=== PATIENT | female | born 2000 | race Caucasian/White ===

== ENCOUNTER 2023-12-02 10:30 | Emergency (ER) | payer OTHER, SELFPAY ==
[2023-12-02 10:35] VITALS: BP 155/106; PULSE 109; TEMP 36.6; O2SAT 98; BMI 25.7
[2023-12-02 10:42] VITALS: BP 148/96
--- NOTE | 2023-12-02 11:02 | XR_ITS ---
The [address] [address] Patient Name: PRESTON HARTLEY MRN: [id number] date: 2000 Sex: F Assigned Patient Location: ER Current Patient Location: ED.MAIN Accession/Order Number: [id number] Exam Date: 12/02/2023 10:55 Report Date: 12/02/2023 11:31 At the request of: MARSHA TAYLOR Procedure: XR chest 2V EXAM: XR chest 2V HISTORY: Pain, left ribs pain for 2 weeks COMPARISON: None. TECHNIQUE: Chest X-ray, 2 views FINDINGS: Support devices: None. Lungs/pleura: No consolidation, effusion, or pneumothorax. Heart and mediastinum: Normal contours. Bones: No definite acute displaced fracture is noted in the AP and lateral images. If there is any point tenderness, dedicated repeat x-ray is recommended. XR/XR chest 2V Impression: No radiographic evidence of acute cardiopulmonary process. No definite acute displaced fracture is noted in the AP and lateral images. If there is any point tenderness, dedicated repeat x-ray is recommended. Electronically authenticated by: ROSSANA MISTRY Date: 12/02/2023 11:31
--- NOTE | 2023-12-02 11:13 | ED.CHESTPAI1 ---
HPI - Chest Pain General Chief Complaint: Chest Pain Stated Complaint: SIDE PAIN Time Seen by Provider: 12/02/23 10:56 Source: patient Mode of arrival: walk-in Limitations: no limitations History of Present Illness HPI narrative: This patient is here complaining of left anterior lateral chest pain. She had what she calls a cold about 1 month ago and had some discomfort in that area. That discomfort has persisted but it seemed to get a lot worse today. She has not had purulent sputum she has not had fever shakes chills or influenza type symptoms. The left chest pain is made worse with taking a deep breath and with moving. She has not had a chest x-ray eval and. She is on an estrogen. She is afebrile here and has normal pulse oximetry on room air here. The pain is not in her back area. She has not had any trauma or injury to the area. 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 She moves about with hesitation grimacing hold her left anterior chest area. Examining her lungs she has excellent breath sounds with no wheeze rales or rhonchi there is no pleural or pericardial rub. Her heart sounds are normal with no heart murmur. She has no bruises contusions or abrasions over the area. There is no rash or anything to suggest shingles at this time. She has no discomfort with deep palpation in the left upper quadrant. There is no splenomegaly. She has reproducible discomfort with palpation over the lateral chest wall but there is no crepitation or subcutaneous emphysema or paradoxical movement. Her legs show no evidence of DVT phlebitis or edema. Routine single view chest x-ray is done I do not see any evidence of pneumothorax infiltrates or other abnormalities. Constitutional Vital Signs, click to edit/add: Last Vital Signs Temp 97.8 F 12/02/23 10:35 Pulse 109 H 12/02/23 10:35 Resp 18 12/02/23 10:35 BP 148/96 H 12/02/23 10:42 Pulse Ox 98 12/02/23 10:35 O2 Del Method Room Air 12/02/23 10:35 Course Vital Signs Vital signs: Vital Signs Temperature 97.8 F 12/02/23 10:35 Pulse Rate 109 H 12/02/23 10:35 Respiratory Rate 18 12/02/23 10:35 Blood Pressure 155/106 H 12/02/23 10:35 Pulse Oximetry 98 12/02/23 10:35 Oxygen Delivery Method Room Air 12/02/23 10:35 Temperature 97.8 F 12/02/23 10:35 Pulse Rate 109 H 12/02/23 10:35 Respiratory Rate 18 12/02/23 10:35 Blood Pressure 148/96 H 12/02/23 10:42 Pulse Oximetry 98 12/02/23 10:35 Oxygen Delivery Method Room Air 12/02/23 10:35 MDM - Chest Pain MDM Narrative Medical decision making narrative: This patient's physical examination and history would suggest a chest wall strain. Do not see high risk condition for DVT. She is on immune medications for Crohn's disease but there is no side effect profile for DVT or pulmonary embolism. She has no clinical symptoms of phlebitis or DVT. Her pulse oximetry and vital signs are normal and her examination is consistent with a chest wall strain. I did offer her our actual rib study to get better views but she does not want to proceed with that. Discharge Plan Discharge Stand Alone Forms: Portal Instructions Chief Complaint: Chest Pain Clinical Impression: Acute chest wall pain Patient Disposition: Home, Self-Care Time of Disposition Decision: 11:56 Prescriptions / Home Meds: No Action dextroamphetamine-amphetamine 10 mg tablet 20 mg PO DAILY norgestimate-ethinyl estradiol 0.25-35 mg-mcg tablet 1 tab PO DAILY venlafaxine 75 mg capsule,extended release 24hr 75 mg PO DAILY Stelara 90 mg/mL syringe 90 mg SUBCUT .every 8 weeks Print Language: Swiss Additional Instructions: Toradol as needed for pain Referrals: PADMINI DOUGLAS [Primary Care Provider] - 1 week
== END 2023-12-02 12:09 | disposition home or self-care (01) ==
PROVIDERS: Emergency Provider Emergency Medicine Emergency Medical Services; PCP Family Medicine
DX: R07.89 Other chest pain (principal)
CPT/HCPCS: 71046; 99283

== ENCOUNTER 2024-03-17 11:03 | Outpatient (OUT) | payer OTHER, SELFPAY ==
[2024-03-21 02:06] LABS: Calprotectin, Fecal 704 ug/g (0-120)
== END 2024-03-17 11:04 | disposition home or self-care (01) ==
LOC: LAB 11:03
PROVIDERS: PCP Family Medicine; Visit Provider Internal Medicine
DX: K50.90 Crohn's disease, unspecified, without complications (principal)
CPT/HCPCS: 83993

== ENCOUNTER 2024-07-21 12:15 | Outpatient (OUT) | payer OTHER, SELFPAY ==
[2024-07-21 13:08] LABS: C Reactive Protein 1.84 mg/dL (<=0.50)
[2024-07-24 07:08] LABS: Calprotectin, Fecal 31 ug/g (0-120)
== END 2024-07-21 12:16 | disposition home or self-care (01) ==
LOC: LAB 12:15
PROVIDERS: PCP Family Medicine; Visit Provider Internal Medicine
DX: K50.90 Crohn's disease, unspecified, without complications (principal)
CPT/HCPCS: 36415; 83993; 86140

== ENCOUNTER 2024-11-17 09:54 | Outpatient (REF) | payer OTHER, SELFPAY ==
--- OUTSIDE RECORDS SUMMARY | 2024-11-17 10:18 | XMS_ITS | CCD ---
Author Organization [facility] CliniSynj Care Team Providers Care Loan Operations Specialist Name Role Phone DR PADMINI DOUGLAS Primary Care Unavailable PADMINI PORTILLO JR Attending Unavailable PADMINI PORTILLO JR Consulting Unavailable PADMINI PORTILLO JR Admitting Unavailable Padmini Portillo Unavailable Padmini Douglas Unavailable Mario Kenny Unavailable DO Padmini Douglas Primary Care Provider DO Padmini Douglas Attending Provider Rip Subramanian Unavailable DO Padmini Douglas Primary Care Provider DO Padmini Douglas Attending Provider [phone] DO Padmini Douglas Primary Care Provider DO Padmini Douglas Attending Provider MD Rip Subramanian Other Provider MD Rip Subramanian Attending Provider GABRIEL TA Referring Unavailable BHANDIWAD, JORDANA Admitting Unavailable CONSULT, IP GASTROENTEROLOGY Consulting Renee MARKO Prado Attending Unavailable PROVIDER, UNKNOWN Attending Unavailable GABRIEL TA Referring Unavailable PROVIDER, UNKNOWN Admitting Unavailable GABRIEL TA Referring Unavailable PROVIDER, UNKNOWN Attending Unavailable BHANDIWAD, JORDANA Admitting Unavailable GABRIEL TA Referring Unavailable BHANDIWAD, JORDANA Admitting Unavailable PROVIDER, UNKNOWN Attending Unavailable PROVIDER, UNKNOWN Attending Unavailable GABRIEL TA Referring Unavailable PROVIDER, UNKNOWN Admitting Unavailable Unavailable Primary Care Provider Unavailabl e DO Padmini Douglas Primary Care Provider MD Rip Subramanian Attending Provider Asaad, MD Imad Referring Provider [phone] Asaad, Imad Referring Unavailable Padmini Douglas Primary Care Unavailable Asaad, Imad Admitting Unavailable Moirs, aTmad Attending Unavailable Padmini Douglas Admitting Unavailable Padmini Douglas Primary Care Unavailable Padmini Douglas Attending Unavailable Moris, Tamad Consulting Unavailable Padmini Douglas Primary Care Unavailable Allen Ta Admitting Unavailable Allen Ta Attending Unavailable Asawaqar, Tamad Attending Unavailable Padmini Douglas Primary Care Unavailable Asaad, Imad Admitting Unavailable Allergies Allergy Classification Reported Allergen(s) Allergy Type Date of Onset Reaction(s) Facility (20 sources) buPROPion Drug Allergy made more depressed Typo Keyboards Other (1 source) buPROPion Drug Allergy [facility] Repository Medications Current Medications Medication Drug Class(es) Dates Sig (Normalized) Sig (Original) ethinyl estradiol 0.035 mg / norgestimate 0.25 mg oral tablet (20 sources) Progestin, Estrogen Start: 11-07-2023 norgestimate-ethin yl estradiol (PRAVIFEM- ORTHO/CYCLEN) 0.25-35 MG-MCG tablet Take 1 Tablet by mouth daily. 11/07/2023 Active Start: 12-07-2021 take 1 tablet by joao th once daily Norgestimate-Ethinyl Estradiol 0.25-35 mg-mcg tablet Active 1 TAB PO Daily December 06, 2021 11:00pm Start: 12-07-2021 take 1 tablet by joao th once daily Norgestimate-Ethinyl Estradiol Active 1 TAB PO Daily December 07, 2021 12:00am Start: 12-07-2021 take 1 tablet by joao th once daily Norgestimate-Ethinyl Estradiol Active 1 TAB PO Daily December 06, 2021 11:00pm Start: 12-16-2016 take 1 tablet by joao th every twenty-four hours Sprintec 28 0.25-35 MG-MCG 1 tablet Orally Once a day Nov, Active ferrous sulfate 325 mg oral tablet (2 sources) Start: 11-20-2015 take 1 tablet by mouth once daily Ferrous Sulfate 325 (65 Fe) MG 1 tablet Orally 1 day a week Oct, Active predniSONE 5 mg oral tablet (4 sources) Start: 03-30-2024 End: 05-25-2024 take 8 tablets by mouth once daily, then take 7 tablets by mouth once daily, then take 6 tablets by mouth once daily, then take 5 tablets by mouth once daily, then take 4 tablets by mouth once daily, then take 3 tablets by mouth once daily, then take 2 tablets by mouth once daily, then take 1 tablet by mouth once daily predniSONE (DELTASONE) 5 MG tablet Take 8 Tablets by mouth daily for 7 days, THEN 7 Tablets daily for 7 days, THEN 6 Tablets daily for 7 days, THEN 5 Tablets daily for 7 days, THEN 4 Tablets daily for 7 days, THEN 3 Tablets daily for 7 days, THEN 2 Tablets daily for 7 days, THEN 1 Tablet daily for 7 days. 252 Tablet 03/30/2024 05/25/2024 Active Start: 03-24-2024 End: 07-07-2024 Prednisone 5 mg tablet Disco ntinued 0 PO As Directed [id number] March 23, 2024 11:00pm July 07, 2024 10:34am take 40mg for 21 days, then 35mg for 7days, then 30mg for 7days, then 25mg for 7days, then 20 mg for 7 days, then 15mg for 7 days, then10 mg for 7 days, then 5mg for 7 days orally as directed; see taper instructions Start: 03-24-2024 Prednisone Act alondra 0 PO As Directed [id number] March 23, 2024 11:00pm take 40mg for 21 days, then 35mg for 7days, then 30mg for 7days, then 25mg for 7days, then 20 mg for 7 days, then 15mg for 7 days, then10 mg for 7 days, then 5mg for 7 days orally as directed; see taper instructions Risankizumab-Rzaa (Skyrizi) 360 mg/2.4 mL (150 mg/mL) wearable injector (1 source) Start: 08-02-2024 Risankizumab-Rzaa (Skyrizi) 360 mg/2.4 mL (150 mg/mL) wearable injector Active 0 SUBCUT .every 8 weeks 2.4 60 August 02, 2024 12:00am 360 mg/2.4 mL subcutaneously EVERY 8 WEEKS; use one 360mg/2.4 mL on body injector every 8 weeks 24 hr venlafaxine 75 mg extended release oral capsule (20 sources) Serotonin and Norepinephrine Reuptake Inhibitor Start: 12-24-2023 End: 04-28-2024 take 1 capsule by mouth once daily at mealtime Venlafaxine 75 mg capsule,extended release 24hr Active 75 MG PO .daily with food April 28, 2024 12:01pm Start: 03-06-2022 take 1 capsule by [facility] every twenty-four hours Effexor XR 75 MG 1 capsule with food Orally Once a day Feb, Active zolpidem tartrate 5 mg oral tablet (20 sources) gamma-Aminobutyric Acid-ergic Agonist Start: 08-08-2017 take 1 tablet by mouth once daily at bedtime Ambien 5 MG 1 tablet Orally qd hs prm Jul, Active Completed/Discontinued Medications Medication Drug Class(es) Dates Sig (Normalized) Sig (Original) amoxicillin 875 mg / clavulanate 125 mg oral tablet (12 sources) Penicillin-class Antibacterial Start: 03-06-2022 take 1 tablet by mouth twice daily at mealtime Amoxicillin-Pot Clavulanate 875-125 MG 1 tablet Orally two times a day with food for 10 day(s) Feb, Not-Taking amphetamine aspartate 2.5 mg / amphetamine sulfate 2.5 mg / dextroamphetamine saccharate 2.5 mg / dextroamphetamine sulfate 2.5 mg oral tablet (20 sources) Central Nervous System Stimulant Start: 12-24-2023 End: 10-01-2024 Dextroamphetamine -Amphetamine 10 mg tablet Discontinued 10 MG PO Three times daily December 24, 2023 February 09, 2024 1:14pm 1 tablet at 7 AM, then take 1 tablet at noon Orally then take 1 tablet at 4 pm; Start: 10-06-2023 Amphetamine-De xtroamphetamine 10 MG 1 tablet at 7 AM, then take 1 tablet at noon Orally then take 1 tablet at 4 pm for 30 days Sep, Active Start: 08-22-2023 Amphetamine-De xtroamphetamine 10 MG 1 tablet at 7 AM, then take 1 tablet at noon Orally then take 1 tablet at 4 pm Jul, Active Start: 06-30-2023 Amphetamine-De xtroamphetamine 10 MG 1 tablet at 7 AM, then take 1 tablet at noon Orally then take 1 tablet at 4 pm for 30 days Jun, Active Start: 05-23-2023 Amphetamine-De xtroamphetamine 10 MG 1 tablet at 7 AM, then take 1 tablet at noon Orally then take 1 tablet at 4 pm for 30 days Apr, Active Start: 04-21-2023 Amphetamine-De xtroamphetamine 10 MG 1 tablet at 7 AM, then take 1 tablet at noon Orally then take 1 tablet at 4 pm for 30 days Mar, Active Start: 03-03-2023 Amphetamine-De xtroamphetamine 10 MG 1 tablet at 7 AM, then take 1 tablet at noon Orally then take 1 tablet at 4 pm Feb, Active Start: 01-21-2023 Amphetamine-De xtroamphetamine 10 MG 1 tablet at 7 AM, then take 1 tablet at noon Orally then take 1 tablet at 4 pm for 30 days December, Active Start: 06-26-2018 End: 12-24-2023 take 1 capsule by mouth once daily Dextroamphetamine-Amphetamine 20 mg capsule,extended release 24hr Discontinued 20 MG PO Daily December 06, 2021 11:00pm November 26, 2023 11:49am dicyclomine hydrochloride 20 mg oral tablet (20 sources) Anticholinergic Start: 12-24-2023 End: 07-07-2024 take 1 tablet by mouth twice daily as needed for pain Dicyclomine 20 mg tablet Discontinued 20 MG PO Twice daily as needed for abdominal pain December 23, 2023 11:00pm July 07, 2024 10:34am Start: 06-20-2021 take 1 tablet by joao every twelve hours Dicyclomine HCl 20 MG 1 tablet Orally TWICE A DAY prn May, Active escitalopram 10 mg oral tablet (15 sources) Serotonin Reuptake Inhibitor Start: 12-07-2021 End: 12-24-2023 take 1 tablet by mouth once daily Escitalopram Oxalate 10 mg tablet Discontinued 10 MG PO Daily December 06, 2021 11:00pm December 24, 2023 9:36am take 0.5 tablet by mouth once da armand Escitalopram Oxalate 10 MG take 1/2 tablet by mouth once daily Active 1 ml ustekinumab 90 mg/ml prefilled syringe (20 sources) Interleukin-12 Antagonist, Interleukin-23 Antagonist Start: 12-07-2021 End: 04-22-2024 inject 90 mg by subcutaneous injection every two months Ustekinumab (Stelara) 90 mg/mL Syringe Discontinued 90 MG SUBCUT EVERY 2 MONTHS December 06, 2021 11:00pm April 22, 2024 7:45am Stelara 90 MG/ML as directed Subcutaneous every 8 wks for 56 days Active Problems Active Problems Problem Classification Problem Date Documented Da te Episodic/Chronic Anxiety disorders (20 sources) Anxiety; Translations: [Anxiety disorder, unspecified] Onset: 2 Resolved: 2 Chronic Attention-deficit, conduct, and disruptive behavior disorders (20 sources) Attention deficit hyperactivity disorder; Translations: [Attention-deficit hyperactivity disorder, unspecified type] Onset: 4 11-26-2023 Chronic Attention-deficit, conduct, and disruptive behavior disorders (20 sources) Attention-deficit hyperactivity disorder, unspecified type; Translations: [Attention deficit disorder with hyperactivity] Onset: 1 Resolved: 2 Chronic Deficiency and other anemia (20 sources) Iron deficiency anemia; Translations: [Iron deficiency anemia, unspecified] 03-31-2024 Episodic Deficiency and other anemia (4 sources) Iron deficiency anemia, unspecified; Translations: [Iron deficiency anemia, unspecified] Onset: 2 Resolved: 2 Episodic Deficiency and other anemia (1 source) Anemia, unspecified Episodic Diseases of white blood cells (20 sources) Increased blood leukocyte number; Translations: [Elevated white blood cell count, unspecified] 03-31-2024 Chronic Fluid and electrolyte disorders (1 source) Hypo-osmolality and hyponatremia Episodic Gastrointestinal hemorrhage (20 sources) Hematochezia; Translations: [Melena] Episodic Headache; including migraine (20 sources) Migraine; Translations: [Migraine, unspecified, not intractable, without status migrainosus] Chronic Intestinal obstruction without hernia (5 sources) Small bowel obstruction; Translations: [Unspecified intestinal obstruction, unspecified as to partial versus complete obstruction] Onset: 4 03-26-2024 Episodic Menstrual disorders (20 sources) Menorrhagia; Translations: [Excessive and frequent menstruation with regular cycle] Chronic Mood disorders (20 sources) Depressive disorder; Translations: [Major depressive disorder, single episode, unspecified] Chronic Nausea and vomiting (20 sources) Nausea and vomiting; Translations: [Nausea with vomiting, unspecified] Episodic Other aftercare (5 sources) Other intermediate (current) drug therapy Onset: 2 Resolved: 2 Episodic Other aftercare (2 sources) Immunosuppression; Translations: [Immunosuppression due to drug therapy] 08-02-2024 Episodic Other endocrine disorders (16 sources) Hypoglycemia; Translations: [Hypoglycemia, unspecified] Chronic Other endocrine disorders (1 source) Hypoglycemia, unspecified Chronic Other gastrointestinal disorders (20 sources) Diarrhea; Translations: [Diarrhea, unspecified] Episodic Other gastrointestinal disorders (20 sources) H/O: gastrointestinal disease; Translations: [Personal history of other diseases of the digestive system] Episodic Other nutritional; endocrine; and metabolic disorders (20 sources) Body mass index less than 20; Translations: [Body mass index (BMI) 19.9 or less, adult] Episodic Other nutritional; endocrine; and metabolic disorders (2 sources) Abnormal weight gain Onset: 2 Resolved: 2 Episodic Other nutritional; endocrine; and metabolic disorders (1 source) Overweight in adulthood with body mass index of 25 or more but less than 30; Translations: [Body mass index (BMI) 27.0-27.9, adult] 04-23-2024 Episodic Regional enteritis and ulcerative colitis (20 sources) Crohn's disease, unspecified, without complications; Translations: [Crohn's disease] Onset: 1 Resolved: 2 Chronic Residual codes; unclassified (20 sources) Insomnia; Translations: [Insomnia, unspecified] 12-24-2023 Episodic Residual codes; unclassified (7 sources) Insomnia, unspecified; Translations: [Insomnia, unspecified] Onset: 2 Resolved: 2 Episodic Past or Other Problems Problem Classification Problem Date Documented Da te Episodic/Chronic Unclassified (1 source) Cough R05.9 Onset: 10-29-2021 Resolved: 10-29-2021 Results Test Name Value Interpretation Reference Range Facility No Panel Informationon 07-21 C-Reactive Protein, Quantitative 1.84 mg/dL High <=0.[address] [facility] Stool Calprotectin 31 ug/g 0-120 [facility] Comment on above: Concentration Interp retation Follow-Up< 5 - 50 ug/g Normal None>50 -120 ug/g Borderline Re-evaluate in 4-6 weeks >120 ug/g Abnormal Repeat as clinically indicatedPerformed at: [facility] [id number] [place], [place] [id number] Director: Salty Estevez MD, Phone: [phone] BASIC METABOLIC PANELon 080 Anion gap [Moles/Vol] 15 mmol/L Normal 10-20 [facility] Comment on above: Performed By: #### C RP, CH8 #### [facility] [address] [place] [address], Calcium [Mass/Vol] 8.5 mg/dL Low 8.6-10.3 [facility] Comment on above: Performed By: #### C RP, CH8 #### [facility] [address] [place] [address], Chloride [Moles/Vol] 104 mmol/L Normal 98-107 [facility] Comment on above: Performed By: #### C RP, CH8 #### [facility] [address] [place] [address], CO2 [Moles/Vol] 25 mmol/L Normal 21-31 [facility] Comment on above: Performed By: #### C RP, CH8 #### [facility] [address] [place] [address], Creatinine [Mass/Vol] 0.50 mg/dL Low 0.60-1.20 [facility] Comment on above: Performed By: #### C RP, CH8 #### [facility] [address] [place] [address], ESTIMATED GFR (CKD-EPI) 133 mL/min/1.73sqm Normal >=60 [facility] Comment on above: Result Comment: 2020 CKD EPI Equation using Creatinine without Race Comment: Estimated glomerular filtration rate (eGFR) is calculated without a race coefficient. Values should be interpreted in the context of the patient's full clinical presentation. Reference: 1. Hema C, Ly M, Natasha ROBLES, et al.. A Unifying Approach for GFR Estimation: Recommendations of the NKF-ASN Task Force on Reassessing the Inclusion of Race in Diagnosing Kidney Disease. [place] Journal of Kidney Diseases 2021;79(2):268-88.e1. 2. N Engl J Med 2020 Vol. 385 Issue 19 Pages [phone] Performed By: #### C RP, CH8 #### [facility] [address] [place], [place], Glucose [Mass/Vol] 88 mg/dL Normal 74-109 [facility] Comment on above: Performed By: #### C RP, CH8 #### [facility] [address] [place], [place], Potassium [Moles/Vol] 4.1 mmol/L Normal 3.5-5.0 [facility] Comment on above: Performed By: #### C RP, CH8 #### [facility] [address] [place], [place], Sodium [Moles/Vol] 140 mmol/L Normal 136-145 [facility] Comment on above: Performed By: #### C RP, CH8 #### [facility] [address] [place], [place], Urea nitrogen [Mass/Vol] 5 mg/dL Low 7-25 [facility] Comment on above: Performed By: #### C RP, CH8 #### [facility] [address] [place], [place], C-REACTIVE PROTEINon 024 CRP 2.6 mg/dL High <0.5 [facility] Comment on above: Performed By: #### C RP, CH8 #### [facility] [address] [place], [place], COMPLETE BLOOD COUNTon 03-29 Erythrocyte distribution width (RBC) [Ratio] 12.7 % Normal 11.5-14.5 [facility] Comment on above: Performed By: #### C BC ####[facility] [id number] [place], [place], Hematocrit (Bld) [Volume fraction] 36.8 % Normal 36.0-46.0 [facility] Comment on above: Performed By: #### C BC ####[facility] [id number] [place], [place], Hemoglobin (Bld) [Mass/Vol] 12.2 g/dL Normal 12.0-15.0 [facility] Comment on above: Performed By: #### C BC ####[facility] [id number] [place], [place], MCH (RBC) [Entitic mass] 29.3 pg Normal 26.0-34.0 [facility] Comment on above: Performed By: #### C BC ####[facility] [id number] [place], [place], MCHC (RBC) [Mass/Vol] 33.3 g/dL Normal 32.0-35.9 [facility] Comment on above: Performed By: #### C BC ####[facility] [id number] [place], [place], MCV (RBC) [Entitic vol] 88 fL Normal 80-100 [facility] Comment on above: Performed By: #### C BC ####[facility] [id number] [place], [place], Platelet mean volume (Bld) [Entitic vol] 9.1 fL Normal 7.5-11.2 [facility] Comment on above: Performed By: #### C BC ####[facility] [id number] [place], [place], Platelets (Bld) [#/Vol] 365 10*3/uL Normal 150-400 [facility] Comment on above: Performed By: #### C BC ####[facility] [id number] [place], [place], RBC (Bld) [#/Vol] 4.17 10*6/uL Normal 4.00-5.20 [facility] Comment on above: Performed By: #### C BC ####[facility] [id number] [place], [place], WBC (Bld) [#/Vol] 14.0 10*3/uL High 4.5-11.5 [facility] Comment on above: Performed By: #### C ####[facility] [id number] [place], [id number] Progress Noteson 03-29-2024 Transport Tank Technician Authentication Interface Message Text Department of Gastroenterology and Hepatology [facility] Brief Consult Follow Up Note Location: [place] [address] Attending Physician: Marko Yi MD Date of admission: 03/26/2024 9:16 AM Reason for Consult and Assessment Aparna Arteaga is a 24 year old female with a PMHx of Crohn's disease (on Stelara q8 weeks, last 03/11/2024) whom gastroenterology is consulted for stricturing ileal Crohn's disease with partial small bowel obstruction being conservatively managed. Transferred from outside hospital day after she presented the day after an outpatient colonoscopy on 02/2024 showing ulcers in TI (with plan to switch from Stelara to Skyrizi) with imaging evidence of SBO at level of TI. NG placed for decompression and removed on 03/27 evening. CTE on 03/28 showing mucosal thickening in TI with stricture and multiple other areas of mucosa enhancement in small bowel consistent with active Crohn's disease CTE IMPRESSION: 1. Mucosal hyperenhancement and decreased caliber involving the terminal ileum and a separate segment in the distal ileum, and probably at least 2 and up to 4 additional short segments of mucosal hyperenhancement and decreased luminal caliber more proximally in the ileum. The findings are consistent with multifocal inflammatory changes and a stricture from Crohn's disease. These various segments probably cause mild degrees of partial obstruction. 2. No perianal fistula or abscess. Subjective: Feels back to baseline. Has some Completed 3 days of IV steroids, now on oral prednisone. Tolerating full liquid, advancing to regular diet today Wanting to go home, feels ready. Wants to establish care with GI here 03/27/2024 12:21 AM 03/28/2024 1:24 AM 03/29/2024 1:19 AM C-Reactive Protein 11.3 (H) 5.8 (H) 2.6 (H) Recommendations # Stricturing ileal Crohn's disease - continue to trend daily CRP, CBC daily while in-patient - completed 3 days of solumedrol 40 mg IV, received first dose of prednisone 40 mg oral - discharge on 8 week taper with prednisone 40 mg, drop by 5 mg weekly - we will set up outpatient follow-up with us in IBD clinic Thank you for this consult, we will continue to follow. Please page with any questions. Rene Roque MD Gastroenterology Fellow Division of Gastroenterology AND Hepatology [facility] 03/29/24, 10:01 AM Normal [facility] BASIC METABOLIC PANELon 08-0 -2023 Anion gap [Moles/Vol] 16 mmol/L Normal 10-20 [facility] Comment on above: Performed By: #### C H8, CRP #### [facility] [address] [place], [place], Calcium [Mass/Vol] 8.7 mg/dL Normal 8.6-10.3 [facility] Comment on above: Performed By: #### C H8, CRP #### [facility] [address] [place], [place], Chloride [Moles/Vol] 104 mmol/L Normal 98-107 [facility] Comment on above: Performed By: #### C H8, CRP #### [facility] [address] [place], [place], CO2 [Moles/Vol] 23 mmol/L Normal 21-31 [facility] Comment on above: Performed By: #### C H8, CRP #### [facility] [address] [place], [place], Creatinine [Mass/Vol] 0.54 mg/dL Low 0.60-1.20 [facility] Comment on above: Performed By: #### C H8, CRP #### [facility] [address] [place], [place], ESTIMATED GFR (CKD-EPI) 130 mL/min/1.73sqm Normal >=60 [facility] Comment on above: Result Comment: 2020 CKD EPI Equation using Creatinine without Race Comment: Estimated glomerular filtration rate (eGFR) is calculated without a race coefficient. Values should be interpreted in the context of the patient's full clinical presentation. Reference: 1. Hema Tovar, Ly M, Natasha ROBLES, et al.. A Unifying Approach for GFR Estimation: Recommendations of the NKF-ASN Task Force on Reassessing the Inclusion of Race in Diagnosing Kidney Disease. [place] Journal of Kidney Diseases 2021;79(2):268-88.e1. 2. N Engl J Med 1 Vol. 385 Issue 19 Pages [phone] Performed By: #### C H8, CRP #### [facility] [address] [place], [place], Glucose [Mass/Vol] 95 mg/dL Normal 74-109 [facility] Comment on above: Performed By: #### C H8, CRP #### [facility] [address] [place], [place], Potassium [Moles/Vol] 4.2 mmol/L Normal 3.5-5.0 [facility] Comment on above: Performed By: #### C H8, CRP #### [facility] [address] [place] [address], Sodium [Moles/Vol] 139 mmol/L Normal 136-145 [facility] Comment on above: Performed By: #### C H8, CRP #### [facility] [address] [place] [address], Urea nitrogen [Mass/Vol] 8 mg/dL Normal 7-25 [facility] Comment on above: Performed By: #### C H8, CRP #### [facility] [address] [place] [address], C-REACTIVE PROTEINon 024 CRP 5.8 mg/dL High <0.5 [facility] Comment on above: Performed By: #### C H8, CRP #### [facility] [address] [place], [place], COMPLETE BLOOD COUNTon 03-28 Erythrocyte distribution width (RBC) [Ratio] 13.0 % Normal 11.5-14.5 [facility] Comment on above: Performed By: #### C H8, CRP #### [facility] [address] [place] [address], Hematocrit (Bld) [Volume fraction] 36.4 % Normal 36.0-46.0 [facility] Comment on above: Performed By: #### C H8, CRP #### [facility] [address] [place] [address], Hemoglobin (Bld) [Mass/Vol] 12.1 g/dL Normal 12.0-15.0 [facility] Comment on above: Performed By: #### C H8, CRP #### [facility] [address] [place] [address], MCH (RBC) [Entitic mass] 29.1 pg Normal 26.0-34.0 [facility] Comment on above: Performed By: #### C H8, CRP #### [facility] [address] [place] [address], MCHC (RBC) [Mass/Vol] 33.2 g/dL Normal 32.0-35.9 [facility] Comment on above: Performed By: #### La H8, CRP #### [facility] [address] [place] [address], MCV (RBC) [Entitic vol] 88 fL Normal 80-100 T [facility] Comment on above: Performed By: #### C H8, CRP #### [facility] [address] [place] [address], Platelet mean volume (Bld) [Entitic vol] 9.5 fL Normal 7.5-11.2 [facility] Comment on above: Performed By: #### C H8, CRP #### [facility] [address] [place] [address], Platelets (Bld) [#/Vol] 362 10*3/uL Normal 150-400 [facility] Comment on above: Performed By: #### C H8, CRP #### [facility] [address] [place] [address], RBC (Bld) [#/Vol] 4.14 10*6/uL Normal 4.00-5.20 [facility] Comment on above: Performed By: #### C H8, CRP #### [facility] [address] [place] [address], WBC (Bld) [#/Vol] 12.0 10*3/uL High 4.5-11.5 [facility] Comment on above: Performed By: #### C H8, CRP #### [facility] [address] [place], [place], CT ENTEROGRAPHY W/ CONTRASTo n 03-28-2024 CT ENTEROGRAPHY W/ CONTRAST EXAMINATION: CT ENTEROGRAPHY W/ CONTRAST 03/28/2024 09:58 AM CLINICAL HISTORY: SBO, Crohns, c/f ileum stricture ASSOCIATED DIAGNOSIS: SBO, Crohns, c/f ileum stricture ORDERING PROVIDER: JORDANA BEEBE TECHNOLOGISTS NOTE: COMPARISON: CT BODY IMAGE IMPORT(JIM) 03/26/2024, 2:02 AM TECHNIQUE: Contiguous axial images were obtained through the abdomen and pelvis, from the level of the diaphragmatic domes through the pubic symphysis following administration of oral negative contrast and intravenous contrast. Sagittal and coronal MPR reconstructions were performed. Before infusion of intravenous contrast, radiology personnel investigated the possibility of an allergic history and of any history of reaction to iodinated contrast material. INTRA-PROCEDURE MEDS: Breeza 3 Each 3 Each Route: Oral iohexol (OMNIPAQUE) 350 MG/ML injection 100 mL Route: Intravenous Push FINDINGS: Bowel: The stomach, duodenum, and at least most of the jejunum are normal in appearance. Multiple loops of ileum are fluid-filled and mildly distended with the most distended segment measuring 3.5 cm diameter. * An approximate 6.5 cm length of the terminal ileum has mucosal hyperenhancement and decreased luminal caliber. * Approximately 16 cm proximal to the ileocecal valve, a segment of distal ileum measuring about 7 cm in length has mucosal hyperenhancement and decreased luminal caliber. * More proximally in the ileum, an approximately 4 cm long segment of ileum has mucosal hyperenhancement and decreased caliber. * A couple of additional short segments of small bowel are small in caliber and have mild increased density suspicious for additional sites of inflammation and decreased caliber. The colon is mostly fluid-filled, possibly due to oral contrast, and normal in caliber and wall thickness. The appendix is normal in appearance. Included images of the lower thorax: Mild bibasilar atelectasis. Calcified nodules consistent with granulomas in the basilar aspects right lower and middle lobes. Hepatobiliary: Unremarkable liver without biliary dilation evident. Pancreas: Unremarkable Spleen: Unremarkable Adrenal Glands: Unremarkable Kidneys, ureters, and bladder: No calculi or hydroureteronephrosis . Abdominal and pelvic vasculature: Unremarkable Peritoneum and retroperitoneum: Trace free fluid dependently in the pelvis. No free air. Lymph Nodes: No abdominal or pelvic lymphadenopathy is evident Uterus and adnexa: Unremarkable. Visualized musculoskeletal structures: No acute fracture or destructive osseous lesion is identified. IMPRESSION: 1. Mucosal hyperenhancement and decreased caliber involving the terminal ileum and a separate segment in the distal ileum, and probably at least 2 and up to 4 additional short segments of mucosal hyperenhancement and decreased luminal caliber more proximally in the ileum. The findings are consistent with multifocal inflammatory changes and a stricture from Crohn's disease. These various segments probably cause mild degrees of partial obstruction. 2. No perianal fistula or abscess. MACRO: None Normal [facility] Progress Noteson 03-28-2024 Transport Tank Technician Authentication Interface Message Text Department of Gastroenterology and Hepatology [facility] Brief Consult Follow Up Note Location: [place] [address] Attending Physician: Jordana Beebe MD Date of admission: 03/26/2024 9:16 AM Reason for Consult and Assessment Aparna Arteaga is a 24 year old female with a PMHx of Crohn's disease (on Stelara q8 weeks, last 03/11/2024) whom gastroenterology is consulted for stricturing ileal Crohn's disease with partial small bowel obstruction being conservatively managed. Transferred from outside hospital day after she presented the day after an outpatient colonoscopy on 02/2024 showing ulcers in TI (with plan to switch from Stelara to Skyrizi) with imaging evidence of SBO at level of TI. NG placed for decompression and removed on 03/27 evening. Subjective: Feels much improved with NG tube removed. Had large solid bowel movement yesterday. Abdominal pain has improved 03/26/2024 11:41 AM 03/27/2024 12:21 AM 03/28/2024 1:24 AM C-Reactive Protein 7.8 (H) 11.3 (H) 5.8 (H) Recommendations # Stricturing ileal Crohn's disease - CT enterography completed, pending read - can continue to advance diet pending read - continue to trend daily CRP, CBC daily - day 3 of solumedrol 40 mg IV, can switch to prednisone 40 mg oral if CRP continues to improve Thank you for this consult, we will continue to follow. Please page with any questions. Rene Roque MD Gastroenterology Fellow Division of Gastroenterology AND Hepatology [facility] 03/28/24, 6:49 PM Normal [facility] BASIC METABOLIC PANELon 08-0 Anion gap [Moles/Vol] 16 mmol/L Normal 10-20 [facility] Comment on above: Performed By: #### C H8, CRP #### [facility] [address] [place] [address], Calcium [Mass/Vol] 9.1 mg/dL Normal 8.6-10.3 [facility] Comment on above: Performed By: #### C H8, CRP #### [facility] [address] [place] [address], Chloride [Moles/Vol] 106 mmol/L Normal 98-107 [facility] Comment on above: Performed By: #### C H8, CRP #### [facility] [address] [place] [address], CO2 [Moles/Vol] 22 mmol/L Normal 21-31 [facility] Comment on above: Performed By: #### C H8, CRP #### [facility] [address] [place] [address], Creatinine [Mass/Vol] 0.58 mg/dL Low 0.60-1.20 [facility] Comment on above: Performed By: #### C H8, CRP #### [facility] [address] [place], [place], ESTIMATED GFR (CKD-EPI) 128 mL/min/1.73sqm Normal >=60 [facility] Comment on above: Result Comment: 2020 CKD EPI Equation using Creatinine without Race Comment: Estimated glomerular filtration rate (eGFR) is calculated without a race coefficient. Values should be interpreted in the context of the patient's full clinical presentation. Reference: 1. Hema C, Ly M, Natasha ROBLES, et al.. A Unifying Approach for GFR Estimation: Recommendations of the NKF-ASN Task Force on Reassessing the Inclusion of Race in Diagnosing Kidney Disease. [place] Journal of Kidney Diseases 2021;79(2):268-88.e1. 2. N Engl J Med 2020 Vol. 385 Issue 19 Pages 1048-6869 Performed By: #### C H8, CRP #### [facility] [address] [place] [address], Glucose [Mass/Vol] 125 mg/dL High 74-109 [facility] Comment on above: Performed By: #### C H8, CRP #### [facility] [address] [place] [address], Potassium [Moles/Vol] 4.1 mmol/L Normal 3.5-5.0 [facility] Comment on above: Performed By: #### C H8, CRP #### [facility] [address] [place] [address], Sodium [Moles/Vol] 140 mmol/L Normal 136-145 [facility] Comment on above: Performed By: #### C H8, CRP #### [facility] [address] [place] [address], Urea nitrogen [Mass/Vol] 6 mg/dL Low 7-25 [facility] Comment on above: Performed By: #### C H8, CRP #### [facility] [address] [place] [address], C-REACTIVE PROTEINon 024 CRP 11.3 mg/dL High <0.5 [facility] Comment on above: Performed By: #### C H8, CRP #### [facility] [address] [place] [address], COMPLETE BLOOD COUNTon 03-27 Erythrocyte distribution width (RBC) [Ratio] 13.0 % Normal 11.5-14.5 [facility] Comment on above: Performed By: #### C BC #### [facility] [address] [place] [address], Hematocrit (Bld) [Volume fraction] 42.7 % Normal 36.0-46.0 [facility] Comment on above: Performed By: #### C BC #### [facility] LAB[facility] [address] [place], [place], Hemoglobin (Bld) [Mass/Vol] 14.8 g/dL Normal 12.0-15.0 [facility] Comment on above: Performed By: #### C BC #### [facility] [address] [place], [place], MCH (RBC) [Entitic mass] 30.5 pg Normal 26.0-34.0 [facility] Comment on above: Performed By: #### C BC #### [facility] [address] [place], [place], MCHC (RBC) [Mass/Vol] 34.6 g/dL Normal 32.0-35.9 [facility] Comment on above: Performed By: #### C BC #### [facility] [address] [place], [place], MCV (RBC) [Entitic vol] 88 fL Normal 80-100 T [facility] Comment on above: Performed By: #### C BC #### [facility] [address] [place], [place], Platelet mean volume (Bld) [Entitic vol] 9.1 fL Normal 7.5-11.2 [facility] Comment on above: Performed By: #### C BC #### [facility] [address] [place], [place], Platelets (Bld) [#/Vol] 336 10*3/uL Normal 150-400 [facility] Comment on above: Performed By: #### C BC #### [facility] [address] [place], [place], RBC (Bld) [#/Vol] 4.84 10*6/uL Normal 4.00-5.20 [facility] Comment on above: Performed By: #### C BC #### [facility] [address] [place], [place], WBC (Bld) [#/Vol] 9.4 10*3/uL Normal 4.5-11.5 [facility] Comment on above: Performed By: #### C BC #### [facility] [address], [place], HIV1 HIV2 AGAB SCRNon 2023 HIV AG-AB SCREEN Non-Reactive Normal Non-Reactiv e [facility] Comment on above: Order Comment: HIV Information: ???[place] Rev. code 3701.243(E): This information has been disclosed to you from confidential records protected from disclosure by state law. ???You shall make no further disclosure of this information without the specific, written, and informed release of the individual to whom it pertains, or as otherwise permitted by state law. ???A general authorization for the release of medical or other information is not sufficient for the purpose of the release of HIV test results or diagnoses. Result Comment: No l aboratory evidence for HIV Infection. Negative result does not rule out acute HIV infection. If acute HIV infection is suspected, recommend ordering an HIV-1 RNA quanitification test. Performed By: #### h iv1 hiv2 agab scrn #### [facility] [address], [place], Progress Noteson 03-27-2024 Transport Tank Technician Authentication Interface Message Text Epic chat sent to Dr Beebe: Pt wants to know if her NG tube can come out. That is where all of her pain is. She said she has had multiple small BM's and a large one the last time. Awaiting response Normal [facility] Technician Authentication Interface Message Text Department of Gastroenterology and Hepatology [facility] Brief Consult Follow Up Note Location: [place] [address] Attending Physician: Jordana Beebe MD Date of admission: 03/26/2024 9:16 AM Reason for Consult and Assessment Aparna Arteaga is a 24 year old female with a PMHx of Crohn's disease (on Stelara q8 weeks, last 03/11/2024) whom gastroenterology is consulted for stricturing ileal Crohn's disease with partial small bowel obstruction being conservatively managed. Transferred from outside hospital day after she presented the day after an outpatient colonoscopy on 02/2024 showing ulcers in TI (with plan to switch from Stelara to Skizi) with imaging evidence of SBO at level of TI. NG placed for decompression. Subjective: Biggest concern is throat discomfort from NG tube output. Wanting it removed Has very minimal output from NG tube. Reports have multiple small watery bowel movements yesterday/overnight and one large bowel movement this morning. Passing gas Physical Exam HENT: Nose: Comments: NG tube in place Cardiovascular: Pulses: Normal pulses. Pulmonary: Effort: Pulmonary effort is normal. Abdominal: General: Abdomen is flat. Bowel sounds are normal. There is no distension. Palpations: There is no mass. Tenderness: There is abdominal tenderness. There is no guarding or rebound. Comments: Mild tenderness in LUQ and epigastric area Skin: General: Skin is warm. Neurological: General: No focal deficit present. Mental Status: She is alert and oriented to person, place, and time. Psychiatric: Mood and Affect: Mood normal. Recommendations # stricturing ileal Crohn's disease - continue solumedrol 40 mg daily - daily CRP - DVT prophylaxis - ok to remove NG tube for decompression given patient discomfort and since she understandable it may need to be re-inserted if she does not tolerate it - can trial CLD - serial abdominal exams - obtain CTE tomorrow 03/28 if tolerating no NG tube - continue to trend daily bowel movements Discussed with Attending Dr. Yassine Silveira MD. Thank you for this consult, we will continue to follow. Please page with any questions. Rene Roque MD Gastroenterology Fellow Division of Gastroenterology AND Hepatology [facility] 03/27/24, 10:55 AM Normal [facility] XR ABDOMEN AP 1 VIEWon 03-27 XR ABDOMEN AP 1 VIEW EXAMINATION: XR ABDOMEN AP 1 VIEW 03/27/2024 08:47 AM CLINICAL HISTORY: F/u on SBO ORDERING PROVIDER: JORDANA BEEBE COMPARISON: XR ABDOMEN AP 1 VIEW 03/26/2024, 2:42 PM, CT BODY IMAGE IMPORT(JIM) 03/26/2024, 2:02 AM FINDINGS: Again seen mildly dilated loops of small bowel measuring up to 3.1 cm in the right abdomen. Mild gaseous distention of the stomach. No dilated large bowel. No appreciable pneumoperitoneum. Mild elevation of right hemidiaphragm. Otherwise lung bases are unremarkable. IMPRESSION: Unchanged gaseous distention of small bowel, in keeping with partial small bowel obstruction. MACRO: None Normal [facility] BASIC METABOLIC PANELon 08-0 Anion gap [Moles/Vol] 15 mmol/L Normal 10-20 [facility] Comment on above: Performed By: #### H EPATIC, CRP, MG, CH8 ####S PATHOLOGY [id number] [place], [place], Calcium [Mass/Vol] 8.2 mg/dL Low 8.6-10.3 [facility] Comment on above: Performed By: #### H EPATIC, CRP, MG, CH8 ####[facility] [id number] [place], [place], Chloride [Moles/Vol] 107 mmol/L Normal 98-107 [facility] Comment on above: Performed By: #### H EPATIC, CRP, MG, CH8 ####S PATHOLOGY [id number] [place], [place], CO2 [Moles/Vol] 24 mmol/L Normal 21-31 [facility] Comment on above: Performed By: #### H EPATIC, CRP, MG, CH8 ####S PATHOLOGY [id number] [place], [place], Creatinine [Mass/Vol] 0.62 mg/dL Normal 0.60-1.20 [facility] Comment on above: Performed By: #### H EPATIC, CRP, MG, CH8 ####S PATHOLOGY [id number] [place], [place], ESTIMATED GFR (CKD-EPI) 126 mL/min/1.73sqm Normal >=60 [facility] Comment on above: Result Comment: 2020 CKD EPI Equation using Creatinine without Race Comment: Estimated glomerular filtration rate (eGFR) is calculated without a race coefficient. Values should be interpreted in the context of the patient's full clinical presentation. Reference: 1. Hema C, Ly M, Natasha ROBLES, et al.. A Unifying Approach for GFR Estimation: Recommendations of the NKF-ASN Task Force on Reassessing the Inclusion of Race in Diagnosing Kidney Disease. [place] Journal of Kidney Diseases 202;79(2):268-88.e1. 2. N Engl J Med 1 Vol. 385 Issue 19 Pages 2311-8108 Performed By: #### H EPATIC, CRP, MG, CH8 ####[facility] [id number] [place], [place], Glucose [Mass/Vol] 77 mg/dL Normal 74-109 [facility] Comment on above: Performed By: #### H EPATIC, CRP, MG, CH8 ####[facility] [id number] [place], [place], Potassium [Moles/Vol] 3.8 mmol/L Normal 3.5-5.0 [facility] Comment on above: Performed By: #### H EPATIC, CRP, MG, CH8 ####[facility] [id number] [place], [place], Sodium [Moles/Vol] 142 mmol/L Normal 136-145 [facility] Comment on above: Performed By: #### H EPATIC, CRP, MG, CH8 ####S PATHOLOGY [id number] [place], [place], Urea nitrogen [Mass/Vol] 6 mg/dL Low 7-25 [facility] Comment on above: Performed By: #### H EPATIC, CRP, MG, CH8 ####[facility] [id number] [place], [place], Basic Metabolic Panelon 08-0 Anion gap [Moles/Vol] 13.4 mmol/L Normal 6.0-15.0 [facility] Comment on above: Performed By: #### B MP, CBC, HEPATIC, LIPASE #### [facility] [address] [place] [address] [place] Calcium [Mass/Vol] 8.7 mg/dL Normal 8.6-10.3 [facility] Comment on above: Performed By: #### B MP, CBC, HEPATIC, LIPASE #### [facility] [address] [place] [address] [place] Chloride [Moles/Vol] 105 mmol/L Normal 98-107 [facility] Comment on above: Performed By: #### B MP, CBC, HEPATIC, LIPASE #### [facility] [address] CO2 [Moles/Vol] 21.3 mmol/L Normal 21.0-31.0 The [facility] Comment on above: Performed By: #### B MP, CBC, HEPATIC, LIPASE #### [facility] [address] Creatinine [Mass/Vol] 0.58 mg/dL Low 0.60-1.20 [facility] Comment on above: Performed By: #### B MP, CBC, HEPATIC, LIPASE #### [facility] [address] [place] [address] [place] Creatinine Clr Calc Pharmacy 136.16 Normal [facility] Comment on above: Performed By: #### B MP, CBC, HEPATIC, LIPASE #### [place] [address] [place] GFR/1.73 sq M.predicted MDRD (S/P/Bld) [Vol rate/Area] mL/min/{1.73_m2} Normal [facility] Comment on above: Performed By: #### B MP, CBC, HEPATIC, LIPASE #### [address] Glucose [Mass/Vol] 112 mg/dL High 70-100 [facility] Comment on above: Result Comment: [place] Glucose Reference Range is dependent on time and content of last meal. Glucose of more than 200 mg/dL in a nonstressed, ambulatory subject supports the diagnosis of Diabetes Mellitus. ADA recommended reference range Performed By: #### B MP, CBC, HEPATIC, LIPASE #### [facility] [address] Potassium [Moles/Vol] 3.7 mmol/L Normal 3.5-5.1 [facility] Comment on above: Performed By: #### B MP, CBC, HEPATIC, LIPASE #### [facility] [address] Sodium [Moles/Vol] 136 mmol/L Normal 136-145 [facility] Comment on above: Performed By: #### B MP, CBC, HEPATIC, LIPASE #### [facility] [address] [place] [address] [place] Urea nitrogen [Mass/Vol] 7 mg/dL Normal 7-25 [facility] Comment on above: Performed By: #### B MP, CBC, HEPATIC, LIPASE #### [facility] [address] [place] [address] [facility] C-REACTIVE PROTEINon 024 CRP 7.8 mg/dL High <0.5 [facility] Comment on above: Performed By: #### H EPATIC, CRP, MG, CH8 ####S PATHOLOGY [id number] [place], [place], COMPLETE BLOOD COUNTon 03-26 Erythrocyte distribution width (RBC) [Ratio] 12.9 % Normal 11.5-14.5 [facility] Comment on above: Performed By: #### C BC #### [facility] [address] [place], [place], Hematocrit (Bld) [Volume fraction] 38.4 % Normal 36.0-46.0 [facility] Comment on above: Performed By: #### C BC #### [facility] [address] [place], [place], Hemoglobin (Bld) [Mass/Vol] 13.3 g/dL Normal 12.0-15.0 [facility] Comment on above: Performed By: #### C BC #### [facility] [address] [place], [place], MCH (RBC) [Entitic mass] 30.6 pg Normal 26.0-34.0 [facility] Comment on above: Performed By: #### C BC #### S PATHOLOGY LABORATORY [address] [place], [place], MCHC (RBC) [Mass/Vol] 34.7 g/dL Normal 32.0-35.9 [facility] Comment on above: Performed By: #### C BC #### S PATHOLOGY LABORATORY [address] [place], [place], MCV (RBC) [Entitic vol] 88 fL Normal 80-100 [facility] Comment on above: Performed By: #### C BC #### S PATHOLOGY LABORATORY [address] [place], [place], Platelet mean volume (Bld) [Entitic vol] 9.8 fL Normal 7.5-11.2 [facility] Comment on above: Performed By: #### C BC #### S PATHOLOGY LABORATORY [address] [place], [place], Platelets (Bld) [#/Vol] 344 10*3/uL Normal 150-400 [facility] Comment on above: Performed By: #### C BC #### S PATHOLOGY LABORATORY [address] [place], [place], RBC (Bld) [#/Vol] 4.36 10*6/uL Normal 4.00-5.20 [facility] Comment on above: Performed By: #### C BC #### S PATHOLOG[facility] LABORATORY [address] [place], [place], WBC (Bld) [#/Vol] 10.1 10*3/uL Normal 4.5-11.5 [facility] Comment on above: Performed By: #### C BC #### [facility] [address] [place], [place], CT abdomen pelvis w conon CT abdomen pelvis w con [facility] [place] [address] CT Scan Report Signed Patient: Aparna Arteaga MR#: [id number] 97 : 2000 Acct:[id number] Age/Sex: 24 / F ADM Date: 03/25/24 Loc: ER Room: Type: [facility] ER Attending Dr: Copies to: Allen Ta DO Ordering Provider: Allen Ta DO Date of Service: 03/26/24 CT/CT abdomen pelvis w con: r/o post op complication CT abdomen pelvis w con 03/26/2024 1:02 AM SIGNS AND SYMPTOMS: Abdominal pain, nausea, vomiting, colonoscopy with biopsy near terminal ileum TECHNIQUE: Multidetector ct axial images of the abdomen and pelvis were obtained with IV contrast. Multiplanar reformats were performed and reviewed to further define anatomy and possible pathology. CT was performed with one or more of the following dose reduction techniques: Automated exposure control, adjustment of the mA and/or kV according to patient size, or use of iterative reconstruction technique. COMPARISON: 11/30/2016 FINDINGS: Lower Chest: There is a 3 mm calcified granuloma in the base of the right middle lobe. This is unchanged. ABDOMEN: Liver: Within normal limits. Bile Ducts: Normal caliber. Gallbladder: No calcified gallstones. Normal caliber wall. Pancreas: Within normal limits. Spleen: Within normal limits. Adrenals: Within normal limits. Kidneys: Within normal limits. Pelvis: Reproductive Organs: No pelvic masses. Ureters: Within normal limits. Bladder: Within normal limits. Bowel: There is a normal appendix in the right lower quadrant. There is wall thickening and enhancement along the terminal ileum suggesting ileitis. The small bowel is fluid distended proximal to this point suggesting a small bowel obstruction. Mesenteric Lymph Nodes: Nonspecific mesenteric lymph nodes are noted in the right lower quadrant. These are presumably reactive in nature. Peritoneum: There is a small amount of free fluid in the pelvis. Vessels: within normal limits Retroperitoneum: Within normal limits. Abdominal Wall: Within normal limits. Bones: Within normal limits. CT/CT abdomen pelvis w con IMPRESSION: There is a normal appendix in the right lower quadrant. There is wall thickening and enhancement along the terminal ileum suggesting ileitis. The small bowel is fluid distended proximal to this point suggesting a small bowel obstruction. There is a small amount of presumably reactive or physiologic free fluid in the pelvis. Nonspecific mesenteric lymph nodes are noted in the right lower quadrant. These are presumably reactive in nature. Impression dictated by: Toño Mckeon M.D.03/26/2024 9:02 AM Dictation Location: [place] [address] Transcribed By: [facility] 03/26/24901 Dictated By: Toño Mckeon II, MD 03/26/2444 Signed By: 03/26/24901 Normal [facility] Care Plan Noteon 03-26-2024 Transport Tank Technician Authentication Interface Message Text Colonoscopy Date/Provider 03/24/2024 Rip Subramanian MD Colonoscopy Findings: Procedure: Colonoscopy with biopsies Indication: 24-year-old female with Crohn's disease on Stelara here for colonoscopy to evaluate disease activity Pre-operative diagnosis: Crohn's disease Post-operative diagnosis: Active Crohn's in the terminal ileum Sedation: propofol per anesthesia dept O2 oximetry, hemodynamic monitoring was performed pre, during, and post procedure. Patient was identified, H AND P completed, patient was given full explanation of the procedure as well as associated risks and written consent wasobtained prior to procedure. Patient expressed complete understanding of the procedure as well as alternatives to the procedure and to anesthesia and agreed to proceed with the procedure as indicated. Patient was immediately reassessed prior to IV sedation. Under IV sedation, patient was placed in the left lateral decubitus position. Digital rectal exam was performed and normal. Colonoscope was inserted and passed proximally to the cecum, which was identified by the ileocecal valve, appendiceal orifice and cecal floor. Colonoscope was slowly withdrawn with the findings as below. [place] bowel prep score was good. Findings: Biopsies were done from the terminal ileum, right colon, transverse colon and left colon using biopsy forceps. Terminal ileum: Examined ~20 cm from the IC valve, erythematous mucosa with multiple ulcers noted, biopsies were done using biopsy forceps. Cecum: Normal. Ascending colon: Normal. Hepatic flexure: Normal. Transverse colon: Normal. Splenic flexure: Normal. Descending colon: Normal. Sigmoid colon: Normal. Rectum: Normal. Retroflexed views: Rectum did show internal hemorrhoids. Biopsy taken: Yes Complications: None EBL: Minimal Recommendations: -Will switch to Skyrizi -Follow up pathology -Follow up in the office Following a period of recovery, patient was seen and given full explanation of the procedure. Patient tolerated the procedure well and will be discharged in satisfactory, stable condition. Rip Subramanian M.D. Normal [employer] Complete Blood Count Auto Di ffon 03-26-2024 Basophils (Bld) [#/Vol] 0.0 10*3/uL Normal 0.0-0.2 [facility] Comment on above: Result Comment: PERF ORMED BY: [address] [id number] PATHOLOGIST ROOFER APPRENTICE KIM RAHMAN M.D. Performed By: #### B MP, CBC, HEPATIC, LIPASE #### [address] Basophils/100 WBC (Bld) 0.2 % Normal . T calvin [facility] Comment on above: Performed By: #### B MP, CBC, HEPATIC, LIPASE #### [address] Eosinophils (Bld) [#/Vol] 0.0 10*3/uL Normal 0.0-0.45 [facility] Comment on above: Performed By: #### B MP, CBC, HEPATIC, LIPASE #### [address] Eosinophils/100 WBC (Bld) 0.3 % Normal . [facility] Comment on above: Performed By: #### B MP, CBC, HEPATIC, LIPASE #### [address] Erythrocyte distribution width (RBC) [Ratio] 12.7 % Normal 11.9-15.3 [facility] Comment on above: Performed By: #### B MP, CBC, HEPATIC, LIPASE #### [address] Hematocrit (Bld) [Volume fraction] 41.7 % Normal 34.0-46.4 [facility] Comment on above: Performed By: #### B MP, CBC, HEPATIC, LIPASE #### [address] Hemoglobin (Bld) [Mass/Vol] 14.3 g/dL Normal 11.8-15.4 [facility] Comment on above: Performed By: #### B MP, CBC, HEPATIC, LIPASE #### [address] Lymphocytes (Bld) [#/Vol] 1.2 10*3/uL Normal 1.00-4.8 [facility] Comment on above: Performed By: #### B MP, CBC, HEPATIC, LIPASE #### [address] Lymphocytes/100 WBC (Bld) 7.0 % Normal . [facility] Comment on above: Performed By: #### B MP, CBC, HEPATIC, LIPASE #### [address] MCH (RBC) [Entitic mass] 29.6 pg Normal 24.7-34.3 [facility] Comment on above: Performed By: #### B MP, CBC, HEPATIC, LIPASE #### [address] MCV (RBC) [Entitic vol] 86.5 fL Normal 80-100 [facility] Comment on above: Performed By: #### B MP, CBC, HEPATIC, LIPASE #### [address] Mean Corpuscular HGB Conc 34.2 g/dL Normal 32.0-35.0 [facility] Comment on above: Performed By: #### B MP, CBC, HEPATIC, LIPASE #### [address] Monocytes (Bld) [#/Vol] 0.9 10*3/uL High 0.0-0.8 [facility] Comment on above: Performed By: #### B MP, CBC, HEPATIC, LIPASE #### [address] Monocytes/100 WBC (Bld) 17.18 % Normal 0.00-20.00 [facility] Comment on above: Performed By: #### B MP, CBC, HEPATIC, LIPASE #### [address] Monocytes/100 WBC (Bld) 5.3 % Normal . [facility] Comment on above: Performed By: #### B MP, CBC, HEPATIC, LIPASE #### [address] Neutrophils (Bld) [#/Vol] 14.9 10*3/uL High 1.8-7.7 [facility] Comment on above: Performed By: #### B MP, CBC, HEPATIC, LIPASE #### [address] Neutrophils/100 WBC (Bld) 87.2 % Normal . [facility] Comment on above: Performed By: #### B MP, CBC, HEPATIC, LIPASE #### [address] NRBC% 0.0 /100{WBC} Normal 0-0.5 [facility] Comment on above: Performed By: #### B MP, CBC, HEPATIC, LIPASE #### [address] Platelet mean volume (Bld) [Entitic vol] 9.1 fL Normal 6.3-10.7 [facility] Comment on above: Performed By: #### B MP, CBC, HEPATIC, LIPASE #### [address] Platelets (Bld) [#/Vol] 432 10*3/uL Normal 150-450 [facility] Comment on above: Performed By: #### B MP, CBC, HEPATIC, LIPASE #### [address] RBC (Bld) [#/Vol] 4.82 10*6/uL Normal 3.60-5.00 [facility] Comment on above: Performed By: #### B MP, CBC, HEPATIC, LIPASE #### [address] WBC (Bld) [#/Vol] 17.1 10*3/uL High 3.8-11.6 [facility] Comment on above: Performed By: #### B MP, CBC, HEPATIC, LIPASE #### [address] Consultson 03-26-2024 Transport Tank Technician Authentication Interface Message Text Department of Gastroenterology and Hepatology Consult H AND P Note GI Attending Physician: Dr. Raoul MD Patient: Aparna Arteaga Location: [facility]/1 Reason for Consult: Crohn's disease ASSESSMENT AND PLAN Aparna Arteaga, 24 year old was seen by the inpatient GI consult team for chief concerns of Crohn's flare with TI stricture Plan: # Active ileocecal Crohn's disease with a TI stricture causing partial SBO - Has been on stelara q8 weeks for 8 years since Crohn's diagnosis, controlled until last month or two. - Imaging at [facility] with TI stricture, - Colonoscopy on 03/24 at [facility] with multiple ulcers in the last 20cm centimeters of ileum, entire colon normal - Start IV solumedrol 40mg daily, CORS not planning on any surgical intervention - Once bowel function returns/NG out, will need CTE/MRE for further evaluation of stricture and any other small bowel disease - Daily CRP/ESR - Serial abdominal exams Discussed with GI attending, Dr. Raoul MD. Primary team updated via [employer] system. Please don't hesitate to reach out with questions or concerns. We will continue to follow with you. GI Consult Pager (nights and weekends) [phone] Destiny Mason MD Gastroenterology Fellow Division of Gastroenterology AND Hepatology [facility] 03/26/24 HPI Aparna Arteaga is a 24 year old female with history notable for Crohn's disease on stelara for whom gastroenterology was consulted for active Crohn's. Aparna has been on Stelera every 8 weeks (last dose 03/11/24) since Crohn's diagnosis 8 years ago. Prior colonscopy in 2021 with endoscopic remission, but biopsies did show mild active ileal disease. She was feeling well when last seen by her local GI in December, and they planned for a colonoscopy in February. She presented for colonscopy and was having nausea and emesis, which she's had with bowel prep before. Had ulcers in the TI, and her primary GI planned to switch to Skyrizi. Discharged after colonoscopy but presented the next day for abd pain, nausea and emesis. Imaging there with SBO at the TI, contrast did make it past into the colon. NG was placed there with some relief of nausea. Having ongoing abd pain, large in the RLQ. Review Of Systems 12 point ROS were performed and the positives are noted in HPI. All other systems were reviewed and negative. Past Medical, Surgical, Family and Social Histories Past Medical History: Crohn's, ADHD, anxiety Past Surgical History: No prior GI related surgeries Family History No family history of CRC Social History Socioeconomic History Marital status: Allergies: Not on File Current Meds: Scheduled: benzocaine One Time Dose methylPREDNISolone sodium succinate 40 mg Daily heparin (porcine) 5,000 Units Every End of Shift PRN: ketorolac 15 mg Q6H PRN HYDROmorphone HCl PF 0.5 mg Q3H PRN promethazine 25 mg Q6H PRN Physical Exam BP 143/106 (BP Location: right arm) Pulse 109 Temp 99.1 ???F (37.3 ???C) (Oral) Resp 18 Ht 5' 3.5 (1.613 m) Wt 150 lb (68 kg) SpO2 97% BMI 26.15 kg/m??? General: well-nourished, well-groomed, pleasant, NAD HEENT: normocephalic, atraumatic, MMM, no scleral icterus Pulm: no increased WOB on room air, CTAB Card: RRR, no murmurs Abdomen: soft, nondistended, BS+, TTP in RLQ Extremities: no DEJAH, no gross deformity Skin: WWP, no jaundice Neuro: A AND Ox3, no focal deficits Psych: appropriate mood and affect, linear thinking Labs CBC (last 3 years, up to 8 values) 03/26/2024 11:41 AM WBC 10.1 RBC 4.36 Hgb 13.3 Hct 38.4 MCV 88 RDW 12.9 Plt 344 BMP (last 3 years, up to 8 values) 03/26/2024 11:41 AM Na 142 K 3.8 Cl 107 CO2 24 Gap 15 Glu 77 BUN 6 Cr 0.62 Ca 8.2 eGFR 126 LFT's (last 3 years, up to 8 values) 03/26/2024 11:41 AM T Prot 6.2 Albumin 3.6 D Bili 0.07 T Bili 0.3 Alk Phos 77 ALT 7 AST 8 INR (no units) Date Value 03/26/2024 1.13 (H) Procedures and imaging Colonoscopy 03/24 Findings: Biopsies were done from the terminal ileum, right colon, transverse colon and left colon using biopsy forceps. Terminal ileum: Examined ~20 cm from the IC valve, erythematous mucosa with multiple ulcers noted, biopsies were done using biopsy forceps. Cecum: Normal. Ascending colon: Normal. Hepatic flexure: Normal. Transverse colon: Normal. Splenic flexure: Normal. Descending colon: Normal. Sigmoid colon: Normal. Rectum: Normal. Retroflexed views: Rectum did show internal hemorrhoids. Prior in 2021 with endoscopic remission but biopsies with mild chronic active ileitis Destiny Mason MD Gastroenterology Fellow Division of Gastroenterology AND Hepatology [facility] 03/26/24 ATTENDING NOTE The patient was personally seen and evaluated. The case was discussed in detail with the fellow; including, but not limited to the presenting complaint, past history, physical findings (more content not included)... Normal [facility] Transport Tank Technician Authentication Interface Message Text Attestation signed by Baltazar Marie MD at 03/26/2024 1:17 PM Attending Physician Note: I personally saw and evaluated the patient on the date of this note. I personally obtained the horan and critical portions of the history and physical exam on the date of this note and have no additions or changes to the documented history and physical exam except as detailed below. I discussed the patient with the team earlier in the day. The plan as written in the COMPUTER SYSTEMS ANALYST/PA's note reflects the plan formulated by me and discussed with the COMPUTER SYSTEMS ANALYST/PA and the team. Ileocecal crohns with long segment of thickened TI and cecum. Mildly dilated upstream small bowel but contrast passes to the colon. No indication for surgical intervention at this time. If N/V can decompress with NGT. Based on imaging, surgery would involve extensive resection and so ideally can be avoided. Recommend optimal medical mgmt. Can follow up with surgery as needed or indicated by GI if no medical options. Split/Shared Documentation I approve the management plan for this patient and take responsibility for the plan as documented. Independent Interpretation of Tests Performed by Another Physician/NILA: I personally performed, reviewed, and interpreted all new laboratory and imaging tests. Discussion of Management or Test Interpretation with External Physician/NLIA: I personally performed and discussed the management of case or test interpretation with the team and any appropriate consulting service or primary team. Keith Marie MD Colorectal Surgery 03/26/24 1:14 PM COLORECTAL SURGERY CONSULT Aparna Arteaga [id number] Chief Complaint/Reason for Consultation SBO 2/2 TI stricture History (HPI) Aparna Arteaga is a 24 year old female with h/o Crohn's disease (diagnosed 8 years ago who had been relatively well controlled on Stelara over that time frame) who presents as a transfer from [facility] for small bowel obstruction secondary to stricture in terminal ileum. Pt reports that her symptoms had been well controlled until 1-2 months ago when she started having more persistently loose stools. She was scheduled for a colonoscopy at [facility] on 03/24/2024. She notes that she started vomiting the night before her colonoscopy, possibly related to the prep, continued to vomit the day of her scope both before and after the scope and into . Erythematous mucosa + multiple ulcers were noted ~20cm from IC valve and biopsies taken. GI team recommended pt switch to Skyrizi. Last dose of Stelara 03/11/2024. She started to experience abdominal pain morning. Abdominal pain persisted which prompted her to go to [facility] ED. She was found to have a WBC count of 17.1 there, remainder of CBC and BMP were normal. She had a CT AP as well which showed luminal narrowing in the terminal ileum as well as a small bowel obstruction. She had an NGT placed there, states pain improved from 10/10 to 7/10 after it was placed. Pt and family endorse that not much drained from NGT on insertion. PMHx: Crohn's disease, depression, anxiety, ADHD PSHx: no prior surgeries Medications: (Not in a hospital admission) Allergies: Patient has no allergy information on record. Family History: No h/o IBD in immediate family members, has cousin w UC Review of Systems: A complete 12 point ROS was performed and was otherwise negative except per HPI PHYSICAL EXAMINATION BP 140/93 Pulse (!) 104 Temp 98.7 ???F (37.1 ???C) (Oral) Resp 20 SpO2 96% There is no height or weight on file to calculate BMI. General appearance: healthy, alert, pleasant, appears uncomfortable Skin: Skin color, texture, turgor normal. No rashes or lesions. Head: Normocephalic. No masses, lesions, tenderness or abnormalities Nose/Sinuses: Nares normal. Septum midline. Mucosa normal. No drainage or sinus tenderness. Oropharynx: Lips, mucosa, and tongue normal. Teeth and gums normal. Oropharynx normal Neck: Neck supple; normal JVP; carotids normal pulse without bruits; thyroid normal. Lungs: Good breath sounds; no wheezes, rales or rhonchi. Heart: Regular rate and rhythm. Normal S1 and S2. No murmurs, clicks or gallops. Abdomen: soft, mildly distended, periumbilical + RLQ + lower midline tenderness, nonperitonitic. NGT w scant output Extremities: Extremities normal. No deformities, edema, or skin discoloration Neuro: Gait normal. Reflexes normal and symmetric. Sensation grossly intact. No motor deficits Laboratory Values and Test Results Reviewed CBC, BMP from [facility] from 03/26, notable for leukocytosis Imaging CT AP w luminal narrowing at TI and dilated loops of SB consistent w SBO Impression Aparna Arteaga is a 24 year old female with h/o Crohn's disease who presents with SBO secondary to TI stricture Re (more content not included)... Normal [employer] Dipstick and Microscopicon 0 03-26-2024 Appearance (U) Cloudy Critically abnormal Clear [facility] Comment on above: Order Comment: Name Collection Type:: Clean-Voided Midstream Performed By: #### U HCG, ADDONUAPLUS, CUU #### [facility] [address] [place] [id number] [place] Bacteria,Urine Rare Normal None Seen [facility] Comment on above: Order Comment: Name Collection Type:: Clean-Voided Midstream Performed By: #### U HCG, ADDONUAPLUS, CUU #### [facility] [address] [place] [id number] [place] Bilirubin,Urine Negative Normal Negative [facility] Comment on above: Order Comment: Name Collection Type:: Clean-Voided Midstream Performed By: #### U HCG, ADDONUAPLUS, CUU #### [address] Color (U) Yellow Normal Yellow [facility] Comment on above: Order Comment: Name Collection Type:: Clean-Voided Midstream Performed By: #### U HCG, ADDONUAPLUS, CUU #### [address] Glucose Ql (U) Normal Normal Normal [facility] Comment on above: Order Comment: Name Collection Type:: Clean-Voided Midstream Performed By: #### U HCG, ADDONUAPLUS, CUU #### [place] [address] [place] Hyaline Casts,Urine None Normal 0-8 [facility] Comment on above: Order Comment: Name Collection Type:: Clean-Voided Midstream Performed By: #### U HCG, ADDONUAPLUS, CUU #### [address] Ketones Ql (U) Negative Normal Negative [facility] Comment on above: Order Comment: Name Collection Type:: Clean-Voided Midstream Performed By: #### U HCG, ADDONUAPLUS, CUU #### [address] Leukocyte esterase Test strip Ql (U) 4+ High Negative [facility] Comment on above: Order Comment: Name Collection Type:: Clean-Voided Midstream Performed By: #### U HCG, ADDONUAPLUS, CUU #### [address] Mucus,Urine 1+ Critically abnormal [facility] Comment on above: Order Comment: Name Collection Type:: Clean-Voided Midstream Performed By: #### U HCG, ADDONUAPLUS, CUU #### [place] [address] [place] Nitrite,Urine Negative Normal Negative [facility] Comment on above: Order Comment: Name Collection Type:: Clean-Voided Midstream Performed By: #### U HCG, ADDONUAPLUS, CUU #### [place] [address] [place] Occult Blood,Urine 1+ High Negative [facility] Comment on above: Order Comment: Name Collection Type:: Clean-Voided Midstream Performed By: #### U HCG, ADDONUAPLUS, CUU #### [place] [address] [place] Othe Crystals,Urine 1+ Normal [facility] Comment on above: Order Comment: Name Collection Type:: Clean-Voided Midstream Performed By: #### U HCG, ADDONUAPLUS, CUU #### [address] pH (U) 5.5 [pH] Normal 5.0-9.0 [facility] Comment on above: Order Comment: Name Collection Type:: Clean-Voided Midstream Performed By: #### U HCG, ADDONUAPLUS, CUU #### [place] [address] [place] Protein,Urine Trace High Negative [facility] Comment on above: Order Comment: Name Collection Type:: Clean-Voided Midstream Performed By: #### U HCG, ADDONUAPLUS, CUU #### [place] [address] [place] RBC,Urine 5-9 High 0-4 [facility] Comment on above: Order Comment: Name Collection Type:: Clean-Voided Midstream Performed By: #### U HCG, ADDONUAPLUS, CUU #### [address] Specificy [place],Urine 1.019 Normal 1.001-1.030 [facility] Comment on above: Order Comment: Name Collection Type:: Clean-Voided Midstream Performed By: #### U HCG, ADDONUAPLUS, CUU #### [address] Squamous Epithelial Cell,Urine 20-49 High 0-2 [facility] Comment on above: Order Comment: Name Collection Type:: Clean-Voided Midstream Performed By: #### U HCG, ADDONUAPLUS, CUU #### [facility] [address] Urobilinogen,Urine Normal Normal Normal [facility] Comment on above: Order Comment: Name Collection Type:: Clean-Voided Midstream Performed By: #### U HCG, ADDONUAPLUS, CUU #### [facility] [address] [place] [address] WBC CLUMP, Urine Moderate High None Seen The [facility] Comment on above: Order Comment: Name Collection Type:: Clean-Voided Midstream Performed By: #### U HCG, ADDONUAPLUS, CUU #### [facility] [address] WBC,Urine Innumerable High 0-4 [facility] Comment on above: Order Comment: Name Collection Type:: Clean-Voided Midstream Performed By: #### U HCG, ADDONUAPLUS, CUU #### [address] ED Noteson 03-26-2024 Transport Tank Technician Authentication Interface Message Text Removed ng tube. Replaced NG with another RN. Called x ray for repeat kub Normal [employer] Transport Tank Technician Authentication Interface Message Text Transition of Care; Hand off Note Code Status: AGE: [age] year old SEX: female WEIGHT: no weight Chief Complaint Patient presents with Abdominal pain Sent from [facility] for + SBO, NG tube in place upon arrival. Admitting Diagnosis: Small bowel obstruction O2 requirement: no IV access: Peripheral IV Access: 03/26/24 1017 20 gauge Left Antecubital Present on Arrival to Hospital (Active) Not on File Out of Reference Range ED Results Display - if a lab has no value displayed it is normal OR not it is not completed BASIC METABOLIC PANEL - Abnormal; Notable for the following components: Result Value Ref Range Blood Urea Nitrogen 6 (*) 7 - 25 mg/dL Calcium 8.2 (*) 8.6 - 10.3 mg/dL All other components within normal limits HEPATIC FUNCTION PANEL - Abnormal; Notable for the following components: AST (SGOT) 8 (*) 13 - 39 IU/L All other components within normal limits C-REACTIVE PROTEIN - Abnormal; Notable for the following components: C-Reactive Protein 7.8 (*) <0.5 mg/dL All other components within normal limits PROTHROMBIN TIME AND INR - Abnormal; Notable for the following components: INR 1.13 (*) 0.90 - 1.10 All other components within normal limits COMPLETE BLOOD COUNT - Normal MAGNESIUM - Normal No past medical history on file. Medications lactated ringers iv infusion ( Intravenous IV New Bag 03/26/24 1213) HYDROmorphone (DILAUDID) 1 mg/mL injection (0.5 mg Intravenous Push Given 03/26/24 1232) promethazine (PHENERGAN) tablet (has no administration in time range) heparin (porcine) 5000 UNIT/0.5ML injection (has no administration in time range) morphine sulfate 4 MG/ML injection (4 mg Intravenous Push Given 03/26/24 1018) No active isolations Vitals Recorded in This Encounter 03/26/2024 1030 03/26/2024 1100 03/26/2024 1200 03/26/2024 1300 03/26/2024 1400 BP: 128/83 119/78 138/88 132/83 132/80 Pulse: 102 85 102 92 99 Resp: 18 19 22 19 17 SpO2: 95 % 95 % 97 % 96 % 93 % Any significant change from prior assessment: No Normal [facility] Transport Tank Technician Authentication Interface Message Text NG tube pulled back 5 cm, kub taken. States still coiled. Md notified. Normal [facility] Transport Tank Technician Authentication Interface Message Text Pulled NG tube back 3cm per md order Normal [facility] ED Provider Noteson 03-26-20 Transport Tank Technician Authentication Interface Message Text EMERGENCY DEPARTMENT - VISIT NOTE --------- HISTORY OF PRESENT ILLNESS ----- HIPAA: Verbal permission granted from patient to discuss case, including protected health information, in front of family / friends in room at the time of the evaluation. Institutional Asset Manager: not needed - patient preferred language is Paraguayan. The history is provided by the Patient. Aparna Artaega is a 24 year old female with H/O Cronhn's on stelara injections who presents today for evaluation of SBO. Patient underwent colonoscopy 2 days ago. After the procedure, she began to have abdominal pain and emesis prompting her to go to the ER. Patient was found to have an SBO on CT. She denies hx of this. Reports her last BM was 2 days ago. Patient denies fever, c/p SOB. Abdominal pain is diffuse, but greatest in the periumbilical region. She has an NGT in place and reports discomfort associated with that. Patient was transferred to this hospital for [facility] evaluation. REVIEW OF SYSTEMS ROS per HPI PAST HISTORY Past Medical History: Crohns Family History: No family history on file. Surgical History: No past surgical history on file. Pertinent Social History: Social History Occupational History Not on file Tobacco Use Smoking status: Not on file Smokeless tobacco: Not on file Substance and Sexual Activity Alcohol use: Not on file Drug use: Not on file Sexual activity: Not on file Allergies: Not on File PHYSICAL EXAM - VITAL SIGNS: BP 128/83 Pulse (!) 102 Temp 98.7 ???F (37.1 ???C) (Oral) Resp 18 SpO2 95% CONSTITUTIONAL: Well-appearing female; in no apparent distress; HEAD: Normocephalic, atraumatic; EYES: EOMI, conjunctiva and sclera WNL; ENT: normal nose; no rhinorrhea; moist mucus membranes CARD: Normal S1, S2; no murmurs, rubs, or gallops; tachycardic, regular RESP: Normal respiratory effort, without use of accessory muscles; breath sounds clear and equal bilaterally; no wheezes, rhonchi, or rales ABD/GI: Soft, non-distended; mild diffuse tenderness greatest in periumbilical region; no rebound or guarding present EXT/MS: moving all extremities; no peripheral edema SKIN: warm; dry; well perfused NEURO: Awake, alert, no gross deficits MEDICAL DECISION MAKING and ED COURSE MDM/Plan: 24 year old female who was transferred from outside hospital for evaluation by CORS for SBO in setting of Crohns. Labs reviewed - noted to have WBC count of 17, normal hepatic function and lipase. Hcg negative. Discussed with CORS who recommends KUB to confirm NGT placement and admission to medicine. KUB - NGT in stomach, multiple dilated small bowel loops. Patient will be admitted for further management of SBO and GI evaluation. Review of external notes: Chart review revealed 03/26/24 transfer center summary - hx crohns on [facility], patient had recent colonoscopy with ulcers in terminal ileum and subsequent bloody stools that now resolved, now no stool. SBO found on CT, leukocytosis 17, accepted by Dr Marie ED prescription drug management: Patient given morphine in ED for pain control Independent test interpretation: I have independently reviewed and interpreted the patients abdominal xray, see ED course for interpretations. Discussion with external provider: Discussed with CORS who recommends above ED Course as of 03/26/24 1105 FriMar 26, 2024 0957 Discussion with external provider: Discussed with CORS who will evaluate the patient and recommends KUB to confirm NGT placement [KL] 1016 I have independently reviewed and interpreted the abd xray: tip of NGT in stomach In addition, the radiology interpretation has been reviewed prior to final decision making. [KL] 1035 IMPRESSION: Enteric tube terminates in the fundus of the stomach. Multiple dilated small bowel loops as demonstrated on same day CT scan. [KL] ED Course User Index [KL] Claire Lambert DO --------- IMPRESSION AND DISPOSITION ------- Clinical Impression Diagnosis Comment Small bowel stricture (HCC) [K56.699] SBO (small bowel obstruction) (HCC) [K56.606] Disposition: Admitted to Floor: Medicine Team 8. Report called to Dr Beebe, medicine, 1105 (03/26/24 1105) The patient has received a medical screening examination and within reasonable clinical confidence the patient was stabilized within the capabilities of the emergency department and requires admission / observation. Counseling: Spoke with the patient and discussed today's findings, in addition to providing specific details for the plan of care and expected course. They were given the opportunity to ask (more content not included)... Normal [facility] HCG,Urineon 03-26-2024 Beta HCG ( test) Ql (U) Negative Normal [facility] Comment on above: Order Comment: Name Collection Type:: Clean-Voided Midstream Result Comment: PERF ORMED BY: [place] [address] PATHOLOGIST ROOFER APPRENTICE KIM RAHMAN M.D. Performed By: #### U HCG, ANGIEBERNARDOANTHONY REYU #### [address] HEPATIC FUNCTION PANELon Albumin [Mass/Vol] 3.6 g/dL Normal 3.5-5.7 [facility] Comment on above: Performed By: #### H EPATIC, CRP, MG, CH8 ####[facility] [id number] [place], [place], ALK 77 IU/L Normal 34-104 [facility] Comment on above: Performed By: #### H EPATIC, CRP, MG, CH8 ####[facility] [id number] [place], [place], ALT [Catalytic activity/Vol] 7 U/L Normal 7-52 [facility] Comment on above: Performed By: #### H EPATIC, CRP, MG, CH8 ####[facility] [id number] [place], [place], AST [Catalytic activity/Vol] 8 U/L Low 13-39 [facility] Comment on above: Performed By: #### H EPATIC, CRP, MG, CH8 ####[facility] [id number] [place], [place], Bilirubin [Mass/Vol] 0.3 mg/dL Normal 0.3-1.0 [facility] Comment on above: Performed By: #### H EPATIC, CRP, MG, CH8 ####[facility] [id number] [place], [place], Bilirubin.direct [Mass/Vol] 0.07 mg/dL Normal 0.03-0.18 [facility] Comment on above: Performed By: #### H EPATIC, CRP, MG, CH8 ####[facility] [id number] [place] [address], Protein [Mass/Vol] 6.2 g/dL Normal 6.0-8.3 [facility] Comment on above: Performed By: #### H EPATIC, CRP, MG, CH8 ####[facility] [id number] [place], [place], Hepatic Panelon 03-26-2024 Albumin [Mass/Vol] 4.2 g/dL Normal 3.5-5.7 [facility] Comment on above: Performed By: #### B MP, CBC, HEPATIC, LIPASE #### [address] Albumin/Globulin [Mass ratio] 1.3 {ratio} Normal [facility] Comment on above: Performed By: #### B MP, CBC, HEPATIC, LIPASE #### [facility] [address] [place] [id number] [facility] ALP [Catalytic activity/Vol] 87 U/L Normal 34-104 [facility] Comment on above: Performed By: #### B MP, CBC, HEPATIC, LIPASE #### [facility] [address] [place] [id number] [facility] ALT [Catalytic activity/Vol] 7 U/L Normal 7-52 [facility] Comment on above: Performed By: #### B MP, CBC, HEPATIC, LIPASE #### [facility] [address] AST [Catalytic activity/Vol] 9 U/L Low 13-39 [facility] Comment on above: Performed By: #### B MP, CBC, HEPATIC, LIPASE #### [facility] [address] Bilirubin [Mass/Vol] 0.4 mg/dL Normal 0.3-1.0 [facility] Comment on above: Performed By: #### B MP, CBC, HEPATIC, LIPASE #### [facility] [address] Bilirubin,Indirect 0.3 mg/dL Normal [facility] Comment on above: Performed By: #### B MP, CBC, HEPATIC, LIPASE #### [address] Bilirubin.indirect [Mass/Vol] 0.10 mg/dL Normal 0.03-0.18 [facility] Comment on above: Performed By: #### B MP, CBC, HEPATIC, LIPASE #### [address] Globulin (S) [Mass/Vol] 3.3 g/dL Normal T [facility] Comment on above: Performed By: #### B MP, CBC, HEPATIC, LIPASE #### [facility] [address] Protein [Mass/Vol] 7.5 g/dL Normal 6.4-8.9 [facility] Comment on above: Performed By: #### B MP, CBC, HEPATIC, LIPASE #### [address] Lipaseon 03-26-2024 Lipase [Catalytic activity/Vol] 21.0 U/L Normal 11.0-82.0 [facility] Comment on above: Result Comment: PERF ORMED BY: [place] [address] PATHOLOGIST ROOFER APPRENTICE KIM RAHMAN M.D. Performed By: #### B MP, CBC, HEPATIC, LIPASE #### [facility] [address] [place] [id number] [facility] MAGNESIUMon 03-26-2024 Magnesium [Mass/Vol] 1.9 mg/dL Normal 1.9-2.7 [facility] Comment on above: Performed By: #### H EPATIC, CRP, MG, CH8 ####[facility] [id number] [place], [place], PROTHROMBIN TIME AND INRon 0 03-26-2024 INR Coag (PPP) [Relative time] 1.13 {INR} High 0.90-1.10 [facility] Comment on above: Performed By: #### P T #### [facility] [address] [place], [place], PT Coag (PPP) [Time] 12.6 s Normal 9.7-12.9 [facility] Comment on above: Performed By: #### P T #### [facility] [address] [place], [place], Urine Cultureon 03-26-2024 Bacteria identified Cx Nom (U) <9,000 colonies/ml mixed bacterial skin contaminants 2 Days PERFORMED BY: [address] [address] PATHOLOGIST ROOFER APPRENTICE KIM RAHMAN M.D. Normal [facility] Comment on above: Performed By: #### U HCG, ADDONUAPLUS, CUU ####[address] [address] [facility] XR ABDOMEN AP 1 VIEWon 03-26 XR ABDOMEN AP 1 VIEW EXAMINATION: XR ABDOMEN AP 1 VIEW 03/26/2024 02:33 PM CLINICAL HISTORY: f/u NGT position ASSOCIATED DIAGNOSIS: ORDERING PROVIDER: ZEYNEP GARCIA TECHNOLOGISTS NOTE: NGT placement COMPARISON: XR ABDOMEN AP 1 VIEW 03/26/2024, 12:57 PM FINDINGS: Limited study for evaluation of nasogastric tube position. There is been interval advancement with the tube terminating overlying the gastric body and the sidehole well beyond the gastroesophageal junction. There is persistent mild dilatation of a small bowel loop in the midabdomen. No pathologic intra-abdominal calcifications. IMPRESSION: Interval advancement of the NG tube which terminates overlying the gastric body. MACRO: None Normal [facility] XR ABDOMEN AP 1 VIEW EXAMINATION: XR ABDOMEN AP 1 VIEW 03/26/2024 12:57 PM CLINICAL HISTORY: recheck ngt position ASSOCIATED DIAGNOSIS: ORDERING PROVIDER: ZEYNEP GARCIA TECHNIKE NOTE: COMPARISON: XR ABDOMEN AP 1 VIEW 03/26/2024, 12:[address] BODY IMAGE IMPORT(JIM) 03/26/2024, 2:02 AM IMPRESSION: Nasogastric tube has been advanced slightly since the most recent abdominal radiograph. There is a persistent kink in the distal end of the tube. The sidehole is distal to the expected location of the gastroesophageal junction. Stable mildly dilated loops of small bowel in the midabdomen. MACRO: None Normal [facility] XR ABDOMEN AP 1 VIEW EXAMINATION: XR ABDOMEN AP 1 VIEW 03/26/2024 12:21 PM CLINICAL HISTORY: recheck NGT position ASSOCIATED DIAGNOSIS: ORDERING PROVIDER: ZEYNEP GARCIA TECHNIKE NOTE: NGT placement COMPARISON: XR ABDOMEN AP 1 VIEW 03/26/2024, 10:11 AM IMPRESSION: Limited examination of the abdomen for the purposes of enteric catheter placement. Traversing below the diaphragm is an enteric catheter which is looped in the left upper quadrant in the expected region of the stomach. Comparison to prior examination demonstrates interval advancement of the catheter. Multiple dilated small bowel loops are present within the mid abdomen. Limited evaluation of pneumoperitoneum given supine examination. Lung bases demonstrates no large pleural effusion or focal consolidation. MACRO: None Normal [facility] XR ABDOMEN AP 1 VIEW EXAMINATION: XR ABDOMEN AP 1 VIEW 03/26/2024 11:55 AM CLINICAL HISTORY: recheck NGT position after pulling back for kink ASSOCIATED DIAGNOSIS: ORDERING PROVIDER: ZEYNEP GARCIA TECHNOLOGISTS NOTE: NGT placement COMPARISON: XR ABDOMEN AP 1 VIEW 03/26/2024, 12:26 PM IMPRESSION: Limited examination of the abdomen for the purposes of enteric catheter placement. Traversing below the diaphragm is an enteric catheter which is looped in the left upper quadrant in the expected region of the stomach. Comparison to prior examination demonstrates partial retraction of the catheter. The sidehole of the catheter is noted suggests be distal to the gastroesophageal junction. Multiple dilated small bowel loops are present within the mid abdomen. Limited evaluation of pneumoperitoneum given supine examination. MACRO: None Normal [facility] XR ABDOMEN AP 1 VIEW EXAMINATION: XR ABDOMEN AP 1 VIEW 03/26/2024 10:11 AM CLINICAL HISTORY: confirm NGT placement ASSOCIATED DIAGNOSIS: ORDERING PROVIDER: CLAIRE LAMBERT TECHNOLOGISTS NOTE: NGT placement COMPARISON: CT BODY IMAGE IMPORT(JIM) 03/26/2024, 2:02 AM FINDINGS: Enteric tube terminates in the fundus of the stomach. Multiple loops of partially gas-filled distended small bowel are present in the abdomen. Contrast material is present in the partially included urinary bladder IMPRESSION: Enteric tube terminates in the fundus of the stomach. Multiple dilated small bowel loops as demonstrated on same day CT scan. MACRO: None Normal [facility] XR abdomen 1Von 03-26-2024 XR abdomen 1V [facility] [place] [address] XRay Report Signed Patient: Aparna Arteaga MR#: [id number] 97 : 2000 Acct:[id number] Age/Sex: 24 / F ADM Date: 03/25/24 Loc: ER Room: Type: [facility] ER Attending Dr: Copies to: Allen Ta DO Ordering Provider: Allen Ta DO Date of Service: 03/26/24 XR/XR abdomen 1V: Abdominal Pain Single view of Abdomen for NG tube placement The tip of the NG tube is in the Mid stomach. XR/XR abdomen 1V IMPRESSION: Adequate position of NG tube Impression dictated by: Link Snow M.D.03/26/2024 9:12 AM Dictation Location: [place] [address] Transcribed By: [facility] 03/26/24 0912 Dictated By: Link Snow DO 03/26/24 0911 Signed By: 03/26/24 0912 Normal [facility] Amphetamine Screen Ql (U)Ord ered By: Rip Subramanian on 03-24-2024 Amphetamines Ql (U) Positive High Negative [facility] Barbiturates [Presence] in U rine by Screen methodOrdered By: Rip Subramanian on 03-24-2024 Barbiturates Screen Ql (U) Negative Negative [facility] Benzodiazepines Screen Ql (U )Ordered By: Rip Subramanian on 03-24-2024 Benzodiazepines Ql (U) Negative Negative [facility] Benzoylecgonine [Presence] i n Urine by Screen methodOrdered By: waqar Subramanian on 03-24-2024 Benzoylecgonine Screen Ql (U) Negative Negative [facility] Cannabinoids [Presence] in U rine by Screen methodOrdered By: waqar Subramanian on 03-24-2024 Cannabinoids Screen Ql (U) Negative Negative [facility] Comment on above: These are unconfirme d results and should not be used for legal purposes. Drug Cut-Off Concentration: AMPH 1000 ng/mL TAI 200 ng/mL RAYMOND 200 ng/mL COCM 300 ng/mL OP 300 ng/mL PCP 25 ng/mL THC 20 ng/mL Drug Screen,Urineon 03-24-20 24 Amphetamine Screen,Urine Positive High Negative [facility] Comment on above: Performed By: #### U RDS #### [address] Barbiturate Screen,Urine Negative Normal Negative [facility] Comment on above: Performed By: #### U RDS #### [place] [address] [place] Benzodiazepines Screen,Urine Negative Normal Negative [facility] Comment on above: Performed By: #### U RDS #### [place] [address] [place] Cannabinoid Screen,Urine Negative Normal Negative [facility] Comment on above: Result Comment: Thes e are unconfirmed results and should not be used for legal purposes. Drug Cut-Off Concentration: AMPH 1000 ng/mL TAI 200 ng/mL RAYMOND 200 ng/mL COCM 300 ng/mL OP 300 ng/mL PCP 25 ng/mL THC 20 ng/mL PERFORMED BY: [place] [address] PATHOLOGIST ROOFER APPRENTICE IKM RAHMAN M.D. Performed By: #### U RDS #### [place] [address] [place] Cocaine Screen,Urine Negative Normal Negative [facility] Comment on above: Performed By: #### U RDS #### [facility] [address] Opiate Screen,Urine Negative Normal Negative [facility] Comment on above: Performed By: #### U RDS #### [facility] [address] Phencyclidine Screen,Urine Negative Normal Negative [facility] Comment on above: Performed By: #### U RDS #### [facility] [address] HCG ( test) IA.rapi d Ql (U)Ordered By: Imad Asaad on 03-24-2024 HCG ( test) Ql (U) Negative [facility] HCG,Urineon 03-24-2024 Beta HCG ( test) Ql (U) Negative Normal [facility] Comment on above: Result Comment: PERF ORMED BY: [facility] [address] [place] [address] PATHOLOGIST ROOFER APPRENTICE KIM RAHMAN M.D. Performed By: #### U HCG #### [facility] [address] Opiates [Presence] in Urine by Screen methodOrdered By: Imad Asaad on 03-24-2024 Opiates Screen Ql (U) Negative Negative [facility] Phencyclidine Screen Ql (U)O rdered By: Imad Asaad on 03-24-2024 Phencyclidine Ql (U) Negative Negative [facility] Alanine aminotransferase [En zymatic activity/volume] in Serum or PlasmaOrdered By: Padmini Douglas on 03-22-2024 ALT [Catalytic activity/Vol] 8 U/L Normal 7- [facility] Comment on above: Performed By: #### T SH3, MANAV, CMP, CBC, FE and TIBC ####[facility] [id number] [place] [address] [place] Albumin [Mass/volume] in Ser um or Plasma by Bromocresol green (BCG) dye binding methoOrdered By: Padmini Douglas on 03-22-2024 Albumin BCG dye [Mass/Vol] 4.0 g/dL 3.5-5.[address] [facility] Alkaline phosphatase [Enzyma tic activity/volume] in Serum or PlasmaOrdered By: Padmini Douglas on 03-22-2024 ALP [Catalytic activity/Vol] 80 U/L Normal 34-[address] [facility] Comment on above: Performed By: #### T SH3, MANAV, CMP, CBC, FE and TIBC ####[place] [id number] [address] Aspartate aminotransferase [ Enzymatic activity/volume] in Serum or PlasmaOrdered By: Padmini Douglas on 03-22-2024 AST [Catalytic activity/Vol] 8 U/L Low 13-[address] [facility] Comment on above: Performed By: #### T SH3, MANAV, CMP, CBC, FE and TIBC ####[address] Automated basophil %Ordered By: Padmini Douglas on 03-22-2024 Basophils/100 WBC (Bld) 0.6 % Normal . [facility] Comment on above: Performed By: #### T SH3, MANAV, CMP, CBC, FE and TIBC ####[address] Automated basophil countOrde red By: Padmini Douglas on 03-22-2024 Basophils (Bld) [#/Vol] 0.1 10*3/uL Normal 0.0-0.[address] [facility] Comment on above: Result Comment: PERF ORMED BY: [facility] [address] [place] [address] PATHOLOGIST ROOFER APPRENTICE KIM RAHMAN M.D. Performed By: #### T SH3, MANAV, CMP, CBC, FE and TIBC ####[address] Automated blood monocyte cou ntOrdered By: Padmini Douglas on 03-22-2024 Monocytes (Bld) [#/Vol] 0.8 10*3/uL Normal 0.0-0.[address] [facility] Comment on above: Performed By: #### T SH3, MANAV, CMP, CBC, FE and TIBC ####[address] Automated eosinophil %Ordere d By: Padmini Douglas on 03-22-2024 Eosinophils/100 WBC (Bld) 2.0 % Normal . [facility] Comment on above: Performed By: #### T SH3, MANAV, CMP, CBC, FE and TIBC ####[address] Automated eosinophil countOr dered By: Padmini Douglas on 03-22-2024 Eosinophils (Bld) [#/Vol] 0.3 10*3/uL Normal 0.0-0.[address] [facility] Comment on above: Performed By: #### T SH3, MANAV, CMP, CBC, FE and TIBC ####[address] Automated monocyte %Ordered By: Padmini Douglas on 03-22-2024 Monocytes/100 WBC (Bld) 5.9 % Normal . [facility] Comment on above: Performed By: #### T SH3, MANAV, CMP, CBC, FE and TIBC ####[address] Automated neutrophil %Ordere d By: Padmini Douglas on 03-22-2024 Neutrophils/100 WBC (Bld) 75.2 % Normal . [facility] Comment on above: Performed By: #### T SH3, MANAV, CMP, CBC, FE and TIBC ####[address] Bilirubin.total [Mass/volume ] in Serum or PlasmaOrdered By: Padmini Douglas on 03-22-2024 Bilirubin [Mass/Vol] 0.2 mg/dL Low 0.3-1.0 [facility] Comment on above: Performed By: #### T SH3, MANAV, CMP, CBC, FE and TIBC ####[address] C reactive protein [Mass/vol ume] in Serum or PlasmaOrdered By: Rip Subramanian on 03-22-2024 CRP [Mass/Vol] 3.2 mg/dL High 0.0-0.[address] [facility] C-Reactive Proteinon 024 C-Reactive Protein 3.2 mg/dL High 0.0-0.5 [facility] Comment on above: Result Comment: PERF ORMED BY: [facility] [address] [place] [address] PATHOLOGIST ROOFER APPRENTICE KIM RAHMAN M.D. Performed By: #### C RP ####[address] Calcium [Mass/volume] in Ser um or PlasmaOrdered By: Padmini Douglas on 03-22-2024 Calcium [Mass/Vol] 9.0 mg/dL Normal 8.6-10.3 [facility] Comment on above: Performed By: #### T SH3, MANAV, CMP, CBC, FE and TIBC ####[address] Carbon dioxide, total [Moles /volume] in Serum or PlasmaOrdered By: Padmini Douglas on 03-22-2024 CO2 [Moles/Vol] 24.5 mmol/L Normal 21.0-31.0 [facility] Comment on above: Performed By: #### T SH3, MANAV, CMP, CBC, FE and TIBC ####[place] [id number] [facility] Chloride [Moles/volume] in S jourdan or PlasmaOrdered By: Padmini Douglas on 03-22-2024 Chloride [Moles/Vol] 104 mmol/L Normal 98-107 [facility] Comment on above: Performed By: #### T SH3, MANAV, CMP, CBC, FE and TIBC ####[place] [id number] [facility] Complete Blood Count Auto Di ffon 03-22-2024 Mean Corpuscular HGB Conc 33.6 g/dL Normal 32.0-35.0 [facility] Comment on above: Performed By: #### T SH3, MANAV, CMP, CBC, FE and TIBC ####[place] [id number] [place] NRBC% 0.1 /100{WBC} Normal 0-0.5 [facility] Comment on above: Performed By: #### T SH3, MANAV, CMP, CBC, FE and TIBC ####[address] Comprehensive Metabolic Pane anselmo 03-22-2024 Albumin [Mass/Vol] 4.0 g/dL Normal 3.5-5.7 [facility] Comment on above: Performed By: #### T SH3, MANAV, CMP, CBC, FE and TIBC ####[address] GFR/1.73 sq M.predicted MDRD (S/P/Bld) [Vol rate/Area] mL/min/{1.73_m2} Normal [facility] Comment on above: Performed By: #### T SH3, MANAV, CMP, CBC, FE and TIBC ####[address] Creatinine [Mass/volume] in Serum or PlasmaOrdered By: Padmini Douglas on 03-22-2024 Creatinine [Mass/Vol] 0.60 mg/dL Normal 0.60-1.20 [facility] Comment on above: Performed By: #### T SH3, MANAV, CMP, CBC, FE and TIBC ####[address] Erythrocyte distribution wid th [Ratio] by Automated countOrdered By: Padmini Douglas on 03-22-2024 Erythrocyte distribution width (RBC) [Ratio] 13.1 % Normal 11.9-15.[address] [facility] Comment on above: Performed By: #### T SH3, MANAV, CMP, CBC, FE and TIBC ####[address] Erythrocytes [#/volume] in B lood by Automated countOrdered By: Padmini Douglas on 03-22-2024 RBC (Bld) [#/Vol] 4.78 10*6/uL Normal 3.60-5.00 [facility] Comment on above: Performed By: #### T SH3, MANAV, CMP, CBC, FE and TIBC ####[place] [address] [place] [id number] [facility] Ferritin [Mass/volume] in Se rum or PlasmaOrdered By: Padmini Douglas on 03-22-2024 Ferritin [Mass/Vol] 39.1 ng/mL Normal 11.0-306.8 [facility] Comment on above: Performed By: #### T SH3, MANAV, CMP, CBC, FE and TIBC ####[place] [address] [place] [id number] [facility] Glucose [Mass/volume] in Ser um or PlasmaOrdered By: Padmini Douglas on 03-22-2024 Glucose [Mass/Vol] 97 mg/dL Normal 70-100 [facility] Comment on above: ADA recommended refe rence rangeRandom Glucose Reference Range is dependent on time and content of last meal. Glucose of more than 200 mg/dL in a nonstressed, ambulatory subject supports the diagnosis of Diabetes Mellitus. Result Comment: [place] om Glucose Reference Range is dependent on time and content of last meal. Glucose of more than 200 mg/dL in a nonstressed, ambulatory subject supports the diagnosis of Diabetes Mellitus. ADA recommended reference range Performed By: #### T SH3, MANAV, CMP, CBC, FE and TIBC ####[facility] [place] [id number] [facility] Hematocrit [Volume Fraction] of Blood by Automated countOrdered By: Padmini Douglas on 03-22-2024 Hematocrit (Bld) [Volume fraction] 42.1 % Normal 34.0-46.[address] [facility] Comment on above: Performed By: #### T SH3, MANAV, CMP, CBC, FE and TIBC ####[place] [address] [place] [id number] [facility] Hemoglobin [Mass/volume] in BloodOrdered By: Padmini Douglas on 03-22-2024 Hemoglobin (Bld) [Mass/Vol] 14.2 g/dL Normal 11.8-15.[address] [facility] Comment on above: Performed By: #### T SH3, MANAV, CMP, CBC, FE and TIBC ####[place] [address] Iron [Mass/volume] in Serum or PlasmaOrdered By: Padmini Douglas on 03-22-2024 Iron [Mass/Vol] 100 ug/dL Normal 50-[address] [facility] Comment on above: Performed By: #### T SH3, MANAV, CMP, CBC, FE and TIBC ####[address] Iron and TIBC Profileon 02-23 % Iron Saturation 21.5 % Normal 20-50 [facility] Comment on above: Performed By: #### T SH3, MANAV, CMP, CBC, FE and TIBC ####[place] [address] Total Iron Binding Capacity 465 ug/dL High 255-450 [facility] Comment on above: Performed By: #### T SH3, MANAV, CMP, CBC, FE and TIBC ####[address] Iron binding capacity [Mass/ volume] in Serum or PlasmaOrdered By: Padmini Douglas on 03-22-2024 Iron binding capacity [Mass/Vol] 465 ug/dL High 255-[address] [facility] Iron saturation [Mass Fracti on] in Serum or PlasmaOrdered By: Padmini oDuglas on 03-22-2024 Iron saturation [Mass fraction] 21.5 % 20-[address] [facility] Leukocytes [#/volume] correc urvashi for nucleated erythrocytes in Blood by Automated counOrdered By: Padmini Douglas on 03-22-2024 WBC corrected for nucl RBC Auto (Bld) [#/Vol] 13.4 10*3/uL High 3.8-11.[address] [facility] Leukocytes [#/volume] in Blo od by Automated countOrdered By: Padmini Douglas on 03-22-2024 WBC (Bld) [#/Vol] 13.4 10*3/uL High 3.8-11.6 [facility] Comment on above: Performed By: #### T SH3, MANAV, CMP, CBC, FE and TIBC ####[address] Lymphocytes [#/volume] in Bl ood by Automated countOrdered By: Padmini Douglas on 03-22-2024 Lymphocytes (Bld) [#/Vol] 2.2 10*3/uL Normal 1.00-4.[address] [facility] Comment on above: Performed By: #### T SH3, MANAV, CMP, CBC, FE and TIBC ####[address] Lymphocytes/100 leukocytes i n Blood by Automated countOrdered By: Padmini Douglas on 03-22-2024 Lymphocytes/100 WBC (Bld) 16.3 % Normal . [facility] Comment on above: Performed By: #### T SH3, MANAV, CMP, CBC, FE and TIBC ####[address] MCH [Entitic mass] by Automa urvashi countOrdered By: Padmini Douglas on 03-22-2024 MCH (RBC) [Entitic mass] 29.6 pg Normal 24.7-34.[address] [facility] Comment on above: Performed By: #### T SH3, MANAV, CMP, CBC, FE and TIBC ####[address] MCHC Auto (RBC) [Mass/Vol]Or dered By: Padmini Douglas on 03-22-2024 MCHC (RBC) [Mass/Vol] 33.6 g/dL 32.0-35.0 [facility] MCV [Entitic volume] by Auto mated countOrdered By: Padmini Douglas on 03-22-2024 MCV (RBC) [Entitic vol] 88.0 fL Normal 80-100 [facility] Comment on above: Performed By: #### T SH3, MANAV, CMP, CBC, FE and TIBC ####[address] Neutrophils [#/volume] in Bl ood by Automated countOrdered By: Padmini Douglas on 03-22-2024 Neutrophils (Bld) [#/Vol] 10.1 10*3/uL High 1.8-7.[address] [facility] Comment on above: Performed By: #### T SH3, MANAV, CMP, CBC, FE and TIBC ####[address] No Panel InformationOrdered By: Padmini Douglas on 03-22-2024 Estimated GFR (CKD-EPI) > 60.0 mL/Min [facility] Creatinine Clearance (Chem N/A [facility] Nucleated erythrocytes [Pres ence] in Blood by Automated countOrdered By: Padmini Douglas on 03-22-2024 Nucleated RBC Auto Ql (Bld) 0.1 /100{WBC} 0-0.[address] [facility] Platelet mean volume [Entiti c volume] in Blood by Automated countOrdered By: Padmini Douglas on 03-22-2024 Platelet mean volume (Bld) [Entitic vol] 9.8 fL Normal 6.3-10.[address] [facility] Comment on above: Performed By: #### T SH3, MANAV, CMP, CBC, FE and TIBC ####[address] Platelets [#/volume] in Bloo d by Automated countOrdered By: Padmini Douglas on 03-22-2024 Platelets (Bld) [#/Vol] 389 10*3/uL Normal 150-[address] [facility] Comment on above: Performed By: #### T SH3, MANAV, CMP, CBC, FE and TIBC ####[address] Potassium [Moles/volume] in Serum or PlasmaOrdered By: Padmini Douglas on 03-22-2024 Potassium [Moles/Vol] 3.9 mmol/L Normal 3.5-5.1 [facility] Comment on above: Performed By: #### T SH3, MANAV, CMP, CBC, FE and TIBC ####[address] Protein [Mass/volume] in Ser um or PlasmaOrdered By: Padmini Douglas on 03-22-2024 Protein [Mass/Vol] 7.0 g/dL Normal 6.4-8.9 [facility] Comment on above: Performed By: #### T SH3, MANAV, CMP, CBC, FE and TIBC ####[place] [address] Serum globulin measurement b y calculation (mass/volume)Ordered By: Padmini Douglas on 03-22-2024 Globulin (S) [Mass/Vol] 3.0 g/dL Normal [facility] Comment on above: Performed By: #### T SH3, MANAV, CMP, CBC, FE and TIBC ####[place] [address] Serum or plasma albumin/glob ulin mass ratioOrdered By: Padmini Douglas on 03-22-2024 Albumin/Globulin [Mass ratio] 1.3 {ratio} Normal [facility] Comment on above: Performed By: #### T SH3, MANAV, CMP, CBC, FE and TIBC ####[address] Serum or plasma anion gap de terminationOrdered By: Padmini Douglas on 03-22-2024 Anion gap [Moles/Vol] 11.4 mmol/L Normal 6.0-15.0 [facility] Comment on above: Performed By: #### T SH3, MANAV, CMP, CBC, FE and TIBC ####[address] Sodium [Moles/volume] in Ser um or PlasmaOrdered By: Padmini Douglas on 03-22-2024 Sodium [Moles/Vol] 136 mmol/L Normal 136-145 [facility] Comment on above: Performed By: #### T SH3, MANAV, CMP, CBC, FE and TIBC ####[address] Thyrotropin [Units/volume] i n Serum or PlasmaOrdered By: Padmini Douglas on 03-22-2024 TSH Qn 2.76 m[IU]/L Normal 0.45-5.[address] [facility] Comment on above: Result Comment: PERF ORMED BY: [facility] [address] [place] [place] [phone] PATHOLOGIST ROOFER APPRENTICE KIM RAHMAN M.D. Performed By: #### T SH3, MANAV, CMP, CBC, FE and TIBC ####[place] [address] [place] [id number] [facility] Transferrin [Mass/volume] in Serum or PlasmaOrdered By: Padmini Douglas on 03-22-2024 Transferrin [Mass/Vol] 332 mg/dL Normal 203-362 [facility] Comment on above: Performed By: #### T SH3, MANAV, CMP, CBC, FE and TIBC ####[place] [address] [place] [id number] [facility] Urea nitrogen [Mass/volume] in Serum or PlasmaOrdered By: Padmini Douglas on 03-22-2024 Urea nitrogen [Mass/Vol] 9 mg/dL Normal 7-[address] [facility] Comment on above: Performed By: #### T SH3, MANAV, CMP, CBC, FE and TIBC ####[place] [address] No Panel Informationon 03-17 Stool Calprotectin 704 ug/g Abnormal 0-120 [facility] Comment on above: Concentration Interp retation Follow-Up< 5 - 50 ug/g Normal None>50 -120 ug/g Borderline Re-evaluate in 4-6 weeks >120 ug/g Abnormal Repeat as clinically indicatedPerformed at: [facility] [address] [id number] Director: Salty Estevez MD, Phone: [phone] Alanine aminotransferase [En zymatic activity/volume] in Serum or PlasmaOrdered By: Padmini Douglas on 06-27-2023 ALT [Catalytic activity/Vol] 7 U/L 7-[address] [facility] Albumin [Mass/volume] in Ser um or Plasma by Bromocresol green (BCG) dye binding methoOrdered By: Padmini Douglas on 06-27-2023 Albumin BCG dye [Mass/Vol] 4.2 g/dL 3.5-5.[address] [facility] Alkaline phosphatase [Enzyma tic activity/volume] in Serum or PlasmaOrdered By: Padmini Douglas on 06-27-2023 ALP [Catalytic activity/Vol] 73 U/L 34-[address] [facility] Aspartate aminotransferase [ Enzymatic activity/volume] in Serum or PlasmaOrdered By: Padmini Douglas on 06-27-2023 AST [Catalytic activity/Vol] 11 U/L 13-[address] [facility] Basophils Auto (Bld) [#/Vol] Ordered By: Padmini Douglas on 06-27-2023 Basophils (Bld) [#/Vol] 0.1 10*3/uL 0.0-0.[address] [facility] Basophils/100 WBC Auto (Bld) Ordered By: Padmini Douglas on 06-27-2023 Basophils/100 WBC (Bld) 0.5 % . [facility] Bilirubin.total [Mass/volume ] in Serum or PlasmaOrdered By: Padmini Douglas on 06-27-2023 Bilirubin [Mass/Vol] 0.3 mg/dL 0.3-1.0 [facility] Calcium [Mass/volume] in Ser um or PlasmaOrdered By: Padmini Douglas on 06-27-2023 Calcium [Mass/Vol] 9.5 mg/dL 8.6-10.3 [facility] Carbon dioxide, total [Moles /volume] in Serum or PlasmaOrdered By: Padmini Douglas on 06-27-2023 CO2 [Moles/Vol] 26.8 mmol/L 21.0-31.0 [facility] Chloride [Moles/volume] in S jourdan or PlasmaOrdered By: Padmini Douglas on 06-27-2023 Chloride [Moles/Vol] 104 mmol/L 98-107 [facility] Creatinine [Mass/volume] in Serum or PlasmaOrdered By: Padmini Douglas on 06-27-2023 Creatinine [Mass/Vol] 0.59 mg/dL 0.60-1.20 [facility] Eosinophils Auto (Bld) [#/Vo l]Ordered By: Padmini Douglas on 06-27-2023 Eosinophils (Bld) [#/Vol] 0.2 10*3/uL 0.0-0.[address] [facility] Eosinophils/100 WBC Auto (Bl d)Ordered By: Padmini Douglas on 06-27-2023 Eosinophils/100 WBC (Bld) 1.7 % . [facility] Erythrocyte distribution wid th Auto (RBC) [Ratio]Ordered By: Padmini Douglas on 06-27-2023 Erythrocyte distribution width (RBC) [Ratio] 13.3 % 11.9-15.[address] [facility] Ferritin [Mass/volume] in Se rum or PlasmaOrdered By: Padmini Douglas on 06-27-2023 Ferritin [Mass/Vol] 32.7 ng/mL 11.0-306.8 [facility] Globulin Calc (S) [Mass/Vol] Ordered By: Padmini Douglas on 06-27-2023 Globulin (S) [Mass/Vol] 2.9 g/dL [facility] Glucose [Mass/volume] in Ser um or PlasmaOrdered By: Padmini Douglas on 06-27-2023 Glucose [Mass/Vol] 77 mg/dL 70-100 [facility] Comment on above: ADA recommended refe rence rangeRandom Glucose Reference Range is dependent on time and content of last meal. Glucose of more than 200 mg/dL in a nonstressed, ambulatory subject supports the diagnosis of Diabetes Mellitus. Hematocrit Auto (Bld) [Volum e fraction]Ordered By: Padmini Douglas on 06-27-2023 Hematocrit (Bld) [Volume fraction] 42.2 % 34.0-46.[address] [facility] Hemoglobin [Mass/volume] in BloodOrdered By: Padmini Douglas on 06-27-2023 Hemoglobin (Bld) [Mass/Vol] 14.3 g/dL 11.8-15.[address] [facility] Iron [Mass/volume] in Serum or PlasmaOrdered By: Padmini Douglas on 06-27-2023 Iron [Mass/Vol] 115 ug/dL 50-[address] [facility] Iron binding capacity [Mass/ volume] in Serum or PlasmaOrdered By: Padmini Douglas on 06-27-2023 Iron binding capacity [Mass/Vol] 508 ug/dL 255-[address] [facility] Iron saturation [Mass Fracti on] in Serum or PlasmaOrdered By: Padmini Douglsa on 06-27-2023 Iron saturation [Mass fraction] 22.6 % 20-[address] [facility] Leukocytes [#/volume] correc urvashi for nucleated erythrocytes in Blood by Automated counOrdered By: Padmini Douglas on 06-27-2023 WBC corrected for nucl RBC Auto (Bld) [#/Vol] 9.8 10*3/uL 3.8-11.[address] [facility] Lymphocytes Auto (Bld) [#/Vo l]Ordered By: Padmini Douglas on 06-27-2023 Lymphocytes (Bld) [#/Vol] 1.9 10*3/uL 1.00-4.[address] [facility] Lymphocytes/100 WBC Auto (Bl d)Ordered By: Padmini Douglas on 06-27-2023 Lymphocytes/100 WBC (Bld) 19.2 % . [facility] MCH Auto (RBC) [Entitic mass ]Ordered By: Padmini Douglas on 06-27-2023 MCH (RBC) [Entitic mass] 29.7 pg 24.7-34.[address] [facility] MCHC Auto (RBC) [Mass/Vol]Or dered By: Padmini Douglas on 06-27-2023 MCHC (RBC) [Mass/Vol] 33.8 g/dL 32.0-35.0 [facility] MCV Auto (RBC) [Entitic vol] Ordered By: Padmini Douglas on 06-27-2023 MCV (RBC) [Entitic vol] 87.7 fL 80-100 [facility] Monocytes Auto (Bld) [#/Vol] Ordered By: Padmini Douglas on 06-27-2023 Monocytes (Bld) [#/Vol] 0.8 10*3/uL 0.0-0.[address] [facility] Monocytes/100 WBC Auto (Bld) Ordered By: Padmini Douglas on 06-27-2023 Monocytes/100 WBC (Bld) 8.5 % . [facility] Neutrophils Auto (Bld) [#/Vo l]Ordered By: Padmini Douglas on 06-27-2023 Neutrophils (Bld) [#/Vol] 6.8 10*3/uL 1.8-7.[address] [facility] Neutrophils/100 WBC Auto (Bl d)Ordered By: Padmini Douglas on 06-27-2023 Neutrophils/100 WBC (Bld) 70.1 % . [facility] No Panel InformationOrdered By: Padmini Douglas on 11-03-2023 Estimated GFR (CKD-EPI) > 60.0 mL/Min [facility] Creatinine Clearance (Chem N/A [facility] Nucleated erythrocytes [Pres ence] in Blood by Automated countOrdered By: Padmini Douglas on 06-27-2023 Nucleated RBC Auto Ql (Bld) 0.1 /100{WBC} 0-0.[address] [facility] Platelet mean volume Auto (B ld) [Entitic vol]Ordered By: Padmini Douglas on 06-27-2023 Platelet mean volume (Bld) [Entitic vol] 9.4 fL 6.3-10.[address] [facility] Platelets Auto (Bld) [#/Vol] Ordered By: Padmini Douglas on 06-27-2023 Platelets (Bld) [#/Vol] 367 10*3/uL 150-[address] [facility] Potassium [Moles/volume] in Serum or PlasmaOrdered By: Padmini Douglas on 06-27-2023 Potassium [Moles/Vol] 4.0 mmol/L 3.5-5.1 [facility] Protein [Mass/volume] in Ser um or PlasmaOrdered By: Padmini Douglas on 06-27-2023 Protein [Mass/Vol] 7.1 g/dL 6.4-8.9 [facility] RBC Auto (Bld) [#/Vol]Ordere d By: Padmini Douglas on 06-27-2023 RBC (Bld) [#/Vol] 4.81 10*6/uL 3.60-5.00 [facility] Serum or plasma albumin/glob ulin mass ratioOrdered By: Padmini Douglas on 06-27-2023 Albumin/Globulin [Mass ratio] 1.4 {ratio} [facility] Serum or plasma anion gap de terminationOrdered By: Padmini Douglas on 06-27-2023 Anion gap [Moles/Vol] 13.2 mmol/L 6.0-15.0 [facility] Sodium [Moles/volume] in Ser um or PlasmaOrdered By: Padmini Douglas on 06-27-2023 Sodium [Moles/Vol] 140 mmol/L 136-145 [facility] Transferrin [Mass/volume] in Serum or PlasmaOrdered By: Padmini Douglas on 06-27-2023 Transferrin [Mass/Vol] 363 mg/dL 203-362 [facility] Urea nitrogen [Mass/volume] in Serum or PlasmaOrdered By: Padmini Douglas on 06-27-2023 Urea nitrogen [Mass/Vol] 8 mg/dL 7-[address] [facility] WBC Auto (Bld) [#/Vol]Ordere d By: Padmini Douglas on 06-27-2023 WBC (Bld) [#/Vol] 9.8 10*3/uL 3.8-11.6 [facility] Albumin [Mass/volume] in Ser um or PlasmaOrdered By: Padmini Douglas on 09-05-2022 Albumin [Mass/Vol] 3.6 g/dL 3.2-5.5 [facility] Basophils Auto (Bld) [#/Vol] Ordered By: Padmini Douglas on 09-05-2022 Basophils (Bld) [#/Vol] 0.1 10*3/uL 0.0-0.[address] [facility] Basophils/100 WBC Auto (Bld) Ordered By: Padmini Douglas on 09-05-2022 Basophils/100 WBC (Bld) 0.6 % . [facility] CT biopsyOrdered By: Padmini dominguez on 09-05-2022 Transferrin [Mass/Vol] 326 mg/dL 180-380 [facility] Creatinine and Glomerular fi ltration rate.predicted panel (S/P/Bld)Ordered By: Padmini Douglas on 09-05-2022 Creatinine [Mass/Vol] 0.60 mg/dL 0.44-1.03 [facility] Eosinophils Auto (Bld) [#/Vo l]Ordered By: Padmini Douglas on 09-05-2022 Eosinophils (Bld) [#/Vol] 0.1 10*3/uL 0.0-0.[address] [facility] Eosinophils/100 WBC Auto (Bl d)Ordered By: Padmini Douglas on 09-05-2022 Eosinophils/100 WBC (Bld) 1.2 % . [facility] Erythrocyte distribution wid th Auto (RBC) [Ratio]Ordered By: Padmini Douglas on 09-05-2022 Erythrocyte distribution width (RBC) [Ratio] 13.0 % 11.9-15.[address] [facility] Estimated glomerular filtrat ion rate (GFR) non- AmericanOrdered By: Padmini Douglas on 09-05-2022 GFR/1.73 sq M.predicted among non-blacks MDRD (S/P/Bld) [Vol rate/Area] > 60 mL/Min [facility] Ferritin [Mass/volume] in Se rum or PlasmaOrdered By: Padmini Douglas on 09-05-2022 Ferritin [Mass/Vol] 40.2 ng/mL 11-306.8 [facility] Globulin Calc (S) [Mass/Vol] Ordered By: Padmini Douglas on 09-05-2022 Globulin (S) [Mass/Vol] 3.2 g/dL [facility] Hematocrit Auto (Bld) [Volum e fraction]Ordered By: Padmini Douglas on 09-05-2022 Hematocrit (Bld) [Volume fraction] 41.5 % 34.0-46.[address] [facility] Hemoglobin [Mass/volume] in BloodOrdered By: Padmini Douglas on 09-05-2022 Hemoglobin (Bld) [Mass/Vol] 13.6 g/dL 11.8-15.[address] [facility] Iron [Mass/volume] in Serum or PlasmaOrdered By: Padmini Douglas on 09-05-2022 Iron [Mass/Vol] 119 ug/dL 40-[address] [facility] Iron binding capacity [Mass/ volume] in Serum or PlasmaOrdered By: Padmini Douglas on 09-05-2022 Iron binding capacity [Mass/Vol] 456 ug/dL 255-[address] [facility] Iron saturation [Mass Fracti on] in Serum or PlasmaOrdered By: Padmini Douglas on 09-05-2022 Iron saturation [Mass fraction] 26.1 % 20-[address] [facility] Leukocytes [#/volume] correc urvashi for nucleated erythrocytes in Blood by Automated counOrdered By: Padmini Douglas on 09-05-2022 WBC corrected for nucl RBC Auto (Bld) [#/Vol] 11.4 10*3/uL 3.8-11.[address] [facility] Lymphocytes Auto (Bld) [#/Vo l]Ordered By: Padmini Douglas on 09-05-2022 Lymphocytes (Bld) [#/Vol] 1.9 10*3/uL 1.00-4.[address] [facility] Lymphocytes/100 WBC Auto (Bl d)Ordered By: Padmini Douglas on 09-05-2022 Lymphocytes/100 WBC (Bld) 16.9 % . [facility] MCH Auto (RBC) [Entitic mass ]Ordered By: Padmini Douglas on 09-05-2022 MCH (RBC) [Entitic mass] 29.1 pg 24.7-34.[address] [facility] MCHC Auto (RBC) [Mass/Vol]Or dered By: Padmini Douglas on 09-05-2022 MCHC (RBC) [Mass/Vol] 32.8 g/dL 32.0-35.0 [facility] MCV Auto (RBC) [Entitic vol] Ordered By: Padmini Douglas on 09-05-2022 MCV (RBC) [Entitic vol] 88.5 fL 80-100 [facility] Monocytes Auto (Bld) [#/Vol] Ordered By: Padmini Douglas on 09-05-2022 Monocytes (Bld) [#/Vol] 0.8 10*3/uL 0.0-0.[address] [facility] Monocytes/100 WBC Auto (Bld) Ordered By: Padmini Douglas on 09-05-2022 Monocytes/100 WBC (Bld) 6.8 % . [facility] Neutrophils Auto (Bld) [#/Vo l]Ordered By: Padmini Douglas on 09-05-2022 Neutrophils (Bld) [#/Vol] 8.5 10*3/uL 1.8-7.[address] [facility] Neutrophils/100 WBC Auto (Bl d)Ordered By: Padmini Douglas on 09-05-2022 Neutrophils/100 WBC (Bld) 74.5 % . [facility] No Panel InformationOrdered By: Padmini Douglas on 09-05-2022 Estimated GFR () > 60 mL/Min [facility] Comment on above: GFR estimated refere nce range: According to KDOQI guidelines, <60 ml/min/1.73m2 is sufficient to diagnose a patient with chronic kidney disease. Pharmacy Creatinine Clearance (Chem N/A [facility] Nucleated erythrocytes [Pres ence] in Blood by Automated countOrdered By: Padmini Douglas on 09-05-2022 Nucleated RBC Auto Ql (Bld) 0.1 /100{WBC} 0-0.[address] [facility] Platelet mean volume Auto (B ld) [Entitic vol]Ordered By: Padmini Douglas on 09-05-2022 Platelet mean volume (Bld) [Entitic vol] 10.0 fL 6.3-10.[address] [facility] Platelets Auto (Bld) [#/Vol] Ordered By: Padmini Douglas on 09-05-2022 Platelets (Bld) [#/Vol] 363 10*3/uL 150-[address] [facility] Protein [Mass/volume] in Ser um or PlasmaOrdered By: Padmini Douglas on 09-05-2022 Protein [Mass/Vol] 6.8 g/dL 6.1-7.9 [facility] RBC Auto (Bld) [#/Vol]Ordere d By: Padmini Douglas on 09-05-2022 RBC (Bld) [#/Vol] 4.69 10*6/uL 3.60-5.00 [facility] Serum or plasma alanine chinchilla otransferase measurement without P-5'-P (enzymatic activiOrdered By: Padmini Douglas on 09-05-2022 ALT No additional P-5'-P [Catalytic activity/Vol] 12 U/L 10-[address] [facility] Serum or plasma albumin/glob ulin mass ratioOrdered By: Padmini Douglas on 09-05-2022 Albumin/Globulin [Mass ratio] 1.1 {ratio} [facility] Serum or plasma alkaline ashley sphatase measurement (enzymatic activity/volume)Ordered By: Padmini Douglas on 09-05-2022 ALP [Catalytic activity/Vol] 74 U/L 32-[address] [facility] Serum or plasma anion gap de terminationOrdered By: Padmini Douglas on 09-05-2022 Anion gap [Moles/Vol] 13.7 mmol/L 6.0-15.0 [facility] Serum or plasma aspartate am inotransferase measurement (enzymatic activity/volume)Ordered By: Padmini Douglas on 09-05-2022 AST [Catalytic activity/Vol] 14 U/L 10-[address] [facility] Serum or plasma calcium robb urement (mass/volume)Ordered By: Padmini Douglas on 09-05-2022 Calcium [Mass/Vol] 9.2 mg/dL 8.2-10.2 [facility] Serum or plasma chloride alvarado surement (moles/volume)Ordered By: Padmini Douglas on 09-05-2022 Chloride [Moles/Vol] 100 mmol/L 95-114 [facility] Serum or plasma glucose robb urement (mass/volume)Ordered By: Padmini Douglas on 09-05-2022 Glucose [Mass/Vol] 74 mg/dL 70-100 [facility] Comment on above: ADA recommended refe rence rangeRandom Glucose Reference Range is dependent on time and content of last meal. Glucose of more than 200 mg/dL in a nonstressed, ambulatory subject supports the diagnosis of Diabetes Mellitus. Serum or plasma potassium me asurement (moles/volume)Ordered By: Padmini Douglas on 09-05-2022 Potassium [Moles/Vol] 3.9 mmol/L 3.5-5.1 [facility] Serum or plasma sodium measu rement (moles/volume)Ordered By: Padmini Douglas on 09-05-2022 Sodium [Moles/Vol] 133 mmol/L 136-146 [facility] Serum or plasma total biliru bin measurement (mass/volume)Ordered By: Padmini Douglas on 09-05-2022 Bilirubin [Mass/Vol] 0.3 mg/dL 0.3-1.2 [facility] Serum or plasma total carbon dioxide measurement (moles/volume)Ordered By: Padmini Douglas on 09-05-2022 CO2 [Moles/Vol] 23.2 mmol/L 22.0-30.0 [facility] Serum or plasma urea nitroge n measurement (mass/volume)Ordered By: Padmini Douglas on 09-05-2022 Urea nitrogen [Mass/Vol] 8 mg/dL 9-[address] [facility] TSH DL <= 0.005 mIU/L QnOrde red By: Padmini Douglas on 09-05-2022 TSH Qn 2.04 m[IU]/L 0.45-5.[address] [facility] WBC Auto (Bld) [#/Vol]Ordere d By: Padmini Douglas on 09-05-2022 WBC (Bld) [#/Vol] 11.4 10*3/uL 3.8-11.6 [facility] QUANTIFERON TB GOLD PLUSon 0 01-25-2022 QuantiFERON Criteria Comment Normal [facility] Comment on above: Result Comment: The QuantiFERON-TB Gold Plus result is determined by subtracting the Nil value from either TB antigen (Ag) tube. The mitogen tube serves as a control for the test. Performed By: #### Q NTTB #### [facility] [address] [place] [address] Dr. Gt Rowland QuantiFERON Incubation Incubation performed. Normal [facility] Comment on above: Performed By: #### Q NTTB #### [facility] [address] [place] [address] Dr. Gt Rowland QuantiFERON Mitogen Value >10.00 Normal [facility] Comment on above: Performed By: #### Q NTTB #### [facility] [address] [place] [address] Dr. Gt Rowland QuantiFERON Nil Value 0.00 IU/mL Normal [facility] Comment on above: Performed By: #### Q NTTB #### [facility] [address] [place] [address] Dr. Gt Rowland QuantiFERON TB1 Ag Value 0.02 IU/mL Normal [facility] Comment on above: Performed By: #### Q NTTB #### [facility] [address] [place] [address] Dr. Gt Rowland QuantiFERON TB2 Ag Value 0.01 IU/mL Normal [facility] Comment on above: Performed By: #### Q NTTB #### [facility] [address] [place] [address] Dr. Gt Rowland QuantiFERON-TB Gold Plus Negative Normal Negative [facility] Comment on above: Result Comment: Chem iluminescence immunoassay methodology Performed By: #### Q NTTB #### [facility] [address] [place] [address] Dr. Gt Rowland Vital Signs Date Time Vital Sign Value Performing Clinician Facility 10-13-2024 09:45-0500 Body height 160.[address] [facility] 10-13-2024 09:45-0500 Body mass index (BMI) [Ratio] 27.4 kg/m2 [facility] 10-13-2024 09:45-0500 Body temperature 98.7 [degF] [facility] 10-13-2024 09:45-0500 Body weight 70.[address] [facility] 10-13-2024 09:45-0500 Diastolic blood pressure 84 mm[Hg] [facility] 10-13-2024 09:45-0500 Heart rate 92 /min [facility] 10-13-2024 09:45-0500 SaO2% (BldA) [Mass fraction] 99 % [facility] 10-13-2024 09:45-0500 Systolic blood pressure 128 mm[Hg] [facility] 08-02-2024 14:00-0500 Body height 160.[address] [facility] 08-02-2024 14:00-0500 Body mass index (BMI) [Ratio] 27.4 kg/m2 [facility] 08-02-2024 14:00-0500 Body weight 70.[address] [facility] 06-29-2024 11:26-0500 Diastolic blood pressure 95 mm[Hg] DO Padmini Douglas Work Phone: [facility] 06-29-2024 11:26-0500 Heart rate 94 /min DO Padmini Douglas Work Phone: [facility] 06-29-2024 11:26-0500 Systolic blood pressure 131 mm[Hg] DO Padmini Douglas Work Phone: [facility] 04-23-2024 10:01-0400 Body mass index (BMI) [Ratio] 27.08 kg/m2 Rene Roque MD Work Phone: [facility] 04-23-2024 10:01-0400 Body temperature 96.8 [degF] Rene Roque MD Work Phone: [facility] 04-23-2024 10:01-0400 Body weight 70.44 kg Rene Roque MD Work Phone: [employer] 04-23-2024 10:01-0400 Diastolic blood pressure 87 mm[Hg] Rene Roque MD Work Phone: [employer] 04-23-2024 10:01-0400 Heart rate 96 /min [facility] 04-23-2024 10:01-0400 SaO2% (BldA) [Mass fraction] 99 % [facility] 04-23-2024 10:01-0400 Systolic blood pressure 132 mm[Hg] [facility] Roque MD [facility] 04-22-2024 08:44-0400 Body height 161.29 cm DO Padmini Frostjay Work Phone: [facility] 04-22-2024 08:44-0400 Body mass index (BMI) [Ratio] 24.4 kg/m2 DO Padmini Douglas Work Phone: [facility] 04-22-2024 08:44-0400 Body weight 63.5 kg DO Padmini Aracelis Work Phone: [facility] 03-31-2024 13:26-0400 Body height 162.56 cm DO Padmini Frostjay Work Phone: [facility] 03-31-2024 13:26-0400 Body mass index (BMI) [Ratio] 25.5 kg/m2 DO Padmini Girjay Work Phone: [facility] 03-31-2024 13:26-0400 Body temperature 98.1 [degF] DO Padmini Frostvin Work Phone: [facility] 03-31-2024 13:26-0400 Body weight 67.58 kg DO Padmini Girjay Work Phone: [facility] 03-31-2024 13:26-0400 Diastolic blood pressure 84 mm[Hg] DO Padmini Douglas Work Phone: [facility] 03-31-2024 13:26-0400 Heart rate 112 /min DO Padmini Douglas Work Phone: [facility] 03-31-2024 13:26-0400 SaO2% (BldA) [Mass fraction] 98 % DO Padmini Douglas Work Phone: [facility] 03-31-2024 13:26-0400 Systolic blood pressure 128 mm[Hg] DO Padmini Girjay Work Phone: [facility] 03-24-2024 10:53-0400 Diastolic blood pressure 88 mm[Hg] DO Padmini Douglas Work Phone: [facility] 03-24-2024 10:53-0400 Heart rate 81 /min DO Padmini Douglas Work Phone: [facility] 03-24-2024 10:53-0400 Respiratory rate 16 /min DO Padmini Douglas Work Phone: [facility] 03-24-2024 10:53-0400 SaO2% (BldA) [Mass fraction] 99 % DO Padmini Douglas Work Phone: [facility] 03-24-2024 10:53-0400 Systolic blood pressure 133 mm[Hg] DO Padmini Douglas Work Phone: [facility] 03-24-2024 08:22-0400 Body height 160.02 cm DO Padmini Girjay Work Phone: [facility] 03-24-2024 08:22-0400 Body weight 65.77 kg DO Padmini Girjay Work Phone: [facility] 03-04-2024 11:20-0400 Body height 162.56 cm DO Padmini Girvin Work Phone: [facility] 03-04-2024 11:20-0400 Body mass index (BMI) [Ratio] 25.4 kg/m2 DO Padmini Girvin Work Phone: [facility] 03-04-2024 11:20-0400 Body weight 67.13 kg DO Padmini Douglas Work Phone: [facility] 03-04-2024 11:20-0400 Diastolic blood pressure 89 mm[Hg] DO Padmini Douglas Work Phone: [facility] 03-04-2024 11:20-0400 Heart rate 115 /min DO Padmini Douglas Work Phone: [facility] 03-04-2024 11:20-0400 Systolic blood pressure 129 mm[Hg] DO Padmini Douglas Work Phone: [facility] 12-24-2023 10:29-0400 Body height 162.56 cm DO Padmini Douglas Work Phone: [facility] 12-24-2023 10:29-0400 Body mass index (BMI) [Ratio] 25.5 kg/m2 DO Padmini Douglas Work Phone: [facility] 12-24-2023 10:29-0400 Body temperature 98.7 [degF] DO Padmini Douglas Work Phone: [facility] 12-24-2023 10:29-0400 Body weight 67.58 kg DO Padmini Douglas Work Phone: [facility] 12-24-2023 10:29-0400 Diastolic blood pressure 84 mm[Hg] DO Padmini Douglas Work Phone: [facility] 12-24-2023 10:29-0400 Heart rate 94 /min DO Padmini Douglas Work Phone: [facility] 12-24-2023 10:29-0400 SaO2% (BldA) [Mass fraction] 97 % DO Padmini Douglas Work Phone: [facility] 12-24-2023 10:29-0400 Systolic blood pressure 132 mm[Hg] DO Padmini Douglas Work Phone: [facility] 09-22-2023 17:20-0500 Body height 162.56 cm Padmini Douglas Other [employer] Other 09-22-2023 17:20-0500 Body mass index (BMI) [Ratio] 26.43 kg/m2 Padmini Douglas Other [employer] Other 09-22-2023 17:20-0500 Body temperature 98.7 [degF] Padmini Douglas Other [employer] Other 09-22-2023 17:20-0500 Body weight 69.85 kg Padmini Douglas Other [employer] Other 09-22-2023 17:20-0500 Diastolic blood pressure 82 mm[Hg] Padmini Douglas Other [employer] Other 09-22-2023 17:20-0500 Respiratory rate 16 /min Padmini Douglas Other [employer] Other 09-22-2023 17:20-0500 SaO2% (BldA) [Mass fraction] 98 % Padmini Douglas Other [employer] Other 09-22-2023 17:20-0500 Systolic blood pressure 118 mm[Hg] Padmini Douglas Other [employer] Other 06-30-2023 17:20-0500 Body height 162.56 cm Padmini Douglas Other [employer] Other 06-30-2023 17:20-0500 Body mass index (BMI) [Ratio] 25.74 kg/m2 Padmini Douglas Other [employer] Other 06-30-2023 17:20-0500 Body temperature 98.2 [degF] Padmini Douglas Other [employer] Other 06-30-2023 17:20-0500 Body weight 68.04 kg Padmini Douglas Other [employer] Other 06-30-2023 17:20-0500 Diastolic blood pressure 84 mm[Hg] Padmini Douglas Other [employer] Other 06-30-2023 17:20-0500 Respiratory rate 16 /min Padmini Douglas Other [employer] Other 06-30-2023 17:20-0500 SaO2% (BldA) [Mass fraction] 97 % Padmini Douglas Other [employer] Other 06-30-2023 17:20-0500 Systolic blood pressure 124 mm[Hg] Padmini Douglas Other [employer] Other 03-17-2023 17:20-0400 Body height 162.56 cm Padmini Douglas Other [employer] Other 03-17-2023 17:20-0400 Body mass index (BMI) [Ratio] 25.23 kg/m2 Padmini Douglas Other [employer] Other 03-17-2023 17:20-0400 Body temperature 98.8 [degF] Padmini Douglas Other [employer] Other 03-17-2023 17:20-0400 Body weight 66.68 kg Padmini Douglas Other [employer] Other 03-17-2023 17:20-0400 Diastolic blood pressure 86 mm[Hg] Padmini Douglas Other [employer] Other 03-17-2023 17:20-0400 Respiratory rate 16 /min Padmini Douglas Other [employer] Other 03-17-2023 17:20-0400 SaO2% (BldA) [Mass fraction] 97 % Padmini Douglas Other [employer] Other 03-17-2023 17:20-0400 Systolic blood pressure 138 mm[Hg] Padmini Douglas Other [employer] Other 10-22-2022 15:30-0500 Body height 162.56 cm Imad Asaad Other [employer] Other 10-22-2022 15:30-0500 Body mass index (BMI) [Ratio] 24.89 kg/m2 Imad Asaad Other [employer] Other 10-22-2022 15:30-0500 Body weight 65.77 kg Imad Asaad Other [employer] Other 10-22-2022 15:30-0500 Diastolic blood pressure 88 mm[Hg] Imad Asaad Other [employer] Other 10-22-2022 15:30-0500 Respiratory rate 16 /min Imad Asaad Other [employer] Other 10-22-2022 15:30-0500 Systolic blood pressure 130 mm[Hg] Imad Asaad Other [employer] Other 09-09-2022 18:00-0500 Body height 162.56 cm Padmini Douglas Other [employer] Other 09-09-2022 18:00-0500 Body mass index (BMI) [Ratio] 24.89 kg/m2 Padmini Douglas Other [employer] Other 09-09-2022 18:00-0500 Body temperature 97 [degF] Padmini Margotjay Other [employer] Other 09-09-2022 18:00-0500 Body weight 65.77 kg Padmini Douglas Other [employer] Other 09-09-2022 18:00-0500 Diastolic blood pressure 82 mm[Hg] Padmini Margotjay Other [employer] Other 09-09-2022 18:00-0500 Respiratory rate 16 /min Padmini Margotjay Other [employer] Other 09-09-2022 18:00-0500 SaO2% (BldA) [Mass fraction] 98 % Padmini Margotjay Other [employer] Other 09-09-2022 18:00-0500 Systolic blood pressure 124 mm[Hg] Padmini Douglas Other [employer] Other 06-12-2022 10:10-0400 Body height 162.56 cm Padmini Margotjay Other [employer] Other 06-12-2022 10:10-0400 Body mass index (BMI) [Ratio] 24.03 kg/m2 Padmini Margotjay Other [employer] Other 06-12-2022 10:10-0400 Body temperature 97.3 [degF] Padmini Douglas Other [employer] Other 06-12-2022 10:10-0400 Body weight 63.5 kg Padmini Douglas Other [employer] Other 06-12-2022 10:10-0400 Diastolic blood pressure 80 mm[Hg] Padmini Douglas Other [employer] Other 06-12-2022 10:10-0400 Respiratory rate 16 /min Padmini Douglas Other [employer] Other 06-12-2022 10:10-0400 SaO2% (BldA) [Mass fraction] 98 % Padmini Douglas Other [employer] Other 06-12-2022 10:10-0400 Systolic blood pressure 122 mm[Hg] Padmini Douglas Other [employer] Other 10-29-2021 18:00-0500 Body height 162.56 cm Padmini Douglas Other [employer] Other 10-29-2021 18:00-0500 Body mass index (BMI) [Ratio] 23.26 kg/m2 Padmini Douglas Other [employer] Other 10-29-2021 18:00-0500 Body temperature 97.6 [degF] Padmini Douglas Other [employer] Other 10-29-2021 18:00-0500 Body weight 61.46 kg Padmini Douglas Other [employer] Other 10-29-2021 18:00-0500 Diastolic blood pressure 68 mm[Hg] Padmini Douglas Other [employer] Other 10-29-2021 18:00-0500 Respiratory rate 18 /min Padmini Douglas Other [employer] Other 10-29-2021 18:00-0500 SaO2% (BldA) [Mass fraction] 98 % Padmini Douglas Other [employer] Other 10-29-2021 18:00-0500 Systolic blood pressure 122 mm[Hg] Padmini Douglas Other [employer] Other 06-20-2021 14:15-0400 Body height 162.56 cm Padmini Antaustin Other [employer] Other 06-20-2021 14:15-0400 Body mass index (BMI) [Ratio] 22.66 kg/m2 Padmini Antaustin Other [employer] Other 06-20-2021 14:15-0400 Body weight 59.88 kg Padmini Antaustin Other [employer] Other Encounters Encounter Date Encounter Type Care Provider Facility Start: 10-13-2024 End: 10-13-2024 ambulatory [facility] Work Phone: Start: 10-13-2024 End: 10-13-2024 Patient encounter procedure [facility] Physician [facility] [place] Work Phone: Start: 08-02-2024 End: 08-02-2024 Patient encounter procedure [facility] Physician [facility] Work Phone: Start: 07-21-2024 Non-patient / Non-visit [facility]ician [facility] Work Phone: Start: 06-29-2024 End: 06-29-2024 ambulatory DO Padmini Douglas Work Phone: [facility] Work Phone: Start: 06-29-2024 End: 06-29-2024 Discharged Recurring DO Padmini Douglas Work Phone: [facility] Work Phone: Start: 04-23-2024 End: 04-23-2024 Office outpatient visit 25 minutes Rene Roque MD Work Phone: [facility] Comment on above: Crohn's disease of s mall intestine with intestinal obstruction (HCC) (Primary Dx) Crohn's disease of s mall intestine with intestinal obstruction (HCC) (Primary Dx); Body mass index (BMI) 27.0-27.9, adult Start: 04-22-2024 End: 04-22-2024 Patient encounter procedure DO Padmini Douglas Work Phone: [facility] Physician [facility] Gastroenterology Work Phone: Start: 03-31-2024 End: 03-31-2024 Patient encounter procedure DO Padmini Douglas Work Phone: [facility] Physician [facility] [place] Work Phone: Start: 03-28-2024 Evaluation and management of inpatient GABRIEL ROBLESY Facility:[facility] Start: 03-26-2024 End: 03-29-2024 Evaluation and management of inpatient GABRIEL ROBLESY Facility:[facility] Start: 03-26-2024 Emergency department patient visit UNKNOWN PROVIDER Facility:[facility] Start: 03-26-2024 Evaluation and management of inpatient UNKNOWN PROVIDER Facility:[facility] Start: 03-25-2024 End: 03-26-2024 Emergency department patient visit UNKNOWN PROVIDER Facility:[facility] Start: 03-24-2024 Non-patient / Non-visit DO Padmini Douglas Work Phone: [facility] Work Phone: Start: 03-24-2024 End: 03-24-2024 Admission to same day surgery center DO Padmini Douglas Work Phone: [facility] Work Phone: Start: 03-24-2024 End: 03-24-2024 ambulatory DO Padmini Douglas Work Phone: [facility] Work Phone: Start: 03-22-2024 End: 03-22-2024 Patient encounter procedure DO Padmini Douglas Work Phone: [facility] [place] Work Phone: Start: 03-22-2024 End: 03-22-2024 ambulatory DO Padmini Douglas Work Phone: [facility] Work Phone: Start: 03-17-2024 Non-patient / Non-visit DO Padmini Douglas Work Phone: [facility] [facility] [employer] Work Phone: Start: 03-04-2024 End: 03-04-2024 Patient encounter procedure DO Padmini Douglas Work Phone: [facility] Gastroenterology Work Phone: Start: 12-24-2023 End: 12-24-2023 Patient encounter procedure DO Padmini Douglas Work Phone: [facility] Physician [facility] Family Medicine [place] Work Phone: Start: 10-06-2023 End: 10-06-2023 ambulatory Padmini Douglas Other [employer] Other Start: 10-06-2023 Telephone encounter Padmini Douglas [facility] [place] Start: 09-22-2023 End: 09-22-2023 ambulatory Padmini Douglas Other [employer] Other Start: 09-22-2023 Office outpatient visit 15 minutes Padmini Douglas [facility] [place] Start: 08-22-2023 End: 08-22-2023 ambulatory Padmini Douglas Other [employer] Other Start: 08-22-2023 Telephone encounter Padmini Douglas [facility] [place] Start: 06-30-2023 End: 06-30-2023 ambulatory Padmini Douglas Other [employer] Other Start: 06-30-2023 Office outpatient visit 15 minutes Padmini Douglas [facility] [place] Start: 06-27-2023 End: 06-27-2023 ambulatory DO Padmini Douglas Work Phone: [facility] Work Phone: Start: 06-27-2023 End: 06-27-2023 Patient encounter procedure DO Padmini Douglas Work Phone: [facility] Work Phone: Start: 05-23-2023 End: 05-23-2023 ambulatory Padmini Aracelis Other [employer] Other Start: 05-23-2023 Telephone encounter Padmini Douglas [facility] [place] Start: 04-21-2023 End: 04-21-2023 ambulatory Padmini Douglas Other [employer] Other Start: 04-21-2023 Telephone encounter Padmini Douglas [facility] [place] Start: 03-17-2023 End: 03-17-2023 ambulatory Padmini Aracelis Other [employer] Other Start: 03-17-2023 Office outpatient visit 15 minutes Padmini Douglas [facility] [place] Start: 03-03-2023 End: 03-03-2023 ambulatory Padmini Douglas Other [employer] Other Start: 03-03-2023 Telephone encounter Padmini Douglas [facility] [place] Start: 01-21-2023 End: 01-21-2023 ambulatory Padmini Douglas Other [employer] Other Start: 01-21-2023 Telephone encounter Padmini Douglas [facility] [place] Start: 12-05-2022 End: 12-05-2022 ambulatory Imad Asaad Other [employer] Other Start: 12-05-2022 Telephone encounter Imad Asaad [facility] Start: 11-11-2022 End: 11-11-2022 ambulatory Padmini Douglas Other [employer] Other Start: 11-11-2022 Telephone encounter Padmini Douglas [facility] [place] Start: 11-07-2022 End: 11-07-2022 ambulatory Imad Asaad Other [employer] Other Start: 11-07-2022 Telephone encounter Imad Asaad [facility] Start: 10-22-2022 End: 10-22-2022 ambulatory Imad Asaad Other [employer] Other Start: 10-22-2022 Patient encounter procedure Imad Asaad [facility] Start: 10-22-2022 Telephone encounter Imad Asaad [facility] Start: 09-12-2022 End: 09-12-2022 ambulatory Padmini Douglas Other [employer] Other Start: 09-12-2022 Telephone encounter Padmini Douglas [facility] [place] Start: 09-09-2022 End: 09-09-2022 ambulatory Padmini Douglas Other [employer] Other Start: 09-09-2022 Office outpatient visit 15 minutes Padmini Douglas [facility] [place] Start: 09-05-2022 End: 09-05-2022 ambulatory DO Padmini Douglas Work Phone: [facility] Work Phone: Start: 09-05-2022 End: 09-05-2022 Patient encounter procedure DO Padmini Douglas Work Phone: [facility] Work Phone: Start: 07-16-2022 End: 07-16-2022 ambulatory Padmini Douglas Other [employer] Other Start: 07-16-2022 Telephone encounter Padmini Douglas [facility] [place] Start: 06-12-2022 End: 06-12-2022 ambulatory Padmini Douglas Other [employer] Other Start: 06-12-2022 Office outpatient visit 15 minutes Padmini Douglas [facility] [place] Start: 06-12-2022 Telephone encounter Padmini Douglas [facility] Start: 05-02-2022 End: 05-02-2022 ambulatory Mario Kenny Other [employer] Other Start: 05-02-2022 Telephone encounter Mario [facility] Start: 04-15-2022 End: 04-15-2022 ambulatory Padmini Douglas Other [employer] Other Start: 04-15-2022 Telephone encounter Padmini Douglas [facility] [place] Start: 03-04-2022 End: 03-04-2022 ambulatory Padmini Douglas Other [employer] Other Start: 03-04-2022 Telephone encounter Padmini Douglas [facility] [place] Start: 02-11-2022 End: 02-11-2022 ambulatory Padmini Douglas Other [employer] Other Start: 02-11-2022 Telephone encounter Padmini Douglas [facility] [place] Start: 01-23-2022 End: 01-24-[address] PADMINI DOUGLAS Facility: Start: 01-09-2022 End: 01-09-2022 ambulatory Padmini Douglas Other [employer] Other Start: 01-09-2022 Telephone encounter Padmini Douglas [facility] [place] Start: 12-12-2021 End: 12-12-2021 ambulatory Padmini Douglas Other [employer] Other Start: 12-12-2021 Telephone encounter Padmini Douglas [facility] [place] Start: 10-29-2021 End: 10-29-2021 ambulatory Padmini Douglas Other [employer] Other Start: 10-29-2021 Office outpatient visit 15 minutes Padmini Douglas [facility] Start: 10-10-2021 End: 10-10-2021 ambulatory Padmini Douglas Other [employer] Other Start: 10-10-2021 Telephone encounter Padmini Douglas [facility] Start: 08-07-2021 End: 08-07-2021 ambulatory Padmini Douglas Other [employer] Other Start: 08-07-2021 Telephone encounter Padmini Douglas [facility] Start: 07-09-2021 End: 07-09-2021 ambulatory Padmini Douglas Other [employer] Other Start: 07-09-2021 Telephone encounter Padmini Douglas [facility] Start: 06-20-2021 Office outpatient visit 25 minutes Padmini Portillo [facility] Gastroenterology Procedures Date Procedure Procedure Detail Performing Clinician Start: 03-24-2024 Colonoscopy DO Padmini dominguez Work Phone: Plan of Treatment Date Care Activity Detail Author Start: 2048 Shingles (RZV) Vaccine (1 of 2) Shingles (RZV) Vaccine (1 of 2) [facility] Start: 05-25-2024 Influenza vaccination Influenza Vaccine (#1) [facility] Start: 03-24-[address] [facility] Start: 04-25-2023 COVID-19 Vaccine ( season) COVID-19 Vaccine ( season) [facility] Start: 2019 Screening for malignant neoplasm of cervix Pap Smear [facility] Start: 2017 Hepatitis A (HAV) Vaccine (optional start 19+ years) Hepatitis A (HAV) Vaccine (optional start 19+ years) [facility] Start: 2017 Hepatitis B vaccination Hepatitis B (HBV) Vaccine (1 of 3 - 19+ 3-dose series) [facility] Start: 2016 Hepatitis C screening Hepatitis C Antibody [facility] Start: 2016 Tdap Booster Tdap Booster [facility] Start: 2013 Vaccination for human papillomavirus HPV Vaccine (1 - 3-dose series) [facility] Patient Education Hemorrhoids (D C) Crohn Disease (DC) Know your Meds [facility] Work Phone: [facility] Immunizations Immunization Date Immunization Notes Care Provider Cyrus lawrence 03-04-2022 tetanus toxoid, reduced diphtheria toxoid, and acellular pertussis vaccine, adsorbed Padmini Douglas Other [facility] 12-16-2020 COVID-19 Vaccine Pfizer - Documentation Purposes Only Padmini Portillo Other [facility] 11-25-2020 COVID-19 Vaccine Pfizer - Documentation Purposes Only Padmini Portillo Other [facility] NEGATED: Highlighted row has not occurred!07-30-2021 influenza, seasonal, injectable Patient Objection Padmini Douglas Other [employer] Other Payers Date Payer Category Payer Self-pay [id number] 2022 Unknown [employer] - HMO/PPO/POS SUPERMED PPO/CLASSIC/PLUS [id number] 2022-Present [address] [place] [address] PPO [id number] 2022 Unknown [id number] 1998 Unknown [id number] [id number] 1998 Unknown [id number] [id number] 1998 Unknown [id number] 2.16.840.1.135124.3.579.2.732 1998 Unknown [id number] 2.16.840.1.897474.3.579.2.732 1998 Unknown [id number] [id number] 1998 Unknown [id number] 2.16.840.1.783175.3.579.2.732 1998 Unknown [id number] 2.16.840.1.091758.3.579.2.732 1998 Unknown [id number] 2.16.840.1.492304.3.579.2.732 1998 Unknown [id number] [id number] 1998 Unknown [id number] 2.16.840.1.761778.3.579.2.732 1959 Unknown [id number] Unknown [id number] 2.16.840.1.723227.3.579.2.531 Unknown [id number] 2.16.840.1.851425.3.579.2.531 Unknown [id number] 2.16.840.1.910514.3.579.2.531 Unknown [id number] [id number] Social History Date Type Detail Facility Unknown if ever smoked Moya Okruga [facility] [employer] Other Sex Assigned At [employer] Other Start: 12-07-2021 End: 03-26-2024 Tobacco smoking status NEIS Never smoked tobacco (finding) [facility] Start: 2000 Sex Assigned At Female F [facility] Start: 03-15-2024 End: 03-24-2024 Tobacco smoking status NEIS Ex-smoker (finding) [facility] Tobacco smoking status NEIS Tobacco smoking consumption [facility] Start: 2000 Sex assigned at Not on file [facility] Start: 10-13-2024 Sex Female (finding) [facility] Goals Date Patient Goal Desired Activity /State Clinical Notes 11-23-2016 to 08-02-2024 Note Date & Type Note Facility 08-02-2024 Evaluation note Authored August 02, 2024 2:22pm 24-year-old female with hist ory of Crohn's disease involving the terminal ileum came today for follow-up. Patient was diagnosed with Crohn's disease at the age of 16. She was Stelara then switched to Skyrizi on 05/03/24 due to inadequate clinical or endoscopic remission Colonoscopy on 03/24/2024 showed active Crohn's in the terminal ileum/erythematous mucosa with multiple ulcers noted in the terminal ileum up to 20 cm from the IC valve Fecal calprotectin improved from 704(on 03/17/24)-->31(on 07/21/24) CRP improved from 32. (03/22/24)-->1.84(07/21/24) Patient reports left upper quadrant abdominal pain started 3 days ago however her period Started 3 days ago as well -If pain persists even after her period ends or pain gets worse, will arrange for CT -Will continue to monitor symptomatic response and inflammatory markers and will arrange for colonoscopy in 6 months -Will monitor closely for adverse complications of immunosuppressive treatment including infections [facility] Work Phone: 1(508) 323-487008-30-2024 History of Present illness Narrative* Andrade Edwards - 04/23/2024 10:02 AM EDT Patient was identified by name and date of . Andrade Edwards Patient at risk for falls:No Falls Risk protocol implemented: Yes * Elijah Posada MD - 04/23/2024 9:44 AM EDT Images from the original note were not included. Gastroenterology New Patient Clinic Visit Attending Physician: Dr. Elijah Posada MD Aparna Arteaga is a 24 year old female with stricturing ileal Crohn's disease whom presents to clinictoday as a follow-up after recent admission for SBO, which was medically managed Follows with Gastroenterology Dr Rip Nair MD adela Stevenson Has been on Stelara q8 weeks for about 8 years. Unclear if she has any labs of Stelara trough or antibodies levels No previous abdominal surgeries. Undergone recent colonoscopy 02/2024 which showed multiple ulcers in TI with erythema but otherwise normal colonoscopy. Plan was to start steroid taper and switch from Stelara to Skyrizi However, she developed severe abdominal pain and was admitted for a SBO couple days after her colonoscopy and was transferred to [facility] for further care, where our team was consulted CTe during admission showed multifocal inflammatory changes and a stricture from Crohn's disease - enhancement in the terminal ileum and 2-4 separate sefmenets of enhancement in distal/proximal ileum She was discharged on prednisone taper of 40 mg and is now down to 25 mg IBD Background: Disease - Stricturing ileal Crohn's disease Abdominal surgeries - None Last colonoscopy - 03/24/2024, showing active ileal disease with ulcers Last imaging - CTe 03/2024 showing multifocal ileal inflammatory changes and a stricture from Crohn's disease Medications - Stelara q8 weeks, switching to Skyrizi Today, Overall feels well, with minimal to no abdominal pain. Back to her baselines, which includes infrequent RLQ cramps 2/10. Not taking any over the counter medications for pain. Smoking marijuana to help with pain Has some abdominal cramping today that she attributes to period-related cramps No joint pain or new skin rashes Has good appetite. Describes weight is up while on steroids Poor concentration and some sweats while steroid Having once daily bowel movements. Keeps track of her Bms using nila No urgency Reports having appointment with her local Gas Cutting Machine Operator yesterday and is planned to start Skyrizi infusion on the 05/03/2024 (induction 0, 2, 6 weeks) Last Stelara dose was 03/11/2024 PMHx: ADHD, Crohn's disease PSHx: Denies any FMHx: No family history of lymphoma or CRC cancers Social: Denies tobacco or alcohol. Smokes marijuana to help with abdominal pain Allergies: None Review of Systems Constitutional: Negative. Eyes: Negative. Genitourinary: Negative. Musculoskeletal: Negative. Neurological: Negative. Psychiatric/Behavioral: Negative. Physical Exam Constitutional: Appearance: Normal appearance. Cardiovascular: Rate and Rhythm: Normal rate. Pulses: Normal pulses. Abdominal: General: Abdomen is flat. There is no distension. Palpations: There is no mass. Tenderness: There is no guarding or rebound. Hernia: No hernia is present. Comments: Mild tenderness to RLQ Neurological: General: No focal deficit present. Mental Status: She is alert and oriented to person, place, and time. Psychiatric: Mood and Affect: Mood normal. Labs: CBC (last 3 years, up to 8 values) 03/29/2024 03/28/2024 03/27/2024 03/26/2024 1:19 AM 1:24 AM 12:21 AM 11:41 AM WBC 14.0 12.0 9.4 10.1 RBC 4.17 4.14 4.84 4.36 Hgb 12.2 12.1 14.8 13.3 Hct 36.8 36.4 42.7 38.4 MCV 88 88 88 88 RDW 12.7 13.0 13.0 12.9 Plt 365 362 336 344 BMP (last 3 years, up to 8 values) 03/29/2024 03/28/2024 03/27/2024 03/26/2024 1:19 AM 1:24 AM 12:21 AM 11:41 AM Na 140 139 140 142 K 4.1 4.2 4.1 3.8 Cl 104 104 106 107 CO2 25 23 22 24 Gap 15 16 16 15 Glu 88 95 125 77 BUN 5 8 6 6 Cr 0.50 0.54 0.58 0.62 Ca 8.5 8.7 9.1 8.2 eGFR 133 130 128 126 LFT's (last 3 years, up to 8 values) 03/26/2024 11:41 AM T Prot 6.2 Albumin 3.6 D Bili 0.07 T Bili 0.3 Alk Phos 77 ALT 7 AST 8 GI studies: EGD - none Colonoscopy 03/24/2024 Findings: Biopsies were done from the terminal ileum, right colon, transverse colon and left colon using biopsy forceps. Terminal ileum: Examined ~20 cm from the IC valve, erythematous mucosa with multiple ulcers noted, biopsies were done using biopsy forceps. Cecum: Normal. Ascending colon: Normal. Hepatic flexure: Normal. Transverse colon: Normal. Splenic flexure: Normal. Descending colon: Normal. Sigmoid colon: Normal. Rectum: Normal. Retroflexed views: Rectum did show internal hemorrhoids. Prior in 2021 with endoscopic remission but biopsies with mild chronic active ileitis CT enterography 03/28/2024 IMPRESSION: 1. Mucosal hyperenhancement and decreased caliber involving the terminal ileum and a separate segment in the distal ileum, and probably at least 2 and up to 4 additional short segments of mucosal hyperenhancement and decreased luminal caliber more proximally in the ileum. The findings are consistent with multifocal inflammatory changes and a stricture from Crohn's disease. These various segments probably cause mild degrees of partial obstruction. 2. No perianal fistula or abscess. Assessment and Recommendations: In conclusion, Aparna Arteaga is a 24 year old female with stricturing ileal Crohn's disease whom presents to clinic today as a follow-up after recent admission for SBO, which was medically managed. Currently on prednisone taper with plan to switch from Stelara to Skyrizi. # Stricturing ileal Crohn's disease # Recent partial SBO 03/2024 - now resolved, conservatively managed - being switched from stelara q8 weeks to Skyrizi by her bisque brusher which she wants to continue to follow with. Plan sounds reasonable given her age based on the severe [id number] studies showing Skyrizi with severe superior endpoints when compared to Stelara. She also has many other options and would be a good candidate for TNF-a such as Humira giving stricturing disease - she will check with her bisque brusher if antibody/trough level was checked Patient s/d/w MD Rene Romero MD Fellow, PGY-5 Division of Gastroenterology & Hepatology [facility] Teaching Physician Note I saw and evaluated the patient. I personally obtained the horan and critical portions of the historyand physical exam. I reviewed the fellow's documentation and discussed the patient with the fellow.I agree with the fellow's medical decision making as documented in the fellow's note. Dr. Elijah Posada documented in this [id number] History of Present illness Narrative* Andrade Edwards - 04/23/2024 10:02 AM EDT Patient was identified by name and date of . Andrade Edwards Patient at risk for falls:No Falls Risk protocol implemented: Yes * Elijah Posada MD - 04/23/2024 9:44 AM EDT Images from the original note were not included. Gastroenterology New Patient Clinic Visit Attending Physician: Dr. Elijah Posada MD Aparna Arteaga is a 24 year old female with stricturing ileal Crohn's disease whom presents to clinictoday as a follow-up after recent admission for SBO, which was medically managed Follows with Gastroenterology Dr Rip Nair MD adela Stevenson Has been on Stelara q8 weeks for about 8 years. Unclear if she has any labs of Stelara trough or antibodies levels No previous abdominal surgeries. Undergone recent colonoscopy 02/2024 which showed multiple ulcers in TI with erythema but otherwise normal colonoscopy. Plan was to start steroid taper and switch from Stelara to Skyrizi However, she developed severe abdominal pain and was admitted for a SBO couple days after her colonoscopy and was transferred to [facility] for further care, where our team was consulted CTe during admission showed multifocal inflammatory changes and a stricture from Crohn's disease - enhancement in the terminal ileum and 2-4 separate sefmenets of enhancement in distal/proximal ileum She was discharged on prednisone taper of 40 mg and is now down to 25 mg IBD Background: Disease - Stricturing ileal Crohn's disease Abdominal surgeries - None Last colonoscopy - 03/24/2024, showing active ileal disease with ulcers Last imaging - CTe 03/2024 showing multifocal ileal inflammatory changes and a stricture from Crohn's disease Medications - Stelara q8 weeks, switching to Skyrizi Today, Overall feels well, with minimal to no abdominal pain. Back to her baselines, which includes infrequent RLQ cramps 2/10. Not taking any over the counter medications for pain. Smoking marijuana to help with pain Has some abdominal cramping today that she attributes to period-related cramps No joint pain or new skin rashes Has good appetite. Describes weight is up while on steroids Poor concentration and some sweats while steroid Having once daily bowel movements. Keeps track of her Bms using nila No urgency Reports having appointment with her local Gas Cutting Machine Operator yesterday and is planned to start Skyrizi infusion on the 05/03/2024 (induction 0, 2, 6 weeks) Last Stelara dose was 03/11/2024 PMHx: ADHD, Crohn's disease PSHx: Denies any FMHx: No family history of lymphoma or CRC cancers Social: Denies tobacco or alcohol. Smokes marijuana to help with abdominal pain Allergies: None Review of Systems Constitutional: Negative. Eyes: Negative. Genitourinary: Negative. Musculoskeletal: Negative. Neurological: Negative. Psychiatric/Behavioral: Negative. Physical Exam Constitutional: Appearance: Normal appearance. Cardiovascular: Rate and Rhythm: Normal rate. Pulses: Normal pulses. Abdominal: General: Abdomen is flat. There is no distension. Palpations: There is no mass. Tenderness: There is no guarding or rebound. Hernia: No hernia is present. Comments: Mild tenderness to RLQ Neurological: General: No focal deficit present. Mental Status: She is alert and oriented to person, place, and time. Psychiatric: Mood and Affect: Mood normal. Labs: CBC (last 3 years, up to 8 values) 03/29/2024 03/28/2024 03/27/2024 03/26/2024 1:19 AM 1:24 AM 12:21 AM 11:41 AM WBC 14.0 12.0 9.4 10.1 RBC 4.17 4.14 4.84 4.36 Hgb 12.2 12.1 14.8 13.3 Hct 36.8 36.4 42.7 38.4 MCV 88 88 88 88 RDW 12.7 13.0 13.0 12.9 Plt 365 362 336 344 BMP (last 3 years, up to 8 values) 03/29/2024 03/28/2024 03/27/2024 03/26/2024 1:19 AM 1:24 AM 12:21 AM 11:41 AM Na 140 139 140 142 K 4.1 4.2 4.1 3.8 Cl 104 104 106 107 CO2 25 23 22 24 Gap 15 16 16 15 Glu 88 95 125 77 BUN 5 8 6 6 Cr 0.50 0.54 0.58 0.62 Ca 8.5 8.7 9.1 8.2 eGFR 133 130 128 126 LFT's (last 3 years, up to 8 values) 03/26/2024 11:41 AM T Prot 6.2 Albumin 3.6 D Bili 0.07 T Bili 0.3 Alk Phos 77 ALT 7 AST 8 GI studies: EGD - none Colonoscopy 03/24/2024 Findings: Biopsies were done from the terminal ileum, right colon, transverse colon and left colon using biopsy forceps. Terminal ileum: Examined ~20 cm from the IC valve, erythematous mucosa with multiple ulcers noted, biopsies were done using biopsy forceps. Cecum: Normal. Ascending colon: Normal. Hepatic flexure: Normal. Transverse colon: Normal. Splenic flexure: Normal. Descending colon: Normal. Sigmoid colon: Normal. Rectum: Normal. Retroflexed views: Rectum did show internal hemorrhoids. Prior in 2021 with endoscopic remission but biopsies with mild chronic active ileitis CT enterography 03/28/2024 IMPRESSION: 1. Mucosal hyperenhancement and decreased caliber involving the terminal ileum and a separate segment in the distal ileum, and probably at least 2 and up to 4 additional short segments of mucosal hyperenhancement and decreased luminal caliber more proximally in the ileum. The findings are consistent with multifocal inflammatory changes and a stricture from Crohn's disease. These various segments probably cause mild degrees of partial obstruction. 2. No perianal fistula or abscess. Assessment and Recommendations: In conclusion, Aparna Arteaga is a 24 year old female with stricturing ileal Crohn's disease whom presents to clinic today as a follow-up after recent admission for SBO, which was medically managed. Currently on prednisone taper with plan to switch from Stelara to Skyrizi. # Stricturing ileal Crohn's disease # Recent partial SBO 03/2024 - now resolved, conservatively managed - being switched from stelara q8 weeks to Skyrizi by her bisque brusher which she wants to continue to follow with. Plan sounds reasonable given her age based on the severe [id number] studies showing Skyrizi with severe superior endpoints when compared to Stelara. She also has many other options and would be a good candidate for TNF-a such as Humira giving stricturing disease - she will check with her bisque brusher if antibody/trough level was checked Patient s/d/w MD Rene Romero MD Fellow, PGY-5 Division of Gastroenterology & Hepatology [facility] Teaching Physician Note I saw and evaluated the patient. I personally obtained the horan and critical portions of the historyand physical exam. I reviewed the fellow's documentation and discussed the patient with the fellow.I agree with the fellow's medical decision making as documented in the fellow's note. Dr. Elijah Posada documented in this [id number] Evaluation note* Author Padmini Douglas [facility] Authored March 31, 2024 12: 53pm The above note written by __ _Victoriano Vega____ acting as human recorder, note dictated by Dr. Burnett .I performed the above HPI, ROS, and Examination. I formulated and dictated the treatment plan and was present for entire encounter. Padmini Douglas D.O. Author [facility] Authored April 22, 2024 8: 47am 24-year-old female with hist ory of Crohn's disease involving the terminal ileum came today for follow-up. Patient was diagnosed with Crohn's disease at the age of 16. She has been on Stelara. Colonoscopy on 03/24/2024 showed active Crohn's in the terminal ileum/erythematous mucosa with multiple ulcers noted in the terminal ileum up to 20 cm from the IC valve Colonoscopy in November 2021 was consistent with endoscopic remission however biopsies showed mild chronic active ileitis. CRP and fecal calprotectin are elevated Patient reports intermittent hematochezia and watery bowel movements She is currently on steroid taper -Will switch to Skyrizi. Patient will start Skyrizi on 05/03. -Will monitor symptomatic response inflammatory markers [facility] Work Phone: 1(546) 944-964008-05-2024 NoteDISCHARGE SUMMARY [place] [id number] Aparna Arteaga Date of : 2000 24 year old female Attending Marko Yi MD Date of Admission 03/26/2024 Date of Discharge 03/29/2024 Final Diagnosis: Crohn's disease of small intestine with intestinal obstruction (HCC) Hospital Problems as of 03/29/2024 * (Principal) Crohn's disease of small intestine with intestinal obstruction ([facility]) SBO (small bowel obstruction) ([facility]) ADHD (attention deficit hyperactivity disorder) No discharge procedures on file. Future Appointments Date Time Provider Department Center 04/23/2024 10:00 AM Rene Roque MD [facility] Condition at Discharge improved Symptoms to look out for after discharge: New or Severe Pain, Shortness of breath, Unable to keep down fluids, Chest Pain, Headache, Dizziness, Fever and Inability to urinate/Empty bowel Activity no restrictions Diet no restrictions Disposition home Functional Status ambulatory This patient is not being discharged to a facility, and does not require completion of the facility form. Reason for Hospitalization Crohn's disease with strictures Partial SBO Significant Findings 03/26/2024 11:41 AM 03/27/2024 12:21 AM 03/28/2024 1:24 AM 03/29/2024 1:19 AM C-Reactive Protein 7.8 (H) 11.3 (H) 5.8 (H) 2.6 (H) CT Enterography 03/28/24: IMPRESSION: 1. Mucosal hyperenhancement and decreased caliber involving the terminal ileum and a separate segment in the distal ileum, and probably at least 2 and up to 4 additional short segments of mucosal hyperenhancement and decreased luminal caliber more proximally in the ileum. The findings are consistent with multifocal inflammatory changes and a stricture from Crohn's disease. These various segments probably cause mild degrees of partial obstruction. 2. No perianal fistula or abscess. Subjective: Seen later in afternoon. No abdominal pain. Tolerated solid meal today without any symptoms. Ready to go home. Hospital Course Aparna Arteaga is a 24 year old female presented with past medical history of Crohn's disease (on Stelara q8 weeks, last 03/11/24) who initially presented to OSH on 03/24 with abdominal pain and emesis after colonoscopy. Found to have SBO on CT and NGT was placed. Transferred to [facility] on 03/26 for further evaluation. Seen by Colorectal surgery who recommended no surgical intervention. Consulted GI who recommended IV solumedrol, with subsequent clinical improvement. Diet was advanced as tolerated. CT Enterography 03/28 with multifocal inflammatory changes and a stricture from Crohn's. IV steroids switched to PO prednisone with plan for long taper. Discharged home on 03/29. To Do: - PCP hospital f/u to confirm adherence to medical plan and management chronic medical conditions - GI outpatient to discuss stelara vs changing therapy to simchas Discharge Medication List as of 03/29/2024 5:19 PM START taking these medications Details predniSONE (DELTASONE) 5 MG tablet Multiple Dosages:40 mg, THEN 35 mg, THEN 30 mg, THEN 25 mg, THEN 20 mg, THEN 15 mg, THEN 10 mg, THEN 5 mgTake 8 Tablets by mouth daily for 7 days, THEN 7 Tablets daily for 7 days, THEN 6 Tablets daily for 7 days, THEN 5 Tablets daily for 7 days, THEN 4 Tablets daily for 7 days, THEN 3 Tablets daily for 7 days, THEN 2 Tablets daily for 7 days, THEN 1 Tablet daily for 7 days.Normal Disp-252 Tablet, R-0 CONTINUE these medications which have NOT CHANGED Details norgestimate-ethinyl estradiol (PRAVIFEM- ORTHO/CYCLEN) 0.25-35 MG-MCG tablet Take 1 Tablet by mouth daily.1 Tablet Historical Med venlafaxine (EFFEXOR XR) 75 MG ER capsule Take 75 mg by mouth daily.75 mg Historical Med I provided the patient and/or family/surrogate with the following information: Explanation of the primary diagnosis, and secondary diagnoses where applicable, including test results, Discussion of any new medications and treatments, including expected benefits and potential major side effects, Explanation of previous treatments or medications that are discontinued, Discussion of post-hospital day-to-day care needs, and Follow-up plans, and warning signs that should prompt more urgent follow-up Marko Yi MD [facility] Medicine [phone]08-05-2024 Note03/29/24 0931 Assessment and Discharge Planning Evaluation READMISSION LESS THAN 30 DAYS No READMISSION RISK SCORE IS Low Risk INTERVIEWED Chart Review COGNITIVE STATUS Oriented FUNCTIONAL STATUS PRIOR TO ADMISSION Age Appropriate LIVING SITUATION Home with Family ADMISSION INSURANCE Private Insurance ([employer]) HOME HEALTH CARE PRIOR TO ADMISSION No DISCUSSSED WHAT HELP PATIENT WOULD NEED Yes SDOH Completed? Patient not assessed (Assess when pt able) SDOH Risks Addressed - Do Not complete until all required edwards are completed Yes DISCHARGE DISPOSITION Home SW has reviewed patient's chart and assessed that there are no discharge planning needs at this time. The following was reviewed to determine no SW needs warranted. 1). PT/OT evaluations indicate pt can DC home with no needs or PT/OT evaluations are not warranted. 2). No wound care or IV Antibiotics indicated at this time. 3). No SW/CM consults placed through nursing admission screen 4). Pt does not meet the criteria of being a Medicare recipient that has a high or rising readmission rate. Patient will continue to be discussed in multi-disciplinary rounds and monitored daily. If any of the the above changes, SW will complete appropriate assessments and interventions. SHEFALI Oseguera, [facility] NoteHospital Medicine Progress Note Aparna Arteaga Age [age] year old female [id number] Admitted 03/26/2024 9:16 AM Hospital Day: 4 HOSPITAL COURSE: Aparna Arteaga is a 24-year-old female with a past medical history of Crohn's disease on Ustekinumab (Stelara, q8 weeks, last 03/11/2024) and ADHD who presented to the ED for evaluation of a small bowel obstruction. She had a colonoscopy 2 days prior, and reports abdominal pain and emesis afterward that prompted her to go to the [facility] ER. Patient was found to have SBO on CT and an NG tube was placed. She was then transferred to this hospital for evaluation by colorectal surgery. Colorectal surgery saw her in the ED and found no indication for surgical intervention at this time, recommended NG tube decompression and bowel rest. GI recommended switching from ustekinumab (Stelara) to risankizumab (Skyrizi), and starting IV solumedrol 40mg daily. Patient was ultimately admitted to the general medicine floor for SBO. NG tube was removed 03/27 evening. INTERVAL HPI: No acute events overnight. Patient reports that she has been successfully keeping down clears since removal of her NG tube on 03/27, and her diarrhea has resolved. Her bowel movements are small and liquid, but occur at normal frequency. She reports passing more gas, and mild tenderness in the mid-epigastric region, which is probably where the obstruction was. Self-reported pain is a 0/10. PHYSICAL EXAM: BP 133/81 (BP Location: right arm) Pulse 70 Temp 98.2 ???F (36.8 ???C) (Oral) Resp 18 Ht 5' 3.5 (1.613 m) Wt 150 lb (68 kg) SpO2 99% BMI 26.15 kg/m??? Alert female in NAD. Heart: +S1/S2, no murmurs noted Lungs CTA bilat, no rhonchi, crackles or wheezes noted; respirations unlabored. Abd soft, mild tenderness in mid-epigastric region, bowel sounds are present Extremities: no edema Neuro/Psych: AxOx3, no focal neurologic deficits, conversational DATA (Review and Interpretation of Data (including Tele, EKG, Labs, Imaging): Labwork CBC is notable for leukocytosis with WBC 14.0 and BMP is notable for mild hypocalcemia at 8.5 . CRP is elevated at 2.6, improved from 5.[address] enterography w/ contrast indicated: Multifocal inflammatory changes and a stricture from Crohn's disease. These various segments probably cause mild degrees of partial obstruction. No perianal fistula or abscess. Routine labwork CBC, BMP, and CRP are needed tomorrow for routine monitoring. ASSESSMENT: Aparna Arteaga is a 24 year old female presented with past medical history of Crohn's disease and ADHD who was ultimately found to have a small bowel obstruction. Principal Problem: Crohn's disease of small intestine with intestinal obstruction (HCC) Active Problems: SBO (small bowel obstruction) (HCC) ADHD (attention deficit hyperactivity disorder) PLAN: Crohn's disease of small intestine with intestinal obstruction - Advance to full diet - Discontinue IV solumedrol 40mg, start 8-week taper of PO prednisone 40mg - Follow-up with GI outpatient to discuss dosing of Stelara/changing to Skyrizi ADHD Anxiety Depression - Continue outpatient venlafaxine 75mg daily DVT PPX: subq heparin CODE: Full Code DISPO: Home, pending patient tolerance of full diet. COMMUNICATION: The patient's plan of care was discussed with the nurse, GI consult, and colorectal surgery consult . The patient's plan of care was discussed with the Patient. All questions and concerns addressed. Quin [facility]Select [facility]08-[facility]24 NoteHospital Medicine Progress Note Aparna Arteaga Age [age] year old female [id number] Admitted 03/26/2024 9:16 AM Hospital Day: 4 INTERVAL HPI: Feels much better. Passing a lot of gas and having loose stools. No n/v or abdominal pain. Ready to advance diet. PHYSICAL EXAM VITALS VITALS RANGE (24 hours) Patient Vitals for the past 24 hrs: BP Temp Temp src Pulse Resp SpO2 O2 Device 03/29/24 0541 133/81 98.2 ???F (36.8 ???C) Oral 70 18 99 % Room air 03/29/24 0118 -- -- -- -- -- -- Room air 03/29/24 0108 -- -- -- -- -- -- Room air 03/28/24 2315 -- -- -- -- -- -- Room air 03/28/242015 136/82 97.4 ???F (36.3 ???C) Axillary 92 18 100 % Room air 03/28/24 1946 -- -- -- -- -- -- Room air 03/28/24 1411 128/89 98.4 ???F (36.9 ???C) Oral 86 18 97 % Room air 03/28/24 1200 149/67 98.4 ???F (36.9 ???C) Oral 101 18 94 % Room air Temperature: [97.4 ???F (36.3 ???C)-98.4 ???F (36.9 ???C)] 98.2 ???F (36.8 ???C) Heart Rate: [70-101] 70 Respiratory Rate: [18] 18 BP: (128-149)/(67-89) 133/81 INS/OUTS WEIGHTS Intake/Output Summary (Last 24 hours) at 03/29/2024 0723 Last data filed at 03/29/2024 0108 Gross per 24 hour Intake 480 ml Output -- Net 480 ml Wt Readings from Last 3 Encounters: 03/26/24 150 lb (68 kg) GEN: Awake female, no apparent distress. HENT: Mucous membranes are moist. Pharynx w/o exudates or thrush. RESP: CTAB. Symmetric chest movement. CARDIO/VASC S1/S2. RRR. No JVD. Pulses equal AND b/l. No peripheral edema. GI Soft. No TTP in all quadrants. No hepatosplenomegaly. BS +. No costovertebral tenderness. MSK: No gross joint deformities, moving all 4 extremities. SKIN: Normal coloration, warm, AND dry. NEURO: sand buffer grossly intact, normal speech, no lateralizing weakness. PSYCH: Awake, alert, oriented x 3. Affect appropriate. DATA (Review and Interpretation of Data (including Tele, EKG, Labs, Imaging): Labwork CBC with leukocytosis WBC 14 in setting of IV steroids, BMP unremarkable Cr 0.5 CRP downtrending 2.6 (11.3>5.8>2.6). Imaging CT enterography: IMPRESSION: 1. Mucosal hyperenhancement and decreased caliber involving the terminal ileum and a separate segment in the distal ileum, and probably at least 2 and up to 4 additional short segments of mucosal hyperenhancement and decreased luminal caliber more proximally in the ileum. The findings are consistent with multifocal inflammatory changes and a stricture from Crohn's disease. These various segments probably cause mild degrees of partial obstruction. 2. No perianal fistula or abscess.. Colonoscopy 03/24 Findings: Biopsies were done from the terminal ileum, right colon, transverse colon and left colon using biopsy forceps. Terminal ileum: Examined ~20 cm from the IC valve, erythematous mucosa with multiple ulcers noted, biopsies were done using biopsy forceps. Cecum: Normal. Ascending colon: Normal. Hepatic flexure: Normal. Transverse colon: Normal. Splenic flexure: Normal. Descending colon: Normal. Sigmoid colon: Normal. Rectum: Normal. Retroflexed views: Rectum did show internal hemorrhoids. ASSESSMENT/PLAN: Aparna Arteaga is a 24 year old female presented with past medical history of Crohn's disease (on Stelara q8 weeks, last 03/11/24) who initially presented to OSH on 03/24 with abdominal pain and emesis after colonoscopy. Found to have SBO on CT and NGT was placed. Transferred to [facility] on 03/26 for further evaluation. Seen by Colorectal surgery who recommended no surgical intervention. Consulted GI who recommended IV solumedrol, with subsequent clinical improvement. Diet was advanced as tolerated. Hospital Problems as of 03/29/2024 * (Principal) Crohn's disease of small intestine with intestinal obstruction (HCC) SBO (small bowel obstruction) (HCC) ADHD (attention deficit hyperactivity disorder) 1. Acute abdominal pain 2. Crohn's disease with intestinal obstruction 3. Small bowel obstruction Cscope 03/24 - Terminal ileum: Examined ~20 cm from the IC valve, erythematous mucosa with multiple ulcers noted, biopsies were done using biopsy forceps. CT and KUB done reviewed, c/f SBO at ileum Colorectal Sx consulted, no surgical intervention GI consulted, - switched IV steroids to PO prednisone, will require 8-week taper on discharge - f/u GI outpatient to discuss stelara vs changing therapy to skyrizi CT enterography notable for multifocal inflammatory changes and stricture from Crohn's dx Advanced to regular diet as tolerated 4. Leukocytosis - WBC elevated in setting of IV steroids, otherwise clinically improving - continue to monitor for now 5. ADHD, is on Rx, will resume when able to take PO TUBES, LINES, AND DRAINS Peripheral IV Access: 03/26/24 1017 20 gauge Left Antecubital Present on Arrival to Hospital (Active) Number of days: 2 QUALITY MEASURES CODE STATUS Full Code DVT PPX []Lovenox, [x]Heparin, []SCDs, [] Oral Anti-Coagulation []None/Patient Ambulating GI PPX (more content not included)...[employer] [id number] Note HOSPITAL MEDICINE DAILY PROGRESS NOTE SUBJECTIVE: No acute issues, NG taken out, feels better, less abdominal pain, mentions having solid BM OBJECTIVE: BP 113/63 (BP Location: right arm) Pulse 79 Temp 98.2 ???F (36.8 ???C) (Oral) Resp 18 Ht 5' 3.5 (1.613 m) Wt 68 kg (150 lb) SpO2 98% BMI 26.15 kg/m??? . Physical Exam General - Alert and Oriented, Not in distress HEENT - NCAT, PEERLA, EOMI Trachea midline, no swellings in the neck CVS - S1S2 heard, regular, no MRG RS - Breath sounds are clear, no wheeze/ronchi, effort regular Abdomen - Soft, not tender, bowel sounds sluggish [employer] SCIENCES DIRECTOR- CN grossly intact, Motor and sensory 5/5 BL, no focal deficits Extremities- No cyanosis/clubbing, Edema none DATA REVIEW: LABS: WBC borderline high and Hb stable, BMP is normal, CRP trending down 12.0 12.1 / 362 / 36.4 CBC: 03/28/2024: 1:24 AM 139 104 8 / 95 4.2 23 0.54 BMP: 03/28/2024: 1:24 AM IMAGING: CTE ordered CONSULTS: IP GASTROENTEROLOGY CONSULT ASSESSMENT AND PLAN: Patient Summary - 24 F with h/o Crohns disease on Rx with Ustekinumab (Stelara), had recent C'scope at OSH 2 days ago presented to OSH ED with abdominal pain, CT done showing a SBO, transferred to for Colorectal Sx evaluation who saw her in ED and recommended NGT placement and for medical Rx. Daily Significant Events 03/27- On Solumedrol, has NGT, repeat KUB 03/28- NG removed, due for CTE Assessment and Plan 1. Acute abdominal pain 2. Crohn's disease with intestinal obstruction 3. Small bowel obstruction Cscope 03/24 - Terminal ileum: Examined ~20 cm from the IC valve, erythematous mucosa with multiple ulcers noted, biopsies were done using biopsy forceps. CT and KUB done reviewed, c/f SBO at ileum Colorectal Sx consulted, no surgical intervention GI consulted, recommend IV solumedrol 40 daily Maintain NGT for decompression, repeat KUB ordered NPO, Morphine Zofran and IVF 4. Leucocytosis WBC at OSH was 17, possibly reactive, resolved 5. ADHD, is on Rx, will resume when able to take PO Prophylaxis: Heparin Code Status: Full Code Communication : Plan of care was discussed with RAMÓN/MIKAL Beebe MD, [facility] Medicine Physician [employer] Bagger[employer] game designer I have personally reviewed the webmethods consultant notes, nursing notes, therapy and allied healthcare provider notes, labarotary tests and imaging/radiological tests. I have obtained pertinent history from the patient and/or surrogate including via chart review. I have independantly interpreted the tests performed and discussed management with other consultants/providers involved in the treatment of this patient. Total time spent is greater than 50 minutes with over 50% spent in care-coordination.[employer] [id number] NoteHOSPITAL MEDICINE DAILY PROGRESS NOTE SUBJECTIVE: No acute issues, still has throat discomfort from NG, thinks she is passing gas and mentions having a small liquid BM OBJECTIVE: BP 141/86 (BP Location: right arm) Pulse 99 Temp 98.3 ???F (36.8 ???C) (Oral) Resp 18 Ht 5' 3.5 (1.613 m) Wt 150 lb (68 kg) SpO2 97% BMI 26.15 kg/m??? . Physical Exam General - Alert and Oriented, Not in distress HEENT - NCAT, PEERLA, EOMI Trachea midline, no swellings in the neck CVS - S1S2 heard, regular, no MRG RS - Breath sounds are clear, no wheeze/ronchi, effort regular Abdomen - Soft, mildly distended, bowel sounds sluggish LIFE SCIENCES DIRECTOR- CN grossly intact, Motor and sensory 5/5 BL, no focal deficits Extremities- No cyanosis/clubbing, Edema- DATA REVIEW: LABS: WBC and Hb are stable, BMP is normal 9.4 14.8 / 336 / 42.7 CBC: 03/27/2024: 12:21 AM 140 106 6 / 125 4.1 22 0.58 BMP: 03/27/2024: 12:21 AM IMAGING: Repeat KUB - CONSULTS: IP GASTROENTEROLOGY CONSULT ASSESSMENT AND PLAN: Patient Summary - 24 F with h/o Crohns disease on Rx with Ustekinumab (Stelara), had recent C'scope at OSH 2 days ago presented to OSH ED with abdominal pain, CT done showing a SBO, transferred to for Colorectal Sx evaluation who saw her in ED and recommended NGT placement and for medical Rx. Daily Significant Events 03/27- On Solumedrol, has NGT, repeat KUB Assessment and Plan 1. Acute abdominal pain 2. Crohn's disease with intestinal obstruction 3. Small bowel obstruction Cscope 03/24 - Terminal ileum: Examined ~20 cm from the IC valve, erythematous mucosa with multiple ulcers noted, biopsies were done using biopsy forceps. CT and KUB done reviewed, c/f SBO at ileum Colorectal Sx consulted, no surgical intervention GI consulted, recommend IV solumedrol 40 daily Maintain NGT for decompression, repeat KUB ordered NPO, Morphine Zofran and IVF 4. Leucocytosis WBC at OSH was 17, possibly reactive, resolved 5. ADHD, is on Rx, will resume when able to take PO Prophylaxis: Heparin Code Status: Full Code Communication : Plan of care was discussed with RAMÓN/MIKAL Beebe MD, [facility] Medicine Physician [employer] Baggerlead game designer I have personally reviewed the webmethods consultant notes, nursing notes, therapy and allied healthcare provider notes, labarotary tests and imaging/radiological tests. I have obtained pertinent history from the patient and/or surrogate including via chart review. I have independantly interpreted the tests performed and discussed management with other consultants/providers involved in the treatment of this patient. Total time spent is greater than 50 minutes with over 50% spent in care-coordination.[facility] [id number] NoteInternal Medicine - History and Physical Examination Aparna Arteaga 24 year old 0 lbs MRN/Room: [id number]/[facility]/ Admit Date: 03/26/2024 : 2000 CC: Abdominal pain (Sent from [facility] for + SBO, NG tube in place upon arrival. ) HPI: 24 F with h/o Crohns disease on Rx with Ustekinumab (Stelara), had recent C'scope at OSH 2 days ago presented to OSH ED with abdominal pain, CT done showing a SBO, transferred to for Colorectal Sx evaluation who saw her in ED and recommended NGT placement and for medical Rx. On my evaluation, she mentions NGT hurting her throat, mild abdominal pain, controlled, poor PO intake for past 2 days, no BM for 2 days, unsure if she is passing gas. PMH - Per HPI PSH - Recent C'scope MEDICATIONS: Scheduled Inpatient Medications: heparin (porcine) 5,000 Units Every End of Shift PRN Inpatient Medications: HYDROmorphone HCl PF 0.5 mg Q4H PRN promethazine 25 mg Q6H PRN Objective: Patient Vitals for the past 24 hrs: BP Temp Temp src Pulse Resp SpO2 O2 Device 03/26/24 1100 119/78 -- -- 85 19 95 % Room air 03/26/24 1030 128/83 -- -- (!) 102 18 95 % Room air 03/26/24 1000 131/88 -- -- 97 18 95 % Room air 03/26/24 0930 140/93 -- -- (!) 104 20 96 % Room air 03/26/24 0928 144/99 98.7 ???F (37.1 ???C) Oral (!) 103 16 97 % Room air Physical Exam: Gen: Awake, Alert NAD, Anxious HEENT: AT, PERRL, EOMI, no oral lesions, MMM Neck: No LAD, no JVP elevation, NGT+ CV: RRR no MGR Lungs: CTAB no RWR Abd: Soft, distended, no guarding Ext: No cyanosis/clubbing, LE edema Neuro: No focal deficits, CN II-XII intact Skin: No rash or lesions Labs/Data: 10.1 13.3 / 344 / 38.4 CBC: 03/26/2024: 11:41 AM N/A N/A N/A / N/A N/A N/A N/A BMP: No results found for requested labs within last 120 days. Hospital Problems as of 03/26/2024 * (Principal) Crohn's disease of small intestine with intestinal obstruction (HCC) SBO (small bowel obstruction) (HCC) ADHD (attention deficit hyperactivity disorder) Assessment/Plan: 1. Acute abdominal pain 2. Crohn's disease with intestinal obstruction 3. Small bowel obstruction Cscope 03/24 - Terminal ileum: Examined ~20 cm from the IC valve, erythematous mucosa with multiple ulcers noted, biopsies were done using biopsy forceps. CT and KUB done reviewed, c/f SBO at ileum Colorectal Sx consulted, no surgical intervention GI consulted, recommend IV solumedrol 40 daily Maintain NGT for decompression, repeat KUB reviewed NPO, Morphine Zofran and IVF 4. Leucocytosis WBC at OSH was 17, possibly reactive Repeat CBC again 5. ADHD, is on Rx, will resume when able to take PO Medical Decision Making Amount and/or Complexity of Data Reviewed Independent Historian: parent and spouse Details: D/w Spouse and parents External Data Reviewed: labs and radiology. Details: Data from OSH reviewed, WBC 17, BMP was WNL Labs: ordered. Details: CBC, BMP, LFT, CRP ordered WBC and HB WNL, LFT BMP are normal CRP is elevated Radiology: independent interpretation performed. Details: KUB Risk Prescription drug management. Parenteral controlled substances. Decision regarding hospitalization. Diagnosis or treatment significantly limited by social determinants of health. Jordana Beebe MD, [facility] Medicine Physician [employer] Baggerlead game designer I have personally reviewed the webmethods consultant notes, nursing notes, therapy and allied healthcare provider notes, labarotary tests and imaging/radiological tests. I have obtained pertinent history from the patient and/or surrogate including via chart review. I have independantly interpreted the tests performed and discussed management with other consultants/providers involved in the treatment of this patient.[employer] [id number] [facility]07-11-2024 Evaluation note* Author waqar [facility] Authored March 04, 2024 11:3 8am 23-year-old female with hist ory of Crohn's disease involving the terminal ileum came today for follow-up. Patient was diagnosed with Crohn's disease at the age of 16. She has been on Stelara. She reports intermittent watery stools specially around her menstrual period otherwise patient is asymptomatic Last colonoscopy in November 2021 was consistent with endoscopic remission however biopsies showed mild chronic active ileitis. -Continue Stelara -Will check CRP fecal calprotectin and arrange for colonoscopy Author Padmini Douglas [facility] Authored December 24, 2023 11:07a m The above note written by __ _Victoriano Vega____ acting as human recorder, note dictated by Dr. Burnett .I performed the above HPI, ROS, and Examination. I formulated and dictated the treatment plan and was present for entire encounter. Padmini Douglas D.O. [facility] Work Phone: [phone]) 254-963007-11-2024 Evaluation note* Author Rip [facility] Authored March 04, 2024 11:3 8am 23-year-old female with hist ory of Crohn's disease involving the terminal ileum came today for follow-up. Patient was diagnosed with Crohn's disease at the age of 16. She has been on Stelara. She reports intermittent watery stools specially around her menstrual period otherwise patient is asymptomatic Last colonoscopy in November 2021 was consistent with endoscopic remission however biopsies showed mild chronic active ileitis. -Continue Stelara -Will check CRP fecal calprotectin and arrange for colonoscopy [facility] Work Phone: [phone]) 771-679202-12-2024 Evaluation note* Encounter Date Diagnosis Assessment Notes Treatment Notes Treatment Clinical Notes Sep, ADHD (attention deficit hyperactivity disorder) (ICD-10 - F90.9) [employer] Other 01-29-2024 Evaluation note* Encounter Date Diagnosis Assessment Notes Treatment Notes Treatment Clinical Notes Aug, ADHD (attention deficit hyperactivity disorder) (ICD-10 - F90.9) She does continue to use and benefit from the above medication. I will need to see her back in three months. She can call for refills when needed. An OARRS report was printed and reviewed, no discrepancies noted. Frequent appointments needed due to addiction potential of medication. Pain inventory sheet completed and reviewed if opiod medication given. Pain contract is on file if pertinent. Patient will have office visits every three months for evaluation or sooner if needed. I discussed addiction potential of medication with the patient. Discussed with the patient and provided a treatment plan including the use of non-opiod analgesics and non-pharmacological intervention with patient if treated for pain. We have discussed realistic benefits and known risks of opiod/controlled therapy and the expected benefits for both pain and function. These benefits outweigh the risks. Patient has been counselled on the dangers of combining opiods/controlled prescriptions with alcohol or other sedatives and counseled on the safe storage and disposal of opiods/controlled prescriptions. Do not drive or operate heavy machinery after taking opiod/controlled medication. I have verified that no current substance abuse treatments are being prescribed. Aug, Insomnia (ICD-10 - G47.00) She is using a vape pen that works better for her to help her sleep than the Ambien. She does not want to have the Ambien available any longer. She does not need to use the vape pen every night but it works well for her when she needs it. Aug, Anxiety (ICD-10 - F41.9) She does continue to use and benefit from the above medication. [employer] Other 12-29-2023 Evaluation note* Encounter Date Diagnosis Assessment Notes Treatment Notes Treatment Clinical Notes Jul, ADHD (attention deficit hyperactivity disorder) (ICD-10 - F90.9) [employer] Other 11-06-2023 Evaluation note* Encounter Date Diagnosis Assessment Notes Treatment Notes Treatment Clinical Notes Jun, ADHD (attention deficit hyperactivity disorder) (ICD-10 - F90.9) She does continue to use and benefit from the above medication. She will be provided with a refill today and can call for refills when needed. An OARRS report was printed and reviewed, no discrepancies noted. Frequent appointments needed due to addiction potential of medication. Pain inventory sheet completed and reviewed if opiod medication given. Pain contract is on file if pertinent. Patient will have office visits every three months for evaluation or sooner if needed. I discussed addiction potential of medication with the patient. Discussed with the patient and provided a treatment plan including the use of non-opiod analgesics and non-pharmacological intervention with patient if treated for pain. We have discussed realistic benefits and known risks of opiod/controlled therapy and the expected benefits for both pain and function. These benefits outweigh the risks. Patient has been counselled on the dangers of combining opiods/controlled prescriptions with alcohol or other sedatives and counseled on the safe storage and disposal of opiods/controlled prescriptions. Do not drive or operate heavy machinery after taking opiod/controlled medication. I have verified that no current substance abuse treatments are being prescribed. Jun, Anemia (ICD-10 - D64.9) Her HGB is 14.3. Iron is 115. Ferritin is 32.7. She is not currently taking iron and does not need to at this time. Jun, Weight gain (ICD-10 - R63.5) She has gained three pounds since last seen. Jun, Depression (ICD-10 - F32.9) Continue with above medication daily as directed. Jun, Insomnia (ICD-10 - G47.00) Continue with above medication as needed. Side effects/risks/be nefits of medication were reviewed. Jun, Encounter for long-term (current) use of medications (ICD-10 - Z79.899) Jun, Other She is followin g with Dr. Moris ace. [employer] Other 09-29-2023 Evaluation note* Encounter Date Diagnosis Assessment Notes Treatment Notes Treatment Clinical Notes Apr, ADHD (attention deficit hyperactivity disorder) (ICD-10 - F90.9) [facility] Other 08-28-2023 Evaluation note* Encounter Date Diagnosis Assessment Notes Treatment Notes Treatment Clinical Notes Mar, ADHD (attention deficit hyperactivity disorder) (ICD-10 - F90.9) [facility] Other 07-24-2023 Evaluation note* Encounter Date Diagnosis Assessment Notes Treatment Notes Treatment Clinical Notes Feb, ADHD (attention deficit hyperactivity disorder) (ICD-10 - F90.9) She does continue to use and benefit from the above medication. She will call when she runs low for a refill. I will see her back in three months. Side effects/risks/bene fits of medication were reviewed. She is getting in April (2022). We discussed the category of her medication and whether or not she should breastfeed while on this medication. I did advise her that she should discuss whether or not she should continue with the medication with her bilingual loan processor if she becomes . An [place]AR[place] report was printed and reviewed, no discrepancies noted. Frequent appointments needed due to addiction potential of medication. Pain inventory sheet completed and reviewed if opiod medication given. Pain contract is on file if pertinent. Patient will have office visits every three months for evaluation or sooner if needed. I discussed addiction potential of medication with the patient. Discussed with the patient and provided a treatment plan including the use of non-opiod analgesics and non-pharmacologica l intervention with patient if treated for pain. We have discussed realistic benefits and known risks of opiod/controlled therapy and the expected benefits for both pain and function. These benefits outweigh the risks. Patient has been counselled on the dangers of combining opiods/controlled prescriptions with alcohol or other sedatives and counseled on the safe storage and disposal of opiods/controlled prescriptions. Do not drive or operate heavy machinery after taking opiod/controlled medication. I have verified that no current substance abuse treatments are being prescribed. Feb, Depression (ICD-10 - F32.9) She voices that she continues to be under a great deal of stress due to her upcoming wedding. She is taking the Effexor and feels the dose is adequate. She will continue with this medication. Again, we discussed the category and category of her medication today. Feb, Encounter for long-term (current) use of medications (ICD-10 - Z79.899) She will have lab drawn before her next appointment. [facility] Other 07-10-2023 Evaluation note* Encounter Date Diagnosis Assessment Notes Treatment Notes Treatment Clinical Notes Feb, ADHD (attention deficit hyperactivity disorder) (ICD-10 - F90.9) [facility] Other 05-30-2023 Evaluation note* Encounter Date Diagnosis Assessment Notes Treatment Notes Treatment Clinical Notes December, ADHD (attention deficit hyperactivity disorder) (ICD-10 - F90.9) [facility] Other 04-13-2023 Evaluation note* Encounter Date Diagnosis Assessment Notes Treatment Notes Treatment Clinical Notes Nov, Crohns disease (ICD-10 - K50.90) [facility] Other 03-20-2023 Evaluation note* Encounter Date Diagnosis Assessment Notes Treatment Notes Treatment Clinical Notes Oct, ADHD (attention deficit hyperactivity disorder) (ICD-10 - F90.9) [facility] Other 02-28-2023 Evaluation note* Encounter Date Diagnosis Assessment Notes Treatment Notes Treatment Clinical Notes Sep, Crohns disease (ICD-10 - K50.90) -Continue Stelara- Will plan for colonoscopy after 1 year unless patient develops recurrent rectal bleeding or other symptoms [facility] Other 02-28-2023 Evaluation note* Encounter Date Diagnosis Assessment Notes Treatment Notes Treatment Clinical Notes Sep, Crohns disease (ICD-10 - K50.90) [facility] Other 01-19-2023 Evaluation note* Encounter Date Diagnosis Assessment Notes Treatment Notes Treatment Clinical Notes Aug, ADHD (attention deficit hyperactivity disorder) (ICD-10 - F90.9) [facility] Other 01-16-2023 Evaluation note* Encounter Date Diagnosis Assessment Notes Treatment Notes Treatment Clinical Notes Aug, ADHD (attention deficit hyperactivity disorder) (ICD-10 - F90.9) She does continue to use and benefit from the Adderall, she does not need a refill today, she will call next week when she is running low. I will see her back in three months. Frequent appointments needed due to addiction potential of medication. Side effects/risks/bene fits of medication were reviewed. Aug, Encounter for long-term (current) use of medications (ICD-10 - Z79.899) Aug, Depression (ICD-10 - F32.9) She feels the Effexor dose is adequate and would like to continue with this medication. Aug, Iron deficiency anemia (ICD-10 - D50.9) Discussed blood work results today. Iron is 119. Ferritin is 40.2. HGB is 13.6. Aug, Insomnia (ICD-10 - G47.00) Aug, Crohns disease (ICD-10 - K50.90) Aug, Hypoglycemia (ICD-10 - E16.2) Her blood sugar was 74 when checked. Aug, Hyponatremia (ICD-10 - E87.1) Her sodium level was 133 when drawn. Aug, Other Her TSH was 2.04 [facility] Other 11-22-2022 Evaluation note* Encounter Date Diagnosis Assessment Notes Treatment Notes Treatment Clinical Notes Jun, ADHD (attention deficit hyperactivity disorder) (ICD-10 - F90.9) [facility] Other 10-19-2022 Evaluation note* Encounter Date Diagnosis Assessment Notes Treatment Notes Treatment Clinical Notes May, Depression (ICD-10 - F32.9) [facility] Other 10-19-2022 Evaluation note* Encounter Date Diagnosis Assessment Notes Treatment Notes Treatment Clinical Notes May, ADHD (attention deficit hyperactivity disorder) (ICD-10 - F90.9) She does continue to use and benefit from the Adderall. I will see her back in three months, but she can call for refills in between visits. Frequent appointments needed due to addiction potential of medication. Side effects/risks/bene fits of medication were reviewed. May, Depression (ICD-10 - F32.9) She voices that she has alot going on in her life right now. Her dad lost his job after 28 years and is not actively looking for a job and is drinking. Her grandma who is good support for her may be moving to [place]. She has decided not to do the Halloween weekends at the [facility] this year. Due to a pharmacy mix up she was only on Effexor for one month and then returned to taking the Lexapro. She does not feel that the Lexapro is working well. I will have her return to taking Effexor, but after one month she is to call me with progress, at that point we will likely have her increase the dose. She is in agreement to this. Side effects/risks/bene fits of medication were reviewed. May, Crohns disease (ICD-10 - K50.90) Continue to follow with gastro as scheduled. She voices that she has not seen Dr. Kenny yet but will be seeing someone in that office. May, Encounter for long-term (current) use of medications (ICD-10 - Z79.899) May, Insomnia (ICD-10 - G47.00) She does continue to use and benefit from the Ambien. May, Other She has been eating healthier and exercising. Her dog bite has healed. [facility] Other 08-22-2022 Evaluation note* Encounter Date Diagnosis Assessment Notes Treatment Notes Treatment Clinical Notes Mar, ADHD (attention deficit hyperactivity disorder) (ICD-10 - F90.9) [facility] Other 06-20-2022 Evaluation note* Encounter Date Diagnosis Assessment Notes Treatment Notes Treatment Clinical Notes Jan, ADHD (attention deficit hyperactivity disorder) (ICD-10 - F90.9) [facility] Other 05-18-2022 Evaluation note* Encounter Date Diagnosis Assessment Notes Treatment Notes Treatment Clinical Notes December, ADHD (attention deficit hyperactivity disorder) (ICD-10 - F90.9) [facility] Other 04-20-2022 Evaluation note* Encounter Date Diagnosis Assessment Notes Treatment Notes Treatment Clinical Notes Nov, ADHD (attention deficit hyperactivity disorder) (ICD-10 - F90.9) [facility] Other 2022 Evaluation note* Encounter Date Diagnosis Assessment Notes Treatment Notes Treatment Clinical Notes Oct, ADHD (attention deficit hyperactivity disorder) (ICD-10 - F90.9) She does continue to use and benefit from the Adderall and would like to continue with this. She does use the Adderall every day. I will see her back in three months for re-evaluation. Side effects/risks/bene fits of medication were reviewed. She can call for refills when needed. Oct, Iron deficiency anemia (ICD-10 - D50.9) Her HGB is 13.7. Iron is 93. Ferritin is 49.8. She voices that she is on her period at this time, some periods are heavy, seems to be every other month is heavier. She is not currently taking any Iron supplementation. For now we will continue to monitor, she does not need to take any Iron right now. Oct, Encounter for long-term (current) use of medications (ICD-10 - Z79.899) Oct, Anxiety (ICD-10 - F41.9) She would like to increase her Escitalopram to 1 tablet daily instead of 1/2 tablet due to increased anxiety. I am fine with her increasing her dose. She voices that the last few weeks have been rough she has been considering returning to counseling. She does not have a relationship with her mother and recently heard from her which has placed extra stress on her. Oct, Crohns disease (ICD-10 - K50.90) Continue to follow with the bisque brusher . She voices that she is due to see Dr. Portillo in November (2021) and will be calling to schedule this appointment soon as she has not heard from their office. Oct, Weight gain (ICD-10 - R63.5) Oct, Insomnia (ICD-10 - G47.00) She is to continue with the Ambien as directed. Side effects/risks/bene fits of medication were reviewed. Oct, Cough (ICD-10 - R05.9) She voices that she was sick the week prior to having lab work drawn and continues to fight a tickly cough and drainage in the back of her throat. She did an at home COVID-19 test and it was negative. Lung sounds are clear on exam today. Oct, Other She is told jered t she would need to be off her control for at least 3 months before becoming but understands that there is a chance she could still become while on the control, but there is no guarantee of how long it would take once she stops the control. [facility] Other 02-16-2022 Evaluation note* Encounter Date Diagnosis Assessment Notes Treatment Notes Treatment Clinical Notes Sep, ADHD (attention deficit hyperactivity disorder) (ICD-10 - F90.9) [facility] Other 12-14-2021 Evaluation note* Encounter Date Diagnosis Assessment Notes Treatment Notes Treatment Clinical Notes Jul, ADHD (attention deficit hyperactivity disorder) (ICD-10 - F90.9) [facility] Other 11-15-2021 Evaluation note* Encounter Date Diagnosis Assessment Notes Treatment Notes Treatment Clinical Notes Jun, ADHD (attention deficit hyperactivity disorder) (ICD-10 - F90.9) [facility] Other 10-27-2021 Evaluation note* Encounter Date Diagnosis Assessment Notes Treatment Notes Treatment Clinical Notes May, Crohn's disease involving terminal ileum (ICD-10 - K50.00) May, Other CONTINUE BEV A DIRECTED [facility] Other 04-01-2017 History general Narrative - Reported* Type Description Date Medical History ADHD Medical History Crohn's 11/2016 Dr Gutierrez Surgical History colonoscopy Dr Gutierrez 12/20/16 Surgical History wisdom teeth extract [facility] Other 04-01-2017 History general Narrative - Reported* Type Description Date Medical History ADHD Medical History Crohn's 11/2016 Dr Gutierrez Surgical History colonoscopy Dr Gutierrez 12/20/16 Surgical History wisdom teeth extract Surgical History Colonoscopy Dr. Portillo 12/07/21 [facility] Other evaluation noteNo InformationNort Golf121 Other evalukvvjf noteNo assessment information available [facility] Work Phone: Evaluation note* Diagnosis Crohn's disease of small intestine with intestinal obstruction (HCC)- [facility] Crohn's disease of small intestine with intestinal obstruction (HCC)- [facility] enteritis of small intestine Body mass index (BMI) 27.0-27.9, adult [facility] Additional Instructions DISCHARGE INSTRUCTIONS FOR COLONOSCOPY WHAT TO EXPECT: - You may feel full, gassy or cramping after your procedure. In some cases, this may be from a few hours to a day. Walking may help relieve the discomfort. - If you have polyp(s) removed you may note some minor bloody discharge after your first bowel movements. - You should begin to recover from anesthesia within 1 hour of the procedure, however may feel groggy for the next 24 hours. DO's AND DON'Ts: - Call your doctor right away if you have a hard abdomen, severe pain, are passing lots of bright red blood or clots. - Call your doctor if you develop any rashes, hives or difficulty breathing. - Let your doctor know if you have not had a bowel movement by 3 days after your procedure. - If you take 81 mg aspirin for your heart it is safe to resume this medication. - If you take other blood thinner medications your doctor will instruct you when these can safely be resumed. - Do NOT drive for 24 hours. - Do NOT operate machinery such as power tools, [employer] mowers, Hairbobowers, sewing machines, etc. for 24 hours. - Avoid alcoholic beverages and drugs for allergies, nerves, or sleep. - Do NOT stay alone. Do NOT leave your child unattended. - Do NOT make important personal or business decisions or sign any legal documents. - Eat solid foods and drink liquids in smaller amounts than usual until normal appetite returns. If you should experience an upset stomach, liquids high in sugar content (soda, Souleymane-Aid, non-acid juices) are recommended. - You can resume normal activities tomorrow. FOLLOW UP & RECOMMENDATIONS: -Notify the doctor if you have any problems. -Will switch to Mala -Follow up in the office -Office number [phone]. [facility] Work Phone: Summary Purpose Family History Relationship Condition Age at Onset Recorded Date/T cesar grandparent Malignant neoplasm of lung Unknown Relationship Condition Age at Onset Recorded Date/T cesar grandparent Malignant neoplasm of lung Unknown grandparent Unknown grandparent Heart disease Unknown family member Malignant neoplasm of breast Unknown Diabetes mellitus Unknown Malignant neoplasm of colon Unknown paternal grandmother Transient ischemic attack Unknown Advance Directives Advance Directive Response Recorded Date/ Time Advance Directives No September 27, 2020 2:22pm Advance Directive Response Recorded Date/ Time Advance Directives No September 27, 2020 3:22pm Date Activated Date Inactivated Comments 03/26/2024 12:04 PM 03/29/2024 8:21 PM Question Answer Comments Documentation of decision pr ocess for this code status: Discussed with patient or surrogate. This is the code status chosen by the patient/surrogate. Chief Complaint and Reason for Visit Chief Complaint med refill over due for yearly appt, due for stelara D64.9 Z79.899 R63.5 K50.90 Reason for Visit ADHD (attention defi cit hyperactivity disorder) Insomnia Crohn's disease Chief Complaint over due for yearly appt, due for stelara D64.9 Z79.899 R63.5 K50.90 Crohn's Crohn's Reason for Visit Crohn's disease Chief Complaint review labs/med refi ll follow up-crohn's CROHNS Reason for Visit ADHD (attention defi cit hyperactivity disorder) Crohn's disease Insomnia Iron deficiency anemia Leukocytosis Chief Complaint Admit Date 4 month follow up August 02, 2024 1 :54pm med refill October 13, 2024 9:45am Reason for Visit Admit Date Crohn's disease August 02, 2024 1 :54pm Immunosuppression due to drug therapy De cember 2023 1:54pm ADHD (attention deficit hyperactivity di sorder) October 13, 2024 9:45am Crohn's disease October 13, 2024 9:45am Depression October 13, 2024 9:45am Iron deficiency anemia October 13 9:45am Additional Source Comments INFORMATION SOURCE (unrecogn ized section and content) DATE CREATED AUTHOR 01/31/2022 [facility] DATE CREATED AUTHOR AUTHOR'S ORGANIZ ATION 03/31/2024 [facility] DATE CREATED AUTHOR AUTHOR'S ORGANIZ ATION 06/30/2024 [facility] REASON FOR VISIT (unrecogniz ed section and content) PATIENT HERE FOR 6 MONTH FOL LOW UP TO CROHNS. PATIENT WAS TO CONTINUE STELARA.scriptrefillscriptmed refill / review labscriptscriptscriptdog bitescriptSTELARAClinicalmed refillrefillreview labrefillPATIENT HERE FOR FOLLOW UP CROHN'SRefillsSTELARA 10/29PRIOR AUTHStelara RxClinical Acute Medicinerefillmed refillrefillrefillmed refill/review labsrefillmed refillrefill Care Teams (unrecognized sec tion and content) Team Status: Active Member Role Status Khushbu Douglas DO Primary Care Provider Active Team Status: Active Member Role Status Khushbu Douglas DO Primary Care Provider Active S tart: July 21, 2024 Rip Subramanian MD Attending Provider Active Start: July 21, 2024 Team Status: Inactive Member Role Status Khushbu Douglas DO Primary Care Provider Active S tart: August 02, 2024 End: August 02, 2024 Rip Subramanian MD Attending Provider Active Start: August 02, 2024 End: August 02, 2024 Team Status: Inactive Member Role Status Khushbu Douglas DO Primary Care Provide r, Attending Provider Active Start: October 13, 2024 End: October 13, 2024 Team Status: Active Member Role Status Khushbu Douglas DO Primary Care Provider Active Team Status: Inactive Member Role Status Khushbu Douglas DO Primary Care Provider, Attending Pro vider Active Team Status: Inactive Member Role Status Khushbu Douglas DO Primary Care Provide r, Attending Provider Active Start: December 24, 2023 End: December 24, 2023 Team Status: Inactive Member Role Status Khushbu Douglas DO Primary Care Provider Active S tart: March 04, 2024 End: March 04, 2024 Rip Subramanian MD Attending Provider Active Start: March 04, 2024 End: March 04, 2024 Team Status: Active Member Role Status Khushbu Douglas DO Primary Care Provider Active S tart: March 17, 2024 Rip Subramanian MD Attending Provider Active Start: March 17, 2024 Team Status: Inactive Member Role Status Khushbu Douglas DO Primary Care Provide r, Attending Provider Active Start: March 22, 2024 End: March 22, 2024 Rip Subramanian MD Other Provider Active Start: Feb End: March 22, 2024 Team Status: Inactive Member Role Status Khushbu Douglas DO Primary Care Provider Active S tart: March 24, 2024 End: March 24, 2024 Rip Subramanian MD Attending Provider Active Start: March 24, 2024 End: March 24, 2024 Team Status: Active Member Role Status Khushbu Padmini Douglas Primary Care Provider Active S tart: March 24, 2024 Rip Subramanian MD Attending Provider, Other Provider Act alondra Start: March 24, 2024 Team Status: Inactive Member Role Status Khushbu Padmini Douglas Primary Care Provide r, Attending Provider Active Start: March 31, 2024 End: March 31, 2024 Team Status: Inactive Member Role Status Khushbu Padmini Douglas Primary Care Provider Active S tart: April 22, 2024 End: April 22, 2024 Rip Subramanian MD Attending Provider Active Start: April 22, 2024 End: April 22, 2024 Team Status: Inactive Member Role Status Khushbu Padmini Douglas Primary Care Provider Active S tart: June 29, 2024 End: June 29, 2024 Rip Subramanian MD Attending Provider, Referring Provider Active Start: June 29, 2024 End: June 29, 2024 Team Status: Active Member Role Status Khushbu Padmini Douglas DO Primary Care Provider Active S tart: July 21, 2024 Rip Subramanian MD Attending Provider Active Start: July 21, 2024 Team Status: Inactive Member Role Status Khushbu Padmini Aracelis Primary Care Provider Active S tart: August 02, 2024 End: August 02, 2024 Rip Subramanian MD Attending Provider Active Start: August 02, 2024 End: August 02, 2024 Team Status: Inactive Member Role Status Khushbu Padmini Aracelis Primary Care Provide r, Attending Provider Active Start: October 13, 2024 End: October 13, 2024 Goals (unrecognized section and content) Goals may be documented in a n alternate section FOR RECORDS PERTAINING TO PATIENTS WHO ARE OR HAVE BEEN ENROLLED IN A CHEMICAL DEPENDENCY/SUBSTANCEABUSE PROGRAM, SOME INFORMATION MAY BE OMITTED. This clinical summary was aggregated from multiple sources. Caution should be exercised in using it in the provision of clinical care. This summary normalizes information from multiple sources, and as a consequence, information in this document may materially change the coding, format and clinical context of patient data. In addition, data may be omitted in some cases. CLINICAL DECISIONS SHOULD BE BASED ON THE PRIMARY CLINICAL RECORDS. [facility]. provides no warranty or guarantee of the accuracy or completeness of information in this document.
--- OUTSIDE RECORDS SUMMARY | 2024-11-17 10:19 | XMS_ITS | CCD ---
Author Organization [facility] CliniSyga Care Team Providers Care Nursing Unit Coordinator Name Role Phone DR PADMINI DOUGLAS Primary Care Unavailable PADMINI PORTILLO JR Attending Unavailable PADMIIN PORTILLO JR Consulting Unavailable PADMINI PORTILLO JR Admitting Unavailable Padmini Portillo Unavailable Padmini Douglas Unavailable Mario Kenny Unavailable DO Padmini Douglas Primary Care Provider DO Padmini Douglas Attending Provider Rip Subramanian Unavailable DO Padmini Douglas Primary Care Provider DO Padmini Douglas Attending Provider DO Padmini Douglas Primary Care Provider [phone] DO Padmini Douglas Attending Provider [phone] MD Rip Subramanian Other Provider MD Rip [...] e DO Padmini Douglas Primary Care Provider [phone] MD Rip Subramanian Attending Provider Asaad, MD Imad Referring Provider [phone] Asaad, Imad Referring Unavailable Padmini Douglsa Primary Care Unavailable Asaad, Imad Admitting Unavailable Moris, Tamad Attending Unavailable Padmini Douglas Admitting Unavailable Padmini [...] sources) buPROPion Drug Allergy made more depressed [employer] Other (1 source) buPROPion Drug Allergy [facility] Repository Medications Current Medications Medication Drug [...] 12:01pm Start: 03-06-2022 take 1 capsule [address] [facility] every twenty-four hours Effexor XR 75 MG [...] unspecified] Episodic Other aftercare (5 sources) Other skilled nursing (current) drug therapy Onset: 2 Resolved: 2 [...] C-Reactive Protein, Quantitative 1.84 mg/dL High <=0.50 [facility] Stool Calprotectin 31 ug/g 0-120 [facility] Comment on above: Concentration Interp retation Follow-Up< 5 - 50 ug/g Normal None>50 -120 ug/g Borderline Re-evaluate in 4-6 weeks >120 ug/g Abnormal Repeat as clinically indicatedPerformed at: BN - [facility] [id number] [place], [place] [id number] Director: Salty Estevez MD, Phone: [phone] BASIC METABOLIC PANELon 080 Anion gap [Moles/Vol] 15 mmol/L Normal 10-20 [facility] Comment on above: Performed By: #### C RP, CH8 #### [facility] [address] [place] [address], Calcium [Mass/Vol] 8.5 mg/dL Low 8.6-10.3 [facility] Comment on above: Performed By: #### C RP, CH8 #### [facility] [address] [place] [address], Chloride [Moles/Vol] 104 mmol/L Normal 98-107 [facility] Comment on above: Performed By: #### C RP, CH8 #### [facility] [address] [place] [address], CO2 [Moles/Vol] 25 mmol/L Normal 21-31 [facility] Comment on above: Performed By: #### C RP, CH8 #### [facility] [address] [place] [address], Creatinine [Mass/Vol] 0.50 mg/dL Low 0.60-1.20 [facility] Comment on above: Performed By: #### C RP, CH8 #### [facility] [address] [place] [address], ESTIMATED GFR (CKD-EPI) 133 mL/min/1.73sqm Normal >=60 [facility] Comment on above: Result Comment: 2020 [...] Inclusion of Race in Diagnosing Kidney Disease. [place] Journal of Kidney Diseases 2021;79(2):268-88.e1. 2. N Engl J Med 2020 Vol. 385 Issue 19 Pages 6919-3521 Performed By: #### C RP, CH8 #### [facility] [address], [place], Glucose [Mass/Vol] 88 mg/dL Normal 74-109 [facility] Comment on above: Performed By: #### C RP, CH8 #### [facility] [address], [place], Potassium [Moles/Vol] 4.1 mmol/L Normal 3.5-5.0 [facility] Comment on above: Performed By: #### C RP, CH8 #### [facility] [address], [place], Sodium [Moles/Vol] 140 mmol/L Normal 136-145 [facility] Comment on above: Performed By: #### C RP, CH8 #### [facility] [address], [place], Urea nitrogen [Mass/Vol] 5 mg/dL Low 7-25 [facility] Comment on above: Performed By: #### C RP, CH8 #### [facility] [address], [place], C-REACTIVE PROTEINon 024 CRP 2.6 mg/dL High <0.5 [facility] Comment on above: Performed By: #### C RP, CH8 #### [facility] [address], [place], COMPLETE BLOOD COUNTon 03-29 Erythrocyte distribution width (RBC) [Ratio] 12.7 % Normal 11.5-14.5 [facility] Comment on above: Performed By: #### C BC ####[facility] [id number] [place], [place], Hematocrit (Bld) [Volume fraction] 36.8 % Normal 36.0-46.0 [facility] Comment on above: Performed By: #### C BC ####[facility] [id number] [place], [place], Hemoglobin (Bld) [Mass/Vol] 12.2 g/dL Normal 12.0-15.0 [facility] Comment on above: Performed By: #### C BC ####[facility]Y [id number] [place], [place], MCH (RBC) [Entitic mass] 29.3 pg Normal 26.0-34.0 The [facility] Comment on above: Performed By: #### C BC ####[facility] PATHOLOGY [id number] [place], [place], MCHC (RBC) [Mass/Vol] 33.3 g/dL Normal 32.0-35.9 The [facility] Comment on above: Performed By: #### C BC ####[facility] PATHOLOGY [id number] [place], [place], MCV (RBC) [Entitic vol] 88 fL Normal 80-100 T [facility] Comment on above: Performed By: #### C BC ####[facility] PATHOLOGY [id number] [place], [place], Platelet mean volume (Bld) [Entitic vol] 9.1 fL Normal 7.5-11.2 The [facility] Comment on above: Performed By: #### C BC ####[facility] PATHOLOGY [id number] [place], [place], Platelets (Bld) [#/Vol] 365 10*3/uL Normal 150-400 The [facility] Comment on above: Performed By: #### C BC ####[facility] PATHOLOGY [id number] [place], [place], RBC (Bld) [#/Vol] 4.17 10*6/uL Normal 4.00-5.20 [facility] Comment on above: Performed By: #### C BC ####[facility] PATH[facility]Y [id number] [place], [place], WBC (Bld) [#/Vol] 14.0 10*3/uL High 4.5-11.5 The [facility] Comment on above: Performed By: #### C ####[facility] [id number] [place], [id number] Progress Noteson 03-29-2024 Company Accountant Authentication Interface Message Text Department of Gastroenterology and Hepatology [facility] Brief Consult Follow Up Note Location: [place] [address] Attending Physician: Marko Yi MD Date of [...] Gastroenterology Fellow Division of Gastroenterology AND Hepatology [facility] 03/29/24, 10:01 AM Normal [facility] BASIC METABOLIC PANELon 08-0 -2023 Anion gap [Moles/Vol] 16 mmol/L Normal 10-20 [facility] Comment on above: Performed By: #### C H8, CRP #### [facility] [address], [place], Calcium [Mass/Vol] 8.7 mg/dL Normal 8.6-10.3 [facility] Comment on above: Performed By: #### C H8, CRP #### [facility] [address], [place], Chloride [Moles/Vol] 104 mmol/L Normal 98-107 [facility] Comment on above: Performed By: #### C H8, CRP #### [facility] [address] [place], [place], CO2 [Moles/Vol] 23 mmol/L Normal 21-31 [facility] Comment on above: Performed By: #### C H8, CRP #### [facility] [address], [place], Creatinine [Mass/Vol] 0.54 mg/dL Low 0.60-1.20 [facility] Comment on above: Performed By: #### C H8, CRP #### [facility] [address], [place], ESTIMATED GFR (CKD-EPI) 130 mL/min/1.73sqm Normal >=60 [facility] Comment on above: Result Comment: 2020 [...] Inclusion of Race in Diagnosing Kidney Disease. [place] Journal of Kidney Diseases 2021;79(2):268-88.e1. 2. N Engl J Med 1 Vol. 385 Issue 19 Pages 6807-5320 Performed By: #### C H8, CRP #### [facility] [address] [place], [place], Glucose [Mass/Vol] 95 mg/dL Normal 74-109 [facility] Comment on above: Performed By: #### C H8, CRP #### [facility] [address], [place], Potassium [Moles/Vol] 4.2 mmol/L Normal 3.5-5.0 [facility] Comment on above: Performed By: #### C H8, CRP #### [facility] [address] [place] [address], Sodium [Moles/Vol] 139 mmol/L Normal 136-145 [facility] Comment on above: Performed By: #### C H8, CRP #### [facility] [address] [place] [address], Urea nitrogen [Mass/Vol] 8 mg/dL Normal 7-25 [facility] Comment on above: Performed By: #### C H8, CRP #### [facility] [address] [place] [address], C-REACTIVE PROTEINon 024 CRP 5.8 mg/dL High <0.5 [facility] Comment on above: Performed By: #### C H8, CRP #### [facility] [address], [place], COMPLETE BLOOD COUNTon 03-28 Erythrocyte distribution width (RBC) [Ratio] 13.0 % Normal 11.5-14.5 [facility] Comment on above: Performed By: #### C H8, CRP #### [facility] [address] [place] [address], Hematocrit (Bld) [Volume fraction] 36.4 % Normal 36.0-46.0 The [facility] Comment on above: Performed By: #### C H8, CRP #### [facility] [address] [place] [address], Hemoglobin (Bld) [Mass/Vol] 12.1 g/dL Normal 12.0-15.0 [facility] Comment on above: Performed By: #### C H8, CRP #### [facility] [address] [place] [address], MCH (RBC) [Entitic mass] 29.1 pg Normal 26.0-34.0 The [facility] Comment on above: Performed By: #### C H8, CRP #### [facility] [address] [place] [address], MCHC (RBC) [Mass/Vol] 33.2 g/dL Normal 32.0-35.9 The [facility] Comment on above: Performed By: #### La H8, CRP #### [facility] [address] [place] [address], MCV (RBC) [Entitic vol] 88 fL Normal 80-100 T [facility] Comment on above: Performed By: #### C H8, CRP #### [facility] [address] [place] [address], Platelet mean volume (Bld) [Entitic vol] 9.5 fL Normal 7.5-11.2 The [facility] Comment on above: Performed By: #### C H8, CRP #### [facility] [address] [place] [address], Platelets (Bld) [#/Vol] 362 10*3/uL Normal 150-400 The [facility] Comment on above: Performed By: #### C H8, CRP #### [facility] [address] [place] [address], RBC (Bld) [#/Vol] 4.14 10*6/uL Normal 4.00-5.20 [facility] Comment on above: Performed By: #### C H8, CRP #### [facility] [address] [place] [address], WBC (Bld) [#/Vol] 12.0 10*3/uL High 4.5-11.5 [facility] Comment on above: Performed By: #### C H8, CRP #### [facility] [address], [place], CT ENTEROGRAPHY W/ CONTRASTo n 03-28-2024 [...] fistula or abscess. MACRO: None Normal [facility] Progress Noteson 03-28-2024 Company Accountant Authentication Interface Message Text Department of Gastroenterology and Hepatology [facility] Brief Consult Follow Up Note Location: [place] [address] Attending Physician: Jordana Beebe MD Date of [...] Gastroenterology Fellow Division of Gastroenterology AND Hepatology [facility] 03/28/24, 6:49 PM Normal [facility] BASIC METABOLIC PANELon 08-0 Anion gap [Moles/Vol] 16 mmol/L Normal 10-20 [facility] Comment on above: Performed By: #### C H8, CRP #### [facility] [address] [place] [address], Calcium [Mass/Vol] 9.1 mg/dL Normal 8.6-10.3 [facility] Comment on above: Performed By: #### C H8, CRP #### [facility] [address] [place] [address], Chloride [Moles/Vol] 106 mmol/L Normal 98-107 The [facility] Comment on above: Performed By: #### C H8, CRP #### [facility] [address] [place] [address], CO2 [Moles/Vol] 22 mmol/L Normal 21-31 [facility] Comment on above: Performed By: #### C H8, CRP #### [facility] [address] [place] [address], Creatinine [Mass/Vol] 0.58 mg/dL Low 0.60-1.20 The [facility] Comment on above: Performed By: #### C H8, CRP #### [facility] [address] [place], [place], ESTIMATED GFR (CKD-EPI) 128 mL/min/1.73sqm Normal >=60 [facility] Comment on above: Result Comment: 2020 CKD [...] Inclusion of Race in Diagnosing Kidney Disease. [place] Journal of Kidney Diseases 2021;79(2):268-88.e1. 2. N Engl J Med 2020 Vol. 385 Issue 19 Pages 1431-3065 Performed By: #### C H8, CRP #### [facility] [address] [place] [address], Glucose [Mass/Vol] 125 mg/dL High 74-109 [facility] Comment on above: Performed By: #### C H8, CRP #### [facility] [address] [place] [address], Potassium [Moles/Vol] 4.1 mmol/L Normal 3.5-5.0 [facility] Comment on above: Performed By: #### C H8, CRP #### [facility] [address] [place] [address], Sodium [Moles/Vol] 140 mmol/L Normal 136-145 [facility] Comment on above: Performed By: #### C H8, CRP #### [facility] [address] [place] [address], Urea nitrogen [Mass/Vol] 6 mg/dL Low 7-25 [facility] Comment on above: Performed By: #### C H8, CRP #### [facility] [address] [place] [address], C-REACTIVE PROTEINon 024 CRP 11.3 mg/dL High <0.5 [facility] Comment on above: Performed By: #### C H8, CRP #### [facility] [address] [place] [address], COMPLETE BLOOD COUNTon 03-27 Erythrocyte distribution width (RBC) [Ratio] 13.0 % Normal 11.5-14.5 [facility] Comment on above: Performed By: #### C BC #### [facility] [address] [place] [address], Hematocrit (Bld) [Volume fraction] 42.7 % Normal 36.0-46.0 [facility] Comment on above: Performed By: #### C BC #### [facility] [address] [place], [place], Hemoglobin (Bld) [Mass/Vol] 14.8 g/dL Normal 12.0-15.0 [facility] Comment on above: Performed By: #### C BC #### [facility] [address] [place], [place], MCH (RBC) [Entitic mass] 30.5 pg Normal 26.0-34.0 [facility] Comment on above: Performed By: #### C BC #### [facility] [address] [place], [place], MCHC (RBC) [Mass/Vol] 34.6 g/dL Normal 32.0-35.9 [facility] Comment on above: Performed By: #### C BC #### [facility] [address] [place], [place], MCV (RBC) [Entitic vol] 88 fL Normal 80-100 T [facility] Comment on above: Performed By: #### C BC #### [facility] [address] [place], [place], Platelet mean volume (Bld) [Entitic vol] 9.1 fL Normal 7.5-11.2 [facility] Comment on above: Performed By: #### C BC #### [facility] [address] [place], [place], Platelets (Bld) [#/Vol] 336 10*3/uL Normal 150-400 [facility] Comment on above: Performed By: #### C BC #### [facility] [address] [place], [place], RBC (Bld) [#/Vol] 4.84 10*6/uL Normal 4.00-5.20 [facility] Comment on above: Performed By: #### C BC #### [facility] [address] [place], [place], WBC (Bld) [#/Vol] 9.4 10*3/uL Normal 4.5-11.5 [facility] Comment on above: Performed By: #### C BC #### [facility] [address] [place], [place], HIV1 HIV2 AGAB SCRNon 2023 HIV AG-AB SCREEN Non-Reactive Normal Non-Reactiv e [facility] Comment on above: Order Comment: HIV Information: ???[place] Rev. code 3701.243(E): This information has been [...] agab scrn #### [facility] [address] [place], [place], Progress Noteson 03-27-2024 Company Accountant Authentication Interface Message Text Epic chat sent to Dr Beebe: Pt wants to know if her NG tube can come out. That is where all of her pain is. She said she has had multiple small BM's and a large one the last time. Awaiting response Normal [facility] Accountant Authentication Interface Message Text Department of Gastroenterology and Hepatology [facility] Brief Consult Follow Up Note Location: [place] [address] Attending Physician: Jordana Beebe MD Date of [...] Gastroenterology Fellow Division of Gastroenterology AND Hepatology [facility] 03/27/24, 10:55 AM Normal [facility] XR ABDOMEN AP 1 VIEWon 03-27 [...] small bowel obstruction. MACRO: None Normal [facility] BASIC METABOLIC PANELon 08-0 Anion gap [Moles/Vol] 15 mmol/L Normal 10-20 [facility] Comment on above: Performed By: #### H EPATIC, CRP, MG, CH8 ####S PATHOLOGY [id number] [place], [place], Calcium [Mass/Vol] 8.2 mg/dL Low 8.6-10.3 [facility] Comment on above: Performed By: #### H EPATIC, CRP, MG, CH8 ####[facility] [id number] [place], [place], Chloride [Moles/Vol] 107 mmol/L Normal 98-107 [facility] Comment on above: Performed By: #### H EPATIC, CRP, MG, CH8 ####S PATHOLOGY [id number] [place], [place], CO2 [Moles/Vol] 24 mmol/L Normal 21-31 [facility] Comment on above: Performed By: #### H EPATIC, CRP, MG, CH8 ####S PATHOLOGY [id number] [place], [place], Creatinine [Mass/Vol] 0.62 mg/dL Normal 0.60-1.20 [facility] Comment on above: Performed By: #### H EPATIC, CRP, MG, CH8 ####S PATHOLOGY [id number] [place], [place], ESTIMATED GFR (CKD-EPI) 126 mL/min/1.73sqm Normal >=60 The [facility] Comment on above: Result Comment: [...] Inclusion of Race in Diagnosing Kidney Disease. [place] Journal of Kidney Diseases 202;79(2):268-88.e1. 2. N Engl J Med 1 Vol. 385 Issue 19 Pages 8544-1942 Performed By: #### H EPATIC, CRP, MG, CH8 ####[facility] [id number] [place], [place], Glucose [Mass/Vol] 77 mg/dL Normal 74-109 The [facility] Comment on above: Performed By: #### H EPATIC, CRP, MG, CH8 ####[facility] [id number] [place], [place], Potassium [Moles/Vol] 3.8 mmol/L Normal 3.5-5.0 The [facility] Comment on above: Performed By: #### H EPATIC, CRP, MG, CH8 ####[facility] [id number] [place], [place], Sodium [Moles/Vol] 142 mmol/L Normal 136-145 The [facility] Comment on above: Performed By: #### H EPATIC, CRP, MG, CH8 ####S PATHOLOGY [id number] [place], [place], Urea nitrogen [Mass/Vol] 6 mg/dL Low 7-25 The [facility] Comment on above: Performed By: #### H EPATIC, CRP, MG, CH8 ####[facility] [id number] [place], [place], Basic Metabolic Panelon 08-0 Anion gap [Moles/Vol] 13.4 mmol/L Normal 6.0-15.0 [facility] Comment on above: Performed By: #### B MP, CBC, HEPATIC, LIPASE #### [facility] [address] [place] [address] [place] Calcium [Mass/Vol] 8.7 mg/dL Normal 8.6-10.3 The [facility] Comment on above: Performed By: #### B MP, CBC, HEPATIC, LIPASE #### [facility] [address] [place] [address] [place] Chloride [Moles/Vol] 105 mmol/L Normal 98-107 The [facility] Comment on above: Performed By: #### B MP, CBC, HEPATIC, LIPASE #### [facility] [address] CO2 [Moles/Vol] 21.3 mmol/L Normal 21.0-31.0 The [facility] Comment on above: Performed By: #### B MP, CBC, HEPATIC, LIPASE #### [facility] [address] Creatinine [Mass/Vol] 0.58 mg/dL Low 0.60-1.20 The [facility] Comment on above: Performed By: #### B MP, CBC, HEPATIC, LIPASE #### [facility] [address] [place] [address] [place] Creatinine Clr Calc Pharmacy 136.16 Normal [facility] Comment on above: Performed By: #### B MP, CBC, HEPATIC, LIPASE #### [place] [address] [place] GFR/1.73 sq M.predicted MDRD (S/P/Bld) [Vol rate/Area] mL/min/{1.73_m2} Normal [facility] Comment on above: Performed By: #### B MP, CBC, HEPATIC, LIPASE #### [address] Glucose [Mass/Vol] 112 mg/dL High 70-100 The [facility] Comment on above: Result Comment: [place] Glucose Reference Range is dependent on time and content of last meal. Glucose of more than 200 mg/dL in a nonstressed, ambulatory subject supports the diagnosis of Diabetes Mellitus. ADA recommended reference range Performed By: #### B MP, CBC, HEPATIC, LIPASE #### [facility] [address] Potassium [Moles/Vol] 3.7 mmol/L Normal 3.5-5.1 The [facility] Comment on above: Performed By: #### B MP, CBC, HEPATIC, LIPASE #### [facility] [address] Sodium [Moles/Vol] 136 mmol/L Normal 136-145 The [facility] Comment on above: Performed By: #### B MP, CBC, HEPATIC, LIPASE #### [facility] [address] [place] [address] [place] Urea nitrogen [Mass/Vol] 7 mg/dL Normal 7-25 The [facility] Comment on above: Performed By: #### B MP, CBC, HEPATIC, LIPASE #### [facility] [address] [place] [address] [facility] C-REACTIVE PROTEINon 024 CRP 7.8 mg/dL High <0.5 The [facility] Comment on above: Performed By: #### H EPATIC, CRP, MG, CH8 ####S PATHOLOGY [id number] [place], [place], COMPLETE BLOOD COUNTon 03-26 Erythrocyte distribution width (RBC) [Ratio] 12.9 % Normal 11.5-14.5 [facility] Comment on above: Performed By: #### C BC #### [facility]ORATORY [address] [place], [place], Hematocrit (Bld) [Volume fraction] 38.4 % Normal 36.0-46.0 [facility] Comment on above: Performed By: #### C BC #### [facility] LABORATORY [address] [place], [place], Hemoglobin (Bld) [Mass/Vol] 13.3 g/dL Normal 12.0-15.0 [facility] Comment on above: Performed By: #### C BC #### [facility] PATHOLOGY LABORATORY [address], [place], MCH (RBC) [Entitic mass] 30.6 pg Normal 26.0-34.0 The [facility] Comment on above: Performed By: #### C BC #### S PATHOLOGY LABORATORY [address], [place], MCHC (RBC) [Mass/Vol] 34.7 g/dL Normal 32.0-35.9 [facility] Comment on above: Performed By: #### C BC #### S PATHOLOGY LABORATORY [address], [place], MCV (RBC) [Entitic vol] 88 fL Normal 80-100 T [facility] Comment on above: Performed By: #### C BC #### S PATHOLOGY LABORATORY [address], [place], Platelet mean volume (Bld) [Entitic vol] 9.8 fL Normal 7.5-11.2 [facility] Comment on above: Performed By: #### C BC #### S PATHOLOGY LABORATORY [address], [place], Platelets (Bld) [#/Vol] 344 10*3/uL Normal 150-400 [facility] Comment on above: Performed By: #### C BC #### S PATHOLOGY LABORATORY [address], [place], RBC (Bld) [#/Vol] 4.36 10*6/uL Normal 4.00-5.20 [facility] Comment on above: Performed By: #### C BC #### S PATHOLOGY LABORATORY [address], [place], WBC (Bld) [#/Vol] 10.1 10*3/uL Normal 4.5-11.5 [facility] Comment on above: Performed By: #### C BC #### [facility] PATHOLOGY LABORATORY [address], [place], CT abdomen pelvis w conon CT abdomen pelvis w con [facility] [place] [address] CT Scan Report Signed Patient: Aparna Arteaga MR#: [id number] [birth year] : 2000 Acct:[id number] Age/Sex: 24 / F ADM Date: 03/25/24 Loc: ER Room: Type: [facility] ER Attending Dr: Copies to: Allen Ta [...] Toño Mckeon M.D.03/26/2024 9:02 AM Dictation Location: [place] [address] Transcribed By: [facility] 03/26/24901 Dictated By: Toño Mckeon II, MD 03/26/2444 Signed By: 03/26/24901 Normal [facility] Care Plan Noteon 03-26-2024 Company Accountant Authentication Interface Message Text Colonoscopy Date/Provider 03/24/2024 [...] slowly withdrawn with the findings as below. [place] bowel prep score was good. Findings: Biopsies [...] stable condition. Rip Subramanian M.D. Normal [facility] Complete Blood Count Auto Di ffon 03-26-2024 Basophils (Bld) [#/Vol] 0.0 10*3/uL Normal 0.0-0.2 The [facility] Comment on above: Result Comment: PERF ORMED BY: [address] [address] PATHOLOGIST EGG PASTEURIZER KIM RAHMAN M.D. Performed By: #### B MP, CBC, HEPATIC, LIPASE #### [address] Basophils/100 WBC (Bld) 0.2 % Normal . T calvin [facility] Comment on above: Performed By: #### B MP, CBC, HEPATIC, LIPASE #### [address] Eosinophils (Bld) [#/Vol] 0.0 10*3/uL Normal 0.0-0.45 The [facility] Comment on above: Performed By: #### B MP, CBC, HEPATIC, LIPASE #### [address] Eosinophils/100 WBC (Bld) 0.3 % Normal . The [facility] Comment on above: Performed By: #### B MP, CBC, HEPATIC, LIPASE #### [address] Erythrocyte distribution width (RBC) [Ratio] 12.7 % Normal 11.9-15.3 The [facility] Comment on above: Performed By: #### B MP, CBC, HEPATIC, LIPASE #### [address] Hematocrit (Bld) [Volume fraction] 41.7 % Normal 34.0-46.4 The [facility] Comment on above: Performed By: #### B MP, CBC, HEPATIC, LIPASE #### [address] Hemoglobin (Bld) [Mass/Vol] 14.3 g/dL Normal 11.8-15.4 The [facility] Comment on above: Performed By: #### B MP, CBC, HEPATIC, LIPASE #### [address] Lymphocytes (Bld) [#/Vol] 1.2 10*3/uL Normal 1.00-4.8 The [facility] Comment on above: Performed By: #### B MP, CBC, HEPATIC, LIPASE #### [address] Lymphocytes/100 WBC (Bld) 7.0 % Normal . The [facility] Comment on above: Performed By: #### B MP, CBC, HEPATIC, LIPASE #### [address] MCH (RBC) [Entitic mass] 29.6 pg Normal 24.7-34.3 The [facility] Comment on above: Performed By: #### B MP, CBC, HEPATIC, LIPASE #### [address] MCV (RBC) [Entitic vol] 86.5 fL Normal 80-100 T [facility] Comment on above: Performed By: #### B MP, CBC, HEPATIC, LIPASE #### [address] Mean Corpuscular HGB Conc 34.2 g/dL Normal 32.0-35.0 The [facility] Comment on above: Performed By: #### B MP, CBC, HEPATIC, LIPASE #### [address] Monocytes (Bld) [#/Vol] 0.9 10*3/uL High 0.0-0.8 The [facility] Comment on above: Performed By: #### B MP, CBC, HEPATIC, LIPASE #### [address] Monocytes/100 WBC (Bld) 17.18 % Normal 0.00-20.00 T [facility] Comment on above: Performed By: #### B MP, CBC, HEPATIC, LIPASE #### [address] Monocytes/100 WBC (Bld) 5.3 % Normal . T [facility] Comment on above: Performed By: #### B MP, CBC, HEPATIC, LIPASE #### [address] Neutrophils (Bld) [#/Vol] 14.9 10*3/uL High 1.8-7.7 The [facility] Comment on above: Performed By: #### B MP, CBC, HEPATIC, LIPASE #### [address] Neutrophils/100 WBC (Bld) 87.2 % Normal . The [facility] Comment on above: Performed By: #### B MP, CBC, HEPATIC, LIPASE #### [address] NRBC% 0.0 /100{WBC} Normal 0-0.5 The [facility] Comment on above: Performed By: #### B MP, CBC, HEPATIC, LIPASE #### [address] Platelet mean volume (Bld) [Entitic vol] 9.1 fL Normal 6.3-10.7 The [facility] Comment on above: Performed By: #### B MP, CBC, HEPATIC, LIPASE #### [address] Platelets (Bld) [#/Vol] 432 10*3/uL Normal 150-450 The [facility] Comment on above: Performed By: #### B MP, CBC, HEPATIC, LIPASE #### [address] RBC (Bld) [#/Vol] 4.82 10*6/uL Normal 3.60-5.00 The [facility] Comment on above: Performed By: #### B MP, CBC, HEPATIC, LIPASE #### [address] WBC (Bld) [#/Vol] 17.1 10*3/uL High 3.8-11.6 The [facility] Comment on above: Performed By: #### B MP, CBC, HEPATIC, LIPASE #### [address] Consultson 03-26-2024 Company Accountant Authentication Interface Message Text Department of Gastroenterology and Hepatology Consult H AND P Note GI Attending Physician: Dr. Raoul MD Patient: Aparna Arteaga [facility]703/1 Reason for Consult: Crohn's [...] last month or two. - Imaging at [facility] with TI stricture, - Colonoscopy on 03/24 at [facility] with multiple ulcers in the last 20cm [...] Dr. Raoul MD. Primary team updated via [employer] system. Please don't hesitate to reach out with questions or concerns. We will continue to follow with you. GI Consult Pager (nights and weekends) [phone] Destiny Mason MD Gastroenterology Fellow Division of Gastroenterology AND Hepatology [facility] 03/26/24 HPI Aparna Arteaga is a [...] Gastroenterology Fellow Division of Gastroenterology AND Hepatology [facility] 03/26/24 ATTENDING NOTE The patient was personally seen and evaluated. The case was discussed in detail with the fellow; including, but not limited to the presenting complaint, past history, physical findings (more content not included)... Normal [facility] Company Accountant Authentication Interface Message Text Attestation signed by [...] day. The plan as written in the ASSISTANT STRENGTH COACH/PA's note reflects the plan formulated by me and discussed with the ASSISTANT STRENGTH COACH/PA and the team. Ileocecal crohns with long [...] of Management or Test Interpretation with External Physician/NILA: I personally performed and discussed the management of case or test interpretation with the team and any appropriate consulting service or primary team. 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 Pt reports that her symptoms had been well controlled until 1-2 months ago when she started having more persistently loose stools. She was scheduled for a colonoscopy at [facility] on 03/24/2024. She notes that [...] persisted which prompted her to go to [facility] ED. She was found to [...] and Test Results Reviewed CBC, BMP from [facility] from 03/26, notable for leukocytosis Imaging CT AP w luminal narrowing at TI and dilated loops of SB consistent w SBO Impression Aparna Arteaga is a 24 year old female with h/o Crohn's disease who presents with SBO secondary to TI stricture Re (more content not included)... Normal [facility] Dipstick and Microscopicon 0 03-26-2024 Appearance (U) Cloudy Critically abnormal Clear The [facility] Comment on above: Order Comment: Name Collection Type:: Clean-Voided Midstream Performed By: #### U HCG, ADDONUAPLUS, CUU #### [facility] [address] [place] [id number] [place] Bacteria,Urine Rare Normal None Seen The [facility] Comment on above: Order Comment: Name Collection Type:: Clean-Voided Midstream Performed By: #### U HCG, ADDONUAPLUS, CUU #### [facility] [address] [place] [id number] [place] Bilirubin,Urine Negative Normal Negative The Replaced by [facility] Comment on above: Order Comment: Name Collection Type:: Clean-Voided Midstream Performed By: #### U HCG, ADDONUAPLUS, CUU #### [address] Color (U) Yellow Normal Yellow The [facility] Comment on above: Order Comment: Name Collection Type:: Clean-Voided Midstream Performed By: #### U HCG, ADDONUAPLUS, CUU #### [address] Glucose Ql (U) Normal Normal Normal The [facility] Comment on above: Order Comment: Name Collection Type:: Clean-Voided Midstream Performed By: #### U HCG, ADDONUAPLUS, CUU #### [place] [address] [place] Hyaline Casts,Urine None Normal 0-8 [facility] Comment on above: Order Comment: Name Collection Type:: Clean-Voided Midstream Performed By: #### U HCG, ADDONUAPLUS, CUU #### [address] Ketones Ql (U) Negative Normal Negative The [facility] Comment on above: Order Comment: Name Collection Type:: Clean-Voided Midstream Performed By: #### U HCG, ADDONUAPLUS, CUU #### [address] Leukocyte esterase Test strip Ql (U) 4+ High Negative The [facility] Comment on above: Order Comment: Name Collection Type:: Clean-Voided Midstream Performed By: #### U HCG, ADDONUAPLUS, CUU #### [address] Mucus,Urine 1+ Critically abnormal The [facility] Comment on above: Order Comment: Name Collection Type:: Clean-Voided Midstream Performed By: #### U HCG, ADDONUAPLUS, CUU #### [place] [address] [place] Nitrite,Urine Negative Normal Negative The [facility] Comment on above: Order Comment: Name Collection Type:: Clean-Voided Midstream Performed By: #### U HCG, ADDONUAPLUS, CUU #### [place] [address] [place] Occult Blood,Urine 1+ High Negative The [facility] Comment on above: Order Comment: Name Collection Type:: Clean-Voided Midstream Performed By: #### U HCG, ADDONUAPLUS, CUU #### [place] [address] [place] Othe Crystals,Urine 1+ Normal The [facility] Comment on above: Order Comment: Name Collection Type:: Clean-Voided Midstream Performed By: #### U HCG, ADDONUAPLUS, CUU #### [address] pH (U) 5.5 [pH] Normal 5.0-9.0 The [facility] Comment on above: Order Comment: Name Collection Type:: Clean-Voided Midstream Performed By: #### U HCG, ADDONUAPLUS, CUU #### [place] [address] [place] Protein,Urine Trace High Negative The [facility] Comment on above: Order Comment: Name Collection Type:: Clean-Voided Midstream Performed By: #### U HCG, ADDONUAPLUS, CUU #### [place] [address] [place] RBC,Urine 5-9 High 0-4 The [facility] Comment on above: Order Comment: Name Collection Type:: Clean-Voided Midstream Performed By: #### U HCG, ADDONUAPLUS, CUU #### [address] Specificy [place],Urine 1.019 Normal 1.001-1.030 The [facility] Comment on above: Order Comment: Name Collection Type:: Clean-Voided Midstream Performed By: #### U HCG, ADDONUAPLUS, CUU #### [address] Squamous Epithelial Cell,Urine 20-49 High 0-2 The [facility] Comment on above: Order Comment: Name Collection Type:: Clean-Voided Midstream Performed By: #### U HCG, ADDONUAPLUS, CUU #### [facility] [address] Urobilinogen,Urine Normal Normal Normal The [facility] Comment on above: Order Comment: Name Collection Type:: Clean-Voided Midstream Performed By: #### U HCG, ADDONUAPLUS, CUU #### [facility] [address] [place] [address] WBC CLUMP, Urine Moderate High None Seen The [facility] Comment on above: Order Comment: Name Collection Type:: Clean-Voided Midstream Performed By: #### U HCG, ADDONUAPLUS, CUU #### [facility] [address] WBC,Urine Innumerable High 0-4 The [facility] Comment on above: Order Comment: Name Collection Type:: Clean-Voided Midstream Performed By: #### U HCG, ADDONUAPLUS, CUU #### [address] ED Noteson 03-26-2024 Company Accountant Authentication Interface Message Text Removed ng tube. Replaced NG with another RN. Called x ray for repeat kub Normal [facility] Company Accountant Authentication Interface Message Text Transition of Care; Hand off Note Code Status: AGE: [age] year old SEX: female WEIGHT: no weight Chief Complaint Patient presents with Abdominal pain Sent from [facility] for + SBO, NG tube in place [...] change from prior assessment: No Normal [facility] Company Accountant Authentication Interface Message Text NG tube pulled back 5 cm, kub taken. States still coiled. Md notified. Normal [facility] Company Accountant Authentication Interface Message Text Pulled NG tube back 3cm per md order Normal [facility] ED Provider Noteson 03-26-20 Company Accountant Authentication Interface Message Text EMERGENCY DEPARTMENT - VISIT NOTE --------- HISTORY OF PRESENT ILLNESS ----- HIPAA: Verbal permission granted from patient to discuss case, including protected health information, in front of family / friends in room at the time of the evaluation. Drawer Upfitter: not needed - patient preferred language is Montserratian. The history is provided by the Patient. Aparna Arteaga is a 24 year old [...] transfer center summary - hx crohns on [facility], patient had recent colonoscopy with ulcers [...] (HCC) [K56.699] SBO (small bowel obstruction) (HCC) [K56.608] Disposition: Admitted to Floor: Medicine Team 8. [...] ask (more content not included)... Normal [facility] HCG,Urineon 03-26-2024 Beta HCG ( test) Ql (U) Negative Normal The [facility] Comment on above: Order Comment: Name Collection Type:: Clean-Voided Midstream Result Comment: PERF ORMED BY: [place] [address] PATHOLOGIST EGG PASTEURIZER KIM RAHMAN M.D. Performed By: #### U HCG, ANGIEBERNARDOANTHONY REYU #### [address] HEPATIC FUNCTION PANELon Albumin [Mass/Vol] 3.6 g/dL Normal 3.5-5.7 [facility] Comment on above: Performed By: #### H EPATIC, CRP, MG, CH8 ####[facility] [id number] [place], [place], ALK 77 IU/L Normal 34-104 [facility] Comment on above: Performed By: #### H EPATIC, CRP, MG, CH8 ####[facility] [id number] [place], [place], ALT [Catalytic activity/Vol] 7 U/L Normal 7-52 [facility] Comment on above: Performed By: #### H EPATIC, CRP, MG, CH8 ####[facility] PATHOLOGY [id number] [place], [place], AST [Catalytic activity/Vol] 8 U/L Low 13-39 The [facility] Comment on above: Performed By: #### H EPATIC, CRP, MG, CH8 ####[facility] PATHOLOGY [id number] [place], [place], Bilirubin [Mass/Vol] 0.3 mg/dL Normal 0.3-1.0 The [facility] Comment on above: Performed By: #### H EPATIC, CRP, MG, CH8 ####[facility] PATHOLOGY [id number] [place], [place], Bilirubin.direct [Mass/Vol] 0.07 mg/dL Normal 0.03-0.18 The [facility] Comment on above: Performed By: #### H EPATIC, CRP, MG, CH8 ####[facility] PATHOLOGY [id number] [place] [address], Protein [Mass/Vol] 6.2 g/dL Normal 6.0-8.3 The [facility] Comment on above: Performed By: #### H EPATIC, CRP, MG, CH8 ####[facility] PATHOLOGY [id number] [place], [place], Hepatic Panelon 03-26-2024 Albumin [Mass/Vol] 4.2 g/dL Normal 3.5-5.7 The [facility] Comment on above: Performed By: #### B MP, CBC, HEPATIC, LIPASE #### [address] Albumin/Globulin [Mass ratio] 1.3 {ratio} Normal The [facility] Comment on above: Performed By: #### B MP, CBC, HEPATIC, LIPASE #### [facility] [address] [place] [phone] [facility] ALP [Catalytic activity/Vol] 87 U/L Normal 34-104 The [facility] Comment on above: Performed By: #### B MP, CBC, HEPATIC, LIPASE #### [facility] [address] [place] [phone] [facility] ALT [Catalytic activity/Vol] 7 U/L Normal 7-52 The [facility] Comment on above: Performed By: #### B MP, CBC, HEPATIC, LIPASE #### [facility] [address] AST [Catalytic activity/Vol] 9 U/L Low 13-39 The [facility] Comment on above: Performed By: #### B MP, CBC, HEPATIC, LIPASE #### [facility] [address] Bilirubin [Mass/Vol] 0.4 mg/dL Normal 0.3-1.0 The [facility] Comment on above: Performed By: #### B MP, CBC, HEPATIC, LIPASE #### [facility] [address] Bilirubin,Indirect 0.3 mg/dL Normal The [facility] Comment on above: Performed By: #### B MP, CBC, HEPATIC, LIPASE #### [address] Bilirubin.indirect [Mass/Vol] 0.10 mg/dL Normal 0.03-0.18 The [facility] Comment on above: Performed By: #### B MP, CBC, HEPATIC, LIPASE #### [address] Globulin (S) [Mass/Vol] 3.3 g/dL Normal T he [facility] Comment on above: Performed By: #### B MP, CBC, HEPATIC, LIPASE #### [facility] [address] Protein [Mass/Vol] 7.5 g/dL Normal 6.4-8.9 The [facility] Comment on above: Performed By: #### B MP, CBC, HEPATIC, LIPASE #### [address] Lipaseon 03-26-2024 Lipase [Catalytic activity/Vol] 21.0 U/L Normal 11.0-82.0 The [facility] Comment on above: Result Comment: PERF ORMED BY: [place] [address] PATHOLOGIST EGG PASTEURIZER KIM RAHMAN M.D. Performed By: #### B MP, CBC, HEPATIC, LIPASE #### [facility] [address] [place] [id number] [facility] MAGNESIUMon 03-26-2024 Magnesium [Mass/Vol] 1.9 mg/dL Normal 1.9-2.7 [facility] Comment on above: Performed By: #### H EPATIC, CRP, MG, CH8 ####S PATHOLOGY [id number] [place], [place], PROTHROMBIN TIME AND INRon 0 03-26-2024 INR Coag (PPP) [Relative time] 1.13 {INR} High 0.90-1.10 [facility] Comment on above: Performed By: #### P T #### S PATHOLOGY LABORATORY [address] [place], [place], PT Coag (PPP) [Time] 12.6 s Normal 9.7-12.9 [facility] Comment on above: Performed By: #### P T #### S PATHOLOGY LABORATORY [address] [place], [place], Urine Cultureon 03-26-2024 Bacteria identified Cx Nom (U) <9,000 colonies/ml mixed bacterial skin contaminants 2 Days PERFORMED BY: [address] [address] PATHOLOGIST EGG PASTEURIZER KIM RAHMAN M.D. Normal The [facility] Comment on above: Performed By: #### U HCG, ADDONUAPLUS, CUU ####[address] [address] [facility] XR ABDOMEN AP 1 VIEWon 03-26 XR [...] XR abdomen 1Von 03-26-2024 XR abdomen 1V [facility] [place] [address] XRay Report Signed Patient: Aparna Arteaga MR#: [id number] 97 : 2000 Acct:[id number] Age/Sex: 24 / F ADM Date: 03/25/24 Loc: ER Room: Type: [facility] ER Attending Dr: Copies to: Allen Ta DO Ordering Provider: Allen Ta DO Date of Service: 03/26/24 XR/XR abdomen 1V: Abdominal Pain Single view of Abdomen for NG tube placement The tip of the NG tube is in the Mid stomach. XR/XR abdomen 1V IMPRESSION: Adequate position of NG tube Impression dictated by: Link Snow M.D.03/26/2024 9:12 AM Dictation Location: [place] [address] Transcribed By: [facility] 03/26/24 0912 Dictated By: Link Snow DO 03/26/24 0911 Signed By: 03/26/24 0912 Normal The [facility] Amphetamine Screen Ql (U)Ord ered By: Rip Surbamanian on 03-24-2024 Amphetamines Ql (U) Positive High Negative [facility] Barbiturates [Presence] in U rine by Screen methodOrdered By: Rip Subramanian on 03-24-2024 Barbiturates Screen Ql (U) Negative Negative [facility] Benzodiazepines Screen Ql (U )Ordered By: Rip Subramanian on 03-24-2024 Benzodiazepines Ql (U) Negative Negative [facility] Benzoylecgonine [Presence] i n Urine by Screen methodOrdered By: waqar Subramanian on 03-24-2024 Benzoylecgonine Screen Ql (U) Negative Negative [facility] Cannabinoids [Presence] in U rine by Screen methodOrdered By: waqar Subramanian on 03-24-2024 Cannabinoids Screen Ql (U) Negative Negative [facility] Comment on above: These are unconfirme d results and should not be used for legal purposes. Drug Cut-Off Concentration: AMPH 1000 ng/mL TAI 200 ng/mL RAYMOND 200 ng/mL COCM 300 ng/mL OP 300 ng/mL PCP 25 ng/mL THC 20 ng/mL Drug Screen,Urineon 03-24-20 24 Amphetamine Screen,Urine Positive High Negative The [facility] Comment on above: Performed By: #### U RDS #### [address] Barbiturate Screen,Urine Negative Normal Negative The [facility] Comment on above: Performed By: #### U RDS #### [place] [address] [place] Benzodiazepines Screen,Urine Negative Normal Negative The [facility] Comment on above: Performed By: #### U RDS #### [place] [address] [place] Cannabinoid Screen,Urine Negative Normal Negative The [facility] Comment on above: Result Comment: Thes e are unconfirmed results and should not be used for legal purposes. Drug Cut-Off Concentration: AMPH 1000 ng/mL TAI 200 ng/mL RAYMOND 200 ng/mL COCM 300 ng/mL OP 300 ng/mL PCP 25 ng/mL THC 20 ng/mL PERFORMED BY: [place] [address] PATHOLOGIST EGG PASTEURIZER KIM RAHMAN M.D. Performed By: #### U RDS #### [place] [address] [place] Cocaine Screen,Urine Negative Normal Negative [facility] Comment on above: Performed By: #### U RDS #### [facility] [address] Opiate Screen,Urine Negative Normal Negative [facility] Comment on above: Performed By: #### U RDS #### [facility] [address] Phencyclidine Screen,Urine Negative Normal Negative [facility] Comment on above: Performed By: #### U RDS #### [facility] [address] HCG ( test) IA.rapi d Ql (U)Ordered By: Imad Asaad on 03-24-2024 HCG ( test) Ql (U) Negative [facility] HCG,Urineon 03-24-2024 Beta HCG ( test) Ql (U) Negative Normal [facility] Comment on above: Result Comment: PERF ORMED BY: [facility] [address] [place] [address] PATHOLOGIST EGG PASTEURIZER KIM RAHMAN M.D. Performed By: #### U HCG #### [facility] [address] Opiates [Presence] in Urine by Screen methodOrdered By: Imad Asaad on 03-24-2024 Opiates Screen Ql (U) Negative Negative [facility] Phencyclidine Screen Ql (U)O rdered By: Imad Asaad on 03-24-2024 Phencyclidine Ql (U) Negative Negative [facility] Alanine aminotransferase [En zymatic activity/volume] in Serum or PlasmaOrdered By: Padmini Douglas on 03-22-2024 ALT [Catalytic activity/Vol] 8 U/L Normal 7- [facility] Comment on above: Performed By: #### T SH3, MANAV, CMP, CBC, FE and TIBC ####[facility] [address] [place] [address] [place] Albumin [Mass/volume] in Ser um or Plasma by Bromocresol green (BCG) dye binding methoOrdered By: Padmini Douglas on 03-22-2024 Albumin BCG dye [Mass/Vol] 4.0 g/dL 3.5-5.7 [facility] Alkaline phosphatase [Enzyma tic activity/volume] in Serum or PlasmaOrdered By: Padmini Douglas on 03-22-2024 ALP [Catalytic activity/Vol] 80 U/L Normal 34-104 [facility] Comment on above: Performed By: #### T SH3, MANAV, CMP, CBC, FE and TIBC ####[place] [id number] [address] Aspartate aminotransferase [ Enzymatic activity/volume] in Serum or PlasmaOrdered By: Padmini Douglas on 03-22-2024 AST [Catalytic activity/Vol] 8 U/L Low 13-39 [facility] Comment on above: Performed By: #### T SH3, MANAV, CMP, CBC, FE and TIBC ####[address] Automated basophil %Ordered By: Padmini Douglas on 03-22-2024 Basophils/100 WBC (Bld) 0.6 % Normal . [facility] Comment on above: Performed By: #### T SH3, MANAV, CMP, CBC, FE and TIBC ####[address] Automated basophil countOrde red By: Padmini Douglas on 03-22-2024 Basophils (Bld) [#/Vol] 0.1 10*3/uL Normal 0.0-0.2 [facility] Comment on above: Result Comment: PERF ORMED BY: [facility] [address] [place] [address] PATHOLOGIST EGG PASTEURIZER KIM RAHMAN M.D. Performed By: #### T SH3, MANAV, CMP, CBC, FE and TIBC ####[address] Automated blood monocyte cou ntOrdered By: Padmini Douglas on 03-22-2024 Monocytes (Bld) [#/Vol] 0.8 10*3/uL Normal 0.0-0.8 [facility] Comment on above: Performed By: #### T SH3, MANAV, CMP, CBC, FE and TIBC ####[address] Automated eosinophil %Ordere d By: Padmini Douglas on 03-22-2024 Eosinophils/100 WBC (Bld) 2.0 % Normal . [facility] Comment on above: Performed By: #### T SH3, MANAV, CMP, CBC, FE and TIBC ####[address] Automated eosinophil countOr dered By: Padmini Douglas on 03-22-2024 Eosinophils (Bld) [#/Vol] 0.3 10*3/uL Normal 0.0-0.45 [facility] Comment on above: Performed By: #### T SH3, MANAV, CMP, CBC, FE and TIBC ####[address] Automated monocyte %Ordered By: aPdmini Douglas on 03-22-2024 Monocytes/100 WBC (Bld) 5.9 % Normal . [facility] Comment on above: Performed By: #### T SH3, MANAV, CMP, CBC, FE and TIBC ####[address] Automated neutrophil %Ordere d By: Padmini Douglas on 03-22-2024 Neutrophils/100 WBC (Bld) 75.2 % Normal . [facility] Comment on above: Performed By: #### T SH3, MANAV, CMP, CBC, FE and TIBC ####[address] Bilirubin.total [Mass/volume ] in Serum or PlasmaOrdered By: Padmini Douglas on 03-22-2024 Bilirubin [Mass/Vol] 0.2 mg/dL Low 0.3-1.0 [facility] Comment on above: Performed By: #### T SH3, MANAV, CMP, CBC, FE and TIBC ####[address] C reactive protein [Mass/vol ume] in Serum or PlasmaOrdered By: Rip Subramanian on 03-22-2024 CRP [Mass/Vol] 3.2 mg/dL High 0.0-0.5 [facility] C-Reactive Proteinon 024 C-Reactive Protein 3.2 mg/dL High 0.0-0.5 [facility] Comment on above: Result Comment: PERF ORMED BY: [facility] [address] [place] [address] PATHOLOGIST EGG PASTEURIZER KIM RAHMAN M.D. Performed By: #### C RP ####[address] Calcium [Mass/volume] in Ser um or PlasmaOrdered By: Padmini Douglas on 03-22-2024 Calcium [Mass/Vol] 9.0 mg/dL Normal 8.6-10.3 [facility] Comment on above: Performed By: #### T SH3, MANAV, CMP, CBC, FE and TIBC ####[address] Carbon dioxide, total [Moles /volume] in Serum or PlasmaOrdered By: Padmini Douglas on 03-22-2024 CO2 [Moles/Vol] 24.5 mmol/L Normal 21.0-31.0 [facility] Comment on above: Performed By: #### T SH3, MANAV, CMP, CBC, FE and TIBC ####[place] [id number] [facility] Chloride [Moles/volume] in S jourdan or PlasmaOrdered By: Padmini Douglas on 03-22-2024 Chloride [Moles/Vol] 104 mmol/L Normal 98-107 [facility] Comment on above: Performed By: #### T SH3, MANAV, CMP, CBC, FE and TIBC ####[place] [id number] [facility] Complete Blood Count Auto Di ffon 03-22-2024 Mean Corpuscular HGB Conc 33.6 g/dL Normal 32.0-35.0 [facility] Comment on above: Performed By: #### T SH3, MANAV, CMP, CBC, FE and TIBC ####[place] [id number] [place] NRBC% 0.1 /100{WBC} Normal 0-0.5 [facility] Comment on above: Performed By: #### T SH3, MANAV, CMP, CBC, FE and TIBC ####[address] Comprehensive Metabolic Pane anselmo 03-22-2024 Albumin [Mass/Vol] 4.0 g/dL Normal 3.5-5.7 [facility] Comment on above: Performed By: #### T SH3, MANAV, CMP, CBC, FE and TIBC ####[address] GFR/1.73 sq M.predicted MDRD (S/P/Bld) [Vol rate/Area] mL/min/{1.73_m2} Normal [facility] Comment on above: Performed By: #### T SH3, MANAV, CMP, CBC, FE and TIBC ####[address] Creatinine [Mass/volume] in Serum or PlasmaOrdered By: Padmini Douglas on 03-22-2024 Creatinine [Mass/Vol] 0.60 mg/dL Normal 0.60-1.20 [facility] Comment on above: Performed By: #### T SH3, MANAV, CMP, CBC, FE and TIBC ####[address] Erythrocyte distribution wid th [Ratio] by Automated countOrdered By: Padmini Douglas on 03-22-2024 Erythrocyte distribution width (RBC) [Ratio] 13.1 % Normal 11.9-15.3 [facility] Comment on above: Performed By: #### T SH3, MANAV, CMP, CBC, FE and TIBC ####[address] Erythrocytes [#/volume] in B lood by Automated countOrdered By: Padmini Douglas on 03-22-2024 RBC (Bld) [#/Vol] 4.78 10*6/uL Normal 3.60-5.00 [facility] Comment on above: Performed By: #### T SH3, MANAV, CMP, CBC, FE and TIBC ####[place] [id number] [place] [id number] [facility] Ferritin [Mass/volume] in Se rum or PlasmaOrdered By: Padmini Douglas on 03-22-2024 Ferritin [Mass/Vol] 39.1 ng/mL Normal 11.0-306.8 [facility] Comment on above: Performed By: #### T SH3, MANAV, CMP, CBC, FE and TIBC ####[place] [id number] [place] [id number] [facility] Glucose [Mass/volume] in Ser um or PlasmaOrdered By: Padmini Douglas on 03-22-2024 Glucose [Mass/Vol] 97 mg/dL Normal 70-100 [facility] Comment on above: ADA recommended refe rence rangeRandom Glucose Reference Range is dependent on time and content of last meal. Glucose of more than 200 mg/dL in a nonstressed, ambulatory subject supports the diagnosis of Diabetes Mellitus. Result Comment: Carmen om Glucose Reference Range is dependent on time and content of last meal. Glucose of more than 200 mg/dL in a nonstressed, ambulatory subject supports the diagnosis of Diabetes Mellitus. ADA recommended reference range Performed By: #### T SH3, MANAV, CMP, CBC, FE and TIBC ####[facility] [place] [id number] [facility] Hematocrit [Volume Fraction] of Blood by Automated countOrdered By: Padmini Douglas on 03-22-2024 Hematocrit (Bld) [Volume fraction] 42.1 % Normal 34.0-46.4 [facility] Comment on above: Performed By: #### T SH3, MANAV, CMP, CBC, FE and TIBC ####[place] [id number] [place] [id number] [facility] Hemoglobin [Mass/volume] in BloodOrdered By: Padmini Douglas on 03-22-2024 Hemoglobin (Bld) [Mass/Vol] 14.2 g/dL Normal 11.8-15.4 [facility] Comment on above: Performed By: #### T SH3, MANAV, CMP, CBC, FE and TIBC ####[place] [id number] [address] Iron [Mass/volume] in Serum or PlasmaOrdered By: Padmini Douglas on 03-22-2024 Iron [Mass/Vol] 100 ug/dL Normal 50-212 [facility] Comment on above: Performed By: #### T SH3, MANAV, CMP, CBC, FE and TIBC ####[address] Iron and TIBC Profileon 02-23 % Iron Saturation 21.5 % Normal 20-50 [facility] Comment on above: Performed By: #### T SH3, MANAV, CMP, CBC, FE and TIBC ####[place] [id number] [address] Total Iron Binding Capacity 465 ug/dL High 255-450 [facility] Comment on above: Performed By: #### T SH3, MANAV, CMP, CBC, FE and TIBC ####[address] Iron binding capacity [Mass/ volume] in Serum or PlasmaOrdered By: Padmini Douglas on 03-22-2024 Iron binding capacity [Mass/Vol] 465 ug/dL High 255-450 [facility] Iron saturation [Mass Fracti on] in Serum or PlasmaOrdered By: Padmini Douglas on 03-22-2024 Iron saturation [Mass fraction] 21.5 % 20-50 [facility] Leukocytes [#/volume] correc urvashi for nucleated erythrocytes in Blood by Automated counOrdered By: Padmini Douglas on 03-22-2024 WBC corrected for nucl RBC Auto (Bld) [#/Vol] 13.4 10*3/uL High 3.8-11.6 [facility] Leukocytes [#/volume] in Blo od by Automated countOrdered By: Padmini Douglas on 03-22-2024 WBC (Bld) [#/Vol] 13.4 10*3/uL High 3.8-11.6 [facility] Comment on above: Performed By: #### T SH3, MANAV, CMP, CBC, FE and TIBC ####[address] Lymphocytes [#/volume] in Bl ood by Automated countOrdered By: Padmini Douglas on 03-22-2024 Lymphocytes (Bld) [#/Vol] 2.2 10*3/uL Normal 1.00-4.8 [facility] Comment on above: Performed By: #### T SH3, MANAV, CMP, CBC, FE and TIBC ####[address] Lymphocytes/100 leukocytes i n Blood by Automated countOrdered By: Padmini Douglas on 03-22-2024 Lymphocytes/100 WBC (Bld) 16.3 % Normal . [facility] Comment on above: Performed By: #### T SH3, MANAV, CMP, CBC, FE and TIBC ####[address] MCH [Entitic mass] by Automa urvashi countOrdered By: Padmini Douglas on 03-22-2024 MCH (RBC) [Entitic mass] 29.6 pg Normal 24.7-34.3 [facility] Comment on above: Performed By: #### T SH3, MANAV, CMP, CBC, FE and TIBC ####[address] MCHC Auto (RBC) [Mass/Vol]Or dered By: Padmini Douglas on 03-22-2024 MCHC (RBC) [Mass/Vol] 33.6 g/dL 32.0-35.0 [facility] MCV [Entitic volume] by Auto mated countOrdered By: Padmini Douglas on 03-22-2024 MCV (RBC) [Entitic vol] 88.0 fL Normal 80-100 [facility] Comment on above: Performed By: #### T SH3, MANAV, CMP, CBC, FE and TIBC ####[address] Neutrophils [#/volume] in Bl ood by Automated countOrdered By: Padmini Douglas on 03-22-2024 Neutrophils (Bld) [#/Vol] 10.1 10*3/uL High 1.8-7.7 [facility] Comment on above: Performed By: #### T SH3, MANAV, CMP, CBC, FE and TIBC ####[address] No Panel InformationOrdered By: Padmini Douglas on 03-22-2024 Estimated GFR (CKD-EPI) > 60.0 mL/Min [facility] Creatinine Clearance (Chem N/A [facility] Nucleated erythrocytes [Pres ence] in Blood by Automated countOrdered By: Padmini Douglas on 03-22-2024 Nucleated RBC Auto Ql (Bld) 0.1 /100{WBC} 0-0.5 [facility] Platelet mean volume [Entiti c volume] in Blood by Automated countOrdered By: Padmini Douglas on 03-22-2024 Platelet mean volume (Bld) [Entitic vol] 9.8 fL Normal 6.3-10.7 [facility] Comment on above: Performed By: #### T SH3, MANAV, CMP, CBC, FE and TIBC ####[address] Platelets [#/volume] in Bloo d by Automated countOrdered By: Padmini Douglas on 03-22-2024 Platelets (Bld) [#/Vol] 389 10*3/uL Normal 150-450 [facility] Comment on above: Performed By: #### T SH3, MANAV, CMP, CBC, FE and TIBC ####[address] Potassium [Moles/volume] in Serum or PlasmaOrdered By: Padmini Douglas on 03-22-2024 Potassium [Moles/Vol] 3.9 mmol/L Normal 3.5-5.1 [facility] Comment on above: Performed By: #### T SH3, MANAV, CMP, CBC, FE and TIBC ####[address] Protein [Mass/volume] in Ser um or PlasmaOrdered By: Padmini Douglas on 03-22-2024 Protein [Mass/Vol] 7.0 g/dL Normal 6.4-8.9 [facility] Comment on above: Performed By: #### T SH3, MANAV, CMP, CBC, FE and TIBC ####[place] [id number] [address] Serum globulin measurement b y calculation (mass/volume)Ordered By: Padmini Douglas on 03-22-2024 Globulin (S) [Mass/Vol] 3.0 g/dL Normal [facility] Comment on above: Performed By: #### T SH3, MANAV, CMP, CBC, FE and TIBC ####[place] [id number] [address] Serum or plasma albumin/glob ulin mass ratioOrdered By: Padmini Douglas on 03-22-2024 Albumin/Globulin [Mass ratio] 1.3 {ratio} Normal [facility] Comment on above: Performed By: #### T SH3, MANAV, CMP, CBC, FE and TIBC ####[address] Serum or plasma anion gap de terminationOrdered By: Pdamini Douglas on 03-22-2024 Anion gap [Moles/Vol] 11.4 mmol/L Normal 6.0-15.0 [facility] Comment on above: Performed By: #### T SH3, MANAV, CMP, CBC, FE and TIBC ####[address] Sodium [Moles/volume] in Ser um or PlasmaOrdered By: Padmini Douglas on 03-22-2024 Sodium [Moles/Vol] 136 mmol/L Normal 136-145 [facility] Comment on above: Performed By: #### T SH3, MANAV, CMP, CBC, FE and TIBC ####[address] Thyrotropin [Units/volume] i n Serum or PlasmaOrdered By: Padmini Douglas on 03-22-2024 TSH Qn 2.76 m[IU]/L Normal 0.45-5.33 [facility] Comment on above: Result Comment: PERF ORMED BY: [facility] [address] [place] [phone] PATHOLOGIST EGG PASTEURIZER KIM RAHMAN M.D. Performed By: #### T SH3, MANAV, CMP, CBC, FE and TIBC ####[place] [id number] [place] [id number] [facility] Transferrin [Mass/volume] in Serum or PlasmaOrdered By: Padmini Douglas on 03-22-2024 Transferrin [Mass/Vol] 332 mg/dL Normal 203-362 [facility] Comment on above: Performed By: #### T SH3, MANAV, CMP, CBC, FE and TIBC ####[place] [id number] [place] [id number] [facility] Urea nitrogen [Mass/volume] in Serum or PlasmaOrdered By: Padmini Douglas on 03-22-2024 Urea nitrogen [Mass/Vol] 9 mg/dL Normal 7-25 [facility] Comment on above: Performed By: #### T SH3, MANAV, CMP, CBC, FE and TIBC ####[place] [id number] [address] No Panel Informationon 03-17 Stool Calprotectin 704 ug/g Abnormal 0-120 [facility] Comment on above: Concentration Interp retation Follow-Up< 5 - 50 ug/g Normal None>50 -120 ug/g Borderline Re-evaluate in 4-6 weeks >120 ug/g Abnormal Repeat as clinically indicatedPerformed at: [facility] [address] [id number] Director: Salty Estevez MD, Phone: [phone] Alanine aminotransferase [En zymatic activity/volume] in Serum or PlasmaOrdered By: Padmini Douglas on 06-27-2023 ALT [Catalytic activity/Vol] 7 U/L 7-52 [facility] Albumin [Mass/volume] in Ser um or Plasma by Bromocresol green (BCG) dye binding methoOrdered By: Padmini Douglas on 06-27-2023 Albumin BCG dye [Mass/Vol] 4.2 g/dL 3.5-5.7 [facility] Alkaline phosphatase [Enzyma tic activity/volume] in Serum or PlasmaOrdered By: Padmini Douglas on 06-27-2023 ALP [Catalytic activity/Vol] 73 U/L 34-104 [facility] Aspartate aminotransferase [ Enzymatic activity/volume] in Serum or PlasmaOrdered By: Padmini Douglas on 06-27-2023 AST [Catalytic activity/Vol] 11 U/L 13-39 [facility] Basophils Auto (Bld) [#/Vol] Ordered By: Padmini Douglas on 06-27-2023 Basophils (Bld) [#/Vol] 0.1 10*3/uL 0.0-0.2 [facility] Basophils/100 WBC Auto (Bld) Ordered By: Padmini Douglas on 06-27-2023 Basophils/100 WBC (Bld) 0.5 % . [facility] Bilirubin.total [Mass/volume ] in Serum or PlasmaOrdered By: Padmini Douglas on 06-27-2023 Bilirubin [Mass/Vol] 0.3 mg/dL 0.3-1.0 [facility] Calcium [Mass/volume] in Ser um or PlasmaOrdered By: Padmini Douglas on 06-27-2023 Calcium [Mass/Vol] 9.5 mg/dL 8.6-10.3 [facility] Carbon dioxide, total [Moles /volume] in Serum or PlasmaOrdered By: Padmini Douglas on 06-27-2023 CO2 [Moles/Vol] 26.8 mmol/L 21.0-31.0 [facility] Chloride [Moles/volume] in S jourdan or PlasmaOrdered By: Padmini Douglas on 06-27-2023 Chloride [Moles/Vol] 104 mmol/L 98-107 [facility] Creatinine [Mass/volume] in Serum or PlasmaOrdered By: Padmini Douglas on 06-27-2023 Creatinine [Mass/Vol] 0.59 mg/dL 0.60-1.20 [facility] Eosinophils Auto (Bld) [#/Vo l]Ordered By: Padmini Douglas on 06-27-2023 Eosinophils (Bld) [#/Vol] 0.2 10*3/uL 0.0-0.45 [facility] Eosinophils/100 WBC Auto (Bl d)Ordered By: Padmini Douglas on 06-27-2023 Eosinophils/100 WBC (Bld) 1.7 % . [facility] Erythrocyte distribution wid th Auto (RBC) [Ratio]Ordered By: Padmini Douglas on 06-27-2023 Erythrocyte distribution width (RBC) [Ratio] 13.3 % 11.9-15.3 [facility] Ferritin [Mass/volume] in Se rum or PlasmaOrdered By: Padmini Douglas on 06-27-2023 Ferritin [Mass/Vol] 32.7 ng/mL 11.0-306.8 [facility] Globulin Calc (S) [Mass/Vol] Ordered By: Padmini Douglas on 06-27-2023 Globulin (S) [Mass/Vol] 2.9 g/dL [facility] Glucose [Mass/volume] in Ser um or PlasmaOrdered By: Padmini Douglas on 06-27-2023 Glucose [Mass/Vol] 77 mg/dL 70-100 [facility] Comment on above: ADA recommended refe rence rangeRandom Glucose Reference Range is dependent on time and content of last meal. Glucose of more than 200 mg/dL in a nonstressed, ambulatory subject supports the diagnosis of Diabetes Mellitus. Hematocrit Auto (Bld) [Volum e fraction]Ordered By: Padmini Douglas on 06-27-2023 Hematocrit (Bld) [Volume fraction] 42.2 % 34.0-46.4 [facility] Hemoglobin [Mass/volume] in BloodOrdered By: Padmini Douglas on 06-27-2023 Hemoglobin (Bld) [Mass/Vol] 14.3 g/dL 11.8-15.4 [facility] Iron [Mass/volume] in Serum or PlasmaOrdered By: Padmini Douglas on 06-27-2023 Iron [Mass/Vol] 115 ug/dL 50-212 [facility] Iron binding capacity [Mass/ volume] in Serum or PlasmaOrdered By: Padmini Douglas on 06-27-2023 Iron binding capacity [Mass/Vol] 508 ug/dL 255-450 [facility] Iron saturation [Mass Fracti on] in Serum or PlasmaOrdered By: Padmini Douglas on 06-27-2023 Iron saturation [Mass fraction] 22.6 % 20-50 [facility] Leukocytes [#/volume] correc urvashi for nucleated erythrocytes in Blood by Automated counOrdered By: Padmini Douglas on 06-27-2023 WBC corrected for nucl RBC Auto (Bld) [#/Vol] 9.8 10*3/uL 3.8-11.6 [facility] Lymphocytes Auto (Bld) [#/Vo l]Ordered By: Padmini Douglas on 06-27-2023 Lymphocytes (Bld) [#/Vol] 1.9 10*3/uL 1.00-4.8 [facility] Lymphocytes/100 WBC Auto (Bl d)Ordered By: Padmini Douglas on 06-27-2023 Lymphocytes/100 WBC (Bld) 19.2 % . [facility] MCH Auto (RBC) [Entitic mass ]Ordered By: Padmini Douglas on 06-27-2023 MCH (RBC) [Entitic mass] 29.7 pg 24.7-34.3 [facility] MCHC Auto (RBC) [Mass/Vol]Or dered By: Padmini Douglas on 06-27-2023 MCHC (RBC) [Mass/Vol] 33.8 g/dL 32.0-35.0 [facility] MCV Auto (RBC) [Entitic vol] Ordered By: Padmini Douglas on 06-27-2023 MCV (RBC) [Entitic vol] 87.7 fL 80-100 [facility] Monocytes Auto (Bld) [#/Vol] Ordered By: Padmini Douglas on 06-27-2023 Monocytes (Bld) [#/Vol] 0.8 10*3/uL 0.0-0.8 [facility] Monocytes/100 WBC Auto (Bld) Ordered By: Padmini Douglas on 06-27-2023 Monocytes/100 WBC (Bld) 8.5 % . [facility] Neutrophils Auto (Bld) [#/Vo l]Ordered By: Padmini Douglas on 06-27-2023 Neutrophils (Bld) [#/Vol] 6.8 10*3/uL 1.8-7.7 [facility] Neutrophils/100 WBC Auto (Bl d)Ordered By: Padmini Douglas on 06-27-2023 Neutrophils/100 WBC (Bld) 70.1 % . [facility] No Panel InformationOrdered By: Padmini Douglas on 11-03-2023 Estimated GFR (CKD-EPI) > 60.0 mL/Min [facility] Creatinine Clearance (Chem N/A [facility] Nucleated erythrocytes [Pres ence] in Blood by Automated countOrdered By: Padmini Douglas on 06-27-2023 Nucleated RBC Auto Ql (Bld) 0.1 /100{WBC} 0-0.5 [facility] Platelet mean volume Auto (B ld) [Entitic vol]Ordered By: Padmini Douglas on 06-27-2023 Platelet mean volume (Bld) [Entitic vol] 9.4 fL 6.3-10.7 [facility] Platelets Auto (Bld) [#/Vol] Ordered By: Padmini Douglas on 06-27-2023 Platelets (Bld) [#/Vol] 367 10*3/uL 150-450 [facility] Potassium [Moles/volume] in Serum or PlasmaOrdered By: Padmini Douglas on 06-27-2023 Potassium [Moles/Vol] 4.0 mmol/L 3.5-5.1 [facility] Protein [Mass/volume] in Ser um or PlasmaOrdered By: Padmini Douglas on 06-27-2023 Protein [Mass/Vol] 7.1 g/dL 6.4-8.9 [facility] RBC Auto (Bld) [#/Vol]Ordere d By: Padmini Douglas on 06-27-2023 RBC (Bld) [#/Vol] 4.81 10*6/uL 3.60-5.00 [facility] Serum or plasma albumin/glob ulin mass ratioOrdered By: Padmini Douglas on 06-27-2023 Albumin/Globulin [Mass ratio] 1.4 {ratio} [facility] Serum or plasma anion gap de terminationOrdered By: Padmini Douglas on 06-27-2023 Anion gap [Moles/Vol] 13.2 mmol/L 6.0-15.0 [facility] Sodium [Moles/volume] in Ser um or PlasmaOrdered By: Padmini Douglas on 06-27-2023 Sodium [Moles/Vol] 140 mmol/L 136-145 [facility] Transferrin [Mass/volume] in Serum or PlasmaOrdered By: Padmini Douglas on 06-27-2023 Transferrin [Mass/Vol] 363 mg/dL 203-362 [facility] Urea nitrogen [Mass/volume] in Serum or PlasmaOrdered By: Padmini Douglas on 06-27-2023 Urea nitrogen [Mass/Vol] 8 mg/dL 7-25 [facility] WBC Auto (Bld) [#/Vol]Ordere d By: Padmini Douglas on 06-27-2023 WBC (Bld) [#/Vol] 9.8 10*3/uL 3.8-11.6 [facility] [facility] Albumin [Mass/volume] in Ser um or PlasmaOrdered By: Padmini Douglas on 09-05-2022 Albumin [Mass/Vol] 3.6 g/dL 3.2-5.5 [facility] Basophils Auto (Bld) [#/Vol] Ordered By: Padmini Douglas on 09-05-2022 Basophils (Bld) [#/Vol] 0.1 10*3/uL 0.0-0.2 [facility] Basophils/100 WBC Auto (Bld) Ordered By: Padmini Douglas on 09-05-2022 Basophils/100 WBC (Bld) 0.6 % . [facility] biopsyOrdered By: Padmini dominguez on 09-05-2022 Transferrin [Mass/Vol] 326 mg/dL 180-380 [facility] Creatinine and Glomerular fi ltration rate.predicted panel (S/P/Bld)Ordered By: Padmini Douglas on 09-05-2022 Creatinine [Mass/Vol] 0.60 mg/dL 0.44-1.03 [facility] Eosinophils Auto (Bld) [#/Vo l]Ordered By: Padmini Douglas on 09-05-2022 Eosinophils (Bld) [#/Vol] 0.1 10*3/uL 0.0-0.45 [facility] Eosinophils/100 WBC Auto (Bl d)Ordered By: Padmini Douglas on 09-05-2022 Eosinophils/100 WBC (Bld) 1.2 % . [facility] Erythrocyte distribution wid th Auto (RBC) [Ratio]Ordered By: Padmini Douglas on 09-05-2022 Erythrocyte distribution width (RBC) [Ratio] 13.0 % 11.9-15.3 [facility] Estimated glomerular filtrat ion rate (GFR) non- AmericanOrdered By: Padmini Douglas on 09-05-2022 GFR/1.73 sq M.predicted among non-blacks MDRD (S/P/Bld) [Vol rate/Area] > 60 mL/Min [facility] Ferritin [Mass/volume] in Se rum or PlasmaOrdered By: Padmini Douglas on 09-05-2022 Ferritin [Mass/Vol] 40.2 ng/mL 11-306.8 [facility] Globulin Calc (S) [Mass/Vol] Ordered By: Padmini Douglas on 09-05-2022 Globulin (S) [Mass/Vol] 3.2 g/dL [facility] Hematocrit Auto (Bld) [Volum e fraction]Ordered By: Padmini Douglas on 09-05-2022 Hematocrit (Bld) [Volume fraction] 41.5 % 34.0-46.4 [facility] Hemoglobin [Mass/volume] in BloodOrdered By: Padmini Douglas on 09-05-2022 Hemoglobin (Bld) [Mass/Vol] 13.6 g/dL 11.8-15.4 [facility] Iron [Mass/volume] in Serum or PlasmaOrdered By: Padmini Douglas on 09-05-2022 Iron [Mass/Vol] 119 ug/dL 40-150 [facility] Iron binding capacity [Mass/ volume] in Serum or PlasmaOrdered By: Padmini Douglas on 09-05-2022 Iron binding capacity [Mass/Vol] 456 ug/dL 255-450 [facility] Iron saturation [Mass Fracti on] in Serum or PlasmaOrdered By: Padmini Douglas on 09-05-2022 Iron saturation [Mass fraction] 26.1 % 20-50 [facility] Leukocytes [#/volume] correc urvashi for nucleated erythrocytes in Blood by Automated counOrdered By: Padmini Douglas on 09-05-2022 WBC corrected for nucl RBC Auto (Bld) [#/Vol] 11.4 10*3/uL 3.8-11.6 [facility] Lymphocytes Auto (Bld) [#/Vo l]Ordered By: Padmini Douglas on 09-05-2022 Lymphocytes (Bld) [#/Vol] 1.9 10*3/uL 1.00-4.8 [facility] Lymphocytes/100 WBC Auto (Bl d)Ordered By: Padmini Douglas on 09-05-2022 Lymphocytes/100 WBC (Bld) 16.9 % . [facility] MCH Auto (RBC) [Entitic mass ]Ordered By: Padmini Douglas on 09-05-2022 MCH (RBC) [Entitic mass] 29.1 pg 24.7-34.3 [facility] MCHC Auto (RBC) [Mass/Vol]Or dered By: Padmini Douglas on 09-05-2022 MCHC (RBC) [Mass/Vol] 32.8 g/dL 32.0-35.0 [facility] MCV Auto (RBC) [Entitic vol] Ordered By: Padmini Douglas on 09-05-2022 MCV (RBC) [Entitic vol] 88.5 fL 80-100 [facility] Monocytes Auto (Bld) [#/Vol] Ordered By: Padmini Douglas on 09-05-2022 Monocytes (Bld) [#/Vol] 0.8 10*3/uL 0.0-0.8 [facility] Monocytes/100 WBC Auto (Bld) Ordered By: Padmini Douglas on 09-05-2022 Monocytes/100 WBC (Bld) 6.8 % . [facility] Neutrophils Auto (Bld) [#/Vo l]Ordered By: Padmini Douglas on 09-05-2022 Neutrophils (Bld) [#/Vol] 8.5 10*3/uL 1.8-7.7 [facility] Neutrophils/100 WBC Auto (Bl d)Ordered By: Padmini Douglas on 09-05-2022 Neutrophils/100 WBC (Bld) 74.5 % . [facility] No Panel InformationOrdered By: Padmini Douglas on 09-05-2022 Estimated GFR () > 60 mL/Min [facility] Comment on above: GFR estimated refere nce range: According to KDOQI guidelines, <60 ml/min/1.73m2 is sufficient to diagnose a patient with chronic kidney disease. Pharmacy Creatinine Clearance (Chem N/A [facility] Nucleated erythrocytes [Pres ence] in Blood by Automated countOrdered By: Padmini Douglas on 09-05-2022 Nucleated RBC Auto Ql (Bld) 0.1 /100{WBC} 0-0.5 [facility] Platelet mean volume Auto (B ld) [Entitic vol]Ordered By: Padmini Douglas on 09-05-2022 Platelet mean volume (Bld) [Entitic vol] 10.0 fL 6.3-10.7 [facility] Platelets Auto (Bld) [#/Vol] Ordered By: Padmini Douglas on 09-05-2022 Platelets (Bld) [#/Vol] 363 10*3/uL 150-450 [facility] Protein [Mass/volume] in Ser um or PlasmaOrdered By: Padmini Douglas on 09-05-2022 Protein [Mass/Vol] 6.8 g/dL 6.1-7.9 [facility] RBC Auto (Bld) [#/Vol]Ordere d By: Padmini Douglas on 09-05-2022 RBC (Bld) [#/Vol] 4.69 10*6/uL 3.60-5.00 [facility] Serum or plasma alanine chinchilla otransferase measurement without P-5'-P (enzymatic activiOrdered By: Padmini Douglas on 09-05-2022 ALT No additional P-5'-P [Catalytic activity/Vol] 12 U/L 10-60 [facility] Serum or plasma albumin/glob ulin mass ratioOrdered By: Padmini Douglas on 09-05-2022 Albumin/Globulin [Mass ratio] 1.1 {ratio} [facility] Serum or plasma alkaline ashley sphatase measurement (enzymatic activity/volume)Ordered By: Padmini Douglas on 09-05-2022 ALP [Catalytic activity/Vol] 74 U/L 32-92 [facility] Serum or plasma anion gap de terminationOrdered By: Padmini Douglas on 09-05-2022 Anion gap [Moles/Vol] 13.7 mmol/L 6.0-15.0 [facility] Serum or plasma aspartate am inotransferase measurement (enzymatic activity/volume)Ordered By: Padmini Douglas on 09-05-2022 AST [Catalytic activity/Vol] 14 U/L 10-42 [facility] Serum or plasma calcium robb urement (mass/volume)Ordered By: Padmini Douglas on 09-05-2022 Calcium [Mass/Vol] 9.2 mg/dL 8.2-10.2 [facility] Serum or plasma chloride alvarado surement (moles/volume)Ordered By: Padmini Douglas on 09-05-2022 Chloride [Moles/Vol] 100 mmol/L 95-114 [facility] Serum or plasma glucose robb urement (mass/volume)Ordered By: Padmini Douglas on 09-05-2022 Glucose [Mass/Vol] 74 mg/dL 70-100 [facility] Comment on above: ADA recommended refe rence rangeRandom Glucose Reference Range is dependent on time and content of last meal. Glucose of more than 200 mg/dL in a nonstressed, ambulatory subject supports the diagnosis of Diabetes Mellitus. Serum or plasma potassium me asurement (moles/volume)Ordered By: Padmini Douglas on 09-05-2022 Potassium [Moles/Vol] 3.9 mmol/L 3.5-5.1 [facility] Serum or plasma sodium measu rement (moles/volume)Ordered By: Padmini Douglas on 09-05-2022 Sodium [Moles/Vol] 133 mmol/L 136-146 [facility] Serum or plasma total biliru bin measurement (mass/volume)Ordered By: Padmini Douglas on 09-05-2022 Bilirubin [Mass/Vol] 0.3 mg/dL 0.3-1.2 [facility] Serum or plasma total carbon dioxide measurement (moles/volume)Ordered By: Padmini Douglas on 09-05-2022 CO2 [Moles/Vol] 23.2 mmol/L 22.0-30.0 [facility] Serum or plasma urea nitroge n measurement (mass/volume)Ordered By: Padmini Douglas on 09-05-2022 Urea nitrogen [Mass/Vol] 8 mg/dL 9-23 [facility] TSH DL <= 0.005 mIU/L QnOrde red By: Padmini Douglas on 09-05-2022 TSH Qn 2.04 m[IU]/L 0.45-5.33 [facility] WBC Auto (Bld) [#/Vol]Ordere d By: Padmini Douglas on 09-05-2022 WBC (Bld) [#/Vol] 11.4 10*3/uL 3.8-11.6 [facility] QUANTIFERON TB GOLD PLUSon 0 01-25-2022 QuantiFERON Criteria Comment Normal [facility] Comment on above: Result Comment: The QuantiFERON-TB Gold Plus result is determined by subtracting the Nil value from either TB antigen (Ag) tube. The mitogen tube serves as a control for the test. Performed By: #### Q NTTB #### [facility] [address] [place] [address] Dr. Gt Rowland QuantiFERON Incubation Incubation performed. Normal [facility] Comment on above: Performed By: #### Q NTTB #### [facility] [address] [place] [address] Dr. Gt Rowland QuantiFERON Mitogen Value >10.00 Normal [facility] Comment on above: Performed By: #### Q NTTB #### [facility] [address] [place] [address] Dr. Gt Rowland QuantiFERON Nil Value 0.00 IU/mL Normal [facility] Comment on above: Performed By: #### Q NTTB #### [facility] [address] [place] [address] Dr. Gt Rowland QuantiFERON TB1 Ag Value 0.02 IU/mL Normal [facility] Comment on above: Performed By: #### Q NTTB #### [facility] [address] [place] [address] Dr. Gt Rowland QuantiFERON TB2 Ag Value 0.01 IU/mL Normal [facility] Comment on above: Performed By: #### Q NTTB #### [facility] [address] [place] [address] Dr. Gt Rowland QuantiFERON-TB Gold Plus Negative Normal Negative [facility] Comment on above: Result Comment: Chem iluminescence immunoassay methodology Performed By: #### Q NTTB #### [facility] [address] [place] [address] Dr. Gt Rowland Vital Signs Date Time Vital Sign Value Performing Clinician Facility 10-13-2024 09:45-0500 Body height 160.02 cm [facility] 10-13-2024 09:45-0500 Body mass index (BMI) [Ratio] 27.4 kg/m2 [facility] 10-13-2024 09:45-0500 Body temperature 98.7 [degF] [facility] 10-13-2024 09:45-0500 Body weight 70.3 kg [facility] 10-13-2024 09:45-0500 Diastolic blood pressure 84 mm[Hg] [facility] 10-13-2024 09:45-0500 Heart rate 92 /min [facility] 10-13-2024 09:45-0500 SaO2% (BldA) [Mass fraction] 99 % [facility] 10-13-2024 09:45-0500 Systolic blood pressure 128 mm[Hg] [facility] 08-02-2024 14:00-0500 Body height 160.02 cm [facility] 08-02-2024 14:00-0500 Body mass index (BMI) [Ratio] 27.4 kg/m2 [facility] 08-02-2024 14:00-0500 Body weight 70.3 kg [facility] 06-29-2024 11:26-0500 Diastolic blood pressure 95 mm[Hg] DO Padmini Douglas Work Phone: [facility] 06-29-2024 11:26-0500 Heart rate 94 /min DO Padmini Douglas Work Phone: [facility] 06-29-2024 11:26-0500 Systolic blood pressure 131 mm[Hg] DO Padmini Douglas Work Phone: [facility] 04-23-2024 10:01-0400 Body mass index (BMI) [Ratio] 27.08 kg/m2 Rene Roque MD Work Phone: [facility] 04-23-2024 10:01-0400 Body temperature 96.8 [degF] Rene Roque MD Work Phone: [facility] 04-23-2024 10:01-0400 Body weight 70.44 kg Rene Roque MD Work Phone: [facility] 04-23-2024 10:01-0400 Diastolic blood pressure 87 mm[Hg] Rene Roque MD Work Phone: [facility] 04-23-2024 10:01-0400 Heart rate 96 /min [facility] 04-23-2024 10:01-0400 SaO2% (BldA) [Mass fraction] 99 % [facility] 04-23-2024 10:01-0400 Systolic blood pressure 132 mm[Hg] [facility] 04-22-2024 08:44-0400 Body height 161.29 cm DO Padmini Frostjay Work Phone: [facility] 04-22-2024 08:44-0400 Body mass index (BMI) [Ratio] 24.4 kg/m2 DO Padmini Douglas Work Phone: [facility] 04-22-2024 08:44-0400 Body weight 63.5 kg DO Padmini Aracelis Work Phone: [facility] 03-31-2024 13:26-0400 Body height 162.56 cm DO Padmini Frostjay Work Phone: [facility] 03-31-2024 13:26-0400 Body mass index (BMI) [Ratio] 25.5 kg/m2 DO Padmini Girjay Work Phone: [facility] 03-31-2024 13:26-0400 Body temperature 98.1 [degF] DO Padmini Frostvin Work Phone: [facility] 03-31-2024 13:26-0400 Body weight 67.58 kg DO Padmini Girjay Work Phone: [facility] 03-31-2024 13:26-0400 Diastolic blood pressure 84 mm[Hg] DO Padmini Douglas Work Phone: [facility] 03-31-2024 13:26-0400 Heart rate 112 /min DO Padmini Douglas Work Phone: [facility] 03-31-2024 13:26-0400 SaO2% (BldA) [Mass fraction] 98 % DO Padmini Douglas Work Phone: [facility] 03-31-2024 13:26-0400 Systolic blood pressure 128 mm[Hg] DO Padmini Girjay Work Phone: [facility] 03-24-2024 10:53-0400 Diastolic blood pressure 88 mm[Hg] DO Padmini Douglas Work Phone: [facility] 03-24-2024 10:53-0400 Heart rate 81 /min DO Padmini Douglas Work Phone: [facility] 03-24-2024 10:53-0400 Respiratory rate 16 /min DO Padmini Douglas Work Phone: [facility] 03-24-2024 10:53-0400 SaO2% (BldA) [Mass fraction] 99 % DO Padmini Douglas Work Phone: [facility] 03-24-2024 10:53-0400 Systolic blood pressure 133 mm[Hg] DO Padmini Douglas Work Phone: [facility] 03-24-2024 08:22-0400 Body height 160.02 cm DO Padmini Girjay Work Phone: [facility] 03-24-2024 08:22-0400 Body weight 65.77 kg DO Padmini Girjay Work Phone: [facility] 03-04-2024 11:20-0400 Body height 162.56 cm DO Padmini Girvin Work Phone: [facility] 03-04-2024 11:20-0400 Body mass index (BMI) [Ratio] 25.4 kg/m2 DO Padmini Girvin Work Phone: [facility] 03-04-2024 11:20-0400 Body weight 67.13 kg DO Padmini Douglas Work Phone: [facility] 03-04-2024 11:20-0400 Diastolic blood pressure 89 mm[Hg] DO Padmini Douglas Work Phone: [facility] 03-04-2024 11:20-0400 Heart rate 115 /min DO Padmini Douglas Work Phone: [facility] 03-04-2024 11:20-0400 Systolic blood pressure 129 mm[Hg] DO Padmini Douglas Work Phone: [facility] 12-24-2023 10:29-0400 Body height 162.56 cm DO Padmini Douglas Work Phone: [facility] 12-24-2023 10:29-0400 Body mass index (BMI) [Ratio] 25.5 kg/m2 DO Padmini Douglas Work Phone: [facility] 12-24-2023 10:29-0400 Body temperature 98.7 [degF] DO Padmini Douglas Work Phone: [facility] 12-24-2023 10:29-0400 Body weight 67.58 kg DO Padmini Douglas Work Phone: [facility] 12-24-2023 10:29-0400 Diastolic blood pressure 84 mm[Hg] DO Padmini Douglas Work Phone: [facility] 12-24-2023 10:29-0400 Heart rate 94 /min DO Padmini Douglas Work Phone: [facility] 12-24-2023 10:29-0400 SaO2% (BldA) [Mass fraction] 97 % DO Padmini Douglas Work Phone: [facility] 12-24-2023 10:29-0400 Systolic blood pressure 132 mm[Hg] DO Padmini Douglas Work Phone: [facility] 09-22-2023 17:20-0500 Body height 162.56 cm Padmini Douglas Other [employer] Other 09-22-2023 17:20-0500 Body mass index (BMI) [Ratio] 26.43 kg/m2 Padmini Douglas Other [employer] Other 09-22-2023 17:20-0500 Body temperature 98.7 [degF] Padmini Douglas Other [employer] Other 09-22-2023 17:20-0500 Body weight 69.85 kg Padmini Douglas Other [employer] Other 09-22-2023 17:20-0500 Diastolic blood pressure 82 mm[Hg] Padmini Douglas Other [employer] Other 09-22-2023 17:20-0500 Respiratory rate 16 /min Padmini Douglas Other [employer] Other 09-22-2023 17:20-0500 SaO2% (BldA) [Mass fraction] 98 % Padmini Douglas Other [employer] Other 09-22-2023 17:20-0500 Systolic blood pressure 118 mm[Hg] Padmini Douglas Other [employer] Other 06-30-2023 17:20-0500 Body height 162.56 cm Padmini Douglas Other [employer] Other 06-30-2023 17:20-0500 Body mass index (BMI) [Ratio] 25.74 kg/m2 Padmini Douglas Other [employer] Other 06-30-2023 17:20-0500 Body temperature 98.2 [degF] Padmini Douglas Other [employer] Other 06-30-2023 17:20-0500 Body weight 68.04 kg Padmini Douglas Other [employer] Other 06-30-2023 17:20-0500 Diastolic blood pressure 84 mm[Hg] Padmini Douglas Other [employer] Other 06-30-2023 17:20-0500 Respiratory rate 16 /min Padmini Douglas Other [employer] Other 06-30-2023 17:20-0500 SaO2% (BldA) [Mass fraction] 97 % Padmini Douglas Other [employer] Other 06-30-2023 17:20-0500 Systolic blood pressure 124 mm[Hg] Padmini Douglas Other [employer] Other 03-17-2023 17:20-0400 Body height 162.56 cm Padmini Douglas Other [employer] Other 03-17-2023 17:20-0400 Body mass index (BMI) [Ratio] 25.23 kg/m2 Padmini Douglas Other [employer] Other 03-17-2023 17:20-0400 Body temperature 98.8 [degF] Padmini Douglas Other [employer] Other 03-17-2023 17:20-0400 Body weight 66.68 kg Padmini Douglas Other [employer] Other 03-17-2023 17:20-0400 Diastolic blood pressure 86 mm[Hg] Padmini Douglas Other [employer] Other 03-17-2023 17:20-0400 Respiratory rate 16 /min Padmini Douglas Other [employer] Other 03-17-2023 17:20-0400 SaO2% (BldA) [Mass fraction] 97 % Padmini Douglas Other [employer] Other 03-17-2023 17:20-0400 Systolic blood pressure 138 mm[Hg] Padmini Douglas Other [employer] Other 10-22-2022 15:30-0500 Body height 162.56 cm Imad Asaad Other [employer] Other 10-22-2022 15:30-0500 Body mass index (BMI) [Ratio] 24.89 kg/m2 Imad Asaad Other [employer] Other 10-22-2022 15:30-0500 Body weight 65.77 kg Imad Asaad Other [employer] Other 10-22-2022 15:30-0500 Diastolic blood pressure 88 mm[Hg] Imad Asaad Other [employer] Other 10-22-2022 15:30-0500 Respiratory rate 16 /min Imad Asaad Other [employer] Other 10-22-2022 15:30-0500 Systolic blood pressure 130 mm[Hg] Imad Asaad Other [employer] Other 09-09-2022 18:00-0500 Body height 162.56 cm Padmini Douglas Other [employer] Other 09-09-2022 18:00-0500 Body mass index (BMI) [Ratio] 24.89 kg/m2 Padmini Douglas Other [employer] Other 09-09-2022 18:00-0500 Body temperature 97 [degF] Padmini Margotjay Other [employer] Other 09-09-2022 18:00-0500 Body weight 65.77 kg Padmini Douglas Other [employer] Other 09-09-2022 18:00-0500 Diastolic blood pressure 82 mm[Hg] Padmini Margotjay Other [employer] Other 09-09-2022 18:00-0500 Respiratory rate 16 /min Padmini Margotjay Other [employer] Other 09-09-2022 18:00-0500 SaO2% (BldA) [Mass fraction] 98 % Padmini Margotjay Other [employer] Other 09-09-2022 18:00-0500 Systolic blood pressure 124 mm[Hg] Padmini Douglas Other [employer] Other 06-12-2022 10:10-0400 Body height 162.56 cm Padmini Margotjay Other [employer] Other 06-12-2022 10:10-0400 Body mass index (BMI) [Ratio] 24.03 kg/m2 Padmini Margotjay Other [employer] Other 06-12-2022 10:10-0400 Body temperature 97.3 [degF] Padmini Douglas Other [employer] Other 06-12-2022 10:10-0400 Body weight 63.5 kg Padmini Douglas Other [employer] Other 06-12-2022 10:10-0400 Diastolic blood pressure 80 mm[Hg] Padmini Douglas Other [employer] Other 06-12-2022 10:10-0400 Respiratory rate 16 /min Padmini Douglas Other [employer] Other 06-12-2022 10:10-0400 SaO2% (BldA) [Mass fraction] 98 % Padmini Douglas Other [employer] Other 06-12-2022 10:10-0400 Systolic blood pressure 122 mm[Hg] Padmini Douglas Other [employer] Other 10-29-2021 18:00-0500 Body height 162.56 cm Padmini Douglas Other [employer] Other 10-29-2021 18:00-0500 Body mass index (BMI) [Ratio] 23.26 kg/m2 Padmini Douglas Other [employer] Other 10-29-2021 18:00-0500 Body temperature 97.6 [degF] Padmini Douglas Other [employer] Other 10-29-2021 18:00-0500 Body weight 61.46 kg Padmini Douglas Other [employer] Other 10-29-2021 18:00-0500 Diastolic blood pressure 68 mm[Hg] Padmini Douglas Other [employer] Other 10-29-2021 18:00-0500 Respiratory rate 18 /min Padmini Douglas Other [employer] Other 10-29-2021 18:00-0500 SaO2% (BldA) [Mass fraction] 98 % Padmini Douglas Other [employer] Other 10-29-2021 18:00-0500 Systolic blood pressure 122 mm[Hg] Padmini Douglas Other [employer] Other 06-20-2021 14:15-0400 Body height 162.56 cm Padmini Antaustin Other [employer] Other 06-20-2021 14:15-0400 Body mass index (BMI) [Ratio] 22.66 kg/m2 Padmini Antaustin Other [employer] Other 06-20-2021 14:15-0400 Body weight 59.88 kg Padmini Antaustin Other [employer] Other Encounters Encounter Date Encounter Type Care Provider Facility Start: 10-13-2024 End: 10-13-2024 ambulatory [facility] Work Phone: Start: 10-13-2024 End: 10-13-2024 Patient encounter procedure [facility] [place] Work Phone: Start: 08-02-2024 End: 08-02-2024 Patient encounter procedure [facility] Physician [facility] Work Phone: Start: 07-21-2024 Non-patient / Non-visit [facility] Physician [facility] [place] Work Phone: Start: 06-29-2024 End: 06-29-2024 ambulatory DO Padmini Douglas Work Phone: [facility] Work Phone: Start: 06-29-2024 End: 06-29-2024 Discharged Recurring DO Padmini Douglas Work Phone: [facility]-Infusion Therapy - O/P Work Phone: Start: 04-23-2024 End: 04-23-2024 Office outpatient visit 25 minutes Rene Roque MD Work Phone: [facility] Comment on above: Crohn's disease of s mall intestine with intestinal obstruction (HCC) (Primary Dx) Crohn's disease of s mall intestine with intestinal obstruction (HCC) (Primary Dx); Body mass index (BMI) 27.0-27.9, adult Start: 04-22-2024 End: 04-22-2024 Patient encounter procedure DO Padmini Douglas Work Phone: [facility] Physician [facility] G[facility] Work Phone: Start: 03-31-2024 End: 03-31-2024 Patient encounter procedure DO Padmini Douglas Work Phone: [facility]ician [facility] Family Medicine [place] Work Phone: Start: 03-28-2024 Evaluation and management of inpatient GABRIEL ROBLESY Facility:[facility] Start: 03-26-2024 End: 03-29-2024 Evaluation and management of inpatient GABRIEL ROBLESY Facility:[facility] Start: 03-26-2024 Emergency department patient visit UNKNOWN PROVIDER Facility:[facility] Start: 03-26-2024 Evaluation and management of inpatient UNKNOWN PROVIDER Facility:[facility] Start: 03-25-2024 End: 03-26-2024 Emergency department patient visit UNKNOWN PROVIDER Facility:[facility] Start: 03-24-2024 Non-patient / Non-visit DO Padmini Douglas Work Phone: [facility] Work Phone: Start: 03-24-2024 End: 03-24-2024 Admission to same day surgery center DO Padmini Douglas Work Phone: [facility] Work Phone: Start: 03-24-2024 End: 03-24-2024 ambulatory DO Padmini Douglas Work Phone: [facility] Work Phone: Start: 03-22-2024 End: 03-22-2024 Patient encounter procedure DO Padmini Douglas Work Phone: [facility] [place] Work Phone: Start: 03-22-2024 End: 03-22-2024 ambulatory DO Padmini Douglas Work Phone: [facility] Work Phone: Start: 03-17-2024 Non-patient / Non-visit DO Padmini Douglas Work Phone: [facility] [facility] Work Phone: Start: 03-04-2024 End: 03-04-2024 Patient encounter procedure DO Padmini Douglas Work Phone: [facility] Gastroenterology Work Phone: Start: 12-24-2023 End: 12-24-2023 Patient encounter procedure DO Padmini Douglas Work Phone: [facility] Physician [facility] [place] Work Phone: Start: 10-06-2023 End: 10-06-2023 ambulatory Padmini Douglas Other [employer] Other Start: 10-06-2023 Telephone encounter Padmini Douglas [facility] [place] Start: 09-22-2023 End: 09-22-2023 ambulatory Padmini Douglas Other [employer] Other Start: 09-22-2023 Office outpatient visit 15 minutes Padmini Douglas [facility] [place] Start: 08-22-2023 End: 08-22-2023 ambulatory Padmini Douglas Other [employer] Other Start: 08-22-2023 Telephone encounter Padmini Douglas [facility] [place] Start: 06-30-2023 End: 06-30-2023 ambulatory Padmini Douglas Other [employer] Other Start: 06-30-2023 Office outpatient visit 15 minutes Padmini Douglas [facility] [place] Start: 06-27-2023 End: 06-27-2023 ambulatory DO Padmini Douglas Work Phone: [facility] Work Phone: Start: 06-27-2023 End: 06-27-2023 Patient encounter procedure DO Padmini Douglas Work Phone: [facility] [place] Work Phone: Start: 05-23-2023 End: 05-23-2023 ambulatory Padmini Aracelis Other [employer] Other Start: 05-23-2023 Telephone encounter Padmini Douglas [facility] [place] Start: 04-21-2023 End: 04-21-2023 ambulatory Padmini Douglas Other [employer] Other Start: 04-21-2023 Telephone encounter Padmini Douglas [facility] [place] Start: 03-17-2023 End: 03-17-2023 ambulatory Padmini Aracelis Other [employer] Other Start: 03-17-2023 Office outpatient visit 15 minutes Padmini Douglas [facility] [place] Start: 03-03-2023 End: 03-03-2023 ambulatory Padmini Douglas Other [employer] Other Start: 03-03-2023 Telephone encounter Padmini Douglas [facility] [place] Start: 01-21-2023 End: 01-21-2023 ambulatory Padmini Douglas Other [employer] Other Start: 01-21-2023 Telephone encounter Padmini Douglas [facility] [place] Start: 12-05-2022 End: 12-05-2022 ambulatory Imad Asaad Other [employer] Other Start: 12-05-2022 Telephone encounter Imad Asaad [facility] Start: 11-11-2022 End: 11-11-2022 ambulatory Padmini Douglas Other [employer] Other Start: 11-11-2022 Telephone encounter Padmini Douglas [facility] [place] Start: 11-07-2022 End: 11-07-2022 ambulatory Imad Asaad Other [employer] Other Start: 11-07-2022 Telephone encounter Imad Asaad [facility] Start: 10-22-2022 End: 10-22-2022 ambulatory Imad Asaad Other [employer] Other Start: 10-22-2022 Patient encounter procedure Imad Asaad [facility] Start: 10-22-2022 Telephone encounter Imad Asaad [facility] Start: 09-12-2022 End: 09-12-2022 ambulatory Padmini Douglas Other [employer] Other Start: 09-12-2022 Telephone encounter Padmini Douglas [facility] [place] Start: 09-09-2022 End: 09-09-2022 ambulatory Padmini Douglas Other [employer] Other Start: 09-09-2022 Office outpatient visit 15 minutes Padmini Douglas [facility] [place] Start: 09-05-2022 End: 09-05-2022 ambulatory DO Padmini Douglas Work Phone: [facility] Work Phone: Start: 09-05-2022 End: 09-05-2022 Patient encounter procedure DO Padmini Douglas Work Phone: [facility] [place] Work Phone: Start: 07-16-2022 End: 07-16-2022 ambulatory Padmini Douglas Other [employer] Other Start: 07-16-2022 Telephone encounter Padmini Douglas [facility] [place] Start: 06-12-2022 End: 06-12-2022 ambulatory Padmini Douglas Other [employer] Other Start: 06-12-2022 Office outpatient visit 15 minutes Padmini Douglas [facility] [place] Start: 06-12-2022 Telephone encounter Padmini Douglas [facility] [place] Start: 05-02-2022 End: 05-02-2022 ambulatory Mario Kenny Other [employer] Other Start: 05-02-2022 Telephone encounter Mario [facility] Start: 04-15-2022 End: 04-15-2022 ambulatory Padmini Douglas Other [employer] Other Start: 04-15-2022 Telephone encounter Padmini Douglas [facility] [place] Start: 03-04-2022 End: 03-04-2022 ambulatory Padmini Douglas Other [employer] Other Start: 03-04-2022 Telephone encounter Padmini Douglas [facility] [place] Start: 02-11-2022 End: 02-11-2022 ambulatory Padmini Douglas Other [employer] Other Start: 02-11-2022 Telephone encounter Padmini Douglas [facility] [place] Start: 01-23-2022 End: 01-24-[address] PADMINI DOUGLAS Facility: Start: 01-09-2022 End: 01-09-2022 ambulatory Padmini Douglas Other [employer] Other Start: 01-09-2022 Telephone encounter Padmini Douglas [facility] [place] Start: 12-12-2021 End: 12-12-2021 ambulatory Padmini Douglas Other [employer] Other Start: 12-12-2021 Telephone encounter Padmini Douglas [facility] [place] Start: 10-29-2021 End: 10-29-2021 ambulatory Padmini Douglas Other [employer] Other Start: 10-29-2021 Office outpatient visit 15 minutes Padmini Douglas [facility] Start: 10-10-2021 End: 10-10-2021 ambulatory Padmini Doulgas Other [employer] Other Start: 10-10-2021 Telephone encounter Padmini Douglas [facility] Start: 08-07-2021 End: 08-07-2021 ambulatory Padmini Douglas Other [employer] Other Start: 08-07-2021 Telephone encounter Padmini Douglas [facility] Start: 07-09-2021 End: 07-09-2021 ambulatory Padmini Douglas Other [employer] Other Start: 07-09-2021 Telephone encounter Padmini Douglas [facility] Start: 06-20-2021 Office outpatient visit 25 minutes Padmini Portillo [facility] Gastroenterology Procedures Date Procedure Procedure Detail Performing Clinician Start: 03-24-2024 Colonoscopy DO Padmini dominguez Work Phone: Plan of Treatment Date Care Activity Detail Author Start: 2048 Shingles (RZV) Vaccine (1 of 2) Shingles (RZV) Vaccine (1 of 2) [facility] Start: 05-25-2024 Influenza vaccination Influenza Vaccine (#1) [facility] Start: 03-24-2024 [facility] Start: 04-25-2023 COVID-19 Vaccine ( season) [...] [facility] Start: 2016 Tdap Booster Tdap Booster [facility] Start: 2013 Vaccination for human papillomavirus HPV Vaccine (1 - 3-dose series) [facility] Patient Education Hemorrhoids (D C) Crohn Disease (DC) Know your Meds [facility] Work Phone: [facility] Immunizations Immunization Date Immunization Notes Care Provider Cyrus lawrence 03-04-2022 tetanus toxoid, reduced diphtheria toxoid, and acellular pertussis vaccine, adsorbed Padmini oDuglas Other [facility] 12-16-2020 COVID-19 Vaccine Pfizer - Documentation Purposes Only Padmini Portillo Other [facility] 11-25-2020 COVID-19 Vaccine Pfizer - Documentation Purposes Only Padmiin Portillo Other [facility] NEGATED: Highlighted row has not occurred!07-30-2021 influenza, seasonal, injectable Patient Objection Padmini Douglas Other [employer] Other Payers Date Payer Category Payer Self-pay [id number] 2022 Unknown [employer] - HMO/PPO/POS SUPERMED PPO/CLASSIC/PLUS [id number] 2022-Present [address] [place] [address] PPO [id number] 2022 Unknown [id number] 1998 Unknown [id number] [id number] 1998 Unknown [id number] 2.16.840.1.838821.3.579.2.732 1998 Unknown [id number] 2.16.840.1.566089.3.579.2.732 1998 Unknown [id number] 2.16.840.1.625174.3.579.2.732 1998 Unknown [id number] 2.16.840.1.633146.3.579.2.732 1998 Unknown [id number] 2.16.840.1.908544.3.579.2.732 1998 Unknown [id number] 2.16.840.1.061220.3.579.2.732 1998 Unknown [id number] 2.16.840.1.501828.3.579.2.732 1998 Unknown [id number] 2.16.840.1.550209.3.579.2.732 1998 Unknown [id number] 2.16.840.1.462065.3.579.2.732 1959 Unknown [id number] Unknown [id number] 2.16.840.1.812013.3.579.2.531 Unknown [id number] 2.16.840.1.047069.3.579.2.531 Unknown [id number] 2.16.840.1.122338.3.579.2.531 Unknown [id number] 2.16.840.1.116016.3.579.2.531 Social History Date Type Detail Facility Unknown if ever smoked [facility] Other Sex Assigned At [employer] Other Start: 12-07-2021 End: 03-26-2024 Tobacco smoking status CAIS Never smoked tobacco (finding) [facility] Start: 2000 Sex Assigned At Female [facility] Start: 03-15-2024 End: 03-24-2024 Tobacco smoking status CAIS Ex-smoker (finding) [facility] Tobacco smoking status CAIS [facility] Start: 2000 Sex assigned at [facility] file [facility] Start: 10-13-2024 Sex Female (finding) [facility] Goals Date Patient Goal Desired Activity [...] adverse complications of immunosuppressive treatment including infections [facility] Work Phone: 1(649) 432-935808-30-2024 History of Present illness Narrative* Andrade Edwards [...] after her colonoscopy and was transferred to [facility] for further care, where our team was [...] urgency Reports having appointment with her local Plant And Equipment Worker yesterday and is planned to start Skyrizi [...] stelara q8 weeks to Skyrizi by her bender machine operator which she wants to continue to follow with. Plan sounds reasonable given her age based on the severe [id number] studies showing Skyrizi with severe superior endpoints when compared to Stelara. She also has many other options and would be a good candidate for TNF-a such as Humira giving stricturing disease - she will check with her bender machine operator if antibody/trough level was checked Patient s/d/w MD Rene Romero MD Fellow, PGY-5 Division of Gastroenterology & Hepatology [facility] Teaching Physician Note I saw and evaluated the patient. I personally obtained the horan and critical portions of the historyand physical exam. I reviewed the fellow's documentation and discussed the patient with the fellow.I agree with the fellow's medical decision making as documented in the fellow's note. Dr. Elijah Posada documented in this [id number] History of Present illness Narrative* Andrade Edwards [...] after her colonoscopy and was transferred to [facility] for further care, where our team was [...] urgency Reports having appointment with her local Plant And Equipment Worker yesterday and is planned to start Skyrizi [...] stelara q8 weeks to Skyrizi by her bender machine operator which she wants to continue to follow with. Plan sounds reasonable given her age based on the severe [id number] studies showing Skyrizi with severe superior endpoints when compared to Stelara. She also has many other options and would be a good candidate for TNF-a such as Humira giving stricturing disease - she will check with her bender machine operator if antibody/trough level was checked Patient s/d/w MD Rene Romero MD Fellow, PGY-5 Division of Gastroenterology & Hepatology [facility] Teaching Physician Note I saw and evaluated the patient. I personally obtained the horan and critical portions of the historyand physical exam. I reviewed the fellow's documentation and discussed the patient with the fellow.I agree with the fellow's medical decision making as documented in the fellow's note. Dr. Elijah Posada documented in this [id number] Evaluation note* Author Padmini Douglas [facility] Authored March 31, 2024 12: 53pm The above note written by __ _Victoriano Vega____ acting as human recorder, note dictated by Dr. Burnett .I performed the above HPI, ROS, and Examination. I formulated and dictated the treatment plan and was present for entire encounter. Padmini Douglas D.O. Author [facility] Authored April 22, 2024 8: 47am [...] 05/03. -Will monitor symptomatic response inflammatory markers [facility] Work Phone: 1(329) 108-525108-05-2024 NoteDISCHARGE SUMMARY [place] [id number] Aparna Arteaga Date of : 2000 24 year old female Attending Marko Yi MD Date of Admission 03/26/2024 Date of Discharge 03/29/2024 Final Diagnosis: Crohn's disease of small intestine with intestinal obstruction (HCC) Hospital Problems as of 03/29/2024 * (Principal) Crohn's disease of small intestine with intestinal obstruction ([facility]) SBO (small bowel obstruction) ([facility]) ADHD (attention deficit hyperactivity disorder) No discharge procedures on file. Future Appointments Date Time Provider Department Center 04/23/2024 10:00 AM Rene Roque MD [facility] Condition at Discharge improved Symptoms to look [...] prompt more urgent follow-up Marko Yi MD [facility] Medicine [phone]08-05-2024 Note03/29/24 0931 Assessment and Discharge Planning Evaluation READMISSION LESS THAN 30 DAYS No READMISSION RISK SCORE IS Low Risk INTERVIEWED Chart Review COGNITIVE STATUS Oriented FUNCTIONAL STATUS PRIOR TO ADMISSION Age Appropriate LIVING SITUATION Home with Family ADMISSION INSURANCE Private Insurance ([facility] [place]) HOME HEALTH CARE PRIOR TO ADMISSION No [...] complete appropriate assessments and interventions. SHEFALI Oseguera, [facility] Inpatient [facility]er[facility] NoteHospital Medicine Progress Note Aparna Arteaga Age [age] year old female [id number] Admitted 03/26/2024 9:16 AM Hospital Day: [...] that prompted her to go to the [facility] ER. Patient was found to [...] Patient. All questions and concerns addressed. Quin [facility] NoteHospital Medicine Progress Note Aparna Arteaga Age [age] year old female [id number] Admitted 03/26/2024 9:16 AM Hospital Day: [...] SKIN: Normal coloration, warm, AND dry. NEURO: electronic warfare officer grossly intact, normal speech, no lateralizing weakness. [...] Ambulating GI PPX (more content not included)...[facility] [id number] Note HOSPITAL MEDICINE DAILY PROGRESS NOTE SUBJECTIVE: [...] - Soft, not tender, bowel sounds sluggish SEARCH MARKETING ANALYST- CN grossly intact, Motor and sensory 5/5 [...] care was discussed with RAMÓN/MIKAL Beebe MD, [facility] [address] Medicine Physician Licensing And Registration Directorops analyst I have personally reviewed the database reporting consultant notes, nursing notes, therapy and allied healthcare provider notes, labarotary tests and imaging/radiological tests. I have obtained pertinent history from the patient and/or surrogate including via chart review. I have independantly interpreted the tests performed and discussed management with other consultants/providers involved in the treatment of this patient. Total time spent is greater than 50 minutes with over 50% spent in care-coordination.[facility] [id number] NoteHOSPITAL MEDICINE DAILY PROGRESS NOTE SUBJECTIVE: No [...] - Soft, mildly distended, bowel sounds sluggish SEARCH MARKETING ANALYST- CN grossly intact, Motor and sensory 5/5 [...] care was discussed with RAMÓN/MIKAL Beebe MD, [facility] [address] Medicine Physician Licensing And Registration Directorops analyst I have personally reviewed the database reporting consultant notes, nursing notes, therapy and allied healthcare provider notes, labarotary tests and imaging/radiological tests. I have obtained pertinent history from the patient and/or surrogate including via chart review. I have independantly interpreted the tests performed and discussed management with other consultants/providers involved in the treatment of this patient. Total time spent is greater than 50 minutes with over 50% spent in care-coordination.The [facility] [id number] NoteInternal Medicine - History and Physical Examination Aparna Arteaga 24 year old 0 lbs MRN/[facility]: [id number][facility] Admit Date: 03/26/2024 : 2000 CC: Abdominal pain (Sent from [facility] for + SBO, NG tube in place [...] social determinants of health. Jordana Beebe MD, [facility] [address] Medicine Physician Licensing And Registration Directorops analyst I have personally reviewed the database reporting consultant notes, nursing notes, therapy and allied healthcare provider notes, labarotary tests and imaging/radiological tests. I have obtained pertinent history from the patient and/or surrogate including via chart review. I have independantly interpreted the tests performed and discussed management with other consultants/providers involved in the treatment of this patient.[facility] [id number] Procedure note [facility]07-11-2024 Evaluation note* Author waqar [facility] Authored March 04, 2024 11:3 8am 23-year-old [...] and arrange for colonoscopy Author Padmini Douglas [facility] Authored December 24, 2023 11:07a m The above note written by __ _Victoriano Vega____ acting as human recorder, note dictated by Dr. Burnett .I performed the above HPI, ROS, and Examination. I formulated and dictated the treatment plan and was present for entire encounter. Padmini Douglas D.O. [facility] Work Phone: 1(420) 571-162607-11-2024 Evaluation note* Author Rip [facility] Authored March 04, 2024 11:3 8am 23-year-old [...] CRP fecal calprotectin and arrange for colonoscopy [facility] Work Phone: [phone]) 124-199502-12-2024 Evaluation note* Encounter Date Diagnosis Assessment Notes Treatment Notes Treatment Clinical Notes Sep, ADHD (attention deficit hyperactivity disorder) (ICD-10 - F90.9) [employer] Other 01-29-2024 Evaluation note* Encounter Date Diagnosis [...] use and benefit from the above medication. [employer] Other 12-29-2023 Evaluation note* Encounter Date Diagnosis Assessment Notes Treatment Notes Treatment Clinical Notes Jul, ADHD (attention deficit hyperactivity disorder) (ICD-10 - F90.9) [employer] Other 11-06-2023 Evaluation note* Encounter Date Diagnosis [...] is followin g with Dr. Moris ace. [employer] Other 09-29-2023 Evaluation note* Encounter Date Diagnosis Assessment Notes Treatment Notes Treatment Clinical Notes Apr, ADHD (attention deficit hyperactivity disorder) (ICD-10 - F90.9) [employer] Other 08-28-2023 Evaluation note* Encounter Date Diagnosis Assessment Notes Treatment Notes Treatment Clinical Notes Mar, ADHD (attention deficit hyperactivity disorder) (ICD-10 - F90.9) [employer] Other 07-24-2023 Evaluation note* Encounter Date Diagnosis [...] should continue with the medication with her heel sprayer if she becomes . An OARRS report [...] have lab drawn before her next appointment. [employer] Other 07-10-2023 Evaluation note* Encounter Date Diagnosis Assessment Notes Treatment Notes Treatment Clinical Notes Feb, ADHD (attention deficit hyperactivity disorder) (ICD-10 - F90.9) [employer] Other 05-30-2023 Evaluation note* Encounter Date Diagnosis Assessment Notes Treatment Notes Treatment Clinical Notes December, ADHD (attention deficit hyperactivity disorder) (ICD-10 - F90.9) [employer] Other 04-13-2023 Evaluation note* Encounter Date Diagnosis Assessment Notes Treatment Notes Treatment Clinical Notes Nov, Crohns disease (ICD-10 - K50.90) [employer] Other 03-20-2023 Evaluation note* Encounter Date Diagnosis Assessment Notes Treatment Notes Treatment Clinical Notes Oct, ADHD (attention deficit hyperactivity disorder) (ICD-10 - F90.9) [employer] Other 02-28-2023 Evaluation note* Encounter Date Diagnosis Assessment Notes Treatment Notes Treatment Clinical Notes Sep, Crohns disease (ICD-10 - K50.90) -Continue Stelara- Will plan for colonoscopy after 1 year unless patient develops recurrent rectal bleeding or other symptoms [employer] Other 02-28-2023 Evaluation note* Encounter Date Diagnosis Assessment Notes Treatment Notes Treatment Clinical Notes Sep, Crohns disease (ICD-10 - K50.90) [employer] Other 01-19-2023 Evaluation note* Encounter Date Diagnosis Assessment Notes Treatment Notes Treatment Clinical Notes Aug, ADHD (attention deficit hyperactivity disorder) (ICD-10 - F90.9) [employer] Other 01-16-2023 Evaluation note* Encounter Date Diagnosis [...] drawn. Aug, Other Her TSH was 2.04 [employer] Other 11-22-2022 Evaluation note* Encounter Date Diagnosis Assessment Notes Treatment Notes Treatment Clinical Notes Jun, ADHD (attention deficit hyperactivity disorder) (ICD-10 - F90.9) [employer] Other 10-19-2022 Evaluation note* Encounter Date Diagnosis Assessment Notes Treatment Notes Treatment Clinical Notes May, Depression (ICD-10 - F32.9) [employer] Other 10-19-2022 Evaluation note* Encounter Date Diagnosis [...] support for her may be moving to [place]. She has decided not to do the Halloween weekends at the [facility] this year. Due to a pharmacy mix [...] and exercising. Her dog bite has healed. [employer] Other 08-22-2022 Evaluation note* Encounter Date Diagnosis Assessment Notes Treatment Notes Treatment Clinical Notes Mar, ADHD (attention deficit hyperactivity disorder) (ICD-10 - F90.9) [employer] Other 06-20-2022 Evaluation note* Encounter Date Diagnosis Assessment Notes Treatment Notes Treatment Clinical Notes Jan, ADHD (attention deficit hyperactivity disorder) (ICD-10 - F90.9) [employer] Other 05-18-2022 Evaluation note* Encounter Date Diagnosis Assessment Notes Treatment Notes Treatment Clinical Notes December, ADHD (attention deficit hyperactivity disorder) (ICD-10 - F90.9) [employer] Other 04-20-2022 Evaluation note* Encounter Date Diagnosis Assessment Notes Treatment Notes Treatment Clinical Notes Nov, ADHD (attention deficit hyperactivity disorder) (ICD-10 - F90.9) [employer] Other 2022 Evaluation note* Encounter Date Diagnosis [...] - K50.90) 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 She voices that she is due [...] would take once she stops the control. [employer] Other 02-16-2022 Evaluation note* Encounter Date Diagnosis Assessment Notes Treatment Notes Treatment Clinical Notes Sep, ADHD (attention deficit hyperactivity disorder) (ICD-10 - F90.9) [employer] Other 12-14-2021 Evaluation note* Encounter Date Diagnosis Assessment Notes Treatment Notes Treatment Clinical Notes Jul, ADHD (attention deficit hyperactivity disorder) (ICD-10 - F90.9) [employer] Other 11-15-2021 Evaluation note* Encounter Date Diagnosis Assessment Notes Treatment Notes Treatment Clinical Notes Jun, ADHD (attention deficit hyperactivity disorder) (ICD-10 - F90.9) [employer] Other 10-27-2021 Evaluation note* Encounter Date Diagnosis Assessment Notes Treatment Notes Treatment Clinical Notes May, Crohn's disease involving terminal ileum (ICD-10 - K50.00) May, Other CONTINUE BEV A DIRECTED [employer] Other 04-01-2017 History general Narrative - Reported* Type Description Date Medical History ADHD Medical History Crohn's 11/2016 Dr Gutierrez Surgical History colonoscopy Dr Gutierrez 12/20/16 Surgical History wisdom teeth extract [employer] Other 04-01-2017 History general Narrative - Reported* Type Description Date Medical History ADHD Medical History Crohn's 11/2016 Dr Gutierrez Surgical History colonoscopy Dr Gutierrez 12/20/16 Surgical History wisdom teeth extract Surgical History Colonoscopy Dr. Portillo 12/07/21 [employer] Other evaluation noteNo InformationNort [employer] Other evalufvsga noteNo assessment information available [facility] Work Phone: Evaluation note* Diagnosis Crohn's [...] NOT operate machinery such as power tools, [employer] mowers, [employer], sewing machines, etc. for 24 hours. - [...] -Follow up in the office -Office number [phone]. [facility] Work Phone: Summary Purpose Family History [...] and content) DATE CREATED AUTHOR 01/31/2022 [facility] DATE CREATED AUTHOR AUTHOR'S ORGANIZ ATION 03/31/2024 [employer] DATE CREATED AUTHOR AUTHOR'S ORGANIZ ATION 06/30/2024 [facility] REASON FOR VISIT (unrecogniz ed [...] BE BASED ON THE PRIMARY CLINICAL RECORDS. [employer] [facility]. provides no warranty or guarantee of the accuracy or completeness of information in this document.
[2024-11-19 03:09] LABS: Calprotectin, Fecal 55 ug/g (0-120)
== END 2024-11-17 09:55 | disposition home or self-care (01) ==
LOC: LAB 09:54
PROVIDERS: PCP Family Medicine; Visit Provider Internal Medicine
DX: K50.90 Crohn's disease, unspecified, without complications (principal)
CPT/HCPCS: 83993

== ENCOUNTER 2025-06-04 11:13 | Outpatient (OUT) | payer BC, SELFPAY ==
--- OUTSIDE RECORDS SUMMARY | 2025-06-04 11:16 | XMS_ITS | CCD ---
Author Organization [facility] Care Team Providers Care Residential Manager Name Role Phone DR PADMINI DOUGLAS Primary Care Unavailable PADMINI PORTILLO JR Attending Unavailable PADMINI PORTILLO JR Consulting Unavailable PADMINI PORTILLO JR Admitting Unavailable Padmini Portillo Unavailable Padmini Douglas Unavailable Mario Kenny Unavailable DO Padmini Douglas Primary Care Provider DO Padmini Douglas Attending Provider [phone] Rip Subramanian Unavailable DO Padmini Douglas Primary Care Provider DO Padmini Douglas Attending Provider DO Padmini Douglas Primary Care Provider [phone] DO Padmini Douglas Attending Provider MD Rip [...] Care Provider MD Rip Subramanian Attending Provider MD Rip Subramanian Referring Provider Padmini Douglas DO Primary Care Provider [phone] Padmini Douglas DO Attending Provider Rip Subramanian MD Attending Provider Unavailable Primary Care Provider UnavailCHARIS May Attending Unavailable Padmini Dougals Primary Care Unavailable Asaad, Imad Attending Unavailable Moris, Imad Admitting Unavailable Padmini Douglas Primary Care Unavailable Padmini Douglas Attending Unavailable Padmini Douglas Admitting Unavailable Asaad, Imad Consulting Unavailable Asaad, Imad Admitting Unavailable Asaad, Imad Attending Unavailable Asaad, Imad Referring Unavailable Padmini Douglas Primary Care Unavailable Padmini Douglas Attending Unavailable Padmini Douglas Admitting Unavailable Padmini Douglas Primary Care Unavailable Allen Ta Admitting Unavailable Allen Ta Attending Unavailable Padmini Douglas Primary Care Unavailable Asaad, Imad Admitting Unavailable Asaad, Imad Attending Unavailable Padmini Douglas Primary Care Unavailable Padmini Douglas DO Primary Care Provider Padmini Douglas DO Attending Provider Allergies Allergy Classification Reported Allergen(s) Allergy Type Date of Onset Reaction(s) Facility (20 sources) [facility] 11-25-2024 [facility] Other (1 source) [facility] Drug Allergy 11-24-2024 [facility] Repository Medications Current Medications Medication Drug Class(es) Dates Sig (Normalized) Sig (Original) amphetamine aspartate 2.5 mg / amphetamine sulfate 2.5 mg / dextroamphetamine saccharate 2.5 mg / dextroamphetamine sulfate 2.5 mg oral tablet (20 sources) Central Nervous System Stimulant Start: 01-04-2025 End: 05-16-2025 Dextroamphetamin e-Amphetamine 10 mg tablet Active 10 MG PO Three times daily May 16, 2025 1 tablet at 7 AM, then take 1 tablet at noon Orally then take 1 tablet at 4 pm; Complies with drug therapy Start: 11-18-2024 End: 11-18-2024 Dextroamphetamine-Amphetamin e 10 mg tablet Discontinued 10 MG PO Three times daily November 18, 2024 November 18, 2024 1:47pm 1 tablet at 7 AM, then take 1 tablet at noon Orally then take 1 tablet at 4 pm; Start: 12-24-2023 End: 01-04-2025 Dextroamphetamine-Amphetamin e 10 mg tablet Discontinued 10 MG PO Three times daily 90 December 24, 2023 February 09, 2024 2:14pm 1 tablet at 7 AM, then take [...] 24hr Discontinued 20 MG PO Daily December 07, 2021 12:00am November 26, 2023 12:49pm ethinyl estradiol 0.035 mg / norgestimate 0.25 mg oral tablet (20 sources) Progestin, Estrogen Start: 05-04-2024 End: 10-27-2025 norgestimate-ethinyl estradiol (Ortho-Cyclen) 0.25-35 MG-MCG tablet Indications: Encounter for surveillance of contraceptive pills Take 1 tablet by mouth Daily 84 tablet 3 11/25/2024 10/27/2025 Active Start: 11-07-2023 norgestimate-e thinyl estradiol (PRAVIFEM- ORTHO/CYCLEN) 0.25-35 MG-MCG tablet Take 1 Tablet by mouth daily. 11/07/2023 Active Start: 12-07-2021 take 1 tablet by joao once daily Norgestimate-Ethinyl Estradiol 0.25-35 mg-mcg tablet Active 1 TAB PO Daily December 07, 2021 12:00am Complies with drug therapy Start: 12-07-2021 take 1 tablet by joao once daily Norgestimate-Ethinyl Estradiol 0.25-35 mg-mcg tablet Active 1 TAB PO Daily December 07, 2021 12:00am Start: 12-07-2021 take 1 tablet by joao once daily Norgestimate-Ethinyl Estradiol 0.25-35 mg-mcg tablet Active 1 TAB PO Daily December 06, 2021 11:00pm Start: 12-07-2021 take 1 tablet by joao once daily Norgestimate-Ethinyl Estradiol Active 1 TAB PO Daily December 07, 2021 12:00am Start: 12-07-2021 take 1 tablet by joao once daily Norgestimate-Ethinyl Estradiol Active 1 TAB [...] Oct, Active predniSONE 5 mg oral tablet (8 sources) Start: 03-30-2024 End: 05-25-2024 take 8 [...] 0 PO As Directed 364 [id number] March 24, 2024 12:00am July 07, 2024 11:34am take 40mg for 21 days, then 35mg [...] orally as directed; see taper instructions Risankizumab-Rzaa (4 sources) Start: 03-30-2025 Risankizumab-R zaa (Skyrizi) 360 mg/2.4 mL (150 mg/mL) wearable injector Active 0 SUBCUT .every 8 weeks 2.4 56 March 30, 2025 9:41am 360 mg/2.4 mL subcutaneously EVERY 8 WEEKS; use one 360mg/2.4 mL on body injector every 8 weeks Complies with drug therapy Start: 03-28-2025 End: 03-30-2025 Risankizumab-Rzaa (Skyrizi) 360 mg/2.4 mL (150 mg/mL) wearable injector Discontinued 0 SUBCUT .every 8 weeks 2.4 60 March 28, 2025 11:30am March 30, 2025 9:43am 360 mg/2.4 mL subcutaneously EVERY 8 WEEKS; use one 360mg/2.4 mL on body injector every 8 weeks Start: 10-26-2024 End: 11-17-2024 Risankizumab-Rzaa (Skyrizi) 360 mg/2.4 mL (150 mg/mL) wearable injector Discontinued 0 SUBCUT .one time 2.4 1 October 26, 2024 1:00am November 17, 2024 10:05am 360 mg/2.4 ml subcutaneously ONE TIME; this is for a one time fill due to error Start: 08-02-2024 End: 03-28-2025 Risankizumab-Rzaa (Skyrizi) 360 mg/2.4 mL (150 mg/mL) wearable injector Discontinued 0 SUBCUT .every 8 weeks 2.4 60 August 02, 2024 1:00am March 28, 2025 11:34am 360 mg/2.4 mL subcutaneously EVERY 8 WEEKS; use one 360mg/2.4 mL on body injector every 8 weeks Skyrizi 360 MG/2.4ML solution cartridge (3 sources) Start: 11-19-2024 Skyrizi 360 MG/2.4ML solution cartridge 11/19/2024 Active zolpidem tartrate 5 mg oral tablet (20 sources) gamma-Aminobutyr ic Acid-ergic Agonist Start: 08-08-2017 take 1 tablet [...] with food for 10 day(s) Feb, Not-Taking dicyclomine hydrochloride 20 mg oral tablet (20 sources) Anticholinergic Start: 12-24-2023 End: 07-07-2024 take 1 tablet by mouth twice daily as needed for pain Dicyclomine 20 mg tablet Discontinued 20 MG PO Twice daily as needed for abdominal pain December 24, 2023 12:00am July 07, 2024 11:34am Start: 06-20-2021 take 1 tablet by joao th every twelve hours Dicyclomine HCl 20 MG 1 tablet Orally TWICE A DAY prn May, Active escitalopram 10 mg oral tablet (19 sources) Serotonin Reuptake Inhibitor Start: 12-07-2021 End: 12-24-2023 take 1 tablet by mouth once daily Escitalopram Oxalate 10 mg tablet Discontinued 10 MG PO Daily December 07, 2021 12:00am December 24, 2023 10:36am take 0.5 tablet by mouth once da armand Escitalopram Oxalate 10 MG take 1/2 tablet by mouth once daily Active Risankizumab-Rzaa (Skyrizi) 360 mg/2.4 mL (150 mg/mL) wearable injector (7 sources) Start: 10-26-2024 End: 11-17-2024 Risankizumab-Rzaa (Skyrizi) 360 mg/2.4 mL (150 mg/mL) wearable injector Discontinued 0 SUBCUT .one time 2.4 1 October 26, 2024 1:00am November 17, 2024 10:05am 360 mg/2.4 ml subcutaneously ONE TIME; this is for a one time fill due to error Start: 08-02-2024 Risankizumab-R zaa (Skyrizi) 360 mg/2.4 mL (150 mg/mL) wearable injector Active 0 SUBCUT .every 8 weeks 2.4 60 August 02, 2024 1:00am 360 mg/2.4 mL subcutaneously EVERY 8 WEEKS; use one 360mg/2.4 mL on body injector every 8 weeks Start: 08-02-2024 Risankizumab-R zaa (Skyrizi) 360 mg/2.4 mL (150 mg/mL) wearable injector Active 0 SUBCUT .every 8 weeks 2.4 60 August 02, 2024 12:00am 360 mg/2.4 mL subcutaneously EVERY 8 WEEKS; use one 360mg/2.4 mL on body injector every 8 weeks 1 ml ustekinumab 90 mg/ml prefilled syringe (20 sources) Interleukin-12 Antagonist, Interleukin-23 Antagonist Start: 12-07-2021 End: 08-29-2024 inject 90 mg by subcutaneous injection every two months Ustekinumab (Stelara) 90 mg/mL Syringe Discontinued 90 MG SUBCUT EVERY 2 MONTHS December 07, 2021 12:00am April 22, 2024 8:45am Stelara 90 MG/ML as directed Subcutaneous every 8 wks for 56 days Active 24 hr venlafaxine 75 mg extended release oral capsule (20 sources) Serotonin and Norepinephrine Reuptake Inhibitor Start: 03-06-2022 End: 03-29-2025 take 1 capsule by mouth once daily at mealtime Venlafaxine 75 mg capsule,extended release 24hr Discontinued 75 MG PO .daily with food December 24, 2023 12:00am April 28, 2024 1:01pm Problems Active Problems Problem Classification Problem Date [...] with hyperactivity] Onset: 1 Resolved: 2 Chronic Contraceptive and procreative management (2 sources) Oral contraception; Translations: [Encounter for surveillance of contraceptive pills] 11-25-2024 Episodic Deficiency and other anemia (20 sources) Iron deficiency anemia; Translations: [Iron deficiency anemia, unspecified] 03-31-2024 Episodic Deficiency and other anemia (7 sources) Iron deficiency anemia, unspecified; Translations: [Iron deficiency anemia, unspecified] Onset: 2 Resolved: 2 Episodic Deficiency and other anemia (1 source) Anemia, unspecified Episodic Diabetes mellitus without complication (1 source) Hyperglycemia, unspecified; Translations: [Hyperglycemia, unspecified] Onset: 5 Episodic Diseases of white blood cells (20 sources) Increased blood leukocyte number; Translations: [Elevated white blood cell count, unspecified] Onset: 5 03-31-2024 Chronic Fluid and electrolyte disorders (1 source) Hypo-osmolality and hyponatremia Episodic Gastrointestinal hemorrhage (20 sources) Hematochezia; Translations: [Melena] Episodic Headache; including migraine (20 sources) Migraine; Translations: [Migraine, unspecified, not intractable, without status migrainosus] Chronic Immunizations and screening for infectious disease (2 sources) Requires influenza virus vaccination; Translations: [Encounter for immunization] 05-16-2025 Episodic Intestinal obstruction without hernia (9 sources) Small bowel obstruction; Translations: [Unspecified intestinal [...] unspecified] Episodic Other aftercare (5 sources) 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 Onset: 2 Resolved: 2 Episodic Other aftercare (6 sources) Immunosuppression; Translations: [Immunosuppression due to drug therapy] 08-02-2024 Episodic Other endocrine disorders (18 sources) Hypoglycemia; Translations: [Hypoglycemia, unspecified] 01-12-2025 Chronic Other endocrine disorders (2 sources) Hypoglycemia, unspecified; Translations: [Hypoglycemia, unspecified] Chronic Other gastrointestinal disorders (20 sources) Diarrhea; [...] mass index (BMI) 27.0-27.9, adult] 04-23-2024 Episodic Other screening for suspected conditions (not mental disorders or infectious disease) (2 sources) Cancer cervix screening status; Translations: [Encounter for screening for malignant neoplasm of cervix] 11-24-2024 Episodic Regional enteritis and ulcerative colitis (20 [...] Test Name Value Interpretation Reference Range Facility Amphetamine Screen Ql (U)Ord ered By: Imad Asaad on 11-24-2024 Amphetamines Ql (U) Amphetamines screen High Negativ e [facility] Barbiturates [Presence] in U rine by Screen methodOrdered By: Imad Asaad on 11-24-2024 Barbiturates Screen Ql (U) Barbiturates [Presence] in Urine by Screen method Negative [facility] Benzodiazepines Screen Ql (U )Ordered By: Imad Asaad on 11-24-2024 Benzodiazepines Ql (U) Benzodiazepines [Presence] in Urine by Screen method Negative [facility] Benzoylecgonine [Presence] i n Urine by Screen methodOrdered By: Imad Asaad on 11-24-2024 Benzoylecgonine Screen Ql (U) Benzoylecgonine [Presence] in Urine by Screen method Negative [facility] Cannabinoids [Presence] in U rine by Screen methodOrdered By: Imad Asaad on 11-24-2024 Cannabinoids Screen Ql (U) Cannabinoids [Presence] in Urine by Screen method Negative [facility] Comment on above: These are unconfirme d results and should not be used for legal purposes. Drug Cut-Off Concentration: AMPH 1000 ng/mL TAI 200 ng/mL RAYMOND 200 ng/mL COCM 300 ng/mL OP 300 ng/mL PCP 25 ng/mL THC 20 ng/mL Drug Screen,Urineon 04-02-20 25 Amphetamine Screen,Urine Positive High Negative [facility] Comment on above: Performed By: #### U RDS, [facility] ####[place] [id number] [facility] Barbiturate Screen,Urine Negative Normal Negative [facility] Comment on above: Performed By: #### U RDS, [facility] ####[place] [id number] [facility] Benzodiazepines Screen,Urine Negative Normal Negative [facility] Comment on above: Performed By: #### U RDS, [facility] [place] ####[place] [id number] [facility] Cannabinoid Screen,Urine Negative Normal Negative [facility] Comment on above: Result Comment: Thes e are unconfirmed results and should not be used for legal purposes. Drug Cut-Off Concentration: AMPH 1000 ng/mL TAI 200 ng/mL RAYMOND 200 ng/mL COCM 300 ng/mL OP 300 ng/mL PCP 25 ng/mL THC 20 ng/mL PERFORMED BY: [facility] [address] [place] [address] PATHOLOGIST MELTER SUPERVISOR [employer] FURNACE BEVERLY VERA M.D. Performed By: #### U RDS, [facility] [place] ####[place] [id number] [facility] Cocaine Screen,Urine Negative Normal Negative [facility] Comment on above: Performed By: #### U RDS, [facility] [place] ####[place] [id number] [facility] Opiate Screen,Urine Negative Normal Negative [facility] Comment on above: Performed By: #### U RDS, [facility] [place] ####[place] [id number] [facility] Phencyclidine Screen,Urine Negative Normal Negative [facility] Comment on above: Performed By: #### U RDS, [facility] ####[place] [id number] [facility] HCG ( test) IAricki d Ql (U)Ordered By: Rip Subramanian on 11-24-2024 HCG ( test) Ql (U) Urine human chorionic gonadotropin (hCG) detection by immunoassay [facility] HCG,Urineon 11-24-2024 Beta HCG ( test) Ql (U) Negative Normal [facility] Comment on above: Result Comment: PERF ORMED BY: [facility] [address] [place] [address] PATHOLOGIST MELTER SUPERVISOR [employer] FURNACE BEVERLY VERA M.D. Performed By: #### U [facility] ####[facility] [place] [place] [address] [facility] 11-24-2024 L - -------- Specimen: [id number] Received: 11/24/24 Status: KEVIN Selby Num: [id number] Spec Type: Surgical Subm Dr: Rip Subramanian MD Tissues: A Colon Biopsy (CECUM POLYP) B Small Intestine - Biopsy/Polyp (SMALL BOWEL BX) C Colon Biopsy (RIGHT COLON BX) D Colon Biopsy (TRANSVERSE COLON BX) E Colon Biopsy (LEFT COLON BX) Procedures: CALVIN/Juliet, Gross/Micro L4/5 -------- Age/ Patient Sex Location Account Attending Physician -------- ChandlerAparna Rachel 24/ [id number] Rip Subramanian MD -------- SPEC NUM: [id number] RECD: 11/24/24 STATUS: KEVIN SELBY NUM: [id number] SHREYAS: 11/24/240000 SUBM DR: Rip Subramanian MD ENTERED: 11/24/24 [facility] DR: MIKALA TYPE: Surgical DEPT: S ENTERED BY: [id number] RECV BY: [id number] ORDERED: HE/10, Gross/Micro L4/5 ORDERED: HE/10, Gross/Micro L4/5 Pathological Diagnosis A. Polyp, cecum: ? Minute fragment of small intestinal mucosa with a single poorly formed granuloma, see comment ? Cauterized fragments of colonic mucosa with focal capillary proliferation, see comment. ? No dysplasia / adenomatous changes are identified B. Small bowel biopsy: ? Fragments of small intestinal mucosa, no diagnostic abnormality ? No acute or chronic inflammatory changes are identified C. Right colon biopsy: ? Fragments of colonic mucosa, no diagnostic abnormality ? No acute or chronic inflammatory changes are identified D. Transverse colon biopsy: ? Fragments of colonic mucosa, no diagnostic abnormality ? No acute or chronic inflammatory changes are identified E. Left colon biopsy: ? Fragments of colonic mucosa, no diagnostic abnormality ? No acute or chronic inflammatory changes are identified -------- Specimen: [id number] Received: 11/24/24 Status: KEVIN Selby Num: [id number] Spec Type: Surgical Subm Dr: Rip Subramanian MD Tissues: A Colon Biopsy (CECUM POLYP) B Small Intestine - Biopsy/Polyp (SMALL BOWEL BX) C Colon Biopsy (RIGHT COLON BX) D Colon Biopsy (TRANSVERSE COLON BX) E Colon Biopsy (LEFT COLON BX) Procedures: , Gross/Micro L4/5 -------- Patient: Aparna Arteaga [id number] (Continued) -------- Specimen: Received: 11/24/24 (Continued) Pathological Diagnosis (Continued) Signed (signature on file) Ten Hernandez MD 11/25/24907 -------- Specimen: [id number] Received: 11/24/24 Status: KEVIN Selby Num: [id number] Spec Type: Surgical Subm Dr: Rip Subramanian MD Tissues: A Colon Biopsy (CECUM POLYP) B Small Intestine - Biopsy/Polyp (SMALL BOWEL BX) C Colon Biopsy (RIGHT COLON BX) D Colon Biopsy (TRANSVERSE COLON BX) E Colon Biopsy (LEFT COLON BX) Procedures: HE/10, Gross/Micro L4/5 -------- Patient: Aparna Arteaga [id number] (Continued) -------- Specimen: Received: 11/24/24 (Continued) Pathological Diagnosis (Continued) Comment: The findings in specimen A, are focal, minimal and nonspecific. They are may be related to the clinically reported Crohn's disease consistent with quiescent phase. No acute inflammation is identified. No dysplasia or neoplasia are identified. Clinical Information Crohn's Gross Description Part A is received in formalin labeled with the patients name, date of , and polyp cecum are mendez-puri, focally erythematous, friable polypoid fragments, 0.8 x 0.5 x 0.3 cm in aggregate. The specimen is filtered and entirely submitted in a single cassette. (1, ns, [id number] A) J Part B is received in formalin labeled with the patients name, date of , and Sm bowel BX are 2 mendez-puri, focally erythematous, friable, 0.3 cm each in greatest dimension tissue bits. The specimen is entirely submitted in a single cassette. (1, ns, [id number] B) JG Part C is received in formalin labeled with the patients name, date of , and right colon BX are 2 mendez-puri, focally erythematous, friable, 0.3 and 0.5 cm in greatest dimension tissue bits. The specimen is entirely submitted in a single cassette. (1, ns, [id number] C) JG Part D is received in formalin labeled with the patients name, date of , and tr (more content not included)... Normal [facility] Opiates [Presence] in Urine by Screen methodOrdered By: Imad Asaad on 11-24-2024 Opiates Screen Ql (U) Opiates [Presence] in Urine by Screen method Negative [facility] Phencyclidine Screen Ql (U)O rdered By: Imad Asaad on 11-24-2024 Phencyclidine Ql (U) Phencyclidine [Presence] in Urine by Screen method Negative [facility] A1C with Estimated Average G zully 11-17-2024 Glucose [Mass/Vol] 97 mg/dL Normal [facility] Comment on above: Result Comment: PERF ORMED BY: [place] [address] PATHOLOGIST MELTER SUPERVISOR [employer] FURNACE BEVERLY VERA M.D. Performed By: #### C MP, CBC, FE and TIBC, TSH3, MANAV #### [facility] [address] [place] [address] HbA1c (Bld) [Mass fraction] 5.0 % Normal 4.3-5.6 [facility] Comment on above: Result Comment: Incr eased risk for diabetes: 5.7 - 6.4 diabetes: >6.4 glycemic control for adults with diabetes: <7.0 Performed By: #### C MP, CBC, FE and TIBC, TSH3, MANAV #### [facility] [address] [place] [address] [place] Alanine aminotransferase [En zymatic activity/volume] in Serum or PlasmaOrdered By: Padmini Douglas on 11-17-2024 ALT [Catalytic activity/Vol] Alanine aminotransferase [Enzymatic activity/volume] in Serum or Plasma [facility] Albumin [Mass/volume] in Ser um or Plasma by Bromocresol green (BCG) dye binding methoOrdered By: Padmini Douglas on 11-17-2024 Albumin BCG dye [Mass/Vol] Albumin [Mass/volume] in Serum or Plasma by Bromocresol green (BCG) dye binding metho 3.5-5.7 [facility] Alkaline phosphatase [Enzyma tic activity/volume] in Serum or PlasmaOrdered By: Padmini Douglas on 11-17-2024 ALP [Catalytic activity/Vol] Alkaline phosphatase [Enzymatic activity/volume] in Serum or Plasma 34-104 [facility] Aspartate aminotransferase [ Enzymatic activity/volume] in Serum or PlasmaOrdered By: Padmini Douglas on 11-17-2024 AST [Catalytic activity/Vol] Aspartate aminotransferase [Enzymatic activity/volume] in Serum or Plasma Low 13-39 [facility] Basophils Auto (Bld) [#/Vol] Ordered By: Padmini Douglas on 11-17-2024 Basophils (Bld) [#/Vol] Automated basoph il count 0.0-0.2 [facility] Basophils/100 WBC Auto (Bld) Ordered By: Padmini Douglas on 11-17-2024 Basophils/100 WBC (Bld) Automated basophil % . [facility] Bilirubin.total [Mass/volume ] in Serum or PlasmaOrdered By: Padmini Douglas on 11-17-2024 Bilirubin [Mass/Vol] Bilirubin.total [Mass/volume] in Serum or Plasma Low 0.3-1.0 [facility] Blood estimated average gluc ose determination by estimation from glycated hemoglobinOrdered By: Padmini Douglas on 11-17-2024 Average glucose Estimated from glycated hemoglobin (Bld) [Mass/Vol] Glucose mean value [Mass/volume] in Blood Estimated from glycated hemoglobin [facility] C reactive protein [Mass/vol ume] in Serum or PlasmaOrdered By: Imad Asaad on 11-17-2024 CRP [Mass/Vol] C reactive protein [Mass/volume] in Serum or Plasma High 0.0-0.5 [facility] C-Reactive Proteinon 025 C-Reactive Protein 1.2 mg/dL High 0.0-0.5 [facility] Comment on above: Result Comment: PERF ORMED BY: [facility] [address] [place] [address] PATHOLOGIST MELTER SUPERVISOR [employer] FURNACE BEVERLY VERA M.D. Performed By: #### C RP ####[id number] Calcium [Mass/volume] in Ser um or PlasmaOrdered By: Padmini Douglas on 11-17-2024 Calcium [Mass/Vol] Calcium [Mass/volume ] in Serum or Plasma 8.6-10.3 [facility] Carbon dioxide, total [Moles /volume] in Serum or PlasmaOrdered By: Padmini Douglas on 11-17-2024 CO2 [Moles/Vol] Carbon dioxide, tota l [Moles/volume] in Serum or Plasma 21.0-31.0 [facility] Chloride [Moles/volume] in S jourdan or PlasmaOrdered By: Padmini Douglas on 11-17-2024 Chloride [Moles/Vol] Chloride [Moles/volume] in Serum or Plasma 98-107 [facility] Complete Blood Count Auto Di ffon 11-17-2024 Basophils (Bld) [#/Vol] 0.1 10*3/uL Normal 0.0-0.2 [facility] Comment on above: Result Comment: PERF ORMED BY: [facility] [address] [place] [address] PATHOLOGIST MELTER SUPERVISOR [employer] FURNACE BEVERLY VERA M.D. Performed By: #### C MP, CBC, FE and TIBC, TSH3, MANAV #### [facility] [address] Basophils/100 WBC (Bld) 0.7 % Normal . Georgina simpson [facility] Comment on above: Performed By: #### C MP, CBC, FE and TIBC, TSH3, MANAV #### [facility] [address] [place] [address] [place] Eosinophils (Bld) [#/Vol] 0.2 10*3/uL Normal 0.0-0.45 [facility] Comment on above: Performed By: #### C MP, CBC, FE and TIBC, TSH3, MANAV #### [facility] [address] [place] [address] [place] Eosinophils/100 WBC (Bld) 2.5 % Normal . [facility] Comment on above: Performed By: #### C MP, CBC, FE and TIBC, TSH3, MANAV #### [address] [address] Erythrocyte distribution width (RBC) [Ratio] 13.7 % Normal 11.9-15.3 [facility] Comment on above: Performed By: #### C MP, CBC, FE and TIBC, TSH3, MANAV #### [address] Hematocrit (Bld) [Volume fraction] 42.5 % Normal 34.0-46.4 [facility] Comment on above: Performed By: #### C MP, CBC, FE and TIBC, TSH3, MANAV #### [address] Hemoglobin (Bld) [Mass/Vol] 14.6 g/dL Normal 11.8-15.4 [facility] Comment on above: Performed By: #### C MP, CBC, FE and TIBC, TSH3, MANAV #### [address] Lymphocytes (Bld) [#/Vol] 2.3 10*3/uL Normal 1.00-4.8 [facility] Comment on above: Performed By: #### C MP, CBC, FE and TIBC, TSH3, MANAV #### [address] Lymphocytes/100 WBC (Bld) 27.5 % Normal . [facility] Comment on above: Performed By: #### C MP, CBC, FE and TIBC, TSH3, MANAV #### [address] MCH (RBC) [Entitic mass] 30.2 pg Normal 24.7-34.3 [facility] Comment on above: Performed By: #### C MP, CBC, FE and TIBC, TSH3, MANAV #### [address] MCV (RBC) [Entitic vol] 87.7 fL Normal 80-100 T [facility] Comment on above: Performed By: #### C MP, CBC, FE and TIBC, TSH3, MANAV #### [address] Mean Corpuscular HGB Conc 34.4 g/dL Normal 32.0-35.0 [facility] Comment on above: Performed By: #### C MP, CBC, FE and TIBC, TSH3, MANAV #### [address] Monocytes (Bld) [#/Vol] 0.7 10*3/uL Normal 0.0-0.8 [facility] Comment on above: Performed By: #### C MP, CBC, FE and TIBC, TSH3, MANAV #### [address] Monocytes/100 WBC (Bld) 7.8 % Normal . [facility] Comment on above: Performed By: #### C MP, CBC, FE and TIBC, TSH3, MANAV #### [address] Neutrophils (Bld) [#/Vol] 5.2 10*3/uL Normal 1.8-7.7 [facility] Comment on above: Performed By: #### C MP, CBC, FE and TIBC, TSH3, MANAV #### [address] Neutrophils/100 WBC (Bld) 61.5 % Normal . [facility] Comment on above: Performed By: #### C MP, CBC, FE and TIBC, TSH3, MANAV #### [address] NRBC% 0.1 /100{WBC} Normal 0-0.5 [facility] Comment on above: Performed By: #### C MP, CBC, FE and TIBC, TSH3, MANAV #### [address] Platelet mean volume (Bld) [Entitic vol] 10.1 fL Normal 6.3-10.7 [facility] Comment on above: Performed By: #### C MP, CBC, FE and TIBC, TSH3, MANAV #### [facility] [address] Platelets (Bld) [#/Vol] 345 10*3/uL Normal 150-450 [facility] Comment on above: Performed By: #### C MP, CBC, FE and TIBC, TSH3, MANAV #### [facility] [address] RBC (Bld) [#/Vol] 4.84 10*6/uL Normal 3.60-5.00 [facility] Comment on above: Performed By: #### C MP, CBC, FE and TIBC, TSH3, MANAV #### [address] WBC (Bld) [#/Vol] 8.4 10*3/uL Normal 3.8-11.6 [facility] Comment on above: Performed By: #### C MP, CBC, FE and TIBC, TSH3, MANAV #### [address] Comprehensive Metabolic Pane anselmo 11-17-2024 Albumin [Mass/Vol] 4.2 g/dL Normal 3.5-5.7 [facility] Comment on above: Performed By: #### C MP, CBC, FE and TIBC, TSH3, MANAV #### [address] Albumin/Globulin [Mass ratio] 1.4 {ratio} Normal [facility] Comment on above: Performed By: #### C MP, CBC, FE and TIBC, TSH3, MANAV #### [address] ALP [Catalytic activity/Vol] 73 U/L Normal 34-104 [facility] Comment on above: Result Comment: PERF ORMED BY: [place] [address] PATHOLOGIST MELTER [employer] BEVERLY VERA M.D. Performed By: #### C MP, CBC, FE and TIBC, TSH3, MANAV #### [address] ALT [Catalytic activity/Vol] 9 U/L Normal 7-52 [facility] Comment on above: Performed By: #### C MP, CBC, FE and TIBC, TSH3, MANAV #### [address] Anion gap [Moles/Vol] 15.7 mmol/L High 6.0-15.0 Th e [facility] Comment on above: Performed By: #### C MP, CBC, FE and TIBC, TSH3, MANAV #### [address] AST [Catalytic activity/Vol] 10 U/L Low 13-39 [facility] Comment on above: Performed By: #### C MP, CBC, FE and TIBC, TSH3, MANAV #### [address] Bilirubin [Mass/Vol] 0.2 mg/dL Low 0.3-1.0 [facility] Comment on above: Performed By: #### C MP, CBC, FE and TIBC, TSH3, MANAV #### [address] Calcium [Mass/Vol] 9.7 mg/dL Normal 8.6-10.3 [facility] Comment on above: Performed By: #### C MP, CBC, FE and TIBC, TSH3, MANAV #### [address] Chloride [Moles/Vol] 102 mmol/L Normal 98-107 [facility] Comment on above: Performed By: #### C MP, CBC, FE and TIBC, TSH3, MANAV #### [address] CO2 [Moles/Vol] 25.5 mmol/L Normal 21.0-31.0 [facility] Comment on above: Performed By: #### C MP, CBC, FE and TIBC, TSH3, MANAV #### [address] Creatinine [Mass/Vol] 0.52 mg/dL Low 0.60-1.20 [facility] Comment on above: Performed By: #### C MP, CBC, FE and TIBC, TSH3, MANAV #### [address] GFR/1.73 sq M.predicted MDRD (S/P/Bld) [Vol rate/Area] mL/min/{1.73_m2} Normal [facility] Comment on above: Performed By: #### C MP, CBC, FE and TIBC, TSH3, MANAV #### [address] Globulin (S) [Mass/Vol] 3.1 g/dL Normal T he [facility] Comment on above: Performed By: #### C MP, CBC, FE and TIBC, TSH3, MANAV #### [address] Glucose [Mass/Vol] 98 mg/dL Normal 70-100 [facility] Comment on above: Result Comment: [place] Glucose Reference Range is dependent on time and content of last meal. Glucose of more than 200 mg/dL in a nonstressed, ambulatory subject supports the diagnosis of Diabetes Mellitus. ADA recommended reference range Performed By: #### C MP, CBC, FE and TIBC, TSH3, MANAV #### [address] Potassium [Moles/Vol] 4.2 mmol/L Normal 3.5-5.1 [facility] Comment on above: Performed By: #### C MP, CBC, FE and TIBC, TSH3, MANAV #### [address] Protein [Mass/Vol] 7.3 g/dL Normal 6.4-8.9 [facility] Comment on above: Performed By: #### C MP, CBC, FE and TIBC, TSH3, MANAV #### [facility] [address] Sodium [Moles/Vol] 139 mmol/L Normal 136-145 [facility] Comment on above: Performed By: #### C MP, CBC, FE and TIBC, TSH3, MANAV #### [facility] [address] Urea nitrogen [Mass/Vol] 11 mg/dL Normal 7-25 [facility] Comment on above: Performed By: #### C MP, CBC, FE and TIBC, TSH3, MANAV #### [facility] [address] Creatinine [Mass/volume] in Serum or PlasmaOrdered By: Padmini Douglas on 11-17-2024 Creatinine [Mass/Vol] Creatinine [Mass/volume] in Serum or Plasma Low 0.60-1.20 [facility] Eosinophils Auto (Bld) [#/Vo l]Ordered By: Padmini Douglas on 11-17-2024 Eosinophils (Bld) [#/Vol] Automated eosinophil count 0.0-0.45 [facility] Eosinophils/100 WBC Auto (Bl d)Ordered By: Padmini Douglas on 11-17-2024 Eosinophils/100 WBC (Bld) Automated eosinophil % . [facility] Erythrocyte distribution wid th Auto (RBC) [Ratio]Ordered By: Padmini Douglas on 11-17-2024 Erythrocyte distribution width (RBC) [Ratio] Erythrocyte distribution width [Ratio] by Automated count 11.9-15.3 [facility] Globulin Calc (S) [Mass/Vol] Ordered By: Padmini Douglas on 11-17-2024 Globulin (S) [Mass/Vol] Serum globulin measurement by calculation (mass/volume) [facility] Glucose [Mass/volume] in Ser um or PlasmaOrdered By: Padmini Douglas on 11-17-2024 Glucose [Mass/Vol] Glucose [Mass/volume ] in Serum or Plasma 70-100 [facility] Comment on above: ADA recommended refe rence rangeRandom Glucose Reference Range is dependent on time and content of last meal. Glucose of more than 200 mg/dL in a nonstressed, ambulatory subject supports the diagnosis of Diabetes Mellitus. Hematocrit Auto (Bld) [Volum e fraction]Ordered By: Padmini Douglas on 11-17-2024 Hematocrit (Bld) [Volume fraction] Hematocrit [Volume Fraction] of Blood by Automated count 34.0-46.4 [facility] Hemoglobin A1c/Hemoglobin.to jihan in BloodOrdered By: Padmini Douglas on 11-17-2024 HbA1c (Bld) [Mass fraction] Hemoglobin A1c percentage 4.3-5.6 [facility] Comment on above: Increased risk for d iabetes: 5.7 - 6.4diabetes: >6.4glycemic control for adults with diabetes: <7.0 Hemoglobin [Mass/volume] in BloodOrdered By: Padmini Douglas on 11-17-2024 Hemoglobin (Bld) [Mass/Vol] Hemoglobin [Mass/volume] in Blood 11.8-15.4 [facility] Leukocytes [#/volume] correc urvashi for nucleated erythrocytes in Blood by Automated counOrdered By: Padmini Douglas on 11-17-2024 WBC corrected for nucl RBC Auto (Bld) [#/Vol] Leukocytes [#/volume] corrected for nucleated erythrocytes in Blood by Automated coun 3.8-11.6 [facility] Lymphocytes Auto (Bld) [#/Vo l]Ordered By: Padmini Douglas on 11-17-2024 Lymphocytes (Bld) [#/Vol] Lymphocytes [#/volume] in Blood by Automated count 1.00-4.8 [facility] Lymphocytes/100 WBC Auto (Bl d)Ordered By: Padmini Douglas on 11-17-2024 Lymphocytes/100 WBC (Bld) Lymphocytes/100 leukocytes in Blood by Automated count . [facility] MCH Auto (RBC) [Entitic mass ]Ordered By: Padmini Douglas on 11-17-2024 MCH (RBC) [Entitic mass] MCH [Entitic mass] by Automated count 24.7-34.3 [facility] MCHC Auto (RBC) [Mass/Vol]Or dered By: Padmini Douglas on 11-17-2024 MCHC (RBC) [Mass/Vol] MCHC [Mass/volume] by Automated count 32.0-35.0 [facility] MCV Auto (RBC) [Entitic vol] Ordered By: Padmini Douglas on 03-26-2025 MCV (RBC) [Entitic vol] MCV [Entitic vol ume] by Automated count 80-100 [facility] Monocytes Auto (Bld) [#/Vol] Ordered By: Padmini Douglas on 11-17-2024 Monocytes (Bld) [#/Vol] Automated blood monocyte count 0.0-0.8 [facility] Monocytes/100 WBC Auto (Bld) Ordered By: Padmini Douglas on 11-17-2024 Monocytes/100 WBC (Bld) Automated monocyte % . [facility] Neutrophils Auto (Bld) [#/Vo l]Ordered By: Padmini Douglas on 11-17-2024 Neutrophils (Bld) [#/Vol] Neutrophils [#/volume] in Blood by Automated count 1.8-7.7 [facility] Neutrophils/100 WBC Auto (Bl d)Ordered By: Padmini Douglas on 11-17-2024 Neutrophils/100 WBC (Bld) Automated neutrophil % . [facility] No Panel Informationon 11-17 Stool Calprotectin 55 ug/g 0-120 [facility] Comment on above: Concentration Interp retation Follow-Up< 5 - 50 ug/g Normal None>50 -120 ug/g Borderline Re-evaluate in 4-6 weeks >120 ug/g Abnormal Repeat as clinically indicatedPerformed at: - [facility] [id number] Director: Salty Estevez MD, Phone: [phone] No Panel InformationOrdered By: Pdamini Douglas on 11-17-2024 Estimated GFR (CKD-EPI) > 60.0 mL/Min [facility] Creatinine Clearance (Chem N/A [facility] Nucleated erythrocytes [Pres ence] in Blood by Automated countOrdered By: Padmini Douglas on 11-17-2024 Nucleated RBC Auto Ql (Bld) Nucleated erythrocytes [Presence] in Blood by Automated count 0-0.5 [facility] Platelet mean volume Auto (B ld) [Entitic vol]Ordered By: Padmini Douglas on 11-17-2024 Platelet mean volume (Bld) [Entitic vol] Platelet mean volume [Entitic volume] in Blood by Automated count 6.3-10.7 [facility] Platelets Auto (Bld) [#/Vol] Ordered By: Padmini Douglas on 11-17-2024 Platelets (Bld) [#/Vol] Platelets [#/vol ume] in Blood by Automated count 150-450 [facility] Potassium [Moles/volume] in Serum or PlasmaOrdered By: Padmini Douglas on 11-17-2024 Potassium [Moles/Vol] Potassium [Moles/volume] in Serum or Plasma 3.5-5.1 [facility] Protein [Mass/volume] in Ser um or PlasmaOrdered By: Padmini Douglas on 11-17-2024 Protein [Mass/Vol] Protein [Mass/volume ] in Serum or Plasma 6.4-8.9 [facility] RBC Auto (Bld) [#/Vol]Ordere d By: Padmini Douglas on 11-17-2024 RBC (Bld) [#/Vol] Erythrocytes [#/volume] in Blood by Automated count 3.60-5.00 [facility] Serum or plasma albumin/glob ulin mass ratioOrdered By: Padmini Douglas on 11-17-2024 Albumin/Globulin [Mass ratio] Serum or plasma albumin/globulin mass ratio [facility] Serum or plasma anion gap de terminationOrdered By: Padmini Douglas on 11-17-2024 Anion gap [Moles/Vol] Serum or plasma an ion gap determination High 6.0-15.0 [facility] Sodium [Moles/volume] in Ser um or PlasmaOrdered By: Padmini Douglas on 11-17-2024 Sodium [Moles/Vol] Sodium [Moles/volume ] in Serum or Plasma 136-145 [facility] Urea nitrogen [Mass/volume] in Serum or PlasmaOrdered By: Padmini Douglas on 11-17-2024 Urea nitrogen [Mass/Vol] Urea nitrogen [Mass/volume] in Serum or Plasma 7-25 [facility] WBC Auto (Bld) [#/Vol]Ordere d By: Padmini Douglas on 11-17-2024 WBC (Bld) [#/Vol] Leukocytes [#/volume ] in Blood by Automated count 3.8-11.6 [facility] No Panel Informationon 07-21 C-Reactive Protein, Quantitative 1.84 mg/dL High <=0.50 [facility] Stool Calprotectin 31 ug/g 0-120 [facility] Comment on above: Concentration Interp retation Follow-Up< 5 - 50 ug/g Normal None>50 -120 ug/g Borderline Re-evaluate in 4-6 weeks >120 ug/g Abnormal Repeat as clinically indicatedPerformed at: BN - [facility] [address] [id number] Director: Salty Estevez MD, Phone: [phone] BASIC METABOLIC PANELon 080 Anion gap [Moles/Vol] 15 mmol/L Normal 10-20 [facility] Comment on above: Performed By: #### C RP, CH8 #### [facility] [address] [place] [address], Calcium [Mass/Vol] 8.5 mg/dL Low 8.6-10.3 [facility] Comment on above: Performed By: #### C RP, CH8 #### [facility] [address] [place] [address], Chloride [Moles/Vol] 104 mmol/L Normal 98-107 [facility] Comment on above: Performed By: #### C RP, CH8 #### [facility] [address] [place] [address], CO2 [Moles/Vol] 25 mmol/L Normal 21-31 [facility] Comment on above: Performed By: #### C RP, CH8 #### [facility] [address] [place] [address], Creatinine [Mass/Vol] 0.50 mg/dL Low 0.60-1.20 [facility] Comment on above: Performed By: #### C RP, CH8 #### [facility] [address] [place] [address], ESTIMATED GFR (CKD-EPI) 133 mL/min/1.73sqm Normal >=60 [facility] Comment on above: Result Comment: 2020 [...] Inclusion of Race in Diagnosing Kidney Disease. Austrian Journal of Kidney Diseases 2021;79(2):268-88.e1. 2. N Engl J Med 2020 Vol. 385 Issue 19 Pages 2232-9720 Performed By: #### C RP, CH8 #### [facility] [address] [place] [address], Glucose [Mass/Vol] 88 mg/dL Normal 74-109 [facility] Comment on above: Performed By: #### C MARION, CH8 #### [facility] [address] [place], [place], Potassium [Moles/Vol] 4.1 mmol/L Normal 3.5-5.0 [email or web address] Comment on above: Performed By: #### C RP, CH8 #### [facility] [address] [place] [address], Sodium [Moles/Vol] 140 mmol/L Normal 136-145 [email or web address] Comment on above: Performed By: #### C RP, CH8 #### [facility] [address] [place], [place], Urea nitrogen [Mass/Vol] 5 mg/dL Low 7-25 [facility] Comment on above: Performed By: #### C RP, CH8 #### [facility] [address] [place], [place], C-REACTIVE PROTEINon 024 CRP 2.6 mg/dL High <0.5 [email or web address] Comment on above: Performed By: #### C RP, CH8 #### [facility] [address] [place], [place], COMPLETE BLOOD COUNTon 03-29 Erythrocyte distribution width (RBC) [Ratio] 12.7 % Normal 11.5-14.5 [facility] Comment on above: Performed By: #### C BC ####[facility] [id number] [place], [place], Hematocrit (Bld) [Volume fraction] 36.8 % Normal 36.0-46.0 [facility] Comment on above: Performed By: #### C BC ####[facility] [id number] [place], [place], Hemoglobin (Bld) [Mass/Vol] 12.2 g/dL Normal 12.0-15.0 [facility] Comment on above: Performed By: #### C BC ####[facility] [id number] [place], [place], MCH (RBC) [Entitic mass] 29.3 pg Normal 26.0-34.0 [facility] Comment on above: Performed By: #### C BC ####[facility] [id number] [place] [address], MCHC (RBC) [Mass/Vol] 33.3 g/dL Normal 32.0-35.9 [facility] Comment on above: Performed By: #### C BC ####[facility] [id number] [place] [address], MCV (RBC) [Entitic vol] 88 fL Normal 80-100 T [facility] Comment on above: Performed By: #### C BC ####[facility] [id number] [place] [address], Platelet mean volume (Bld) [Entitic vol] 9.1 fL Normal 7.5-11.2 [facility] Comment on above: Performed By: #### C BC ####[facility] [id number] [place], [place], Platelets (Bld) [#/Vol] 365 10*3/uL Normal 150-400 [facility] Comment on above: Performed By: #### C BC ####[facility] [id number] [place], [place], RBC (Bld) [#/Vol] 4.17 10*6/uL Normal 4.00-5.20 [email or web address] Comment on above: Performed By: #### C BC ####[facility] [id number] [place], [place], WBC (Bld) [#/Vol] 14.0 10*3/uL High 4.5-11.5 [facility] Comment on above: Performed By: #### C ####[facility] [id number] [place], [place], Progress Noteson 03-29-2024 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 Text Department of Gastroenterology and Hepatology [facility] Brief Consult Follow Up Note Location: [place] [address] Attending Physician: Marko Yi MD Date of [...] Gastroenterology Fellow Division of Gastroenterology AND Hepatology [facility] 03/29/24, 10:01 AM Normal [facility] BASIC METABOLIC PANELon 08-0 -2023 Anion gap [Moles/Vol] 16 mmol/L Normal 10-20 [facility] Comment on above: Performed By: #### C H8, CRP #### [facility] [address] [place] [address], Calcium [Mass/Vol] 8.7 mg/dL Normal 8.6-10.3 [facility] Comment on above: Performed By: #### C H8, CRP #### [facility] [address] [place] [address], Chloride [Moles/Vol] 104 mmol/L Normal 98-107 [facility] Comment on above: Performed By: #### C H8, CRP #### [facility] [address] [place] [address], CO2 [Moles/Vol] 23 mmol/L Normal 21-31 [facility] Comment on above: Performed By: #### C H8, CRP #### [facility] [address] [place] [address], Creatinine [Mass/Vol] 0.54 mg/dL Low 0.60-1.20 [email or web address] Comment on above: Performed By: #### C H8, CRP #### [facility] [address] [place] [address], ESTIMATED GFR (CKD-EPI) 130 mL/min/1.73sqm Normal >=60 [facility] Comment on above: Result Comment: 2020 CKD [...] Inclusion of Race in Diagnosing Kidney Disease. Austrian Journal of Kidney Diseases 2021;79(2):268-88.e1. 2. N Engl J Med 2020 Vol. 385 Issue 19 Pages 6135-8101 Performed By: #### C H8, CRP #### [facility] [address] [place] [address], Glucose [Mass/Vol] 95 mg/dL Normal 74-109 [facility] Comment on above: Performed By: #### C H8, CRP #### [facility] [address] [place] [address], Potassium [Moles/Vol] 4.2 mmol/L Normal 3.5-5.0 [facility] Comment on above: Performed By: #### C H8, CRP #### [facility] [address] [place] [address], Sodium [Moles/Vol] 139 mmol/L Normal 136-145 [facility] Comment on above: Performed By: #### C H8, CRP #### [facility] [address] [place] [address], Urea nitrogen [Mass/Vol] 8 mg/dL Normal 7-25 [facility] Comment on above: Performed By: #### C H8, CRP #### [facility] [address] [place] [address], C-REACTIVE PROTEINon 024 CRP 5.8 mg/dL High <0.5 [facility] Comment on above: Performed By: #### C H8, CRP #### [facility] [address] [place] [address], COMPLETE BLOOD COUNTon 03-28 Erythrocyte distribution width (RBC) [Ratio] 13.0 % Normal 11.5-14.5 [email or web address] Comment on above: Performed By: #### C H8, CRP #### [facility] [address] [place] [address], Hematocrit (Bld) [Volume fraction] 36.4 % Normal 36.0-46.0 [facility] Comment on above: Performed By: ###Pamela Bhatt, CRP #### [facility] [address] [place] [address], Hemoglobin (Bld) [Mass/Vol] 12.1 g/dL Normal 12.0-15.0 [facility] Comment on above: Performed By: #### La Bhatt, CRP #### [facility] [address] [place] [address], MCH (RBC) [Entitic mass] 29.1 pg Normal 26.0-34.0 [facility] Comment on above: Performed By: #### La Bhatt, CRP #### [facility] [address] [place] [address], MCHC (RBC) [Mass/Vol] 33.2 g/dL Normal 32.0-35.9 [email or web address] Comment on above: Performed By: ###Pamela Bhatt, CRP #### [facility] [address] [place] [address], MCV (RBC) [Entitic vol] 88 fL Normal 80-100 [email or web address] Comment on above: Performed By: #### La Bhatt, CRP #### [facility] [address] [place] [address], Platelet mean volume (Bld) [Entitic vol] 9.5 fL Normal 7.5-11.2 [email or web address] Comment on above: Performed By: #### La Bhatt, CRP #### [facility] [address] [place] [address], Platelets (Bld) [#/Vol] 362 10*3/uL Normal 150-400 [facility] Comment on above: Performed By: #### La Bhatt, CRP #### [facility] [address] [place] [address], RBC (Bld) [#/Vol] 4.14 10*6/uL Normal 4.00-5.20 [email or web address] Comment on above: Performed By: #### C H8, CRP #### [facility] [address] [place], [place], WBC (Bld) [#/Vol] 12.0 10*3/uL High 4.5-11.5 [facility] Comment on above: Performed By: #### C H8, CRP #### [facility] [address] [place], [place], CT ENTEROGRAPHY W/ CONTRASTo n 03-28-2024 [...] fistula or abscess. 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 Text Department of Gastroenterology and Hepatology [facility] Brief Consult Follow Up Note Location: [place] [address] Attending Physician: Jordana Beebe MD Date of [...] Gastroenterology Fellow Division of Gastroenterology AND Hepatology [facility] 03/28/24, 6:49 PM Normal [facility] BASIC METABOLIC PANELon 08- Anion gap [Moles/Vol] 16 mmol/L Normal 10-20 [email or web address] Comment on above: Performed By: #### C H8, CRP #### [facility] [address] [place] [address], Calcium [Mass/Vol] 9.1 mg/dL Normal 8.6-10.3 [facility] Comment on above: Performed By: #### C H8, CRP #### [facility] [address] [place] [address], Chloride [Moles/Vol] 106 mmol/L Normal 98-107 [facility] Comment on above: Performed By: #### C H8, CRP #### [facility] [address] [place] [address], CO2 [Moles/Vol] 22 mmol/L Normal 21-31 [facility] Comment on above: Performed By: #### C H8, CRP #### [facility] [address] [place] [address], Creatinine [Mass/Vol] 0.58 mg/dL Low 0.60-1.20 [facility] Comment on above: Performed By: #### C H8, CRP #### [facility] [address] [place] [address], ESTIMATED GFR (CKD-EPI) 128 mL/min/1.73sqm Normal >=60 [facility] Comment on above: Result Comment: 2020 CKD [...] Inclusion of Race in Diagnosing Kidney Disease. Austrian Journal of Kidney Diseases 2021;79(2):268-88.e1. 2. N Engl J Med 2020 Vol. 385 Issue 19 Pages 8191-0239 Performed By: #### C H8, CRP #### [facility] [address] [place] [address], Glucose [Mass/Vol] 125 mg/dL High 74-109 [facility] Comment on above: Performed By: #### C H8, CRP #### [facility] [address] [place] [address], Potassium [Moles/Vol] 4.1 mmol/L Normal 3.5-5.0 [facility] Comment on above: Performed By: #### C H8, CRP #### [facility] [address] [place] [address], Sodium [Moles/Vol] 140 mmol/L Normal 136-145 [facility] Comment on above: Performed By: #### C H8, CRP #### [facility] [address] [place] [address], Urea nitrogen [Mass/Vol] 6 mg/dL Low 7-25 [email or web address] Comment on above: Performed By: #### C H8, CRP #### [facility] [address] [place] [address], C-REACTIVE PROTEINon 024 CRP 11.3 mg/dL High <0.5 [email or web address] Comment on above: Performed By: #### C H8, CRP #### [facility] [address] [place] [address], COMPLETE BLOOD COUNTon 03-27 Erythrocyte distribution width (RBC) [Ratio] 13.0 % Normal 11.5-14.5 [facility] Comment on above: Performed By: #### C BC #### [facility] [address] [place] [address], Hematocrit (Bld) [Volume fraction] 42.7 % Normal 36.0-46.0 [facility] Comment on above: Performed By: #### C BC #### [facility] [address] [place] [address], Hemoglobin (Bld) [Mass/Vol] 14.8 g/dL Normal 12.0-15.0 [facility] Comment on above: Performed By: #### C BC #### [facility] [address] [place] [address], MCH (RBC) [Entitic mass] 30.5 pg Normal 26.0-34.0 [facility] Comment on above: Performed By: #### C BC #### [facility] [address] [place] [address], MCHC (RBC) [Mass/Vol] 34.6 g/dL Normal 32.0-35.9 [facility] Comment on above: Performed By: #### C BC #### [facility] [address] [place] [address], MCV (RBC) [Entitic vol] 88 fL Normal 80-100 T [facility] Comment on above: Performed By: #### C BC #### [facility] [address] [place] [address], Platelet mean volume (Bld) [Entitic vol] 9.1 fL Normal 7.5-11.2 [email or web address] Comment on above: Performed By: #### C BC #### [facility] [address] [place] [address], Platelets (Bld) [#/Vol] 336 10*3/uL Normal 150-400 The [facility] Comment on above: Performed By: #### C BC #### [facility] [address] [place] [address], RBC (Bld) [#/Vol] 4.84 10*6/uL Normal 4.00-5.20 [facility] Comment on above: Performed By: #### C BC #### [facility] [address] [place] [address], WBC (Bld) [#/Vol] 9.4 10*3/uL Normal 4.5-11.5 [facility] Comment on above: Performed By: #### C BC #### [facility] [address] [place], [place], HIV1 HIV2 AGAB SCRNon 2023 HIV AG-AB SCREEN Non-Reactive Normal Non-Reactiv e [facility] Comment on above: Order Comment: HIV Information: ???[place] Rev. 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 That is where all of her pain is. She said she has had multiple small BM's and a large one the last time. Awaiting response Normal [facility] Interface Message Text Department of Gastroenterology and Hepatology [facility] Brief Consult Follow Up Note Location: [place] [address] Attending Physician: Jordana Beebe MD Date of [...] Gastroenterology Fellow Division of Gastroenterology AND Hepatology [facility] 03/27/24, 10:55 AM Normal [facility] XR ABDOMEN AP 1 VIEWon 03-27 [...] small bowel obstruction. MACRO: None Normal [facility] BASIC METABOLIC PANELon 08-0 Anion gap [Moles/Vol] 15 mmol/L Normal 10-20 [email or web address] Comment on above: Performed By: #### H EPATIC, CRP, MG, CH8 ####[facility] [id number] [place], [place], Calcium [Mass/Vol] 8.2 mg/dL Low 8.6-10.3 [facility] Comment on above: Performed By: #### H EPATIC, CRP, MG, CH8 ####[facility] [id number] [place], [place], Chloride [Moles/Vol] 107 mmol/L Normal 98-107 [facility] Comment on above: Performed By: #### H EPATIC, CRP, MG, CH8 ####[facility] [id number] [place], CO2 [Moles/Vol] 24 mmol/L Normal 21-31 [facility] Comment on above: Performed By: #### H EPATIC, CRP, MG, CH8 ####S [facility] [id number] [place], Creatinine [Mass/Vol] 0.62 mg/dL Normal 0.60-1.20 [facility] Comment on above: Performed By: #### H EPATIC, CRP, MG, CH8 ####[facility] [id number] [place], ESTIMATED GFR (CKD-EPI) 126 mL/min/1.73sqm Normal >=60 The [facility] Comment on above: Result Comment: 2020 CKD EPI Equation using Creatinine without Race Comment: Estimated glomerular filtration rate (eGFR) is calculated without a race coefficient. Values should be interpreted in the context of the patient's full clinical presentation. Reference: 1. Hema Tovar, Ly M, Natasha DC, et al.. A Unifying Approach for GFR Estimation: Recommendations of the NKF-ASN Task Force on Reassessing the Inclusion of Race in Diagnosing Kidney Disease. Austrian Journal of Kidney Diseases 202;79(2):268-88.e1. 2. N Engl J Med 1 Vol. 385 Issue 19 Pages 4491-3955 Performed By: #### H EPATIC, CRP, MG, CH8 ####[facility] [id number] [place], Glucose [Mass/Vol] 77 mg/dL Normal 74-109 [facility] Comment on above: Performed By: #### H EPATIC, CRP, MG, CH8 ####[facility] [id number] [place], Potassium [Moles/Vol] 3.8 mmol/L Normal 3.5-5.0 [facility] Comment on above: Performed By: #### H EPATIC, CRP, MG, CH8 ####[facility] [id number] [place], Sodium [Moles/Vol] 142 mmol/L Normal 136-145 [facility] Comment on above: Performed By: #### H EPATIC, CRP, MG, CH8 ####[facility] [id number] [place], Urea nitrogen [Mass/Vol] 6 mg/dL Low 7-25 [facility] Comment on above: Performed By: #### H EPATIC, CRP, MG, CH8 ####[facility] [id number] [place], Basic Metabolic Panelon 08-0 Anion gap [Moles/Vol] 13.4 mmol/L Normal 6.0-15.0 [facility] Comment on above: Performed By: #### B MP, CBC, HEPATIC, LIPASE #### [facility] [address] [place] [address] [place] Calcium [Mass/Vol] 8.7 mg/dL Normal 8.6-10.3 The [facility] Comment on above: Performed By: #### B MP, CBC, HEPATIC, LIPASE #### [facility] [address] [place] [address] [place] Chloride [Moles/Vol] 105 mmol/L Normal 98-107 The [facility] Comment on above: Performed By: #### B MP, CBC, HEPATIC, LIPASE #### [facility] [address] CO2 [Moles/Vol] 21.3 mmol/L Normal 21.0-31.0 The [facility] Comment on above: Performed By: #### B MP, CBC, HEPATIC, LIPASE #### [facility] [address] Creatinine [Mass/Vol] 0.58 mg/dL Low 0.60-1.20 The [facility] Comment on above: Performed By: #### B MP, CBC, HEPATIC, LIPASE #### [address] Creatinine Clr Calc Pharmacy 136.16 Normal [facility] Comment on above: Performed By: #### B MP, CBC, HEPATIC, LIPASE #### [place] [address] [place] GFR/1.73 sq M.predicted MDRD (S/P/Bld) [Vol rate/Area] mL/min/{1.73_m2} Normal [facility] Comment on above: Performed By: #### B MP, CBC, HEPATIC, LIPASE #### [address] Glucose [Mass/Vol] 112 mg/dL High 70-100 [facility] Comment on above: Result Comment: [place] Glucose Reference Range is dependent on time and content of last meal. Glucose of more than 200 mg/dL in a nonstressed, ambulatory subject supports the diagnosis of Diabetes Mellitus. ADA recommended reference range Performed By: #### B MP, CBC, HEPATIC, LIPASE #### [facility] [address] Potassium [Moles/Vol] 3.7 mmol/L Normal 3.5-5.1 The [facility] Physician [facility] Comment on above: Performed By: #### B MP, CBC, HEPATIC, LIPASE #### [facility] [address] Sodium [Moles/Vol] 136 mmol/L Normal 136-145 [facility] Comment on above: Performed By: #### B MP, CBC, HEPATIC, LIPASE #### [facility] [address] [place] [address] [place] Urea nitrogen [Mass/Vol] 7 mg/dL Normal 7-25 The [facility] Comment on above: Performed By: #### B MP, CBC, HEPATIC, LIPASE #### [facility] [address] [place] [id number] [facility] C-REACTIVE PROTEINon 024 CRP 7.8 mg/dL High <0.5 [facility] Comment on above: Performed By: #### H EPATIC, CRP, MG, CH8 ####S [facility]OLOG[facility] [id number] [place], COMPLETE BLOOD COUNTon 03-26 Erythrocyte distribution width (RBC) [Ratio] 12.9 % Normal 11.5-14.5 [facility] Comment on above: Performed By: #### C BC #### [facility] [address] [place] [address], Hematocrit (Bld) [Volume fraction] 38.4 % Normal 36.0-46.0 [facility] Comment on above: Performed By: #### C BC #### [facility] [address] [place] [address], Hemoglobin (Bld) [Mass/Vol] 13.3 g/dL Normal 12.0-15.0 [facility] Comment on above: Performed By: #### C BC #### [facility] [address] [place] [address], MCH (RBC) [Entitic mass] 30.6 pg Normal 26.0-34.0 [facility] Comment on above: Performed By: #### C BC #### [facility] [address] [place] [address], MCHC (RBC) [Mass/Vol] 34.7 g/dL Normal 32.0-35.9 [facility] Comment on above: Performed By: #### C BC #### [facility] [address] [place] [address], MCV (RBC) [Entitic vol] 88 fL Normal 80-100 T [facility] Comment on above: Performed By: #### C BC #### [facility] [address] [place], [place], Platelet mean volume (Bld) [Entitic vol] 9.8 fL Normal 7.5-11.2 [facility] Comment on above: Performed By: #### C BC #### [facility] [address] [place], [place], Platelets (Bld) [#/Vol] 344 10*3/uL Normal 150-400 [facility] Comment on above: Performed By: #### C BC #### [facility] [address] [place], [place], RBC (Bld) [#/Vol] 4.36 10*6/uL Normal 4.00-5.20 [facility] Comment on above: Performed By: #### C BC #### [facility] [address] [place], [place], WBC (Bld) [#/Vol] 10.1 10*3/uL Normal 4.5-11.5 [facility] Comment on above: Performed By: #### C BC #### [facility] [address] [place], [place], CT abdomen pelvis w conon CT abdomen pelvis w con [facility] [address] CT Scan Report Signed Patient: Aparna Arteaga MR#: [id number] 97 : 2000 Acct:[id number] Age/Sex: 24 / F ADM Date: 03/25/24 Loc: ER Room: Type: [facility] ER Attending Dr: Copies to: Allen Ta [...] Toño Mckeon M.D.03/26/2024 9:02 AM Dictation Location: [place] [address] Transcribed By: [facility] 03/26/24901 Dictated By: Toño Mckeon II, MD 03/26/2444 Signed By: 03/26/24 09 Normal [facility] Care Plan Noteon 03-26-2024 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 Text Colonoscopy Date/Provider 03/24/2024 [...] slowly withdrawn with the findings as below. [place] bowel prep score was good. Findings: Biopsies [...] None EBL: Minimal Recommendations: -Will switch to [facility] -Follow up pathology -Follow up in the office Following a period of recovery, patient was seen and given full explanation of the procedure. Patient tolerated the procedure well and will be discharged in satisfactory, stable condition. Rip Subramanian M.D. Normal [facility] Complete Blood Count Auto Di ffon 03-26-2024 Basophils (Bld) [#/Vol] 0.0 10*3/uL Normal 0.0-0.2 The [facility] Comment on above: Result Comment: PERF ORMED BY: [facility] [address] [address] PATHOLOGIST MELTER SUPERVISOR [employer]CE KIM RAHMAN M.D. Performed By: #### B MP, CBC, HEPATIC, LIPASE #### [address] Basophils/100 WBC (Bld) 0.2 % Normal . T calvin [facility] Comment on above: Performed By: #### B MP, CBC, HEPATIC, LIPASE #### [address] Eosinophils (Bld) [#/Vol] 0.0 10*3/uL Normal 0.0-0.45 [facility] Comment on above: Performed By: #### B MP, CBC, HEPATIC, LIPASE #### [address] Eosinophils/100 WBC (Bld) 0.3 % Normal . [facility] Comment on above: Performed By: #### B MP, CBC, HEPATIC, LIPASE #### [address] Erythrocyte distribution width (RBC) [Ratio] 12.7 % Normal 11.9-15.3 [facility] Comment on above: Performed By: #### B MP, CBC, HEPATIC, LIPASE #### [address] Hematocrit (Bld) [Volume fraction] 41.7 % Normal 34.0-46.4 [facility] Comment on above: Performed By: #### B MP, CBC, HEPATIC, LIPASE #### [address] Hemoglobin (Bld) [Mass/Vol] 14.3 g/dL Normal 11.8-15.4 [facility] Comment on above: Performed By: #### B MP, CBC, HEPATIC, LIPASE #### [place] [address] [place] Lymphocytes (Bld) [#/Vol] 1.2 10*3/uL Normal 1.00-4.8 The [facility] Comment on above: Performed By: #### B MP, CBC, HEPATIC, LIPASE #### [address] Lymphocytes/100 WBC (Bld) 7.0 % Normal . [facility] Comment on above: Performed By: #### B MP, CBC, HEPATIC, LIPASE #### [address] MCH (RBC) [Entitic mass] 29.6 pg Normal 24.7-34.3 [facility] Comment on above: Performed By: #### B MP, CBC, HEPATIC, LIPASE #### [address] MCV (RBC) [Entitic vol] 86.5 fL Normal 80-100 T [facility] Comment on above: Performed By: #### B MP, CBC, HEPATIC, LIPASE #### [address] Mean Corpuscular HGB Conc 34.2 g/dL Normal 32.0-35.0 [facility] Comment on above: Performed By: #### B MP, CBC, HEPATIC, LIPASE #### [address] Monocytes (Bld) [#/Vol] 0.9 10*3/uL High 0.0-0.8 [facility] Comment on above: Performed By: #### B MP, CBC, HEPATIC, LIPASE #### [address] Monocytes/100 WBC (Bld) 17.18 % Normal 0.00-20.00 [facility] Comment on above: Performed By: #### B MP, CBC, HEPATIC, LIPASE #### [address] Monocytes/100 WBC (Bld) 5.3 % Normal . [facility] Comment on above: Performed By: #### B MP, CBC, HEPATIC, LIPASE #### [address] Neutrophils (Bld) [#/Vol] 14.9 10*3/uL High 1.8-7.7 The [facility] Physician [facility] Comment on above: Performed By: #### B MP, CBC, HEPATIC, LIPASE #### [place] [id number] [place] Neutrophils/100 WBC (Bld) 87.2 % Normal . [facility] Comment on above: Performed By: #### B MP, CBC, HEPATIC, LIPASE #### [address] NRBC% 0.0 /100{WBC} Normal 0-0.5 The [facility] Comment on above: Performed By: #### B MP, CBC, HEPATIC, LIPASE #### [address] Platelet mean volume (Bld) [Entitic vol] 9.1 fL Normal 6.3-10.7 The [facility] Comment on above: Performed By: #### B MP, CBC, HEPATIC, LIPASE #### [address] Platelets (Bld) [#/Vol] 432 10*3/uL Normal 150-450 The [facility] Comment on above: Performed By: #### B MP, CBC, HEPATIC, LIPASE #### [address] RBC (Bld) [#/Vol] 4.82 10*6/uL Normal 3.60-5.00 The [facility] Comment on above: Performed By: #### B MP, CBC, HEPATIC, LIPASE #### [address] WBC (Bld) [#/Vol] 17.1 10*3/uL High 3.8-11.6 The [facility] Comment on above: Performed By: #### B MP, CBC, HEPATIC, LIPASE #### [address] Consultson 03-26-2024 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 Text Department of Gastroenterology and Hepatology Consult H AND P Note GI Attending Physician: Dr. Raoul MD Patient: Aparna Arteaga Location: [place] [address] Reason for Consult: Crohn's disease ASSESSMENT AND [...] last month or two. - Imaging at [facility] with TI stricture, - Colonoscopy on 03/24 at [facility] with multiple ulcers in the last 20cm [...] Dr. Raoul MD. Primary team updated via [employer] system. Please don't hesitate to reach out with questions or concerns. We will continue to follow with you. GI Consult Pager (nights and weekends) [phone] Destiny Mason MD Gastroenterology Fellow Division of Gastroenterology AND Hepatology [facility] 03/26/24 HPI Aparna Arteaga is [...] Gastroenterology Fellow Division of Gastroenterology AND Hepatology [facility] 03/26/24 ATTENDING NOTE The patient was personally seen and evaluated. The case was discussed in detail with the fellow; including, but not limited to the presenting complaint, past history, physical findings (more content not included)... Normal [facility] 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 Text Attestation signed by [...] day. The plan as written in the MEDICAL OBSERVER/PA's note reflects the plan formulated by me and discussed with the MEDICAL OBSERVER/PA and the team. 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 Pt reports that her symptoms had been well controlled until 1-2 months ago when she started having more persistently loose stools. She was scheduled for a colonoscopy at [facility] on 03/24/2024. She notes that she started [...] persisted which prompted her to go to [facility] ED. She was found to have a [...] and Test Results Reviewed CBC, BMP from [facility] from 03/26, notable for leukocytosis Imaging CT AP w luminal narrowing at TI and dilated loops of SB consistent w SBO Impression Aparna Arteaga is a 24 year old female with h/o Crohn's disease who presents with SBO secondary to TI stricture Re (more content not included)... Normal [facility] Dipstick and Microscopicon 0 03-26-2024 Appearance (U) Cloudy Critically abnormal Clear [facility] Comment on above: Order Comment: Name Collection Type:: Clean-Voided Midstream Performed By: #### U HCG, ADDONUAPLUS, CUU ####[facility] [place] [address] [facility] Bacteria,Urine Rare Normal None Seen [facility] Comment on above: Order Comment: Name Collection Type:: Clean-Voided Midstream Performed By: #### U HCG, ADDONUAPLUS, CUU ####[facility] [place] [address] [place] Bilirubin,Urine Negative Normal Negative The [facility] Comment on above: Order Comment: Name Collection Type:: Clean-Voided Midstream Performed By: #### U HCG, ADDONUAPLUS, CUU ####[address] [address] [facility] Color (U) Yellow Normal Yellow [facility] Comment on above: Order Comment: Name Collection Type:: Clean-Voided Midstream Performed By: #### U HCG, ADDONUAPLUS, CUU ####[address] [address] [facility] Glucose Ql (U) Normal Normal Normal [facility] Comment on above: Order Comment: Name Collection Type:: Clean-Voided Midstream Performed By: #### U HCG, ADDONUAPLUS, CUU ####[address] [address] [facility] Hyaline Casts,Urine None Normal 0-8 [facility] Comment on above: Order Comment: Name Collection Type:: Clean-Voided Midstream Performed By: #### U HCG, ADDONUAPLUS, CUU ####[address] [address] [facility] Ketones Ql (U) Negative Normal Negative [facility] Comment on above: Order Comment: Name Collection Type:: Clean-Voided Midstream Performed By: #### U HCG, ADDONUAPLUS, CUU ####[address] [address] [facility] Leukocyte esterase Test strip Ql (U) 4+ High Negative [facility] Comment on above: Order Comment: Name Collection Type:: Clean-Voided Midstream Performed By: #### U HCG, ADDONUAPLUS, CUU ####[address] [address] [place] Mucus,Urine 1+ Critically abnormal [facility] Comment on above: Order Comment: Name Collection Type:: Clean-Voided Midstream Performed By: #### U HCG, ADDONUAPLUS, CUU ####[address] [address] [place] Nitrite,Urine Negative Normal Negative The [facility] Comment on above: Order Comment: Name Collection Type:: Clean-Voided Midstream Performed By: #### U HCG, ADDONUAPLUS, CUU ####[address] [address] [facility] Occult Blood,Urine 1+ High Negative [facility] Comment on above: Order Comment: Name Collection Type:: Clean-Voided Midstream Performed By: #### U HCG, ADDONUAPLUS, CUU ####[address] [address] [facility] Othe Crystals,Urine 1+ Normal The [facility] Comment on above: Order Comment: Name Collection Type:: Clean-Voided Midstream Performed By: #### U HCG, ADDONUAPLUS, CUU ####[place] [id number] [facility] pH (U) 5.5 [pH] Normal 5.0-9.0 The [facility] Comment on above: Order Comment: Name Collection Type:: Clean-Voided Midstream Performed By: #### U HCG, ADDONUAPLUS, CUU ####[address] [address] [facility] Protein,Urine Trace High Negative The [facility] Comment on above: Order Comment: Name Collection Type:: Clean-Voided Midstream Performed By: #### U HCG, ADDONUAPLUS, CUU ####[address] [address] [facility] RBC,Urine 5-9 High 0-4 [facility] Comment on above: Order Comment: Name Collection Type:: Clean-Voided Midstream Performed By: #### U HCG, ADDONUAPLUS, CUU ####[address] [address] [facility] Specificy [place],Urine 1.019 Normal 1.001-1.030 [facility] Comment on above: Order Comment: Name Collection Type:: Clean-Voided Midstream Performed By: #### U HCG, ADDONUAPLUS, CUU ####[address] [address] [facility] Squamous Epithelial Cell,Urine 20-49 High 0-2 [facility] Comment on above: Order Comment: Name Collection Type:: Clean-Voided Midstream Performed By: #### U HCG, ADDONUAPLUS, CUU ####[facility] Urobilinogen,Urine Normal Normal Normal [facility] Comment on above: Order Comment: Name Collection Type:: Clean-Voided Midstream Performed By: #### U HCG, ADDONUAPLUS, CUU ####[address] WBC [place], Urine Moderate High None Seen The [facility] Comment on above: Order Comment: Name Collection Type:: Clean-Voided Midstream Performed By: #### U HCG, ADDONUAPLUS, CUU ####[place] [address] WBC,Urine Innumerable High 0-4 [facility] Comment on above: Order Comment: Name Collection Type:: Clean-Voided Midstream Performed By: #### U HCG, ADDONUAPLUS, CUU ####[address] ED Noteson 03-26-2024 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 Text Removed ng tube. Replaced NG with another RN. Called x ray for repeat kub Normal 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 Text Transition of Care; Hand off Note Code Status: AGE: [age] year old SEX: female WEIGHT: no weight Chief Complaint Patient presents with Abdominal pain Sent from [facility] for + SBO, NG tube in place [...] change from prior assessment: No Normal [facility] 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 Text NG tube pulled back 5 cm, kub taken. States still coiled. Md notified. Normal [facility] 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 Text Pulled NG tube back 3cm per md order Normal [facility] ED Provider Noteson 03-26-20 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 Text EMERGENCY DEPARTMENT - VISIT NOTE --------- HISTORY OF PRESENT ILLNESS ----- HIPAA: Verbal permission granted from patient to discuss case, including protected health information, in front of family / friends in room at the time of the evaluation. Batch Analyst: not needed - patient preferred language is Arabic. The history is provided by the Patient. [...] transfer center summary - hx crohns [facility], patient had recent colonoscopy with ulcers in [...] scan. [KL] ED Course User Index [KL] FaustoLiliaClaire, DO --------- IMPRESSION AND DISPOSITION ------- Clinical Impression Diagnosis Comment Small bowel stricture (HCC) [K56.699] SBO (small bowel obstruction) (HCC) [K56.609] Disposition: Admitted to Floor: Medicine Team 8. [...] ask (more content not included)... Normal The [email or web address] [facility] HCG,Urineon 03-26-2024 Beta HCG ( test) Ql (U) Negative Normal The [facility] Comment on above: Order Comment: Name Collection Type:: Clean-Voided Midstream Result Comment: PERF ORMED BY: [facility] [address] [place] [address] PATHOLOGIST MELTER SUPERVISOR OPEN HEAR[employer] FURNACE KIM RAHMAN M.D. Performed By: #### U HCG, BLAIR CUU ####[facility] [id number] [place] [id number] [facility] HEPATIC FUNCTION PANELon Albumin [Mass/Vol] 3.6 g/dL Normal 3.5-5.7 [facility] Comment on above: Performed By: #### H EPATIC, CRP, MG, CH8 ####[facility] [id number] [place], [address] ALK 77 IU/L Normal 34-104 [facility] Comment on above: Performed By: #### H EPATIC, CRP, MG, CH8 ####[facility] [id number] [place], [place], ALT [Catalytic activity/Vol] 7 U/L Normal 7-52 The [facility] Comment on above: Performed By: #### H EPATIC, CRP, MG, CH8 ####[facility] [id number] [place], AST [Catalytic activity/Vol] 8 U/L Low 13-39 [facility] Comment on above: Performed By: #### H EPATIC, CRP, MG, CH8 ####[facility] [id number] [place], Bilirubin [Mass/Vol] 0.3 mg/dL Normal 0.3-1.0 The [facility] Comment on above: Performed By: #### H EPATIC, CRP, MG, CH8 ####[facility] [id number] [place] [address], Bilirubin.direct [Mass/Vol] 0.07 mg/dL Normal 0.03-0.18 The [facility] Comment on above: Performed By: #### H EPATIC, CRP, MG, CH8 ####[facility] [id number] [place], Protein [Mass/Vol] 6.2 g/dL Normal 6.0-8.3 The [facility] Comment on above: Performed By: #### H EPATIC, CRP, MG, CH8 ####[facility] [id number] [place], [place], Hepatic Panelon 03-26-2024 Albumin [Mass/Vol] 4.2 g/dL Normal 3.5-5.7 [facility] Comment on above: Performed By: #### B MP, CBC, HEPATIC, LIPASE #### [facility] [address] [place] [id number] [place] Albumin/Globulin [Mass ratio] 1.3 {ratio} Normal [facility] Comment on above: Performed By: #### B MP, CBC, HEPATIC, LIPASE #### [facility] [address] [place] [address] [place] ALP [Catalytic activity/Vol] 87 U/L Normal 34-104 [facility] Comment on above: Performed By: #### B MP, CBC, HEPATIC, LIPASE #### [facility] [address] ALT [Catalytic activity/Vol] 7 U/L Normal 7-52 [facility] Comment on above: Performed By: #### B MP, CBC, HEPATIC, LIPASE #### [facility] [address] [place] [id number] [place] AST [Catalytic activity/Vol] 9 U/L Low 13-39 [facility] Comment on above: Performed By: #### B MP, CBC, HEPATIC, LIPASE #### [facility] [address] Bilirubin [Mass/Vol] 0.4 mg/dL Normal 0.3-1.0 [facility] Comment on above: Performed By: #### B MP, CBC, HEPATIC, LIPASE #### [facility] [address] Bilirubin,Indirect 0.3 mg/dL Normal The [facility] Comment on above: Performed By: #### B MP, CBC, HEPATIC, LIPASE #### [facility] [address] Bilirubin.indirect [Mass/Vol] 0.10 mg/dL Normal 0.03-0.18 [facility] Comment on above: Performed By: #### B MP, CBC, HEPATIC, LIPASE #### [facility] [address] [place] [address] [place] Globulin (S) [Mass/Vol] 3.3 g/dL Normal T he [facility] Comment on above: Performed By: #### B MP, CBC, HEPATIC, LIPASE #### [facility] [address] [place] [id number] [place] Protein [Mass/Vol] 7.5 g/dL Normal 6.4-8.9 [facility] Comment on above: Performed By: #### B MP, CBC, HEPATIC, LIPASE #### [facility] [address] [place] [id number] [place] Lipaseon 03-26-2024 Lipase [Catalytic activity/Vol] 21.0 U/L Normal 11.0-82.0 [facility] Comment on above: Result Comment: PERF ORMED BY: [facility] [address] [place] [address] PATHOLOGIST MELTER SUPERVISOR OPEN HEAR[employer] FURNACE KIM RAHMAN M.D. Performed By: #### B MP, CBC, HEPATIC, LIPASE ####[place] [address] [place] [address] [facility] MAGNESIUMon 03-26-2024 Magnesium [Mass/Vol] 1.9 mg/dL Normal 1.9-2.7 [facility] Comment on above: Performed By: #### H EPATIC, CRP, MG, CH8 ####[facility] [id number] [place], [place], PROTHROMBIN TIME AND INRon 0 03-26-2024 INR Coag (PPP) [Relative time] 1.13 {INR} High 0.90-1.10 [facility] Comment on above: Performed By: #### P T #### [facility] [address] [place], [place], PT Coag (PPP) [Time] 12.6 s Normal 9.7-12.9 [facility] Comment on above: Performed By: #### P T #### [facility] [address] [place], [place], Urine Cultureon 03-26-2024 Bacteria identified Cx Nom (U) <9,000 colonies/ml mixed bacterial skin contaminants 2 Days PERFORMED BY: [facility] [address] [place] [id number] PATHOLOGIST MELTER SUPERVISOR OPEN HEAR[employer] FURNACE KIM RAHMAN M.D. Normal [facility] Comment on above: Performed By: #### U HCG, ADDONUAPLUS, CUU ####[place] [id number] [facility] XR ABDOMEN AP 1 VIEWon 03-26 XR [...] ngt position ASSOCIATED DIAGNOSIS: ORDERING PROVIDER: ZEYNEP SKAGGS NOTE: COMPARISON: XR ABDOMEN AP 1 VIEW [...] NGT position ASSOCIATED DIAGNOSIS: ORDERING PROVIDER: ZEYNEP SKAGGS NOTE: NGT placement COMPARISON: XR ABDOMEN AP [...] for kink ASSOCIATED DIAGNOSIS: ORDERING PROVIDER: ZEYNEP SKAGGS NOTE: NGT placement COMPARISON: XR ABDOMEN AP [...] NGT placement ASSOCIATED DIAGNOSIS: ORDERING PROVIDER: CLAIRE NORTON TECHNOLOGISTS NOTE: NGT placement COMPARISON: CT BODY [...] XR abdomen 1Von 03-26-2024 XR abdomen 1V [facility] [place] [address] XRay Report Signed Patient: Aparna Arteaga MR#: [id number] 97 : 2000 Acct:[id number] Age/Sex: 24 / F ADM Date: 03/25/24 Loc: ER Room: Type: [facility] ER Attending Dr: Copies to: Allen Ta DO Ordering Provider: Allen Ta DO Date of Service: 03/26/24 XR/XR abdomen 1V: Abdominal Pain Single view of Abdomen for NG tube placement The tip of the NG tube is in the Mid stomach. XR/XR abdomen 1V IMPRESSION: Adequate position of NG tube Impression dictated by: Link Snow M.D.03/26/2024 9:12 AM Dictation Location: [place] [address] Transcribed By: [facility] 03/26/[address] Dictated By: Link Snow DO 03/26/24 0911 Signed By: 03/26/24 09 Normal [facility] Amphetamine Screen Ql (U)Ord ered By: Rip Subramanian on 03-24-2024 Amphetamines Ql (U) Positive High Negative [facility] Barbiturates [Presence] in U rine by Screen methodOrdered By: Imad Asaad on 03-24-2024 Barbiturates Screen Ql (U) Negative Negative [facility] Benzodiazepines Screen Ql (U )Ordered By: Imad Asaad on 03-24-2024 Benzodiazepines Ql (U) Negative Negative [facility] Benzoylecgonine [Presence] i n Urine by Screen methodOrdered By: Imad Asaad on 03-24-2024 Benzoylecgonine Screen Ql (U) Negative Negative [facility] Cannabinoids [Presence] in U rine by Screen methodOrdered By: Imad Asaad on 03-24-2024 Cannabinoids Screen Ql (U) Negative Negative [facility] Comment on above: These are unconfirme d results and should not be used for legal purposes. Drug Cut-Off Concentration: AMPH 1000 ng/mL TAI 200 ng/mL RAYMOND 200 ng/mL COCM 300 ng/mL OP 300 ng/mL PCP 25 ng/mL THC 20 ng/mL Drug Screen,Urineon 03-24-20 24 Amphetamine Screen,Urine Positive High Negative [facility] Comment on above: Performed By: #### U RDS ####[place] [address] [address] Barbiturate Screen,Urine Negative Normal Negative [facility] Comment on above: Performed By: #### U RDS ####[place] [address] [place] [id number] [place] Benzodiazepines Screen,Urine Negative Normal Negative [facility] Comment on above: Performed By: #### U RDS ####[place] [id number] [facility] Cannabinoid Screen,Urine Negative Normal Negative [facility] Comment on above: Result Comment: Thes e are unconfirmed results and should not be used for legal purposes. Drug Cut-Off Concentration: AMPH 1000 ng/mL TAI 200 ng/mL RAYMOND 200 ng/mL COCM 300 ng/mL OP 300 ng/mL PCP 25 ng/mL THC 20 ng/mL PERFORMED BY: [facility] [address] [place] [phone] PATHOLOGIST MELTER SUPERVISOR OPEN HEAR[employer] FURNACE KIM RAHMAN M.D. Performed By: #### U RDS ####[facility] [place] [phone] [facility] Cocaine Screen,Urine Negative Normal Negative [facility] Comment on above: Performed By: #### U RDS ####[facility] [place] [address] [facility] Opiate Screen,Urine Negative Normal Negative [facility] Comment on above: Performed By: #### U RDS ####[facility] [place] [phone] [facility] Phencyclidine Screen,Urine Negative Normal Negative [facility] Comment on above: Performed By: #### U RDS ####[facility] HCG ( test) IA.rapi d Ql (U)Ordered By: Imad Asaad on 03-24-2024 HCG ( test) Ql (U) Negative [facility] HCG,Urineon 03-24-2024 Beta HCG ( test) Ql (U) Negative Normal [facility] Comment on above: Result Comment: PERF ORMED BY: [facility] [address] [place] [address] PATHOLOGIST MELTER SUPERVISOR OPEN [employer]AR[employer] FURNACE KIM RAHMAN M.D. Performed By: #### U HCG ####[address] Opiates [Presence] in Urine by Screen methodOrdered By: Imad Asaad on 03-24-2024 Opiates Screen Ql (U) Negative Negative [facility] Phencyclidine Screen Ql (U)O rdered By: Imad Asaad on 03-24-2024 Phencyclidine Ql (U) Negative Negative [facility] Alanine aminotransferase [En zymatic activity/volume] in Serum or PlasmaOrdered By: Padmini Douglas on 03-22-2024 ALT [Catalytic activity/Vol] 8 U/L Normal 7 [facility] Comment on above: Performed By: #### C MP, CBC, FE and TIBC, TSH3, MANAV #### [facility] [address] Albumin [Mass/volume] in Ser um or Plasma by Bromocresol green (BCG) dye binding methoOrdered By: Padmini Douglas on 03-22-2024 Albumin BCG dye [Mass/Vol] 4.0 g/dL 3.5-5.7 [facility] Alkaline phosphatase [Enzyma tic activity/volume] in Serum or PlasmaOrdered By: Padmini Douglas on 03-22-2024 ALP [Catalytic activity/Vol] 80 U/L Normal 34-104 [facility] Comment on above: Performed By: #### C MP, CBC, FE and TIBC, TSH3, MANAV #### [facility] [address] Aspartate aminotransferase [ Enzymatic activity/volume] in Serum or PlasmaOrdered By: Padmini Douglas on 03-22-2024 AST [Catalytic activity/Vol] 8 U/L Low 13-39 [facility] Comment on above: Performed By: #### C MP, CBC, FE and TIBC, TSH3, MANAV #### [facility] [address] Automated basophil %Ordered By: Padmini Douglas on 03-22-2024 Basophils/100 WBC (Bld) 0.6 % Normal . [facility] Comment on above: Performed By: #### C MP, CBC, FE and TIBC, TSH3, MANAV #### [address] Automated basophil countOrde red By: Padmini Douglas on 03-22-2024 Basophils (Bld) [#/Vol] 0.1 10*3/uL Normal 0.0-0.2 [facility] Comment on above: Result Comment: PERF ORMED BY: [place] [address] PATHOLOGIST MELTER SUPERVISOR [employer]AR[employer] FURNACE KIM RAHMAN M.D. Performed By: #### C MP, CBC, FE and TIBC, TSH3, MANAV #### [address] Automated blood monocyte cou ntOrdered By: Padmini Douglas on 07-29-2024 Monocytes (Bld) [#/Vol] 0.8 10*3/uL Normal 0.0-0.8 [facility] Comment on above: Performed By: #### C MP, CBC, FE and TIBC, TSH3, MANAV #### [address] Automated eosinophil %Ordere d By: Padmini Douglas on 03-22-2024 Eosinophils/100 WBC (Bld) 2.0 % Normal . [facility] Comment on above: Performed By: #### C MP, CBC, FE and TIBC, TSH3, MANAV #### [address] Automated eosinophil countOr dered By: Padmini Douglas on 03-22-2024 Eosinophils (Bld) [#/Vol] 0.3 10*3/uL Normal 0.0-0.45 [facility] Comment on above: Performed By: #### C MP, CBC, FE and TIBC, TSH3, MANAV #### [address] Automated monocyte %Ordered By: Padmini Douglas on 03-22-2024 Monocytes/100 WBC (Bld) 5.9 % Normal . [facility] Comment on above: Performed By: #### C MP, CBC, FE and TIBC, TSH3, MANAV #### [address] Automated neutrophil %Ordere d By: Padmini Douglas on 03-22-2024 Neutrophils/100 WBC (Bld) 75.2 % Normal . [facility] Comment on above: Performed By: #### C MP, CBC, FE and TIBC, TSH3, MANAV #### [address] Bilirubin.total [Mass/volume ] in Serum or PlasmaOrdered By: Padmini Douglas on 03-22-2024 Bilirubin [Mass/Vol] 0.2 mg/dL Low 0.3-1.0 [facility] Comment on above: Performed By: #### C MP, CBC, FE and TIBC, TSH3, MANAV #### [address] [place] [address] [place] C reactive protein [Mass/vol ume] in Serum or PlasmaOrdered By: Imwaqar Cruzad on 03-22-2024 CRP [Mass/Vol] 3.2 mg/dL High 0.0-0.5 [facility] C-Reactive Proteinon 024 C-Reactive Protein 3.2 mg/dL High 0.0-0.5 [facility] Comment on above: Result Comment: PERF ORMED BY: [facility] [address] [place] [address] PATHOLOGIST MELTER SUPERVISOR [employer]AR[employer] FURNACE KIM RAHMAN M.D. Performed By: #### C RP ####[place] [address] [place] Calcium [Mass/volume] in Ser um or PlasmaOrdered By: Padmini Douglas on 03-22-2024 Calcium [Mass/Vol] 9.0 mg/dL Normal 8.6-10.3 [facility] Comment on above: Performed By: #### C MP, CBC, FE and TIBC, TSH3, MANAV #### [address] Carbon dioxide, total [Moles /volume] in Serum or PlasmaOrdered By: Padmini Douglas on 03-22-2024 CO2 [Moles/Vol] 24.5 mmol/L Normal 21.0-31.0 [facility] Comment on above: Performed By: #### C MP, CBC, FE and TIBC, TSH3, MANAV #### [place] [address] [place] Chloride [Moles/volume] in S jourdan or PlasmaOrdered By: Padmini Douglas on 03-22-2024 Chloride [Moles/Vol] 104 mmol/L Normal 98-107 [facility] Comment on above: Performed By: #### C MP, CBC, FE and TIBC, TSH3, MANAV #### [address] Complete Blood Count Auto Di ffon 03-22-2024 Mean Corpuscular HGB Conc 33.6 g/dL Normal 32.0-35.0 [facility] Comment on above: Performed By: #### C MP, CBC, FE and TIBC, TSH3, MANAV #### [address] NRBC% 0.1 /100{WBC} Normal 0-0.5 [facility] Comment on above: Performed By: #### C MP, CBC, FE and TIBC, TSH3, MANAV #### [address] Comprehensive Metabolic Pane anselmo 03-22-2024 Albumin [Mass/Vol] 4.0 g/dL Normal 3.5-5.7 [facility] Comment on above: Performed By: #### C MP, CBC, FE and TIBC, TSH3, MANAV #### [address] GFR/1.73 sq M.predicted MDRD (S/P/Bld) [Vol rate/Area] mL/min/{1.73_m2} Normal [facility] Comment on above: Performed By: #### C MP, CBC, FE and TIBC, TSH3, MANAV #### [address] Creatinine [Mass/volume] in Serum or PlasmaOrdered By: Padmini Douglsa on 03-22-2024 Creatinine [Mass/Vol] 0.60 mg/dL Normal 0.60-1.20 [facility] Comment on above: Performed By: #### C MP, CBC, FE and TIBC, TSH3, MANAV #### [address] Erythrocyte distribution wid th [Ratio] by Automated countOrdered By: Padmini Douglas on 03-22-2024 Erythrocyte distribution width (RBC) [Ratio] 13.1 % Normal 11.9-15.3 [facility] Comment on above: Performed By: #### C MP, CBC, FE and TIBC, TSH3, MANAV #### [address] Erythrocytes [#/volume] in B lood by Automated countOrdered By: Padmini Douglas on 03-22-2024 RBC (Bld) [#/Vol] 4.78 10*6/uL Normal 3.60-5.00 [facility] Comment on above: Performed By: #### C MP, CBC, FE and TIBC, TSH3, MANAV #### [facility] [address] [place] [address] [place] Ferritin [Mass/volume] in Se rum or PlasmaOrdered By: Padmini Douglas on 03-22-2024 Ferritin [Mass/Vol] 39.1 ng/mL Normal 11.0-306.8 [facility] Comment on above: Performed By: #### C MP, CBC, FE and TIBC, TSH3, MANAV #### [facility] [address] [place] [address] [place] Glucose [Mass/volume] in Ser um or PlasmaOrdered By: Padmini Douglas on 03-22-2024 Glucose [Mass/Vol] 97 mg/dL Normal 70-100 [facility] Comment on above: ADA recommended refe rence rangeRandom Glucose Reference Range is dependent on time and content of last meal. Glucose of more than 200 mg/dL in a nonstressed, ambulatory subject supports the diagnosis of Diabetes Mellitus. Result Comment: [place] om Glucose Reference Range is dependent on time and content of last meal. Glucose of more than 200 mg/dL in a nonstressed, ambulatory subject supports the diagnosis of Diabetes Mellitus. ADA recommended reference range Performed By: #### C MP, CBC, FE and TIBC, TSH3, MANAV #### [facility] [address] [place] [address] [place] Hematocrit [Volume Fraction] of Blood by Automated countOrdered By: Padmini Douglas on 03-22-2024 Hematocrit (Bld) [Volume fraction] 42.1 % Normal 34.0-46.4 [facility] Comment on above: Performed By: #### C MP, CBC, FE and TIBC, TSH3, MANAV #### [facility] [address] [place] [address] [place] Hemoglobin [Mass/volume] in BloodOrdered By: Padmini Douglas on 03-22-2024 Hemoglobin (Bld) [Mass/Vol] 14.2 g/dL Normal 11.8-15.4 [facility] Comment on above: Performed By: #### C MP, CBC, FE and TIBC, TSH3, MANAV #### [facility] [address] Iron [Mass/volume] in Serum or PlasmaOrdered By: Padmini Douglas on 03-22-2024 Iron [Mass/Vol] 100 ug/dL Normal 50-212 [facility] Comment on above: Performed By: #### C MP, CBC, FE and TIBC, TSH3, MANAV #### [facility] [address] Iron and TIBC Profileon 02-23 % Iron Saturation 21.5 % Normal 20-50 [facility] Comment on above: Performed By: #### C MP, CBC, FE and TIBC, TSH3, MANAV #### [facility] [address] Total Iron Binding Capacity 465 ug/dL High 255-450 [facility] Comment on above: Performed By: #### C MP, CBC, FE and TIBC, TSH3, MANAV #### [facility] [address] Iron binding capacity [Mass/ volume] in Serum or PlasmaOrdered By: Padmini Douglas on 03-22-2024 Iron binding capacity [Mass/Vol] 465 ug/dL High 255-450 [facility] Iron saturation [Mass Fracti on] in Serum or PlasmaOrdered By: Padmini Douglas on 03-22-2024 Iron saturation [Mass fraction] 21.5 % 20-50 [facility] Leukocytes [#/volume] correc urvashi for nucleated erythrocytes in Blood by Automated counOrdered By: Padmini Douglas on 03-22-2024 WBC corrected for nucl RBC Auto (Bld) [#/Vol] 13.4 10*3/uL High 3.8-11.6 [facility] Leukocytes [#/volume] in Blo od by Automated countOrdered By: Padmini Douglas on 03-22-2024 WBC (Bld) [#/Vol] 13.4 10*3/uL High 3.8-11.6 [facility] Comment on above: Performed By: #### C MP, CBC, FE and TIBC, TSH3, MANAV #### [address] Lymphocytes [#/volume] in Bl ood by Automated countOrdered By: Padmini Douglas on 03-22-2024 Lymphocytes (Bld) [#/Vol] 2.2 10*3/uL Normal 1.00-4.8 [facility] Comment on above: Performed By: #### C MP, CBC, FE and TIBC, TSH3, MANAV #### [address] Lymphocytes/100 leukocytes i n Blood by Automated countOrdered By: Padmini Douglas on 03-22-2024 Lymphocytes/100 WBC (Bld) 16.3 % Normal . [facility] Comment on above: Performed By: #### C MP, CBC, FE and TIBC, TSH3, MANAV #### [address] MCH [Entitic mass] by Automa urvashi countOrdered By: Padmini Douglas on 03-22-2024 MCH (RBC) [Entitic mass] 29.6 pg Normal 24.7-34.3 [facility] Comment on above: Performed By: #### C MP, CBC, FE and TIBC, TSH3, MANAV #### [address] MCHC Auto (RBC) [Mass/Vol]Or dered By: Padmini Douglas on 03-22-2024 MCHC (RBC) [Mass/Vol] 33.6 g/dL 32.0-35.0 [facility] MCV [Entitic volume] by Auto mated countOrdered By: Padmini Douglas on 03-22-2024 MCV (RBC) [Entitic vol] 88.0 fL Normal 80-100 [facility] Comment on above: Performed By: #### C MP, CBC, FE and TIBC, TSH3, MANAV #### [address] Neutrophils [#/volume] in Bl ood by Automated countOrdered By: Padmini Douglas on 03-22-2024 Neutrophils (Bld) [#/Vol] 10.1 10*3/uL High 1.8-7.7 [facility] Comment on above: Performed By: #### C MP, CBC, FE and TIBC, TSH3, MANAV #### [facility] [address] No Panel InformationOrdered By: Padmini Douglas on 03-22-2024 Estimated GFR (CKD-EPI) > 60.0 mL/Min [facility] Creatinine Clearance (Chem N/A [facility] Nucleated erythrocytes [Pres ence] in Blood by Automated countOrdered By: Padmini Douglas on 03-22-2024 Nucleated RBC Auto Ql (Bld) 0.1 /100{WBC} 0-0.5 [facility] Platelet mean volume [Entiti c volume] in Blood by Automated countOrdered By: Padmini Douglas on 03-22-2024 Platelet mean volume (Bld) [Entitic vol] 9.8 fL Normal 6.3-10.7 [facility] Comment on above: Performed By: #### C MP, CBC, FE and TIBC, TSH3, MANAV #### [facility] [address] [place] [address] Platelets [#/volume] in Bloo d by Automated countOrdered By: Padmini Douglas on 03-22-2024 Platelets (Bld) [#/Vol] 389 10*3/uL Normal 150-450 [facility] Comment on above: Performed By: #### C MP, CBC, FE and TIBC, TSH3, MANAV #### [facility] [address] Potassium [Moles/volume] in Serum or PlasmaOrdered By: Padmini Douglas on 03-22-2024 Potassium [Moles/Vol] 3.9 mmol/L Normal 3.5-5.1 [facility] Comment on above: Performed By: #### C MP, CBC, FE and TIBC, TSH3, MANAV #### [facility] [address] [place] [address] Protein [Mass/volume] in Ser um or PlasmaOrdered By: Padmini Douglas on 03-22-2024 Protein [Mass/Vol] 7.0 g/dL Normal 6.4-8.9 [facility] Comment on above: Performed By: #### C MP, CBC, FE and TIBC, TSH3, MANAV #### [address] Serum globulin measurement b y calculation (mass/volume)Ordered By: Padmini Douglas on 03-22-2024 Globulin (S) [Mass/Vol] 3.0 g/dL Normal [facility] Comment on above: Performed By: #### C MP, CBC, FE and TIBC, TSH3, MANAV #### [address] Serum or plasma albumin/glob ulin mass ratioOrdered By: Padmini Douglas on 03-22-2024 Albumin/Globulin [Mass ratio] 1.3 {ratio} Normal [facility] Comment on above: Performed By: #### C MP, CBC, FE and TIBC, TSH3, MANAV #### [address] Serum or plasma anion gap de terminationOrdered By: Padmini Douglas on 03-22-2024 Anion gap [Moles/Vol] 11.4 mmol/L Normal 6.0-15.0 [facility] Comment on above: Performed By: #### C MP, CBC, FE and TIBC, TSH3, MANAV #### [address] Sodium [Moles/volume] in Ser um or PlasmaOrdered By: Padmini Douglas on 03-22-2024 Sodium [Moles/Vol] 136 mmol/L Normal 136-145 [facility] Comment on above: Performed By: #### C MP, CBC, FE and TIBC, TSH3, MANAV #### [address] Thyrotropin [Units/volume] i n Serum or PlasmaOrdered By: Padmini Douglas on 03-22-2024 TSH Qn 2.76 m[IU]/L Normal 0.45-5.33 [facility] Comment on above: Result Comment: PERF ORMED BY: [place] [address] PATHOLOGIST [employer] KIM RAHMAN M.D. Performed By: #### C MP, CBC, FE and TIBC, TSH3, MANAV #### [address] Transferrin [Mass/volume] in Serum or PlasmaOrdered By: Padmini Douglas on 03-22-2024 Transferrin [Mass/Vol] 332 mg/dL Normal 203-362 [facility] Comment on above: Performed By: #### C MP, CBC, FE and TIBC, TSH3, MANAV #### [address] Urea nitrogen [Mass/volume] in Serum or PlasmaOrdered By: Padmini Douglas on 03-22-2024 Urea nitrogen [Mass/Vol] 9 mg/dL Normal 03-18 [facility] Comment on above: Performed By: #### C MP, CBC, FE and TIBC, TSH3, MANAV #### [address] No Panel Informationon 03-17 Stool Calprotectin 704 ug/g Abnormal 0-120 [facility] Comment on above: Concentration Interp retation Follow-Up< 5 - 50 ug/g Normal None>50 -120 ug/g Borderline Re-evaluate in 4-6 weeks >120 ug/g Abnormal Repeat as clinically indicatedPerformed at: BN - [facility] [address] [id number] Director: Salty Estevez MD, Phone: [phone] Alanine aminotransferase [En zymatic activity/volume] in Serum or PlasmaOrdered By: Padmini Douglas on 06-27-2023 ALT [Catalytic activity/Vol] 7 U/L [facility] Albumin [Mass/volume] in Ser um or Plasma by Bromocresol green (BCG) dye binding methoOrdered By: Padmini Douglas on 06-27-2023 Albumin BCG dye [Mass/Vol] 4.2 g/dL 3.5-5.7 [facility] Alkaline phosphatase [Enzyma tic activity/volume] in Serum or PlasmaOrdered By: Padmini Douglas on 06-27-2023 ALP [Catalytic activity/Vol] 73 U/L 34-104 [facility] Aspartate aminotransferase [ Enzymatic activity/volume] in Serum or PlasmaOrdered By: Padmini Douglas on 06-27-2023 AST [Catalytic activity/Vol] 11 U/L 13-39 [facility] Basophils Auto (Bld) [#/Vol] Ordered By: Padmini Douglas on 06-27-2023 Basophils (Bld) [#/Vol] 0.1 10*3/uL 0.0-0.2 [facility] Basophils/100 WBC Auto (Bld) Ordered By: Pamdini Douglas on 06-27-2023 Basophils/100 WBC (Bld) 0.5 % . [facility] Bilirubin.total [Mass/volume ] in Serum or PlasmaOrdered By: Padmini Douglas on 06-27-2023 Bilirubin [Mass/Vol] 0.3 mg/dL 0.3-1.0 [facility] Calcium [Mass/volume] in Ser um or PlasmaOrdered By: Padmini Douglas on 06-27-2023 Calcium [Mass/Vol] 9.5 mg/dL 8.6-10.3 [facility] Carbon dioxide, total [Moles /volume] in Serum or PlasmaOrdered By: Padmini Douglas on 06-27-2023 CO2 [Moles/Vol] 26.8 mmol/L 21.0-31.0 [facility] Chloride [Moles/volume] in S jourdan or PlasmaOrdered By: Padmini Douglas on 06-27-2023 Chloride [Moles/Vol] 104 mmol/L 98-107 [facility] Creatinine [Mass/volume] in Serum or PlasmaOrdered By: Padmini Douglas on 06-27-2023 Creatinine [Mass/Vol] 0.59 mg/dL 0.60-1.20 [facility] Eosinophils Auto (Bld) [#/Vo l]Ordered By: Padmini Douglas on 06-27-2023 Eosinophils (Bld) [#/Vol] 0.2 10*3/uL 0.0-0.45 [facility] Eosinophils/100 WBC Auto (Bl d)Ordered By: Padmini Douglas on 06-27-2023 Eosinophils/100 WBC (Bld) 1.7 % . [facility] Erythrocyte distribution wid th Auto (RBC) [Ratio]Ordered By: Padmini Douglas on 06-27-2023 Erythrocyte distribution width (RBC) [Ratio] 13.3 % 11.9-15.3 [facility] Ferritin [Mass/volume] in Se rum or PlasmaOrdered By: Padmini Douglas on 06-27-2023 Ferritin [Mass/Vol] 32.7 ng/mL 11.0-306.8 [facility] Globulin Calc (S) [Mass/Vol] Ordered By: Padmini Douglas on 06-27-2023 Globulin (S) [Mass/Vol] 2.9 g/dL [facility] Glucose [Mass/volume] in Ser um or PlasmaOrdered By: Padmini Douglas on 06-27-2023 Glucose [Mass/Vol] 77 mg/dL 70-100 [facility] Comment on above: ADA recommended refe rence rangeRandom Glucose Reference Range is dependent on time and content of last meal. Glucose of more than 200 mg/dL in a nonstressed, ambulatory subject supports the diagnosis of Diabetes Mellitus. Hematocrit Auto (Bld) [Volum e fraction]Ordered By: Padmini Douglas on 06-27-2023 Hematocrit (Bld) [Volume fraction] 42.2 % 34.0-46.4 [facility] Hemoglobin [Mass/volume] in BloodOrdered By: Padmini Douglas on 06-27-2023 Hemoglobin (Bld) [Mass/Vol] 14.3 g/dL 11.8-15.4 [facility] Iron [Mass/volume] in Serum or PlasmaOrdered By: Padmini Douglas on 06-27-2023 Iron [Mass/Vol] 115 ug/dL 50-212 [facility] Iron binding capacity [Mass/ volume] in Serum or PlasmaOrdered By: Padmini Douglas on 06-27-2023 Iron binding capacity [Mass/Vol] 508 ug/dL 255-450 [facility] Iron saturation [Mass Fracti on] in Serum or PlasmaOrdered By: Padmini Douglas on 06-27-2023 Iron saturation [Mass fraction] 22.6 % 20-50 [facility] Leukocytes [#/volume] correc urvashi for nucleated erythrocytes in Blood by Automated counOrdered By: Padmini Douglas on 06-27-2023 WBC corrected for nucl RBC Auto (Bld) [#/Vol] 9.8 10*3/uL 3.8-11.6 [facility] Lymphocytes Auto (Bld) [#/Vo l]Ordered By: Padmini Douglas on 06-27-2023 Lymphocytes (Bld) [#/Vol] 1.9 10*3/uL 1.00-4.8 [facility] Lymphocytes/100 WBC Auto (Bl d)Ordered By: Padmini Douglas on 06-27-2023 Lymphocytes/100 WBC (Bld) 19.2 % . [facility] MCH Auto (RBC) [Entitic mass ]Ordered By: Padmini Douglas on 06-27-2023 MCH (RBC) [Entitic mass] 29.7 pg 24.7-34.3 [facility] MCHC Auto (RBC) [Mass/Vol]Or dered By: Padmini Douglas on 06-27-2023 MCHC (RBC) [Mass/Vol] 33.8 g/dL 32.0-35.0 [facility] MCV Auto (RBC) [Entitic vol] Ordered By: Padmini Douglas on 06-27-2023 MCV (RBC) [Entitic vol] 87.7 fL 80-100 [facility] Monocytes Auto (Bld) [#/Vol] Ordered By: Padmini Douglas on 06-27-2023 Monocytes (Bld) [#/Vol] 0.8 10*3/uL 0.0-0.8 [facility] Monocytes/100 WBC Auto (Bld) Ordered By: Padmini Douglas on 06-27-2023 Monocytes/100 WBC (Bld) 8.5 % . [facility] Neutrophils Auto (Bld) [#/Vo l]Ordered By: Padmini Douglas on 06-27-2023 Neutrophils (Bld) [#/Vol] 6.8 10*3/uL 1.8-7.7 [facility] Neutrophils/100 WBC Auto (Bl d)Ordered By: Padmini Douglas on 06-27-2023 Neutrophils/100 WBC (Bld) 70.1 % . [facility] No Panel InformationOrdered By: Padmini Douglas on 06-27-2023 Estimated GFR (CKD-EPI) > 60.0 mL/Min [facility] Creatinine Clearance (Chem N/A [facility] Nucleated erythrocytes [Pres ence] in Blood by Automated countOrdered By: Padmini Douglas on 06-27-2023 Nucleated RBC Auto Ql (Bld) 0.1 /100{WBC} 0-0.5 [facility] Platelet mean volume Auto (B ld) [Entitic vol]Ordered By: Padmini Douglas on 06-27-2023 Platelet mean volume (Bld) [Entitic vol] 9.4 fL 6.3-10.7 [facility] Platelets Auto (Bld) [#/Vol] Ordered By: Padmini Douglas on 06-27-2023 Platelets (Bld) [#/Vol] 367 10*3/uL 150-450 [facility] Potassium [Moles/volume] in Serum or PlasmaOrdered By: Padmini Douglas on 06-27-2023 Potassium [Moles/Vol] 4.0 mmol/L 3.5-5.1 [facility] Protein [Mass/volume] in Ser um or PlasmaOrdered By: Padmini Douglas on 06-27-2023 Protein [Mass/Vol] 7.1 g/dL 6.4-8.9 [facility] RBC Auto (Bld) [#/Vol]Ordere d By: Padmini Douglas on 06-27-2023 RBC (Bld) [#/Vol] 4.81 10*6/uL 3.60-5.00 [facility] Serum or plasma albumin/glob ulin mass ratioOrdered By: Padmini Douglas on 06-27-2023 Albumin/Globulin [Mass ratio] 1.4 {ratio} [facility] Serum or plasma anion gap de terminationOrdered By: Padmini Douglas on 06-27-2023 Anion gap [Moles/Vol] 13.2 mmol/L 6.0-15.0 [facility] Sodium [Moles/volume] in Ser um or PlasmaOrdered By: Padmini Douglas on 06-27-2023 Sodium [Moles/Vol] 140 mmol/L 136-145 [facility] Transferrin [Mass/volume] in Serum or PlasmaOrdered By: Padmini Douglas on 06-27-2023 Transferrin [Mass/Vol] 363 mg/dL 203-362 [facility] Urea nitrogen [Mass/volume] in Serum or PlasmaOrdered By: Padmini Douglas on 06-27-2023 Urea nitrogen [Mass/Vol] 8 mg/dL 7-25 [facility] WBC Auto (Bld) [#/Vol]Ordere d By: Padmini Douglas on 06-27-2023 WBC (Bld) [#/Vol] 9.8 10*3/uL 3.8-11.6 [facility] Albumin [Mass/volume] in Ser um or PlasmaOrdered By: Padmini Douglas on 09-05-2022 Albumin [Mass/Vol] 3.6 g/dL 3.2-5.5 [facility] Basophils Auto (Bld) [#/Vol] Ordered By: Padmini Douglas on 09-05-2022 Basophils (Bld) [#/Vol] 0.1 10*3/uL 0.0-0.2 [facility] Basophils/100 WBC Auto (Bld) Ordered By: Padmini Douglas on 09-05-2022 Basophils/100 WBC (Bld) 0.6 % . [facility] CT biopsyOrdered By: Padmini dominguez on 09-05-2022 Transferrin [Mass/Vol] 326 mg/dL 180-380 [facility] Creatinine and Glomerular fi ltration rate.predicted panel (S/P/Bld)Ordered By: Padmini Douglas on 09-05-2022 Creatinine [Mass/Vol] 0.60 mg/dL 0.44-1.03 [facility] Eosinophils Auto (Bld) [#/Vo l]Ordered By: Padmini Douglas on 09-05-2022 Eosinophils (Bld) [#/Vol] 0.1 10*3/uL 0.0-0.45 [facility] Eosinophils/100 WBC Auto (Bl d)Ordered By: Padmini Douglas on 01-12-2023 Eosinophils/100 WBC (Bld) 1.2 % . [facility] Erythrocyte distribution wid th Auto (RBC) [Ratio]Ordered By: Padmini Douglas on 09-05-2022 Erythrocyte distribution width (RBC) [Ratio] 13.0 % 11.9-15.3 [facility] Estimated glomerular filtrat ion rate (GFR) non- AmericanOrdered By: Padmini Douglas on 09-05-2022 GFR/1.73 sq M.predicted among non-blacks MDRD (S/P/Bld) [Vol rate/Area] > 60 mL/Min [facility] Ferritin [Mass/volume] in Se rum or PlasmaOrdered By: Padmini Douglas on 09-05-2022 Ferritin [Mass/Vol] 40.2 ng/mL 11-306.8 [facility] Globulin Calc (S) [Mass/Vol] Ordered By: Padmini Douglas on 09-05-2022 Globulin (S) [Mass/Vol] 3.2 g/dL [facility] Hematocrit Auto (Bld) [Volum e fraction]Ordered By: Padmini Douglas on 09-05-2022 Hematocrit (Bld) [Volume fraction] 41.5 % 34.0-46.4 [facility] Hemoglobin [Mass/volume] in BloodOrdered By: Padmini Douglas on 09-05-2022 Hemoglobin (Bld) [Mass/Vol] 13.6 g/dL 11.8-15.4 [facility] Iron [Mass/volume] in Serum or PlasmaOrdered By: Padmini Douglas on 09-05-2022 Iron [Mass/Vol] 119 ug/dL 40-150 [facility] Iron binding capacity [Mass/ volume] in Serum or PlasmaOrdered By: Padmini Douglas on 09-05-2022 Iron binding capacity [Mass/Vol] 456 ug/dL 255-450 [facility] Iron saturation [Mass Fracti on] in Serum or PlasmaOrdered By: Padmini Douglas on 09-05-2022 Iron saturation [Mass fraction] 26.1 % 20-50 [facility] Leukocytes [#/volume] correc urvashi for nucleated erythrocytes in Blood by Automated counOrdered By: Pdamini Douglas on 09-05-2022 WBC corrected for nucl RBC Auto (Bld) [#/Vol] 11.4 10*3/uL 3.8-11.6 [facility] Lymphocytes Auto (Bld) [#/Vo l]Ordered By: Padmini Douglas on 09-05-2022 Lymphocytes (Bld) [#/Vol] 1.9 10*3/uL 1.00-4.8 [facility] Lymphocytes/100 WBC Auto (Bl d)Ordered By: Padmini Douglas on 09-05-2022 Lymphocytes/100 WBC (Bld) 16.9 % . [facility] MCH Auto (RBC) [Entitic mass ]Ordered By: Padmini Douglas on 09-05-2022 MCH (RBC) [Entitic mass] 29.1 pg 24.7-34.3 [facility] MCHC Auto (RBC) [Mass/Vol]Or dered By: Padmini Douglas on 09-05-2022 MCHC (RBC) [Mass/Vol] 32.8 g/dL 32.0-35.0 [facility] MCV Auto (RBC) [Entitic vol] Ordered By: Padmini Douglas on 09-05-2022 MCV (RBC) [Entitic vol] 88.5 fL 80-100 [facility] Monocytes Auto (Bld) [#/Vol] Ordered By: Padmini Douglas on 09-05-2022 Monocytes (Bld) [#/Vol] 0.8 10*3/uL 0.0-0.8 [facility] Monocytes/100 WBC Auto (Bld) Ordered By: Padmini Douglas on 09-05-2022 Monocytes/100 WBC (Bld) 6.8 % . [facility] Neutrophils Auto (Bld) [#/Vo l]Ordered By: Padmini Douglas on 09-05-2022 Neutrophils (Bld) [#/Vol] 8.5 10*3/uL 1.8-7.7 [facility] Neutrophils/100 WBC Auto (Bl d)Ordered By: Padmini Douglas on 09-05-2022 Neutrophils/100 WBC (Bld) 74.5 % . [facility] No Panel InformationOrdered By: Padmini Douglas on 09-05-2022 Estimated GFR () > 60 mL/Min [facility] Comment on above: GFR estimated refere nce range: According to KDOQI guidelines, <60 ml/min/1.73m2 is sufficient to diagnose a patient with chronic kidney disease. Pharmacy Creatinine Clearance (Chem N/A [facility] Nucleated erythrocytes [Pres ence] in Blood by Automated countOrdered By: Padmini Douglas on 09-05-2022 Nucleated RBC Auto Ql (Bld) 0.1 /100{WBC} 0-0.5 [facility] Platelet mean volume Auto (B ld) [Entitic vol]Ordered By: Padmini Douglas on 09-05-2022 Platelet mean volume (Bld) [Entitic vol] 10.0 fL 6.3-10.7 [facility] Platelets Auto (Bld) [#/Vol] Ordered By: Padmini Douglas on 09-05-2022 Platelets (Bld) [#/Vol] 363 10*3/uL 150-450 [facility] Protein [Mass/volume] in Ser um or PlasmaOrdered By: Padmini Douglas on 09-05-2022 Protein [Mass/Vol] 6.8 g/dL 6.1-7.9 [facility] RBC Auto (Bld) [#/Vol]Ordere d By: Padmini Douglas on 09-05-2022 RBC (Bld) [#/Vol] 4.69 10*6/uL 3.60-5.00 [facility] Serum or plasma alanine chinchilla otransferase measurement without P-5'-P (enzymatic activiOrdered By: Padmini Douglas on 09-05-2022 ALT No additional P-5'-P [Catalytic activity/Vol] 12 U/L 10-60 [facility] Serum or plasma albumin/glob ulin mass ratioOrdered By: Padmini Douglas on 09-05-2022 Albumin/Globulin [Mass ratio] 1.1 {ratio} [facility] Serum or plasma alkaline ashley sphatase measurement (enzymatic activity/volume)Ordered By: Padmini Douglas on 09-05-2022 ALP [Catalytic activity/Vol] 74 U/L 32-92 [facility] Serum or plasma anion gap de terminationOrdered By: Padmini Douglas on 09-05-2022 Anion gap [Moles/Vol] 13.7 mmol/L 6.0-15.0 [facility] Serum or plasma aspartate am inotransferase measurement (enzymatic activity/volume)Ordered By: Padmini Douglas on 09-05-2022 AST [Catalytic activity/Vol] 14 U/L 10-42 [facility] Serum or plasma calcium robb urement (mass/volume)Ordered By: Padmini Douglas on 09-05-2022 Calcium [Mass/Vol] 9.2 mg/dL 8.2-10.2 [facility] Serum or plasma chloride alvarado surement (moles/volume)Ordered By: Padmini Douglas on 09-05-2022 Chloride [Moles/Vol] 100 mmol/L 95-114 [facility] Serum or plasma glucose robb urement (mass/volume)Ordered By: Padmini Douglas on 09-05-2022 Glucose [Mass/Vol] 74 mg/dL 70-100 [facility] Comment on above: ADA recommended refe rence rangeRandom Glucose Reference Range is dependent on time and content of last meal. Glucose of more than 200 mg/dL in a nonstressed, ambulatory subject supports the diagnosis of Diabetes Mellitus. Serum or plasma potassium me asurement (moles/volume)Ordered By: Padmini Douglas on 09-05-2022 Potassium [Moles/Vol] 3.9 mmol/L 3.5-5.1 [facility] Serum or plasma sodium measu rement (moles/volume)Ordered By: Padmini Douglas on 09-05-2022 Sodium [Moles/Vol] 133 mmol/L 136-146 [facility] Serum or plasma total biliru bin measurement (mass/volume)Ordered By: Padmini Douglas on 09-05-2022 Bilirubin [Mass/Vol] 0.3 mg/dL 0.3-1.2 [facility] Serum or plasma total carbon dioxide measurement (moles/volume)Ordered By: Padmini Douglas on 09-05-2022 CO2 [Moles/Vol] 23.2 mmol/L 22.0-30.0 [facility] Serum or plasma urea nitroge n measurement (mass/volume)Ordered By: Padmini Douglas on 09-05-2022 Urea nitrogen [Mass/Vol] 8 mg/dL 9-23 [facility] TSH DL <= 0.005 mIU/L QnOrde red By: Padmini Douglas on 09-05-2022 TSH Qn 2.04 m[IU]/L 0.45-5.33 [facility] WBC Auto (Bld) [#/Vol]Ordere d By: Padmini Douglas on 09-05-2022 WBC (Bld) [#/Vol] 11.4 10*3/uL 3.8-11.6 [facility] QUANTIFERON TB GOLD PLUSon 0 01-25-2022 QuantiFERON Criteria Comment Normal [facility] Comment on above: Result Comment: The QuantiFERON-TB Gold Plus result is determined by subtracting the Nil value from either TB antigen (Ag) tube. The mitogen tube serves as a control for the test. Performed By: #### Q NTTB #### [facility] [address] [place] [address] Dr. Gt Rowland QuantiFERON Incubation Incubation performed. Normal [facility] Comment on above: Performed By: #### Q NTTB #### [facility] [address] [place] [address] Dr. Gt Rowland QuantiFERON Mitogen Value >10.00 Normal [facility] Comment on above: Performed By: #### Q NTTB #### [facility] [address] [place] [address] Dr. Gt Rowland QuantiFERON Nil Value 0.00 IU/mL Normal [facility] Comment on above: Performed By: #### Q NTTB #### [facility] [address] [place] [address] Dr. Gt Rowland QuantiFERON TB1 Ag Value 0.02 IU/mL Normal [facility] Comment on above: Performed By: #### Q NTTB #### [facility] [address] [place] [address] Dr. Gt Rowland QuantiFERON TB2 Ag Value 0.01 IU/mL Normal [facility] Comment on above: Performed By: #### Q NTTB #### [facility] [address] [place] [address] Dr. Gt Rowland QuantiFERON-TB Gold Plus Negative Normal Negative [facility] Comment on above: Result Comment: Chem iluminescence immunoassay methodology Performed By: #### Q NTTB #### [facility] [address] [place] [address] Dr. Gt Rowland Vital Signs Date Time Vital Sign Value Performing Clinician Facility 05-16-2025 16:50-0400 Body height 160.02 cm Padmini Douglas DO Work Phone: [facility] 05-16-2025 16:50-0400 Body temperature 98.4 [degF] Padmini Douglas DO Work Phone: [facility] 05-16-2025 16:50-0400 Diastolic blood pressure 76 mm[Hg] Padmini Douglas DO Work Phone: [facility] 05-16-2025 16:50-0400 Heart rate 94 /min Padmini Douglas DO Work Phone: [facility] 05-16-2025 16:50-0400 SaO2% (BldA) [Mass fraction] 98 % Padmini Douglas DO Work Phone: [facility] 05-16-2025 16:50-0400 Systolic blood pressure 122 mm[Hg] Padmini Douglas DO Work Phone: [facility] 02-01-2025 13:51-0400 Body height 160.02 cm Padmini Douglas DO Work Phone: [facility] 02-01-2025 13:51-0400 Body mass index (BMI) [Ratio] 27.4 kg/m2 Padmini Douglas DO Work Phone: [facility] 02-01-2025 13:51-0400 Body weight 70.3 kg Padmini Douglas DO Work Phone: [facility] 02-01-2025 13:51-0400 Diastolic blood pressure 91 mm[Hg] Padmini Douglas DO Work Phone: [facility] 02-01-2025 13:51-0400 Heart rate 99 /min Padmini Douglas DO Work Phone: [facility] 02-01-2025 13:51-0400 Systolic blood pressure 131 mm[Hg] Padmini Douglas DO Work Phone: [facility] 01-12-2025 09:45-0400 Body height 160.02 cm Padmini Douglas DO Work Phone: [facility] 01-12-2025 09:45-0400 Body mass index (BMI) [Ratio] 27.8 kg/m2 Padmini Aracelis DO Work Phone: [facility] 01-12-2025 09:45-0400 Body temperature 98.3 [degF] Padmini Margotjay DO Work Phone: [facility] 01-12-2025 09:45-0400 Body weight 71.21 kg Padmini Aracelis DO Work Phone: [facility] 01-12-2025 09:45-0400 Diastolic blood pressure 76 mm[Hg] Padmini Douglas DO Work Phone: [facility] 01-12-2025 09:45-0400 Heart rate 88 /min Padmini Douglas DO Work Phone: [facility] 01-12-2025 09:45-0400 Respiratory rate 18 /min Padmini Douglas DO Work Phone: [facility] 01-12-2025 09:45-0400 SaO2% (BldA) [Mass fraction] 98 % Padmini Aracelis DO Work Phone: [facility] 01-12-2025 09:45-0400 Systolic blood pressure 110 mm[Hg] Padmini Aracelis DO Work Phone: [facility] 11-25-2024 15:10-0400 Body mass index (BMI) [Ratio] 27.1 kg/m2 Charis Rinkes DO Work Phone: [facility] 11-25-2024 15:10-0400 Body weight 69.4 kg Charis Rinkes DO Work Phone: [facility] 11-25-2024 15:10-0400 Diastolic blood pressure 84 mm[Hg] Charis Rinkes DO Work Phone: [facility] 11-25-2024 15:10-0400 Systolic blood pressure 130 mm[Hg] Charis Love DO Work Phone: [facility] 11-24-2024 09:34-0400 Diastolic blood pressure 70 mm[Hg] Padmini Douglas DO Work Phone: [facility] 11-24-2024 09:34-0400 Heart rate 86 /min Padmini Douglas DO Work Phone: [facility] 11-24-2024 09:34-0400 Respiratory rate 16 /min Padmini Douglas DO Work Phone: [facility] 11-24-2024 09:34-0400 SaO2% (BldA) [Mass fraction] 98 % Padmini Douglas DO Work Phone: [facility] 11-24-2024 09:34-0400 Systolic blood pressure 113 mm[Hg] Padmini Douglas DO Work Phone: [facility] 11-24-2024 07:15-0400 Body height 160.02 cm Padmini Douglas DO Work Phone: [facility] 11-24-2024 07:15-0400 Body weight 63.5 kg Padmini Douglas DO Work Phone: [facility] 10-13-2024 09:45-0500 Body height 160.02 cm [facility] 10-13-2024 09:45-0500 Body mass index (BMI) [Ratio] 27.4 kg/m2 [facility] 10-13-2024 09:45-0500 Body temperature 98.7 [degF] [facility] 10-13-2024 09:45-0500 Body weight 70.3 kg [facility] 10-13-2024 09:45-0500 Diastolic blood pressure 84 mm[Hg] [facility] 10-13-2024 09:45-0500 Heart rate 92 /min [facility] 02-19-2025 09:45-0500 SaO2% (BldA) [Mass fraction] 99 % [facility] 10-13-2024 09:45-0500 Systolic blood pressure 128 mm[Hg] [facility] 08-02-2024 14:00-0500 Body height 160.02 cm [facility] 08-02-2024 14:00-0500 Body mass index (BMI) [Ratio] 27.4 kg/m2 [facility] 08-02-2024 14:00-0500 Body weight 70.3 kg [facility] 06-29-2024 11:26-0500 Diastolic blood pressure 95 mm[Hg] DO Padmini Douglas Work Phone: [facility] 06-29-2024 11:26-0500 Heart rate 94 /min DO Padmini Douglas Work Phone: [facility] 06-29-2024 11:26-0500 Systolic blood pressure 131 mm[Hg] DO Padmini Douglas Work Phone: [facility] 04-23-2024 10:01-0400 Body mass index (BMI) [Ratio] 27.08 kg/m2 Rene Roque MD Work Phone: [facility] 04-23-2024 10:01-0400 Body temperature 96.8 [degF] Rene Roque MD Work Phone: [facility] 04-23-2024 10:01-0400 Body weight 70.44 kg Rene Roque MD Work Phone: [facility] 04-23-2024 10:01-0400 Diastolic blood pressure 87 mm[Hg] Rene Roque MD Work Phone: [facility] 04-23-2024 10:01-0400 Heart rate 96 /min Rene Roque MD Work Phone: [facility] 04-23-2024 10:01-0400 SaO2% (BldA) [Mass fraction] 99 % Rene Roque MD Work Phone: [facility] 04-23-2024 10:01-0400 Systolic blood pressure 132 mm[Hg] Rene Roque MD Work Phone: [facility] 04-22-2024 08:44-0400 Body height 161.29 cm DO Padmini Douglas Work Phone: [facility] 04-22-2024 08:44-0400 Body mass index (BMI) [Ratio] 24.4 kg/m2 DO Padmini Douglas Work Phone: [facility] 04-22-2024 08:44-0400 Body weight 63.5 kg DO Padmini Douglas Work Phone: [facility] 03-31-2024 13:26-0400 Body height 162.56 cm DO Padmini Douglas Work Phone: [facility] 03-31-2024 13:26-0400 Body mass index (BMI) [Ratio] 25.5 kg/m2 DO Padmini Douglas Work Phone: [facility] 03-31-2024 13:26-0400 Body temperature 98.1 [degF] DO Padmini Douglas Work Phone: [facility] 03-31-2024 13:26-0400 Body weight 67.58 kg DO Padmini Douglas Work Phone: [facility] 03-31-2024 13:26-0400 Diastolic blood pressure 84 mm[Hg] DO Padmini Douglas Work Phone: [facility] 03-31-2024 13:26-0400 Heart rate 112 /min DO Padmini Douglas Work Phone: [facility] 03-31-2024 13:26-0400 SaO2% (BldA) [Mass fraction] 98 % DO Padmini Douglas Work Phone: [facility] 03-31-2024 13:26-0400 Systolic blood pressure 128 mm[Hg] DO Padmini Douglas Work Phone: [facility] 03-24-2024 10:53-0400 Diastolic blood pressure 88 mm[Hg] DO Padmini Douglas Work Phone: [facility] 03-24-2024 10:53-0400 Heart rate 81 /min DO Padmini Girvin Work Phone: [facility] 03-24-2024 10:53-0400 Respiratory rate 16 /min DO Padmini Girvin Work Phone: [facility] 03-24-2024 10:53-0400 SaO2% (BldA) [Mass fraction] 99 % DO Padmini Girvin Work Phone: [facility] 03-24-2024 10:53-0400 Systolic blood pressure 133 mm[Hg] DO Padmini Girvin Work Phone: [facility] 03-24-2024 08:22-0400 Body height 160.02 cm DO Padmini Girvin Work Phone: [facility] 03-24-2024 08:22-0400 Body weight 65.77 kg DO Padmini Girjay Work Phone: [facility] 03-04-2024 11:20-0400 Body height 162.56 cm DO Padmini Girvin Work Phone: [facility] 03-04-2024 11:20-0400 Body mass index (BMI) [Ratio] 25.4 kg/m2 DO Padmini Girvin Work Phone: [facility] 03-04-2024 11:20-0400 Body weight 67.13 kg DO Padmini Girjay Work Phone: [facility] 03-04-2024 11:20-0400 Diastolic blood pressure 89 mm[Hg] DO Padmini Girvin Work Phone: [facility] 03-04-2024 11:20-0400 Heart rate 115 /min DO Padmini Girvin Work Phone: [facility] 03-04-2024 11:20-0400 Systolic blood pressure 129 mm[Hg] DO Padmini Girvin Work Phone: [facility] 12-24-2023 10:29-0400 Body height 162.56 cm DO Padmini Douglas Work Phone: [facility] 12-24-2023 10:29-0400 Body mass index (BMI) [Ratio] 25.5 kg/m2 DO Padmini Douglas Work Phone: [facility] 12-24-2023 10:29-0400 Body temperature 98.7 [degF] DO Padmini Douglas Work Phone: [facility] 12-24-2023 10:29-0400 Body weight 67.58 kg DO Padmini Douglas Work Phone: [facility] 12-24-2023 10:29-0400 Diastolic blood pressure 84 mm[Hg] DO Padmini Douglas Work Phone: [facility] 12-24-2023 10:29-0400 Heart rate 94 /min DO Padmini Douglas Work Phone: [facility] 12-24-2023 10:29-0400 SaO2% (BldA) [Mass fraction] 97 % DO Padmini Douglas Work Phone: [facility] 12-24-2023 10:29-0400 Systolic blood pressure 132 mm[Hg] DO Padmini Douglas Work Phone: [facility] 09-22-2023 17:20-0500 Body height 162.56 cm Padmini Douglas Other [employer] Other 09-22-2023 17:20-0500 Body mass index (BMI) [Ratio] 26.43 kg/m2 Padmini Douglas Other [employer] Other 09-22-2023 17:20-0500 Body temperature 98.7 [degF] Padmini Aracelis Other [employer] Other 09-22-2023 17:20-0500 Body weight 69.85 kg Padmini Douglas Other [employer] Other 09-22-2023 17:20-0500 Diastolic blood pressure 82 mm[Hg] Padmini Douglas Other [employer] Other 09-22-2023 17:20-0500 Respiratory rate 16 /min Padmini Douglas Other [employer] Other 09-22-2023 17:20-0500 SaO2% (BldA) [Mass fraction] 98 % Padmini Douglas Other [employer] Other 09-22-2023 17:20-0500 Systolic blood pressure 118 mm[Hg] Padmini Douglas Other [employer] Other 06-30-2023 17:20-0500 Body height 162.56 cm Padmini Douglas Other [employer] Other 06-30-2023 17:20-0500 Body mass index (BMI) [Ratio] 25.74 kg/m2 Padmini Douglas Other [employer] Other 06-30-2023 17:20-0500 Body temperature 98.2 [degF] Padmini Douglas Other [employer] Other 06-30-2023 17:20-0500 Body weight 68.04 kg Padmini Douglas Other [employer] Other 06-30-2023 17:20-0500 Diastolic blood pressure 84 mm[Hg] Padmini Douglas Other [employer] Other 06-30-2023 17:20-0500 Respiratory rate 16 /min Padmini Douglas Other [employer] Other 06-30-2023 17:20-0500 SaO2% (BldA) [Mass fraction] 97 % Padmini Douglas Other [employer] Other 06-30-2023 17:20-0500 Systolic blood pressure 124 mm[Hg] Padmini Douglas Other [employer] Other 03-17-2023 17:20-0400 Body height 162.56 cm Padmini Douglas Other [employer] Other 03-17-2023 17:20-0400 Body mass index (BMI) [Ratio] 25.23 kg/m2 Padmini Douglas Other [employer] Other 03-17-2023 17:20-0400 Body temperature 98.8 [degF] Padmini Douglas Other [employer] Other 03-17-2023 17:20-0400 Body weight 66.68 kg Padmini Margotjay Other [employer] Other 03-17-2023 17:20-0400 Diastolic blood pressure 86 mm[Hg] Padmini Douglas Other [employer] Other 03-17-2023 17:20-0400 Respiratory rate 16 /min Padmini Douglas Other [employer] Other 03-17-2023 17:20-0400 SaO2% (BldA) [Mass fraction] 97 % Padmini Douglas Other [employer] Other 03-17-2023 17:20-0400 Systolic blood pressure 138 mm[Hg] Padmini Douglas Other [employer] Other 10-22-2022 15:30-0500 Body height 162.56 cm Imad Asaad Other [employer] Other 10-22-2022 15:30-0500 Body mass index (BMI) [Ratio] 24.89 kg/m2 Imad Asaad Other [employer] Other 10-22-2022 15:30-0500 Body weight 65.77 kg Imad Asaad Other [employer] Other 10-22-2022 15:30-0500 Diastolic blood pressure 88 mm[Hg] Imad Asaad Other [employer] Other 10-22-2022 15:30-0500 Respiratory rate 16 /min Imad Asaad Other [employer] Other 10-22-2022 15:30-0500 Systolic blood pressure 130 mm[Hg] Imad Asaad Other [employer] Other 09-09-2022 18:00-0500 Body height 162.56 cm Padmini Douglas Other [employer] Other 09-09-2022 18:00-0500 Body mass index (BMI) [Ratio] 24.89 kg/m2 Padmini Douglas Other [employer] Other 09-09-2022 18:00-0500 Body temperature 97 [degF] Padmini Douglas Other [employer] Other 09-09-2022 18:00-0500 Body weight 65.77 kg Padmini Douglas Other [employer] Other 09-09-2022 18:00-0500 Diastolic blood pressure 82 mm[Hg] Padmini Douglas Other [employer] Other 09-09-2022 18:00-0500 Respiratory rate 16 /min Padmini Douglas Other [employer] Other 09-09-2022 18:00-0500 SaO2% (BldA) [Mass fraction] 98 % Padmini Douglas Other [employer] Other 09-09-2022 18:00-0500 Systolic blood pressure 124 mm[Hg] Padmini Douglas Other [employer] Other 06-12-2022 10:10-0400 Body height 162.56 cm Padmini Douglas Other [employer] Other 06-12-2022 10:10-0400 Body mass index (BMI) [Ratio] 24.03 kg/m2 Padmini Douglas Other [employer] Other 06-12-2022 10:10-0400 Body temperature 97.3 [degF] Padmini Douglas Other [employer] Other 06-12-2022 10:10-0400 Body weight 63.5 kg Padmini Douglas Other [employer] Other 06-12-2022 10:10-0400 Diastolic blood pressure 80 mm[Hg] Padmini Douglas Other [employer] Other 06-12-2022 10:10-0400 Respiratory rate 16 /min Padmini Douglas Other [employer] Other 06-12-2022 10:10-0400 SaO2% (BldA) [Mass fraction] 98 % Padmini Douglas Other [employer] Other 06-12-2022 10:10-0400 Systolic blood pressure 122 mm[Hg] Padmini Douglas Other [employer] Other 10-29-2021 18:00-0500 Body height 162.56 cm Padmini Douglas Other [employer] Other 10-29-2021 18:00-0500 Body mass index (BMI) [Ratio] 23.26 kg/m2 Padmini Douglas Other [employer] Other 10-29-2021 18:00-0500 Body temperature 97.6 [degF] Padmini Douglas Other [employer] Other 10-29-2021 18:00-0500 Body weight 61.46 kg Padmini Douglas Other [employer] Other 10-29-2021 18:00-0500 Diastolic blood pressure 68 mm[Hg] Padmini Douglas Other [employer] Other 10-29-2021 18:00-0500 Respiratory rate 18 /min Padmini Margotjay Other [employer] Other 10-29-2021 18:00-0500 SaO2% (BldA) [Mass fraction] 98 % Padmini Douglas Other [employer] Other 10-29-2021 18:00-0500 Systolic blood pressure 122 mm[Hg] Padmini Douglas Other [employer] Other 06-20-2021 14:15-0400 Body height 162.56 cm Padmini Portillo Other [employer] Other 06-20-2021 14:15-0400 Body mass index (BMI) [Ratio] 22.66 kg/m2 Padmini Portillo Other [employer] Other 06-20-2021 14:15-0400 Body weight 59.88 kg Padmini Portillo Other [facility] [employer] Other Encounters Encounter Date Encounter Type Care Provider Facility Start: 05-16-2025 End: 05-16-2025 ambulatory Padmini Douglas DO Work Phone: [facility] Work Phone: Start: 05-16-2025 End: 05-16-2025 Patient encounter procedure Padmini La Frostjay DO -[facility] Work Phone: Start: 05-11-2025 End: 05-11-2025 Telephone encounter [facility] Start: 02-01-2025 End: 02-01-2025 ambulatory Padmini Douglas DO Work Phone: [facility] Work Phone: Start: 02-01-2025 End: 02-01-2025 Patient encounter procedure Padmini Douglas DO Work Phone: [facility] Work Phone: Start: 01-12-2025 End: 01-12-2025 Patient encounter procedure Padmini Douglas DO Work Phone: [facility] Work Phone: Start: 11-25-2024 End: 11-25-2024 Patient encounter status Charis Love DO Work Phone: [facility] Start: 11-25-2024 End: 11-25-2024 Periodic preventive med est patient 18-39 yrs Charis Love DO Work Phone: [facility] Comment on above: Encounter for gyneco logical examination without abnormal finding; Screening for malignant neoplasm of cervix; Encounter for surveillance of contraceptive pills Start: 11-25-2024 End: 11-25-2024 ambulatory CHARIS E RINKES Not Available Start: 11-25-2024 End: 11-25-2024 Bamboo flowsheet Hcaris E Rinkes DO Work Phone: [facility] Start: 11-25-2024 End: 11-25-2024 Bamboo flowsheet Charis E Rinkes DO Work Phone: [facility] Start: 11-24-2024 Non-patient / Non-visit Padmini Douglas DO Work Phone[facility] Work Phone: Start: 11-24-2024 End: 11-24-2024 Admission to same day surgery center Padmini Douglas DO Work Phone: [facility] Work Phone: Start: 11-24-2024 End: 11-24-2024 ambulatory Padmini Douglas DO Work Phone: [facility] Work Phone: Start: 11-17-2024 Non-patient / Non-visit Padmini Douglas DO Work Phone: [facility] Work Phone: Start: 11-17-2024 End: 11-17-2024 Patient encounter procedure Padmini Douglas DO Work Phone: [facility] [place] Work Phone: Start: 11-17-2024 End: 11-17-2024 ambulatory Padmini Douglas DO Work Phone: [facility] Work Phone: Start: 10-13-2024 End: 10-13-2024 ambulatory [facility] Work Phone: Start: 10-13-2024 End: 10-13-2024 Patient encounter procedure [facility] [place] Work Phone: Start: 08-02-2024 End: 08-02-2024 Patient encounter procedure [facility] Work Phone: Start: 07-21-2024 Non-patient / Non-visit [facility] Work Phone: Start: 06-29-2024 End: 06-29-2024 ambulatory DO Padmini Douglas Work Phone: [facility] Work Phone: Start: 06-29-2024 End: 06-29-2024 Discharged Recurring DO Padmini Douglas Work Phone: [facility] Work Phone: Start: 04-23-2024 End: 04-23-2024 Office outpatient visit 25 minutes Rene Roque MD Work Phone: [facility] Comment on above: Crohn's disease of s mall intestine with intestinal obstruction (HCC) (Primary Dx) Crohn's disease of s mall intestine with intestinal obstruction (HCC) (Primary Dx); Body mass index (BMI) 27.0-27.9, adult Start: 04-22-2024 End: 04-22-2024 Patient encounter procedure DO Padmini Douglas Work Phone: [facility] Work Phone: Start: 03-31-2024 End: 03-31-2024 Patient encounter procedure DO Padmini Douglas Work Phone: [facility] [place] Work Phone: Start: 03-28-2024 Evaluation and management of inpatient GABRIEL TA Facility:[facility] Start: 03-26-2024 End: 03-29-2024 Evaluation and management of inpatient GABRIEL ROBLESY Facility:[facility] Start: 03-26-2024 Emergency department patient visit UNKNOWN PROVIDER Facility:[facility] Start: 03-26-2024 Evaluation and management of inpatient UNKNOWN PROVIDER Facility:[facility] Start: 03-25-2024 End: 03-26-2024 Emergency department patient visit UNKNOWN PROVIDER Facility:[facility] Start: 03-24-2024 Non-patient / Non-visit DO Roberto Carlos id Girjay Work Phone: [facility] Work Phone: Start: 03-24-2024 End: 03-24-2024 Admission to same day surgery center DO Padmini Douglas Work Phone: [facility] Work Phone: Start: 03-24-2024 End: 03-24-2024 ambulatory DO Padmini Douglas Work Phone: [facility] Work Phone: Start: 03-22-2024 End: 03-22-2024 Patient encounter procedure DO Padmini Douglas Work Phone: [facility] [place] Work Phone: Start: 03-22-2024 End: 03-22-2024 ambulatory DO Padmini Douglas Work Phone: [facility] Work Phone: Start: 03-17-2024 Non-patient / Non-visit DO Roberto Carlos Douglas Work Phone: [facility] Work Phone: Start: 03-04-2024 End: 03-04-2024 Patient encounter procedure DO Padmini Douglas Work Phone: [facility] Work Phone: Start: 12-24-2023 End: 12-24-2023 Patient encounter procedure DO Padmini Douglas Work Phone: [facility] [place] Work Phone: Start: 10-06-2023 End: 10-06-2023 ambulatory Padmini Douglas Other [facility] [employer] Other Start: 10-06-2023 Telephone encounter Padmini Douglas [facility] [place] Start: 09-22-2023 End: 09-22-2023 ambulatory Padmini Douglas Other [employer] Other Start: 09-22-2023 Office outpatient vi sit 15 minutes Padmini Douglas [facility] [place] Start: 08-22-2023 End: 08-22-2023 ambulatory Padmini Douglas Other [employer] Other Start: 08-22-2023 Telephone encounter Padmini Douglas [facility] [place] Start: 06-30-2023 End: 06-30-2023 ambulatory Padmini Douglas Other [employer] Other Start: 06-30-2023 Office outpatient vi sit 15 minutes Padmini Douglas [facility] [place] Start: 06-27-2023 End: 06-27-2023 ambulatory DO Padmini Douglas Work Phone: [facility] Work Phone: Start: 06-27-2023 End: 06-27-2023 Patient encounter procedure DO Padmini Douglas Work Phone: [facility] [place] Work Phone: Start: 05-23-2023 End: 05-23-2023 ambulatory Padmini Douglas Other [employer] Other Start: 05-23-2023 Telephone encounter Padmini Douglas [facility] [place] Start: 04-21-2023 End: 04-21-2023 ambulatory Padmini Douglas Other [employer] Other Start: 04-21-2023 Telephone encounter Padmini Douglas [facility] [place] Start: 03-17-2023 End: 03-17-2023 ambulatory Padmini Douglas Other [employer] Other Start: 03-17-2023 Office outpatient vi sit 15 minutes Padmini Douglas [facility] [place] Start: 03-03-2023 End: 03-03-2023 ambulatory Padmini Douglas Other [employer] Other Start: 03-03-2023 Telephone encounter Padmini Douglas [facility] [place] Start: 01-21-2023 End: 01-21-2023 ambulatory Padmini Douglas Other [employer] Other Start: 01-21-2023 Telephone encounter Padmini Douglas [facility] [place] Start: 12-05-2022 End: 12-05-2022 ambulatory Imad Asaad Other [employer] Other Start: 12-05-2022 Telephone encounter Imad Asaad [facility] Start: 11-11-2022 End: 11-11-2022 ambulatory Padmini Douglas Other [employer] Other Start: 11-11-2022 Telephone encounter Padmini Douglas [facility] [place] Start: 11-07-2022 End: 11-07-2022 ambulatory Imad Asaad Other [employer] Other Start: 11-07-2022 Telephone encounter Imad Asaad [facility] Start: 10-22-2022 End: 10-22-2022 ambulatory Imad Asaad Other [employer] Other Start: 10-22-2022 Patient encounter procedure Imad Asaad [facility] Start: 10-22-2022 Telephone encounter Imad Asaad [facility] Start: 09-12-2022 End: 09-12-2022 ambulatory Padmini Douglas Other [employer] Other Start: 09-12-2022 Telephone encounter Padmini Douglas [facility] [place] Start: 09-09-2022 End: 09-09-2022 ambulatory Padmini Douglas Other [employer] Other Start: 09-09-2022 Office outpatient vi sit 15 minutes Padmini Douglas [facility] [place] Start: 09-05-2022 End: 09-05-2022 ambulatory DO Padmini Douglas Work Phone: [facility] Work Phone: Start: 09-05-2022 End: 09-05-2022 Patient encounter procedure DO Padmini Douglas Work Phone: [facility] [place] Work Phone: Start: 07-16-2022 End: 07-16-2022 ambulatory Padmini Douglas Other [employer] Other Start: 07-16-2022 Telephone encounter Padmini Douglas [facility] [place] Start: 06-12-2022 End: 06-12-2022 ambulatory Padmini Douglas Other [employer] Other Start: 06-12-2022 Office outpatient vi sit 15 minutes Padmini Douglas [facility] Start: 06-12-2022 Telephone encounter Padmini Douglas [facility] Start: 05-02-2022 End: 05-02-2022 ambulatory Mario Kenny Other [employer] Other Start: 05-02-2022 Telephone encounter Mario Kenny [facility] Start: 04-15-2022 End: 04-15-2022 ambulatory Padmini Douglas Other [employer] Other Start: 04-15-2022 Telephone encounter Padmini Douglas [facility] Start: 03-04-2022 End: 03-04-2022 ambulatory Padmini Douglas Other [employer] Other Start: 03-04-2022 Telephone encounter Padmini Douglas [facility] Start: 02-11-2022 End: 02-11-2022 ambulatory Padmini Douglas Other [employer] Other Start: 02-11-2022 Telephone encounter Padmini Douglas [facility] [place] Start: 01-23-2022 End: 01-24-[address] PADMINI DOUGLAS Facility: Start: 01-09-2022 End: 01-09-2022 ambulatory Padmini Douglas Other [employer] Other Start: 01-09-2022 Telephone encounter Padmini Douglas [facility] [place] Start: 12-12-2021 End: 12-12-2021 ambulatory Padmini Douglas Other [employer] Other Start: 12-12-2021 Telephone encounter Padmini Douglas [facility] [place] Start: 10-29-2021 End: 10-29-2021 ambulatory Padmini Douglas Other [employer] Other Start: 10-29-2021 Office outpatient vi sit 15 minutes Padmini Douglas [facility] [place] Start: 10-10-2021 End: 10-10-2021 ambulatory Padmini Douglas Other [employer] Other Start: 10-10-2021 Telephone encounter Padmini Douglas [facility] [place] Start: 08-07-2021 End: 08-07-2021 ambulatory Padmini Douglas Other [employer] Other Start: 08-07-2021 Telephone encounter Padmini Douglas [facility] [place] Start: 07-09-2021 End: 07-09-2021 ambulatory Padmini Douglas Other [employer] Other Start: 07-09-2021 Telephone encounter Padmini Douglas [facility] [place] Start: 06-20-2021 Office outpatient vi sit 25 minutes Padmini Portillo [facility] Gastroenterology Procedures Date Procedure Procedure Detail Performing Clinician Start: 11-24-2024 Colonoscopy Padmini Drew in DO Work Phone: Start: 03-24-2024 Colonoscopy DO Padmini dominguez Work Phone: Plan of Treatment Date Care Activity Detail Author Start: 2048 Shingles (RZV) Vacci ne (1 of 2) Shingles (RZV) [facility] Start: 12-01-2025 End: 12-01-2025 Patient encounter procedure [facility] Start: 04-25-2025 Influenza vaccination [facility] Start: 11-25-2024 End: 11-25-2024 Patient encounter procedure 11/25/2024 3:00 PM EDT [facility] [address] [place] [address] Charis Love, [address] [place] [address] Encounter for gynecological examination without abnormal finding; Screening for malignant neoplasm of cervix [facility] Comment on above: Encounter for gyneco logical examination without abnormal finding; Screening for malignant neoplasm of cervix Start: 11-24-2024 [facility] Start: 05-25-2024 Influenza vaccination Influenza Vacc ine (#1) [facility] Start: 03-24-2024 [facility] Start: 04-25-2023 COVID-19 Vaccine ( season) COVID-19 Vaccine ( season) [facility] Start: 2019 Screening for malign ant neoplasm of cervix Pap Smear [facility] Start: 2017 Hepatitis A (HAV) Vaccine (optional start 19+ years) Hepatitis A (HAV) Vaccine (optional start 19+ years) [facility] Start: 2017 Hepatitis B vaccination Hepati tis B (HBV) Vaccine (1 of 3 - 19+ 3-dose series) [facility] Start: 2016 Hepatitis C screening Hepatitis C An tibody [facility] Start: 2016 Tdap Booster [facility]dap Booster [facility] Start: 2013 Vaccination for yoav n papillomavirus HPV Vaccine (1 - 3-dose series) [facility] Comprehensive metabo lic 2000 panel - Serum or Plasma [facility] Glucose measurement estimated from glycated hemoglobin [facility] Hemoglobin A1c/Hemoglobin.total in Blood [facility] IGP, RFX APTIMA HPV ASCU IGP, RF X APTIMA HPV ASCU Lab Routine Screening for malignant neoplasm of cervix Ordered: 11/25/2024 [facility] Work Phone: Comment on above: Ordered: 11/25/2024 Patient Education [facility] Work Phone: [facility] Immunizations Immunization Date Immunization Notes Care Provider Fa cility 03-04-2022 tetanus toxoid, reduced diphtheria toxoid, and acellular pertussis vaccine, adsorbed Padmini Douglas Other [facility] 12-16-2020 COVID-19 Vaccine Pfizer - Documentation Purposes Only Padmini Portillo Other [facility] 11-25-2020 COVID-19 Vaccine Pfizer - Documentation Purposes Only Padmini Portillo Other [facility] NEGATED: Highlighted row has not occurred!07-30-2021 influenza, seasonal, injectable Patient Objection Padmini Douglas Other [facility] Payers Date Payer Category Payer Self-pay [id number] 2022 Private Health Insurance [employer] [id number] 2022 Unknown [employer] - HMO/PPO/POS SUPERMED PPO/CLASSIC/PLUS [id number] 2022-Present [address] [place] [address] PPO [id number] 2022 Unknown [id number] [id number] 1998 Unknown [id number] 2.16.840.1.411746.3.579.2. 593 1998 Unknown [id number] 2.16.840.1.407485.3.579.2. 732 1998 Unknown [id number] 2.16.840.1.846664.3.579.2. 732 1998 Unknown [id number] 2.16.840.1.796629.3.579.2. 73 1998 Unknown [id number] 2.16.840.1.127228.3.579.2. 73 1998 Unknown [id number] 2.16.840.1.209478.3.579.2. 73 1998 Unknown [id number] 2.16.840.1.854737.3.579.2. 732 1998 Unknown [id number] 2.16.840.1.781066.3.579.2. 732 1998 Unknown [id number] 2.16.840.1.419429.3.579.2. 732 1998 Unknown [id number] 2.16.840.1.878584.3.579.2. 732 1998 Unknown [id number] 2.16.840.1.589413.3.579.2. 1259 1959 Unknown [id number] Unknown [id number] 2.16.840.1.388192.3.579.2. 531 Unknown [id number] 2.16.840.1.903408.3.579.2. 531 Unknown [id number] 2.16.840.1.112913.3.579.2. 531 Unknown [id number] 2.16.840.1.769383.3.579.2. 531 Unknown [id number] 2.16.840.1.751487.3.579.2. 531 Unknown [id number] 2.16.840.1.044696.3.579.2. 531 Unknown Stephy BC/BS [id number] Social History Date Type Detail Facility Unknown if ever smoked [facility] [employer] Other Sex Assigned At [facility] [employer] Other Start: 12-07-2021 End: 05-16-2025 Tobacco smoking status NVIS Never smoked tobacco (finding) [facility] Start: 2000 Sex Assigned At Female F [facility] Start: 03-15-2024 End: 03-24-2024 Tobacco smoking status NVIS Ex-smoker (finding) [facility] Tobacco smoking status [facility] Tobacco smoking consumption unknown [facility] Start: 2000 [facility] Start: 10-13-2024 End: 02-01-2025 Sex Female (finding) [facility] Goals Date Patient Goal Desired Activity /State Clinical Notes 11-23-2016 to 05-11-2025 Telephone Encounter - [place] Ligia - 05/11/2025 1:26 PM EDTTelephone Encounter - Lito Ligia - 05/11/2025 1:26 PM EDT Note Date & Type Note Facility 05-11-2025 Telephone encounter Note Form atting of this note might be different from the original. Letter sent 05/11/25 that DUTCH will be out of the office 12/01/25 and to call to reschedule appt. [facility] 05-11-2025 Miscellaneous Notes Formattin g of this note might be different from the original. Letter sent 05/11/25 that D[facility] will be out of the office 12/01/25 and to call to reschedule appt. documented in this encounter [facility] 01-12-2025 Evaluation note Authored January 12, 2025 10:18 am The above note written by __ _Victoriano Vega____ acting as human recorder, note dictated by Dr. Burnett .I performed the above HPI, ROS, and Examination. I formulated and dictated the treatment plan and was present for entire encounter. Padmini Douglas D.O. Author [facility] Authored February 01, 2025 2:21 pm 24-year-old female with hist ory of Crohn's disease involving the terminal ileum came today for follow-up. Patient was diagnosed with Crohn's disease at the age of 16. She was on Stelara. However she was having intermittent hematochezia and watery bowel movement and colonoscopy on 03/24/2024 showed active Crohn's in the terminal ileum/erythematous mucosa with multiple ulcers noted in the terminal ileum up to 20 cm from the IC valve. CRP and fecal calprotectin were elevated. So patient was started on Skyrizi in 05/2024 Patient currently reports significant symptomatic improvement. Colonoscopy on showed short fibrotic ileal stricture which was passed using peds colonoscope, no ulceration or erythema noted, dilation was performed using 18 mm CRE balloon, a colonic polyp, Otherwise colon appeared normal. Fecal calprotectin is 55 - Continue Skyrizi -Will monitor CRP and fecal calprotectin [facility] Work Phone: 1(528) 271-642704-03-2025 History of Present illness Narrative* Charis Love, - 11/25/2024 3:00 PM EDT Images from the original note were not included. Charis Love D.O. Obstetrics and Gynecology Patient: Aparna Arteaga : 2000 (24 y.o.) Yearly Wellness Exam Date: 11/25/2024 Reason for Visit - Chief Complaint Patient presents with Gynecologic Exam Pt states been on OCP for 10 years. Pt would like to discuss and make sure safe stay on for longer term. Pt unsure yet if she wants to try for yet. Denies bowel/bladder/breast concerns. LMP11/16/24. Menses regular with OCP Visit Vitals BP 130/84 Wt 153 lb LMP 11/16/2024 BMI 27.10 kg/m BSA 1.76 m Allergies Allergen Reactions Wellbutrin [Bupropion] Anxiety History of Present Illness, Associated Treatments and Results - OB History Para Term AB Living 0 0 0 0 0 0 SAB IAB Ectopic Multiple Live Births 0 0 0 0 0 Obstetric Comments Pap smear 10/03/22 ASCUS Negative HPV Review of Systems - General: Chills denies. Allergy/Immunology: Rash Denies. ENT: Denies Difficulty swallowing. Endocrine: Denies Cold intolerance denies. Heat intolerance denied. Respiratory: Denies Chest pain denies. Shortness of breath denies. Breast: Denies Bloody nipple discharge denies. Breast lump denies. Cardiovascular: Denies Chest pain. Gastrointestinal: Abdominal pain denies. Blood in stool denies. Hematology: Easy bruising denies. Prolonged bleeding denies. Women Only: Breast lump denies. Vaginal bleeding between periods is denied. Vaginal discharge/itching denied. Genitourinary: Blood in urine denies. Painful urination denies. Incontinence denies. Skin: Hair changes. Neurologic: Seizures denied. Stroke denies. Psychiatric: Anxiety denies. Depressed mood denies. Medication Documentation Review Audit Reviewed by Gem Chavez MA (Fruit [employer]) on 11/25/24 at 1508 Medication Order Taking? Sig Documenting Provider Last Dose Status amphetamine-dextroamphetamine (Adderall) 10 MG tablet [id number] Yes TAKE 1 TABLET BY MOUTH THREE TIMES DAILY (7am,noon,4pm) Charis Love, DO Active norgestimate-ethinyl estradiol (Ortho-Cyclen) 0.25-35 MG-MCG tablet [id number] Take 1 tablet by mouthDaily Charis Love DO Active Skyrizi 360 MG/2.4ML solution cartridge [id number] Yes Charis Love DO Active venlafaxine XR (Effexor XR) 75 MG 24 hr capsule [id number] Take 75 mg by mouth Daily Do not crush or chew. Charis Love DO Active Past Medical History: Diagnosis Date ADHD (attention deficit hyperactivity disorder) ([facility]) Crohn's disease ([facility]) Past Surgical History: Procedure Laterality Date COLONOSCOPY 11/24/2024 WISDOM TOOTH EXTRACTION Family History Problem Relation Name Age of Onset Breast cancer Mother's Sister Breast cancer Father's Sister Colon cancer Father's Sister Lung cancer Paternal Grandfather Heart disease Paternal Grandfather Physical Exam - General appearance, mentation, extraocular movements, facial strength and movement, hearing, upper and lower extremity strength and tone, sensation to gross testing, coordination, and gait are normalor at baseline unless noted below. General Examination: GENERAL APPEARANCE: alert oriented well developed, well nourished. HEAD: normocephalic atraumatic. EYES: sclera anicteric. EARS: no obvious hearing deficit. SKIN: warm and dry. HEART: regular rate and rhythm. LUNGS: clear to auscultation bilaterally. CHEST: axillary nodes grossly normal. BREASTS: no masses palpable bilaterally, normal nipples bilaterally. ABDOMEN: soft, nontender, nondistended, no masses palpable. BACK: no costovertebral angle tenderness, no obvious scoliosis/kyphosis. FEMALE GENITOURINARY: normal vaginal mucosa, cervix absent of lesions, nontender, uterus AV, mobile, ovaries nonpalpable and nontender. EXTREMITIES: no edema. NEUROLOGIC: alert and oriented. PSYCH: cooperative with exam. Diagnoses and all orders for this visit: Encounter for gynecological examination without abnormal finding Screening for malignant neoplasm of cervix - IGP, RFX APTIMA HPV ASCU Encounter for surveillance of contraceptive pills - norgestimate-ethinyl estradiol (Ortho-Cyclen) 0.25-35 MG-MCG tablet; Take 1 tablet by mouth Daily Pap, pelvic and breast exam completed. Findings of today's exam discussed with the patient. Continue MSBE. Ca/Vit D recommendations reviewed with the patient. The patient is to contact the office with any changes to her gynecological condition. The patient is to return in 1 year or as needed ICD-10-CM 1. Encounter for gynecological examination without abnormal finding Z01.419 2. Screening for malignant neoplasm of cervix Z12.4 IGP, RFX APTIMA HPV ASCU 3. Encounter for surveillance of contraceptive pills Z30.41 norgestimate-ethinyl estradiol (Ortho-Cyclen) 0.25-35 MG-MCG tablet documented in [facility] [id number] [address] Colonoscopy Procedure Report Signed Patient: Aparna Arteaga MR#: [id number] : 2000 Acct:[id number] Age/Sex: 24 / F Adm Date: 5 Loc: Room: Type: [facility] Attending Dr: Rip Subramanian MD Copies to: Padmini Douglas,DO Rip Subramanian MD~ Colonoscopy Date/Provider 11/24/2024 Rip Subramanian MD Colonoscopy Findings: Procedure: Colonoscopy with dilation with polypectomy with biopsy Indication: 24-year-old female with Crohn's disease here for colonoscopy to evaluate disease activity Pre-operative diagnosis: Crohn's disease Post-operative diagnosis: A short fibrotic ileal stricture s/p balloon dilation otherwise ileal mucosa appeared normal, a colonic polyp. Sedation: propofol per anesthesia dept O2 oximetry, hemodynamic monitoring was performed pre, during, and post procedure. Patient was identified, H&P completed, patient was given full explanation of the procedure as well as associatedrisks and written consent wasobtained prior to procedure. [...] orifice and cecal floor. Colonoscope was slowly withdrawnwith the findings as below. [place] bowel prep score was good. Findings: Biopsies were done from the ileal stricture, right colon, transverse colon, left colon using biopsy forceps Terminal ileum: A short fibrotic ileal stricture which was passed using peds colonoscope, no ulceration or erythema noted, dilation was performed using 18 mmCRE balloon. Stricture was biopsied using jumbo biopsy. Cecum: An 8 mm polyp removed using hot snare Ascending colon: Normal. Hepatic flexure: Normal. Transverse colon: Normal. Splenic flexure: Normal. Descending colon: Normal. Sigmoid colon: Normal. Rectum: Normal. Retroflexed views: Rectum did show internal hemorrhoids. Biopsy taken: Yes Complications: None EBL: Minimal Recommendations: -Continue Skyrizi -Follow up pathology Following a period of recovery, patient was seen and given full explanation of the procedure. Patient tolerated the procedure well and will be discharged in satisfactory, stable condition. Rip Subramanian M.D. Documented By: Rip Subramanian MD 11/24/24 0833 Signed By: 11/24/24 0905 [facility]04-02-2025 [place] [address] Gastroenterology H&P Signed Patient: Aparna Arteaga MR#: [id number] : 2000 Acct:[id number] Age/Sex: 24 / F Adm Date: 5 Loc: Room: Type: [facility] Attending Dr: Rip Subramanian MD Copies to: Padmini Douglas,DO Rip Subramanian MD~ Date of Service: 11/24/2024 HISTORY & PHYSICAL: Patient's history with special attention to the cardiovascular, pulmonary systems and the current problem was reviewed with the patient immediately prior to the procedure. Present medications and doses reviewed in the EMR. Allergies and pertinent laboratory tests were also re viewedat this time in the EMR. The physical examination, as below, was then performed. Indication, assessment and HPI: 24-year-old female with history of Crohn's disease here for colonoscopy to evaluate disease activity Family history of GI malignancy? No PHYSICAL EXAMINATION General appearance: NAD Skin: No jaundice Head: NC/AT Eyes: Anicteric Neck: Supple Lungs: Normal respiratory effort, no use of accessory muscles Abdomen: nondistended Neuro: Ox3. REVIEW OF SYSTEMS Constitutional: Denies malaise, fevers Cardiovascular: Denies chest pain, palpitations Respiratory: Denies shortness of breath, wheezing Gastrointestinal: As per HPI Genitourinary: Denies dysuria, polyuria Musculoskeletal: Denies joint swelling, joint stiffness Neurological: Denies confusion, numbness, tingling Endocrine: Denies fatigue Written informed consent obtained from the patient. Risks (including but not limited to perforation, infection, bloating, bleeding, need for emergent surgeryand loss of life), benefits and alternatives explained and questions answered. The patient verbalized understanding. Based on history patient is an appropriate candidate for the procedure. Rip Subramanian M.D. Documented By: Rip Subramanian MD 11/24/2428 Signed By: 11/24/24 0833 [facility]02-19-2025 Evaluation note* Author Padmini Douglas [facility] Authored October 13, 2024 11:12am The above note written by __ _Victoriano Vega____ acting as human recorder, note dictated by Dr. Burnett .I performed the above HPI, ROS, and Examination. I formulated and dictated the treatment plan and was present for entire encounter. Padmini Douglas D.O. [facility] Work Phone: 1(993) 238-243612-09-2024 Evaluation note* Author Rip Subramanian [facility] Authored August 02, 2024 2 :22pm 24-year-old female with hist ory of Crohn's [...] adverse complications of immunosuppressive treatment including infections [facility] Work Phone: 1(497) 588-598008-30-2024 History of Present illness Narrative* Andrade Edwards [...] after her colonoscopy and was transferred to [facility] for further care, where our team [...] urgency Reports having appointment with her local Manager Business Management yesterday and is planned to start Skyrizi [...] stelara q8 weeks to Skyrizi by her jewel bearing broacher which she wants to continue to follow with. Plan sounds reasonable given her age based on the severe [id number] studies showing Skyrizi with severe superior endpoints when compared to Stelara. She also has many other options and would be a good candidate for TNF-a such as Humira giving stricturing disease - she will check with her jewel bearing broacher if antibody/trough level was checked Patient s/d/w MD Rene Romero MD Fellow, PGY-5 Division of Gastroenterology & Hepatology [facility] Teaching Physician Note I saw and evaluated the patient. I personally obtained the horan and critical portions of the historyand physical exam. I reviewed the fellow's documentation and discussed the patient with the fellow.I agree with the fellow's medical decision making as documented in the fellow's note. Dr. Elijah Posada documented in this [id number] History of Present illness Narrative* Andrade Edwards [...] after her colonoscopy and was transferred to [facility] for further care, where our team [...] urgency Reports having appointment with her local Manager Business Management yesterday and is planned to start Skyrizi [...] stelara q8 weeks to Skyrizi by her jewel bearing broacher which she wants to continue to follow with. Plan sounds reasonable given her age based on the severe [id number]-jv-[id number] studies showing Skyrizi with severe superior endpoints when compared to Stelara. She also has many other options and would be a good candidate for TNF-a such as Humira giving stricturing disease - she will check with her jewel bearing broacher if antibody/trough level was checked Patient s/d/w MD Rene Romero MD Fellow, PGY-5 Division of Gastroenterology & Hepatology [facility] Teaching Physician Note I saw and evaluated the patient. I personally obtained the horan and critical portions of the historyand physical exam. I reviewed the fellow's documentation and discussed the patient with the fellow.I agree with the fellow's medical decision making as documented in the fellow's note. Dr. Elijah Posada documented in this [id number] Evaluation note* Author Padmini Douglas [facility] Authored March 31, 2024 12: 53pm The above note written by __ _Victoriano Vega____ acting as human recorder, note dictated by Dr. Burnett .I performed the above HPI, ROS, and Examination. I formulated and dictated the treatment plan and was present for entire encounter. Padmini Douglas D.O. Author [facility] Authored April 22, 2024 8: 47am [...] 05/03. -Will monitor symptomatic response inflammatory markers [facility] Work Phone: 1(449) 162-263808-05-2024 NoteDISCHARGE SUMMARY [address] [address] Aparna Arteaga Date of : 2000 24 year old female Attending Marko Yi MD Date of Admission 03/26/2024 Date of Discharge 03/29/2024 Final Diagnosis: Crohn's disease of small intestine with intestinal obstruction (HCC) Hospital Problems as of 03/29/2024 * (Principal) Crohn's disease of small intestine with intestinal obstruction (HCC) SBO (small bowel obstruction) (HCC) ADHD (attention deficit hyperactivity disorder) No discharge procedures on file. Future Appointments Date Time Provider Department Center 04/23/2024 10:00 AM Rene Roque MD Gastro [facility] Condition at Discharge improved Symptoms to [...] CT and NGT was placed. Transferred to [facility] on 03/26 for further evaluation. [...] [facility] Discharge Medication List as of 03/29/2024 5:19 [...] prompt more urgent follow-up Marko Yi MD [facility] [phone] [id number] Note03/29/24 0931 Assessment and Discharge Planning Evaluation READMISSION LESS THAN 30 DAYS No READMISSION RISK SCORE IS Low Risk INTERVIEWED Chart Review COGNITIVE STATUS Oriented FUNCTIONAL STATUS PRIOR TO ADMISSION Age Appropriate LIVING SITUATION Home with Family ADMISSION INSURANCE Private Insurance ([employer] [place]) HOME HEALTH CARE PRIOR TO ADMISSION No [...] complete appropriate assessments and interventions. SHEFALI Oseguera, [facility] NoteHospital Medicine Progress Note Aparna Arteaga Age [age] year old female [id number] Admitted 03/26/2024 9:16 AM Hospital Day: [...] that prompted her to go to the [facility] ER. Patient was found to have SBO [...] Patient. All questions and concerns addressed. [facility] Medicine Progress Note Aparna Arteaga Age [age] year old female [id number] Admitted 03/26/2024 9:16 AM Hospital Day: [...] SKIN: Normal coloration, warm, AND dry. NEURO: envelope maker grossly intact, normal speech, no lateralizing weakness. [...] CT and NGT was placed. Transferred to [facility] on 03/26 for further evaluation. 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 I have obtained pertinent history from the patient and/or surrogate including via chart review. I have independantly interpreted the tests performed and discussed management with other consultants/providers involved in the treatment of this patient. 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 I have obtained pertinent history from the patient and/or surrogate including via chart review. I have independantly interpreted the tests performed and discussed management with other consultants/providers involved in the treatment of this patient. Total time spent is greater than 50 minutes with over 50% spent in care-coordination.[facility] [id number] NoteInternal Medicine - History and Physical Examination Aparna Arteaga 24 year old 0 lbs MRN/Room: [id number]/[facility]/ Admit Date: 03/26/2024 : 2000 CC: Abdominal pain (Sent from [facility] for + SBO, NG tube in place [...] social determinants of health. Jordana Beebe MD, [facility] Medicine Physician Service Car Driversiebel administrator I have personally reviewed the natural remedy consultant notes, nursing notes, therapy and allied healthcare provider notes, labarotary tests and imaging/radiological tests. I have obtained pertinent history from the patient and/or surrogate including via chart review. I have independantly interpreted the tests performed and discussed management with other consultants/providers involved in the treatment of this patient.[facility] [id number] Procedure note [facility]07-11-2024 Evaluation note* Author [facility] Authored March 04, 2024 11:3 8am [...] and arrange for colonoscopy Author Padmini Douglas [facility] Authored December 24, 2023 11:07a m The above note written by __ _Victoriano Vega____ acting as human recorder, note dictated by Dr. Burnett .I performed the above HPI, ROS, and Examination. I formulated and dictated the treatment plan and was present for entire encounter. Padmini Douglas D.O. [facility] Work Phone: [phone]) 770-309407-11-2024 Evaluation note* Author waqar [facility] Authored March 04, 2024 11:3 8am 23-year-old [...] CRP fecal calprotectin and arrange for colonoscopy [facility] Work Phone: [phone]) 511-712902-12-2024 Evaluation note* Encounter Date Diagnosis Assessment Notes Treatment Notes Treatment Clinical Notes Sep, ADHD (attention deficit hyperactivity disorder) (ICD-10 - F90.9) [employer] Other 01-29-2024 Evaluation note* Encounter Date Diagnosis [...] use and benefit from the above medication. [employer] Other 12-29-2023 Evaluation note* Encounter Date Diagnosis Assessment Notes Treatment Notes Treatment Clinical Notes Jul, ADHD (attention deficit hyperactivity disorder) (ICD-10 - F90.9) [employer] Other 11-06-2023 Evaluation note* Encounter Date Diagnosis [...] Other She is followin g with Dr. Subramanian yearly. [employer] Other 09-29-2023 Evaluation note* Encounter Date Diagnosis Assessment Notes Treatment Notes Treatment Clinical Notes Apr, ADHD (attention deficit hyperactivity disorder) (ICD-10 - F90.9) [employer] Other 08-28-2023 Evaluation note* Encounter Date Diagnosis Assessment Notes Treatment Notes Treatment Clinical Notes Mar, ADHD (attention deficit hyperactivity disorder) (ICD-10 - F90.9) [employer] Other 07-24-2023 Evaluation note* Encounter Date Diagnosis [...] should continue with the medication with her launchman if she becomes . An OARRS report [...] have lab drawn before her next appointment. [employer] Other 07-10-2023 Evaluation note* Encounter Date Diagnosis Assessment Notes Treatment Notes Treatment Clinical Notes Feb, ADHD (attention deficit hyperactivity disorder) (ICD-10 - F90.9) [employer] Other 05-30-2023 Evaluation note* Encounter Date Diagnosis Assessment Notes Treatment Notes Treatment Clinical Notes December, ADHD (attention deficit hyperactivity disorder) (ICD-10 - F90.9) [employer] Other 04-13-2023 Evaluation note* Encounter Date Diagnosis Assessment Notes Treatment Notes Treatment Clinical Notes Nov, Crohns disease (ICD-10 - K50.90) [employer] Other 03-20-2023 Evaluation note* Encounter Date Diagnosis Assessment Notes Treatment Notes Treatment Clinical Notes Oct, ADHD (attention deficit hyperactivity disorder) (ICD-10 - F90.9) [employer] Other 02-28-2023 Evaluation note* Encounter Date Diagnosis Assessment Notes Treatment Notes Treatment Clinical Notes Sep, Crohns disease (ICD-10 - K50.90) -Continue Stelara- Will plan for colonoscopy after 1 year unless patient develops recurrent rectal bleeding or other symptoms [employer] Other 02-28-2023 Evaluation note* Encounter Date Diagnosis Assessment Notes Treatment Notes Treatment Clinical Notes Sep, Crohns disease (ICD-10 - K50.90) [employer] Other 01-19-2023 Evaluation note* Encounter Date Diagnosis Assessment Notes Treatment Notes Treatment Clinical Notes Aug, ADHD (attention deficit hyperactivity disorder) (ICD-10 - F90.9) [employer] Other 01-16-2023 Evaluation note* Encounter Date Diagnosis [...] drawn. Aug, Other Her TSH was 2.04 [employer] Other 11-22-2022 Evaluation note* Encounter Date Diagnosis Assessment Notes Treatment Notes Treatment Clinical Notes Jun, ADHD (attention deficit hyperactivity disorder) (ICD-10 - F90.9) [employer] Other 10-19-2022 Evaluation note* Encounter Date Diagnosis Assessment Notes Treatment Notes Treatment Clinical Notes May, Depression (ICD-10 - F32.9) [employer] Other 10-19-2022 Evaluation note* Encounter Date Diagnosis [...] support for her may be moving to [place]. She has decided not [facility]. Due to a pharmacy mix [...] and exercising. Her dog bite has healed. [employer] Other 08-22-2022 Evaluation note* Encounter Date Diagnosis Assessment Notes Treatment Notes Treatment Clinical Notes Mar, ADHD (attention deficit hyperactivity disorder) (ICD-10 - F90.9) [employer] Other 06-20-2022 Evaluation note* Encounter Date Diagnosis Assessment Notes Treatment Notes Treatment Clinical Notes Jan, ADHD (attention deficit hyperactivity disorder) (ICD-10 - F90.9) [employer] Other 05-18-2022 Evaluation note* Encounter Date Diagnosis Assessment Notes Treatment Notes Treatment Clinical Notes December, ADHD (attention deficit hyperactivity disorder) (ICD-10 - F90.9) [employer] Other 04-20-2022 Evaluation note* Encounter Date Diagnosis Assessment Notes Treatment Notes Treatment Clinical Notes Nov, ADHD (attention deficit hyperactivity disorder) (ICD-10 - F90.9) [employer] Other 2022 Evaluation note* Encounter Date Diagnosis [...] - K50.90) Continue to follow with the 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 She voices that she is due [...] would take once she stops the control. [employer] Other 02-16-2022 Evaluation note* Encounter Date Diagnosis Assessment Notes Treatment Notes Treatment Clinical Notes Sep, ADHD (attention deficit hyperactivity disorder) (ICD-10 - F90.9) [employer] Other 12-14-2021 Evaluation note* Encounter Date Diagnosis Assessment Notes Treatment Notes Treatment Clinical Notes Jul, ADHD (attention deficit hyperactivity disorder) (ICD-10 - F90.9) [employer] Other 11-15-2021 Evaluation note* Encounter Date Diagnosis Assessment Notes Treatment Notes Treatment Clinical Notes Jun, ADHD (attention deficit hyperactivity disorder) (ICD-10 - F90.9) [employer] Other 10-27-2021 Evaluation note* Encounter Date Diagnosis Assessment Notes Treatment Notes Treatment Clinical Notes May, Crohn's disease involving terminal ileum (ICD-10 - K50.00) May, Other CONTINUE STELAR A DIRECTED [employer] Other 04-01-2017 History general Narrative - Reported* Type Description Date Medical History ADHD Medical History Crohn's 11/2016 Dr Gutierrez Surgical History colonoscopy Dr Gutierrez 12/20/16 Surgical History wisdom teeth extract [employer] Other 04-01-2017 History general Narrative - Reported* Type Description Date Medical History ADHD Medical History Crohn's 11/2016 Dr Gutierrez Surgical History colonoscopy Dr Gutierrez 12/20/16 Surgical History wisdom teeth extract Surgical History Colonoscopy Dr. Portillo 12/07/21 [employer] Other Evaluation noteNo InformationNort Mercaux Other Evaluation noteNo assessment information available [facility] Work Phone: Evaluation note* Diagnosis Crohn's disease of small intestine with intestinal obstruction (HCC)- [facility] enter[facility] Crohn's disease of small intestine with intestinal obstruction (HCC)- [facility] enteritis of small intestine Body mass index (BMI) 27.0-27.9, adult [facility]* Diagnosis Encounter for gynecological examination without abnormal finding Screening for malignant neoplasm of cervix Screening for malignant neoplasm of the cervix Encounter for surveillance of contraceptive pills [facility] Author Padmini Douglas [facility] Authored May 16, 2025 5:19pm The above note written by __ _Victoriano Vega____ acting as human recorder, note dictated by Dr. Burnett .I performed the above HPI, ROS, and Examination. I formulated and dictated the treatment plan and was present for entire encounter. Padmini Douglas D.O. [facility] Work Phone: History and physical note Author Rip Subramanian [facility] Note Date/Time November 24, 2024 8:33 am [facility] [address] [place] [address] Gastroenterology H&P Signed Patient: Aparna Arteaga MR#: [id number] : 2000 Acct:[id number] Age/Sex: 24 / F Adm Date: 5 Loc: Room: Type: [facility] Attending Dr: Rip Subramanian MD Copies to: DO Rip Oden MD~ Date of Service: 11/24/2024 HISTORY & PHYSICAL: Patient's history with special attention to the cardiovascular, pulmonary systems and the current problem was reviewed with the patient immediately prior to the procedure. Present medications and doses reviewed in the EMR. Allergies and pertinent laboratory tests were also reviewedat this time in the EMR. The physical examination, as below, was then performed. Indication, assessment and HPI: 24-year-old female with history of Crohn's disease here for colonoscopy to evaluate disease activity Family history of GI malignancy? No PHYSICAL EXAMINATION General appearance: NAD Skin: No jaundice Head: NC/AT Eyes: Anicteric Neck: Supple Lungs: Normal respiratory effort, no use of accessory muscles Abdomen: nondistended Neuro: Ox3. REVIEW OF SYSTEMS Constitutional: Denies malaise, fevers Cardiovascular: Denies chest pain, palpitations Respiratory: Denies shortness of breath, wheezing Gastrointestinal: As per HPI Genitourinary: Denies dysuria, polyuria Musculoskeletal: Denies joint swelling, joint stiffness Neurological: Denies confusion, numbness, tingling Endocrine: Denies fatigue Written informed consent obtained from the patient. Risks (including but not limited to perforation, infection, bloating, bleeding, need for emergent surgeryand loss of life), benefits and alternatives explained and questions answered. The patient verbalized understanding. Based on history patient is an appropriate candidate for the procedure. Rip Subramanian M.D. Documented By: Rip Subramanian MD 11/24/24 0828 Signed By: <Electronically signed by Rip Subramanian MD> 11/24/24 0833 [facility] Work Phone: Hospital Discharge instructions Additional Instructions DISCHARGE INSTRUCTIONS FOR [...] NOT operate machinery such as power tools, lawn mowers, snow blowers, sewing machines, etc. for 24 hours. - [...] you have any problems. -[facility] -Follow up in the office -Office number [phone]. [facility] Work Phone: Reason for referral (narrative)No reason for referral information availableMer[facility] Work Phone: Summary Purpose Family History Relationship Condition Age at Onset Recorded Date/T cesar grandparent Malignant neoplasm of lung Unknown Relationship Condition Age at Onset Recorded Date/T cesar grandparent Malignant neoplasm of lung Unknown grandparent Unknown grandparent Heart disease Unknown family member Malignant neoplasm of breast Unknown Diabetes mellitus Unknown Malignant neoplasm of colon Unknown paternal grandmother Transient ischemic attack Unknown Relationship Condition Age at Onset Recorded Date/T cesar grandparent Malignant neoplasm of lung Unknown grandparent Unknown grandparent Heart disease Unknown family member Malignant neoplasm of colon Unknown Diabetes mellitus Unknown Malignant neoplasm of breast Unknown paternal grandmother Transient ischemic attack Unknown father Hypertension Unknown Elevated heart rate with elevated blood pressure and diagnosis of hypertension Unknown Advance Directives Advance Directive Response Recorded [...] over due for yearly appt, due for robbielara D64.9 Z79.899 R63.5 K50.90 Reason for Visit ADHD (attention defi cit hyperactivity disorder) Insomnia Crohn's disease Chief Complaint over due for yearly appt, due for farida D64.9 Z79.899 R63.5 K50.90 Crohn's Crohn's Reason [...] 9:45am Iron deficiency anemia October 13 9:45am Chief Complaint Admit Date med refill October 13, 2024 9:45am K50.90D72.829 R73.9 November 17, 2024 8:2 9am Reason for Visit Admit Date ADHD (attention deficit hyperactivity di sorder) October 13, 2024 9:45am Crohn's disease October 13, 2024 9:45am Depression October 13, 2024 9:45am Iron deficiency anemia October 13 9:45am Chief Complaint Admit Date med refill October 13, 2024 9:45am K50.90D72.829 R73.9 November 17, 2024 8:2 9am crohn's November 24, 2024 7:00 am crohn's November 24, 2024 8:28 am Chief Complaint Admit Date K50.90D72.829 R73.9 November 17, 2024 8:2 9am crohn's November 24, 2024 7:00 am crohn's November 24, 2024 8:28 am med refill/review labs January 12, 2025 9: 44am 6 m f/u Crohn's February 01, 2025 1:45 pm Reason for Visit Admit Date ADHD (attention deficit hyperactivity di sorder) January 12, 2025 9:44am Crohn's disease January 12, 2025 9:44a m Depression January 12, 2025 9:44a m Hypoglycemia January 12, 2025 9:44a m Iron deficiency anemia January 12, 2025 9: 44am Crohn's disease February 01, 2025 1:45 pm Chief Complaint Admit Date med refill May 16, 2025 4:51pm Reason for Visit Admit Date ADHD (attention deficit hyperactivity di sorder) May 16, 2025 4:51pm Crohn's disease May 16, 2025 4:51pm Flu vaccine need May 16, 2025 4:51pm Iron deficiency anemia May 16 025 4:51pm Additional Source Comments INFORMATION SOURCE (unrecogn ized section and content) DATE CREATED AUTHOR 01/31/2022 [facility] DATE CREATED AUTHOR AUTHOR'S ORGANIZ ATION 03/31/2024 [facility] DATE CREATED AUTHOR AUTHOR'S ORGANIZ ATION 11/28/2024 [facility] EPIC DATE CREATED AUTHOR AUTHOR'S ORGANIZ ATION 12/04/2024 [facility] REASON FOR VISIT (unrecogniz ed section and content) Reason Comments Gynecologic Exam Pt states been on OC P for 10 years. Pt would like to discuss and make sure safe stay on for longer term. Pt unsure yet if she wants to try for yet. Denies bowel/bladder/breast concerns. LMP 11/16/24. Menses regular with OCP Care Teams (unrecognized sec tion and content) Team Status: Active Member Role Status Dates Padmini Douglas DO Primary Care Provider Active Team Status: Inactive Member Role Status Dates Padmini Douglas DO Primary Care Provide r, Attending Provider Active Start: October 13, 2024 End: October 13, 2024 Team Status: Inactive Member Role Status Dates Padmini Douglas DO Primary Care Provide r, Attending Provider Active Start: November 17, 2024 End: November 17, 2024 Team Status: Active Member Role Status Dates Padmini Douglas DO Primary Care Provider Active S tart: July 21, 2024 Rip Subramanian MD Attending Provider Active Start: July 21, 2024 Team Status: Inactive Member Role Status Dates Padmini Douglas DO Primary Care Provider Active S tart: August 02, 2024 End: August 02, 2024 Rip Subramanian MD Attending Provider Active Start: August 02, 2024 End: August 02, 2024 Team Status: Inactive Member Role Status Dates Padmini Douglas DO Primary Care Provider, Attending Pro vider Active Team Status: Inactive Member Role Status Dates Padmini Douglas DO Primary Care Provide r, Attending Provider Active Start: December 24, 2023 End: December 24, 2023 Team Status: Inactive Member Role Status Dates Padmini Douglas DO Primary Care Provider Active S tart: March 04, 2024 End: March 04, 2024 Rip Subramanian MD Attending Provider Active Start: March 04, 2024 End: March 04, 2024 Team Status: Active Member Role Status Dates Padmini Douglas DO Primary Care Provider Active S tart: March 17, 2024 Rip Subramanian MD Attending Provider Active Start: March 17, 2024 Team Status: Inactive Member Role Status Khushbu Padmini Douglas DO Primary Care Provide r, Attending Provider Active Start: March 22, 2024 End: March 22, 2024 Rip Subramanian MD Other Provider Active Start: Feb End: March 22, 2024 Team Status: Inactive Member Role Status Dates Padmini Douglas DO Primary Care Provider Active [...] 2024 Team Status: Inactive Member Role Status Dates Padmini Douglas DO Primary Care Provider Active S tart: April 22, 2024 End: April 22, 2024 Rip Subramanian MD Attending Provider Active Start: April 22, 2024 End: April 22, 2024 Team Status: Inactive Member Role Status Dates Padmini Douglas DO Primary Care Provider Active S tart: June 29, 2024 End: June 29, 2024 Rip Subramanian MD Attending Provider, Referring Provider Active Start: June 29, 2024 End: June 29, 2024 Team Status: Active Member Role Status Khushbu Douglas Primary Care Provider Active S tart: November 17, 2024 Rip Subramanian MD Attending Provider Active Start: November 17, 2024 Team Status: Inactive Member Role Status Khushbu Douglas Primary Care Provider Active S tart: November 24, 2024 End: November 24, 2024 Rip Subramanian MD Attending Provider Active Start: November 24, 2024 End: November 24, 2024 Team Status: Active Member Role Status Khushbu Padmini Frostjay Primary Care Provider Active S tart: November 24, 2024 Rip Subramanian MD Attending Provider, Other Provider Act alondra Start: November 24, 2024 Team Status: Inactive Member Role Status Khushbu Padmini Frostjay Primary Care Provide r, Attending Provider Active Start: January 12, 2025 End: January 12, 2025 Team Status: Inactive Member Role Status Khushbu Padmini Aracelis Primary Care Provider Active S tart: February 01, 2025 End: February 01, 2025 Rip Subramanian MD Attending Provider Active Start: February 01, 2025 End: February 01, 2025 Team Status: Inactive Member Role Status Khushbu Douglas Primary Care Provider Active S tart: May 16, 2025 End: May 16, 2025 Padmini Douglas Attending Provider Active Star t: May 16, 2025 End: May 16, 2025 Goals (unrecognized section and content) Goals may [...] BE BASED ON THE PRIMARY CLINICAL RECORDS. [employer] provides no warranty or guarantee of the accuracy or completeness of information in this document.
[2025-06-07 14:09] LABS: Calprotectin, Fecal 43 ug/g (0-120)
== END 2025-06-04 11:14 | disposition home or self-care (01) ==
LOC: LAB 11:13
PROVIDERS: PCP Family Medicine; Visit Provider Internal Medicine
DX: K50.90 Crohn's disease, unspecified, without complications (principal)
CPT/HCPCS: 36415; 83993; 86140

== ENCOUNTER 2025-08-03 15:29 | Outpatient (OUT) | payer BC, SELFPAY ==
[2025-08-03 15:48] LABS: Hematocrit 41.1 % (36.0-48.0); Hemoglobin 14.1 g/dL (12.0-16.0); Immature Granulocytes Abs Auto 0.03 10^3/uL (0.00-0.03); Immature Granulocytes Pct Auto 0.3 % (0.0-0.5); Lymphocytes Absolute Auto 2.7 10^3/uL (1.2-3.8); Mean Corpuscular HGB Conc 34.3 g/dL (29.9-35.2); Mean Corpuscular Hemoglobin 30.7 pg (26.7-34.0); Mean Corpuscular Volume 89.3 fL (81.0-99.0); Platelet Count 369 10^3/uL (150-450); Red Blood Count 4.60 10^6/uL (4.20-5.40); White Blood Count 10.8 10^3/uL (4.0-11.0)
[2025-08-03 16:34] LABS: Alanine Aminotransferase 17 U/L (14-59); Albumin Globulin Ratio 0.9; Albumin Level 3.7 g/dL (3.4-5.0); Alkaline Phosphatase 88 U/L (46-116); Anion Gap 13.2; Aspartate Amino Transferase 11 U/L (15-37); Blood Urea Nitrogen 4.0 mg/dL (7.0-18.0); Calcium 8.7 mg/dL (8.5-10.1); Carbon Dioxide 26.5 mmol/L (21.0-32.0); Chloride 103 mmol/L (98-107); Estimated GFR (African America >60 (>=60 mL/min/1.73m^2); Estimated GFR (Non-African Ame >60 (>=60 mL/min/1.73m^2); Globulin 3.9 g/dL; Glucose 86 mg/dL (74-106); Potassium 3.7 mmol/L (3.5-5.1); Sodium 139 mmol/L (136-145); Thyroid Stimulating Hormone 0.976 uIU/mL (0.358-3.740); Total Protein 7.6 g/dL (6.4-8.2)
[2025-08-03 16:35] LABS: Iron 47.0 ug/dL (50.0-170.0); Percent Iron Saturation 11.6 %; Total Iron Binding Capacity 405.0 ug/dL (250.0-450.0)
[2025-08-03 16:46] LABS: Ferritin 70.0 ng/mL (8.0-252.0)
== END 2025-08-03 15:30 | disposition home or self-care (01) ==
LOC: LAB 15:29
PROVIDERS: PCP Family Medicine; Visit Provider Family Medicine
DX: Z79.899 Other long term (current) drug therapy (principal); D50.9 Iron deficiency anemia, unspecified; R63.4 Abnormal weight loss
CPT/HCPCS: 36415; 80053; 82728; 83540; 83550; 84443; 85025